=== PATIENT | female | born 1980 | race Caucasian/White ===

== ENCOUNTER 2017-06-23 13:39 | Emergency (ER) | payer MEDICARE, OTHER ==
[~2017-06-23] VITALS: Ht 154.9 cm; Wt 52.2 kg
--- OUTSIDE RECORDS SUMMARY | ~2017-06-23 | XMS | Encounter Summary ---
Demographics + + + | Address | [address] | | | [place] [address] | + + + | Home Phone | | + + + | Preferred Language | Unknown | + + + | Marital Status | | + + + | Tenriism Affiliation | Unknown | + + + | Race | Unknown | + + + | Ethnic Group | Unknown | + + + Author + + + | Author | [facility] | + + + | Organization | [facility] | + + + | Address | Unknown | + + + | Phone | Unavailable | + + + Support + + +---------+ + | Name | Relationship | Address | Phone | + + +---------+ + | Naye Wright | ECON | Unknown | | + + +---------+ + Care Team Providers + +------+ + | Care Grocery Supervisor Name | Role | Phone | [...] 05/21/2017-06/16/2017) | | | | [place] [address] | | | | | | [phone] | | | +--------+ + + + [...] [place] | | | | | | [address] | | | | | | | | +--------+---------+ + + + as of this encounter Visit Diagnoses Not on filein this encounter"
--- OUTSIDE RECORDS SUMMARY | ~2017-06-23 | XMS | Encounter Summary ---
Demographics + + + | Address | [address] | | | [place] [address] | + + + | Home Phone | | + + + | Preferred Language | Unknown | + + + | Marital Status | | + + + | Anabaptism Affiliation | Unknown | + + + | Race | Unknown | + + + | Ethnic Group | Unknown | + + + Author + + + | Author | [facility] [employer] [facility] [facility] | + + + | Organization | [facility] [employer] [facility] | + + + | Address | Unknown | + + + | Phone | Unavailable | + + + Support + + +---------+ + | Name | Relationship | Address | Phone | + + +---------+ + | Naye Wright | ECON | Unknown | | + + +---------+ + Care Team Providers + +------+ + | Care Tools Developer Name | Role | Phone | + +------+ + | [facility] Primary | PCP | | + +------+ + Reason for Visit MRI/CAT Scan (Emergency) + +--------+ + + + + | Status | Reason | Specialty | Diagnoses / | Referred By | Referred To | | | | | Procedures | Contact | Contact | + +--------+ + + + + | Authorized | | Radiology | Diagnoses | [place], | [facility] | | | | | CKD | Tavares Orellana MD | [address] | | | | | (chronic | [address] | [address] | | | | | kidney | [address] | [address] | | | | | disease) | [place], [place] | [place], [place] | | | | | stage 5, GFR | [address] | [address] Phone: | | | | | less than | Phone: | [phone] | | | | | 15 ml/min | [phone] | Fax: | | | | | (HCC) | Fax: | [phone] | | | | | Nephrotic | [phone] | | | | | | range [...] + + | 04/24/ | Hospital | [facility] | Tavares Vaca MD | CKD (chronic kidney | | 2018 | Encounter | Medical Center | [address] | disease) stage 5, | | | | Clinical Decision | [address] [place], [place] | GFR less than 15 | | | | [address] | [address] | ml/min ([facility]); | | | | [place] [address] | | Nephrotic range | | | | [phone] | 2, [facility] Di Nurse | proteinuria; Anemia | | | | | Radiologist, [facility] | of chronic renal | | | | | Procedure Ct | failure, stage 4 | | | | | | (severe) ([facility]); | | | | | | Secondary | | | | | | hyperparathyroidism | | | | | | ([facility]); | | | | | [...] return to work. Be sure to tell [facility] are providerif your job involves heavy lifting. [...] with or without activity Date Last Reviewed: 04/04/201619991420-1105 [employer]. [address] [place] [address]. All righ ts reserved. This information is [...] | | | | | | [address] [place], [place] | | | | | | [address] | | | | | | | [...] Laboratory | + + + | | [address] [address] | + + + + + | [...] intervention Patient positioning: Prone. | | Axial basketball scout images were obtained through region of interest [...] imaging and interventionPatient | | positioning: Prone.Axial basketball scout images were obtained through region of interest [...] EMBOLISMTesting performed at | | | | [facility];[address] [place] [address];[place] [address] | | | |Testing performed at [facility];[address] [place] [address];[place] [address] | | | | | | + + + + + + + | Specimen | Performing Laboratory | + + + | Blood | [facility] [address] [place] [address] | + + + aPTT (04/24/2017 8:15 AM) + + + + | Component | Value | Ref Range | + + + + | APTT | 30Comment: Testing performed at [facility];888 | 23 - 32 seconds | | | Jojo Hester;[place] [address] | | + + + + + + + | Specimen | Performing Laboratory | + + + | Blood | [facility] [address] [place] [address] | + + + Platelet count (04/24/2017 8:15 AM) + + + + | Component | Value | Ref Range | + + + + | PLT | 248Comment: Testing performed at [facility];888 | 150 - 400 K/uL | | | Jojo Hester;[place] [address] | | + + + + + + + | Specimen | Performing Laboratory | + + + | Blood | [facility] [address] [place] [address] | + + + in this encounter [...]
--- OUTSIDE RECORDS SUMMARY | ~2017-06-23 | XMS | Encounter Summary ---
Demographics + + + | Address | [address] | | | [place] [address] | + + + | Home Phone | | + + + | Preferred Language | Unknown | + + + | Marital Status | | + + + | Alevism Affiliation | Unknown | + + + | Race | Unknown | + + + | Ethnic Group | Unknown | + + + Author + + + | Author | [facility] [employer] | + + + | Organization | [employer] [employer] | + + + | Address | Unknown | + + + | Phone | Unavailable | + + + Support + + +---------+ + | Name | Relationship | Address | Phone | + + +---------+ + | Naye Wright | ECON | Unknown | | + + +---------+ + Care Team Providers + +------+ + | Care Esl Instructional Assistant Name | Role | Phone | + +------+ + | Clinic, [facility] | PCP | Unavailable | | Community | | | + +------+ + Encounter Details +--------+---------+ + + + | Date | Type | Department | Care Team | Description | +--------+---------+ + + + | 04/22/ | Office | [facility] | Tavares Vaca MD | BRIDGET (acute kidney | | 2018 | Visit | [place] [address] | [address] | injury) (Primary | | | | [facility] | [address] [place], [place] | Dx); CKD (chronic | | | | [address] [place], [place] | [address] | kidney disease) | [...] evaluation by the Kidney Transplant team at [facility]. I stopped her Ibuprofen. I put [...] F/U with the liver transplant team at [facility] for management of her anti-rejection meds. She will need to be seen by the Liver transplant team in [place] soon & regularly. She will continue to F/U with your office regularly. She will have a RFP, CBC, intact PTH, SFLC, SPIF, urinalysis, Urine total hypehmp-dy-dth atinine ratio before she comes back in [...] mouth 2 (two) times daily. nystatin (MYCOSTATIN) [id number] UNIT/ML suspension Take 200,000 Units by mouth [...] stage IV CKD on a background of detention use of calcineurin inhibitors. 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 She had a liver transplant at the age of 8; she had the hepatorenal syndrome in early 2014 & needed to go dialysis; she came off of it for 2.5 months; restart[facility] HD [facility]. She had her second [...] for evaluation by the Vascular Surgery team [facility] for AV fistula creation I sent her for evaluation by the Kidney Transplant team at [facility]. I stopped her Ibuprofen. I put [...] F/U with the liver transplant team at [facility] for management of her anti-rejection meds. She will need to be seen by the Liver transplant team in [place] soon & regularly. She will continue to F/U with your office regularly. She will have a RFP, CBC, intact PTH, SFLC, SPIF, urinalysis, Urine total uubakge-we-ktd atinine ratio before she comes back in 1 month. Thank you Colleague for the opportunity to see this patient in F/U on an urgent basis today for a declining GFR in the setting of liver transplant. Please do not hesitate to call me a t any time with questions or concerns. Truly yours, Tavares Vaca MD [facility] in this encounter Plan of Treatment +--------+---------+ + + + | Date | Type | Specialty | Care Team | Description | +--------+---------+ + + + | 07/15/ | Office | Nephrology | Tavares Vaca MD | | | 2018 | Visit | | [address] | | | | | | [address] [place], [place] | | | | | | [address] | | | | | | | | +--------+---------+ + + + as of this encounter Visit Diagnoses + + | Diagnosis | + + | BRIDGET (acute kidney injury) - Primary | + + | Acute kidney failure, unspecified | + + | CKD (chronic kidney disease) stage 5, GFR less than 15 ml/min ([facility]) | + + | Chronic kidney disease, [...]
--- OUTSIDE RECORDS SUMMARY | ~2017-06-23 | XMS | Encounter Summary ---
Demographics + + + | Address | [address] | | | [place] [address] | + + + | Home Phone | | + + + | Preferred Language | Unknown | + + + | Marital Status | Single | + + + | Confucianist Affiliation | NON | + + + [...] Team Providers + +------+ + | Care Reading Professor Name | Role | Phone | + [...] | [address] | [address] [place], | procedures) | | | | Road [place], [place] | [place] [address] | | | | | [address] | | | | | | [phone] | | | +--------+ + + + [...] | | | | | [address] [place], | | | | | | [place] [address] | | | | | | [phone] | | | | | | | | +--------+---------+ + + + as of this encounter Visit Diagnoses Not on filein this encounter"
--- OUTSIDE RECORDS SUMMARY | ~2017-06-23 | XMS | Encounter Summary ---
Demographics + + + | Address | [address] | | | [place] [address] | + + + | Home Phone | | + + + | Preferred Language | Unknown | + + + | Marital Status | Single | + + + | Zoroastrianism Affiliation | NON | + + + | Race | White | + + + | Ethnic Group | Not or | + + + Author + + + | Author | [facility] | + + + | Organization | [facility] | + + + | [...] Team Providers + +------+ + | Care Die Repairer Stamping Name | Role | Phone | + [...] | | | | | Procedures | [place], [place] | | | | | | CT ABDOMEN | [address] | | | | | | WWO IV | Phone: | | | | | | CONTRAST | [phone] | | | | | | | Fax: | | | | | | | [phone] | | +--------+--------+ + + + + [...] | | | | replaced by | [address] | | | | | | transplant | [address] | | | | | | (HCC) | Rd | | | | | | Procedures | [place], [place] | | | | | | CONSULT TO | [address] | | | | | | GI PROCEDURE | Phone: | | | | | | UNIT: EGD | [phone] | | | | | | | Fax: | | | | | | | [phone] | | + +--------+ + + + [...] Radiology | Liver | MD Bernabe | [facility] [address] | | | | | replaced by | [address] | | | | | transplant | [facility] | [facility] | | | | | (HCC) | Rd | Mailcode: | | | | | Procedures | [place], [place] | [address] | | | | | IR BODY | [address] | [place] | | | | | PROCEDURE | Phone: | Hospital | | | | | REQUEST [place] | [phone] | [facility] | | | | | PLACE CATH | Fax: | [place], [place] | | | | | [place] | [phone] | [address] | | | | | VEIN,SELECT | | Phone: | | | | | RI VENOGRAM | | [phone] | | | | | HEPATIC W | | Fax: | | | | | HEMODYNAMICS | | [phone] | | | | | RI | | | | | | | TRANSCATHETE | | | | | | | R BIOPSY RI | | | | | | | VASCULAR | | | | | | | BIOPSY RI | | | | | | | [...] + + + + | 05/07/ | County Assessor | Transplant | Bernabe Taylor MD | Liver replaced by | | 2018 | | Coordinators [address] | [address] | transplant (HCC) | | | | [address] | [address] [place], | (Primary Dx); | | | | Road [place], [place] | [place] [address] | Cirrhosis of liver | | | | [address] | 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
--- OUTSIDE RECORDS SUMMARY | ~2017-06-23 | XMS | Encounter Summary ---
Demographics + + + | Address | [address] | | | [place] [address] | + + + | Home Phone | | + + + | Preferred Language | Unknown | + + + | Marital Status | | + + + | Restoration Affiliation | Unknown | + + + | Race | Unknown | + + + | Ethnic Group | Unknown | + + + Author + + + | Author | [facility] [facility] | + + + | Organization | [employer] | + + + | Address | Unknown | + + + | Phone | Unavailable | + + + Support + + +---------+ + | Name | Relationship | Address | Phone | + + +---------+ + | Naye Wright | ECON | Unknown | | + + +---------+ + Care Team Providers + +------+ + | Care Production Tester Name | Role | Phone | + [...] 04/15/2017) | | | | [place] [address] | | | | | | [phone] | | | +--------+ + + + [...] | | | | | | [address] [place] | | | | | | [address] | | | | | | | | +--------+---------+ + + + as of this encounter Visit Diagnoses Not on filein this encounter"
--- OUTSIDE RECORDS SUMMARY | ~2017-06-23 | XMS | Encounter Summary ---
Demographics + + + | Address | [address] | | | [place] [address] | + + + | Home Phone | | + + + | Preferred Language | Unknown | + + + | Marital Status | | + + + | Zoroastrianism Affiliation | Unknown | + + + | Race | Unknown | + + + | Ethnic Group | Unknown | + + + Author + + + | Author | [facility] [facility] | + + + | Organization | [employer] | + + + | Address | Unknown | + + + | Phone | Unavailable | + + + Support + + +---------+ + | Name | Relationship | Address | Phone | + + +---------+ + | Naye Wright | ECON | Unknown | | + + +---------+ + Care Team Providers + +------+ + | Care Polisher Balance Screwhead Name | Role | Phone | + [...] disease) stage 5, | | | | [address] [facility] [address] | | GFR less than 15 | | | | [place] [address] | | ml/min ([facility]); Anemia | | | | [phone] | | of chronic renal | | | | | | failure, stage 5 | | | | | | ([facility]); BRIDGET (acute | | | | | | kidney injury); | | | | | | Secondary | | | | | | hyperparathyroidism | | | | | | ([facility]); Nephrotic | | | | | | [...] [place] | | | | | | [address] | | | | | | | [...] | + + + | Blood | [facility] [address] [place] [address] [facility] [address] [place] | | | [address] | + + + Ferritin (06/14/2017 9:42 AM) + + + + | Component | Value | Ref Range | + + + + | FERRITIN | 472.1 (A) | 13 - 150 ng/mL | + + + + + + + | Specimen | Performing Laboratory | + + + | Blood | [facility] [address] [place] [address] | | | [address] | + + + Renal function panel [...] + + | Blood | [facility] [address] [place], [place] [address] | | | [address] | + + + CBC W/Auto Diff [...] | + + + | Blood | [facility] [place] | | | [address] | + + + PTH intact no calcium (06/14/2017 9:42 AM) + +---------+ + | Component | Value | Ref Range | + +---------+ + | PTH INTACT NO | 409 (A) | 15 - 65 pg/mL | | CALCIUM | | | + +---------+ + + + + | Specimen | Performing Laboratory | + + + | Blood | [facility] [place], [facility] [place] | | | [address] | + + + in this encounter Visit Diagnoses + + | Diagnosis | + + | CKD (chronic kidney disease) stage 5, GFR less than 15 ml/min ([facility]) | + + | Chronic kidney disease, Stage V | + + | Anemia of chronic renal failure, stage 5 ([facility]) | + + | BRIDGET (acute kidney injury) | + + | Acute kidney failure, unspecified | + + | Secondary hyperparathyroidism (HCC) | + + | Secondary hyperparathyroidism (of renal origin) | + + | Nephrotic range proteinuria | + + | Proteinuria | + + | Essential hypertension, benign | + +"
--- OUTSIDE RECORDS SUMMARY | ~2017-06-23 | XMS | Encounter Summary ---
Demographics + + + | Address | [address] | | | [place] [address] | + + + | Home Phone | | + + + | Preferred Language | Unknown | + + + | Marital Status | | + + + | Lutheran Affiliation | Unknown | + + + | Race | Unknown | + + + | Ethnic Group | Unknown | + + + Author + + + | Author | [facility] [facility] | + + + | Organization | [facility] [employer] | + + + | Address | Unknown | + + + | Phone | Unavailable | + + + Support + + +---------+ + | Name | Relationship | Address | Phone | + + +---------+ + | Naye Wright | ECON | Unknown | | + + +---------+ + Care Team Providers + +------+ + | Care Metal Miner Blasting Name | Role | Phone | + [...] | | 2018 | on Only | [place] [address] | | Packet) | | | | [address] | | | | | | [place] [address] | | | | | | [phone] | | | +--------+ + + + [...] IV Therapy. Fax confirmation rece ed from [phone]. in this encounter Plan of Treatment +--------+---------+ + + + | Date | Type | Specialty | Care Team | Description | +--------+---------+ + + + | 07/15/ | Office | Nephrology | Tavares Vaca MD | | | 2017 | Visit | | [address] | | | | | | [facility] | | | | | | [id number] | | | | | | | | +--------+---------+ + + + as of this encounter Visit Diagnoses Not on filein this encounter"
--- OUTSIDE RECORDS SUMMARY | ~2017-06-23 | XMS | Encounter Summary ---
Demographics + + + | Address | [address] | | | [place] [address] | + + + | Home Phone | | + + + | Preferred Language | Unknown | + + + | Marital Status | | + + + | Jain Affiliation | Unknown | + + + | Race | Unknown | + + + | Ethnic Group | Unknown | + + + Author + + + | Author | [facility] [employer] [facility] | + + + | Organization | [facility] [employer] | + + + | Address | Unknown | + + + | Phone | Unavailable | + + + Support + + +---------+ + | Name | Relationship | Address | Phone | + + +---------+ + | Naye Wright | ECON | Unknown | | + + +---------+ + Care Team Providers + +------+ + | Care Ems Helicopter Pilot Name | Role | Phone | [...] | Vascular | Diagnoses | [place], | [facility], | | | Services | Surgery | CKD | Tavares Orellana MD | [address] | | | Required | | (chronic | [address] | [address] | | | | | kidney | [address] | Drive | | | | | disease) | [address] | [place] | | | | | stage 5, GFR | [place], | [address] Phone: | | | | | less than | [place] [address] | [phone] | | | | | 15 ml/min | Phone: | Fax: | | | | | (HCC) | [phone] | [phone] | | | | | Nephrotic | Fax: | | | | | | range | [phone] | | | | | | proteinuria [...] + + | 05/02/ | Initial | [facility] | Jay Portillo MD | Chronic kidney | | 2018 | consult | Vascular Surgery | [address] | disease (CKD), | | | | [address] | [place] [address] | active medical | | | | [address] [place], [place] | [phone] | management without | | | | [address] | | dialysis, | | | | [phone] | | unspecified stage | | | [...] was referred to my office by her Sheriff'S Officer, Dr. Vaca, for fistula creation. Patient reports [...] | | | | | | [address] [place], [place] | | | | | | [...]
--- OUTSIDE RECORDS SUMMARY | ~2017-06-23 | XMS | Encounter Summary ---
Demographics + + + | Address | [address] | | | [place] [address] | + + + | Home Phone | | + + + | Preferred Language | Unknown | + + + | Marital Status | | + + + | Adventism Affiliation | Unknown | + + + | Race | Unknown | + + + | Ethnic Group | Unknown | + + + Author + + + | Author | [facility] [employer] [facility] | + + + | Organization | [facility] [employer] [facility] | + + + | Address | Unknown | + + + | Phone | Unavailable | + + + Support + + +---------+ + | Name | Relationship | Address | Phone | + + +---------+ + | Naye Wright | ECON | Unknown | | + + +---------+ + Care Team Providers + +------+ + | Care Bridge Ironworker Helper Name | Role | Phone | [...] + + | 06/17/ | Documentati | [facility] | Kiersten Shaffer CMA | Labs Only ([facility] | | 2018 | on Only | [place] [address] | | labs dated | | | | [address] | | 06/14/2017) | | | | [place] [address] | | | | | | [phone] | | | +--------+ + + + [...] [place] | | | | | | [address] | | | | | | | | +--------+---------+ + + + as of this encounter Visit Diagnoses Not on filein this encounter"
--- OUTSIDE RECORDS SUMMARY | ~2017-06-23 | XMS | Clinical Summary ---
Demographics + + + | Address | [address] | | | [place] [address] | + + + | Home Phone | | + + + | Preferred Language | Unknown | + + + | Marital Status | | + + + | Restoration Affiliation | Unknown | + + + | Race | Unknown | + + + | Ethnic Group | Unknown | + + + Author + + + | Author | [facility] | + + + | Organization | [facility] | + + + | Address | Unknown | + + + | Phone | Unavailable | + + + Support + + +---------+ + | Name | Relationship | Address | Phone | + + +---------+ + | Naye Wright | ECON | Unknown | | + + +---------+ + Care Team Providers + +------+ + | Care Order Packer Or Packager Name | Role | Phone | + [...] | 11/0 | Activ | | (PROCRIT) [id number] | skin every 30 | | | [...] 06/18/ | Documentati | | Kiersten Shaffer, CEO [facility] | Other (Blood | | 2018 | [...] | | | | ml/min ([facility]) | | | | | | [...] | | | | 5 ([facility]); BRIDGET (acute | | | | [...] | | | | ml/min ([facility]) | | | | | | (Primary Dx); Anemia | | | | | | of chronic renal | | | | | | failure, stage 5 | | | | | | ([facility]); Essential | | | | | | hypertension, | | | | | | benign; | | | | | | Hyperphosphatemia; | | | | | | Secondary | | | | | | hyperparathyroidism | | | | | | ([facility]); Metabolic | | | | | [...] | | | | ml/min ([facility]); Anemia | | | | | | of chronic renal | | | | | | failure, stage 5 | | | | | | ([facility]); BRIDGET (acute | | | | | | kidney injury); | | | | | | Secondary | | | | | | hyperparathyroidism | | | | | | ([facility]); Nephrotic | | | | | | range proteinuria; | | | | | | Essential | | | | | | hypertension, benign | +--------+ + + + + | 06/14/ | Telephone | | Kylee Kerr, | | | 2017 | | | CEO [facility] | | +--------+ + + + + | 06/13/ | Documentati | | Kiersten Shaffer CMA | Other (Chart Note | | 2017 | on Only | | | from [facility] dated | | | | | | [...] | | | | | PhD 3, [facility] Di | GFR less than 15 | | | | | Nurse | ml/min ([facility]); Anemia | | | | | [...] | on Only | | | from [facility] | | | | | | Transplant | | | | | | Hepatology dated | | | | | | 05/07/2017) | +--------+ + + + + | 05/23/ | Documentati | | Kiersten Shaffer, CEO [facility] | Other (Blood Pressre | | 2017 | on Only | | | Log dated | | | | | | 05/06/2017-05/19/2017) | +--------+ + + + + | 05/23/ | Documentati | | Kiersten Shaffer, CEO [facility] | [facility] ([facility] | | 2017 | on Only | | | Packet) | +--------+ + + + + | 05/22/ | Telephone | | Kiersten Shaffer, CEO [facility] | Other | | 2017 | | [...] | | | | ml/min ([facility]); Anemia | | | | | | of chronic renal | | | | | | failure, stage 5 | | | | | | ([facility]); BRIDGET (acute | | | | | | kidney injury); | | | | | | Secondary | | | | | | hyperparathyroidism | | | | | | ([facility]) | +--------+ + + + + [...] | | | | ml/min ([facility]) | | | | | | (Primary Dx); Anemia | | | | | | of chronic renal | | | | | | failure, stage 5 | | | | | | ([facility]); Essential | | | | | | hypertension, | | | | | | benign; Secondary | | | | | | hyperparathyroidism | | | | | | ([facility]); Metabolic | | | | | [...] | | | | ml/min ([facility]) | | | | | | (Primary Dx); Anemia | | | | | | of chronic renal | | | | | | failure, stage 5 | | | | | | ([facility]); BRIDGET (acute | | | | | | kidney injury); | | | | | | Secondary | | | | | | hyperparathyroidism | | | | | | ([facility]); Nephrotic | | | | | [...] | | | | ml/min ([facility]); | | | [...] | 2018 | Encounter | | 2, [facility] Di Nurse | disease) stage 5, | | | | | Radiologist, [facility] | GFR less than 15 | | | | | Procedure Ct | ml/min ([facility]); | | | [...] | | | | ml/min ([facility]) | | | | | | [...] | | | ([facility]); Metabolic | | | | | | acidosis; Nephrotic | | | | | | range proteinuria; | | | | | | Secondary | | | | | | hyperparathyroidism | | | | | | ([facility]); Adverse | | | | | [...] | | | | ml/min ([facility]) | | | | | | [...] | | | ([facility]); Nephrotic | | | | | | range proteinuria; | | | | | | Anemia of chronic | | | | | | renal failure, stage | | | | | | 4 (severe) ([facility]); | | | | | | Hyperuricemia; BRIDGET | | | | | | (acute kidney | | | | | | injury); Metabolic | | | | | | acidosis; Secondary | | | | | | hyperparathyroidism | | | | | | ([facility]); Acute | | | | | [...] | | | ([facility]); Nephrotic | | | | | | range proteinuria; | | | | | | Anemia of chronic | | | | | | renal failure, stage | | | | | | 4 (severe) ([facility]); | | | | | | Hyperuricemia; BRIDGET | | | | | | (acute kidney | | | | | | injury); Metabolic | | | | | | acidosis; Secondary | | | | | | hyperparathyroidism | | | | | | ([facility]); Acute | | | | | | cystitis without | | | | | | hematuria | +--------+ + + + + | 04/17/ | Telephone | | Kiersten Shaffer, CEO [facility] | Abnormal Labs | | 2017 | | | | | +--------+ + + + + | 04/16/ | Telephone | | Kiersten Shaffer, CEO [facility] | Other (Appointment | | 2017 | | | | and lab reminder) | +--------+ + + + + | 04/15/ | Documentati | | Kiersten Shaffer, CEO [facility] | Labs Only ([facility] | | 2018 | on Only | | | lab dated | | | | | | 04/15/2017) | +--------+ + + + + | 04/15/ | Orders Only | | Kiersten Shaffer CMA | Stage 4 chronic | | 2018 | | | | kidney disease | | | | | | ([facility]); Nephrotic | | | | | | range proteinuria; | | | | | | Anemia of chronic | | | | | | renal failure, stage | | | | | | 4 (severe) ([facility]); | | | | | | Hyperuricemia; BRIDGET | | | | | | (acute kidney | | | | | | injury); Metabolic | | | | | | acidosis; Secondary | | | | | | hyperparathyroidism | | | | | | ([facility]); Acute | | | | | [...] | | | | | | [address] [place], [place] | | | | | | [address] | | | | | | | [...] Lot | + +------+--------+ +--------+--------+--------+ | [place] Acuseal [id number] | | Left: | CIARRA ALY - | | 08/19/ | [id number] | | - [id number]: | | Arm | WLGO | | 2020 | [id number] | | Qty: 1 on 05/10/2017 by Bandar, | | | | | | /[id number] | | Jay Dnaiel MD | | | | | | [...] | + + + | Blood | [facility] [address] [place] [address] | | | [address] | + + + CBC W/Auto Diff [...] | + + + | Blood | [facility] [address] [place], [place] [address]akiko [facility] [place] | | | [address] | + + + PTH intact no [...] + | Blood | [facility] [address] [facility] [address] [place] | | | [address] | + + + Ferritin (06/14/2017 9:42 [...] | + + + | Blood | [facility] [address] [place] [address] | | | [address] | + + + Renal function panel [...] + + | Blood | [facility] [address] [place] [address], [place] | | | [address] | + + + CT needle biopsy kidney (05/30/2017 10:00 AM) + + + | Specimen | Performing Laboratory | + + + | | [facility] [address] | + + + + + | [...] disease. Proteinuria. History of liver transplant. PRIMARY NUCLEAR REACTOR OPERATOR: | | Gerson Lucero MD, PhD, RPVI [...] division in distribution into appropriate media for ho-chunk renal | | pathologic assessment, including electromicroscopy [...] Unit for routine post procedure monitoring. FINDINGS: Dialysis Chief Equipment Technician CT redemonstrates | | thin body habitus [...] Proteinuria. History of liver | | transplant.PRIMARY NUCLEAR REACTOR OPERATOR: Gerson Lucero MD, PhD, RPVIOPERATIONS:1. Limited CT [...] distribution into appropriate media for | | ho-chunk renal pathologic assessment, including electromicroscopy and immunofluorescence. [...] Stay Unit for routine post procedure monitoring.FINDINGS: Dialysis Chief Equipment Technician CT redemonstrates thin | | body habitus [...] | APTT | 31Comment: Testing performed at [facility];[address] | 23 - 32 seconds | | | Jojo Hester;[place] [address] | | + + + + + + + | Specimen | Performing Laboratory | + + + | Blood | [facility] [address] [place] [address] | + + + Protime-INR (05/30/2017 8:27 [...] EMBOLISMTesting performed at | | | | [facility];[address] [place] [address];[place] [address] | | | |Testing performed at [facility];[address] [place] [address];[place] [address] | | | | | | + + + + + + + | Specimen | Performing Laboratory | + + + | Blood | [facility] [address] [facility] [place] [address] | + + + Platelet count (05/30/2017 8:27 AM)Only the most recent of 2 results within the time perio d is included. + + + + | Component | Value | Ref Range | + + + + | PLT | 277Comment: Testing performed at [facility] | 150 - 400 K/uL | | | [facility];[place] [address] | | + + + + + + + | Specimen | Performing Laboratory | + + + | Blood | [facility] [address] [place] [address] | + + + Pathology histology - [...] This case was seen and processed at [facility] | | [place], [place]. (Report # [id number]) GROSS DESCRIPTION: Three specimens | | are [...] | | | Some Gl[place], Appears Adequate AMB:[facility] MICROSCOPIC EXAMINATION: Four core | | segments [...] developed and their performance characteristics determined by [facility]. This test is used for clinical purposes. It should not be | | regarded as investigational or for research. [facility] is certified | | under [...] 1, IF-lgG x 1, IF-lgM x 1, IF-[place] | | x 1, IF-Lambda x 1. PERFORMING LABORATORY: Professional interpretation and technical | | [facility], [address] [place] [address] | | [place] [address] (Clinical Dermatologist: Trell Marrero M.D.; | | CLIA#: [id number]). COMMENT: The ultrastructural changes support the light [...] + | Blood | [facility] [address] | | | [address] | + + + Basic metabolic panel [...] | + + + | Blood | [facility] [address] [place] [address], [place] | | | [address] | + + + [place]/Lambda LC RATI (05/15/2017 8:15 AM) + + + | Specimen | Performing Laboratory | + + + | | [facility] [address] [place] [address], [place] [address] [place] | | | [address] | + + + + + | Narrative | + + | [place] Quant: 13.30 Range: 0.33-1.94 Lambda: 8.20 Range: [...] + + | Urine | [facility] [address] [place], [place] [address] | | | [address] | + + + + + | Narrative | + + | Bacteria: 1+ | + + Immunofixation,Serum (05/15/2017 8:15 AM) + + + | Specimen | Performing Laboratory | + + + | Blood | [facility] [address] [place] [address], [facility] [address] [place], [place] | | | [address] | + + + + + | [...] at | NEGATIVE | | | [facility];[address] [facility];[place] [address] | | + + + + + + + | Specimen | Performing Laboratory | + + + | Nasopharyngeal - | [facility] [address] [place] [address] | | Joseph(Nose) | | + + + US upper extremity mapping for HDA bilat (05/01/2017 10:23 AM) + + + | Specimen | Performing Laboratory | + + + | | [place] [address] [place] [address] | + + + + + | [...] Laboratory | + + + | | [facility] [address] [place] [address] | + + + + + | [...] intervention Patient positioning: Prone. | | Axial drilling inspector images were obtained through region of interest [...] imaging and interventionPatient | | positioning: Prone.Axial drilling inspector images were obtained through region of interest [...] + | Blood | [facility] [address] [employer], [address] [place], [place] | | | [address] | + + + Magnesium (04/18/2017 8:10 AM) + +---------+ + | Component | Value | Ref Range | + +---------+ + | MAGNESIUM | 1.6 (A) | 1.7 - 2.5 mg/dL | + +---------+ + + + + | Specimen | Performing Laboratory | + + + | Blood | [facility] [address] [place], [address] [place], [place] | | | [address] | + + + Protein / creatinine [...] | Urine - Urine, | [facility] [address] [place] [address], [place] | | Unspecified Source | [address] | + + + Urine culture (04/18/2017) [...] + | Urine | [facility] [address] [facility] [address] [place], [place] | | | [address] | + + + from Last 3 [...] | xxxxxxxxxx | | | [address] | | | RE | | | | [place] [address] | | | IP-OP | | | | | + +--------+ +------+-------+ + | MEDICAID | [facility] | xxxxxxxx | | | [address] | | | N | | | | [place], [place] | | | [place] | | | | [address] | | | SEX WORKER [employer] | | | | | + +--------+ [...] | flavia | | | [address]65 | [address] | + +--------+ +--------+ + +
--- OUTSIDE RECORDS SUMMARY | ~2017-06-23 | XMS | Encounter Summary ---
Demographics + + + | Address | [address] | | | [place] [address] | + + + | Home Phone | | + + + | Preferred Language | Unknown | + + + | Marital Status | Single | + + + | Mandaen Affiliation | NON | + + + | Race | White | + + + | Ethnic Group | Not or | + + + Author + + + | Author | [facility] | + + + | Organization | [facility] | + + + | Address [...] Team Providers + +------+ + | Care Customer Service Supervisor Name | Role | Phone | [...] | | | | | [facility] | [facility], | | | | | Road [place], [place] | [place] [address] | | | | | [address] | [phone] | | | | | [phone] | | | +--------+ + + + [...] | | | | | [address] [place], | | | | | | [place] [address] | | | | | | [phone] | | | | | | | [...]
--- OUTSIDE RECORDS SUMMARY | ~2017-06-23 | XMS | Encounter Summary ---
Demographics + + + | Address | [address] | | | [place] [address] | + + + | Home Phone | | + + + | Preferred Language | Unknown | + + + | Marital Status | | + + + | Religion Affiliation | Unknown | + + + | Race | Unknown | + + + | Ethnic Group | Unknown | + + + Author + + + | Author | [facility] | + + + | Organization | [facility] | + + + | Address | Unknown | + + + | Phone | Unavailable | + + + Support + + +---------+ + | Name | Relationship | Address | Phone | + + +---------+ + | Naye Wright | ECON | Unknown | | + + +---------+ + Care Team Providers + +------+ + | Care Top Lift Compresser Name | Role | Phone | + +------+ + | [facility]arate Primary | PCP | | + +------+ + Encounter Details +--------+ + + + + | Date | Type | Department | Care Team | Description | +--------+ + + + + | 05/14/ | Telephone | [facility] | Yaritza Soares, | | | 2017 | | Vascular Surgery | RN | | | | | [address] | | | | | | [place] | | | | | | [address] | | | | | | [phone] | | | +--------+ + + + [...]
--- OUTSIDE RECORDS SUMMARY | ~2017-06-23 | XMS | Encounter Summary ---
Demographics + + + | Address | [address] | | | [place] [address] | + + + | Home Phone | | + + + | Preferred Language | Unknown | + + + | Marital Status | | + + + | Mosque Affiliation | Unknown | + + + | Race | Unknown | + + + | Ethnic Group | Unknown | + + + Author + + + | Author | [facility] [facility] | + + + | Organization | [facility] | + + + | Address | Unknown | + + + | Phone | Unavailable | + + + Support + + +---------+ + | Name | Relationship | Address | Phone | + + +---------+ + | Naye Wright | ECON | Unknown | | + + +---------+ + Care Team Providers + +------+ + | Care Shank Stitcher Name | Role | Phone | + [...] | | | | | [place] [address] | | | | | | [phone] | | | +--------+ + + + [...] | | | | | | [address] [place], [place] | | | | | | [address] | | | | | | | | +--------+---------+ + + + as of this encounter Visit Diagnoses Not on filein this encounter"
--- OUTSIDE RECORDS SUMMARY | ~2017-06-23 | XMS | Clinical Summary ---
Demographics + + + | Address | [address] | | | [place] [address] | + + + | Home Phone | | + + + | Preferred Language | Unknown | + + + | Marital Status | Unknown | + + + | Baptist Affiliation | Unknown | + + + | Race | Unknown | + + + | Ethnic Group | Unknown | + + + Author + + + | Author | [facility] | | | and Tomy | + + + | Organization | [facility] | | | and [place] | + + + | Address | Unknown | + + + | Phone | Unavailable | + + + Care Team Providers + +------+ + | Care Clinical Engineer Name | Role | Phone | [...] Laboratory | + + + | | [facility] [address] | | | [place] [address] | + + + + + | Narrative | + + | SURGICAL PATHOLOGY REPORT Case | | Number: [id number] Date Taken: 05/30/2017 Date Received: 05/30/2017 Completed: [...] their | | performance characteristics determined by [facility] | | Laboratory. This test is used for clinical purposes. It should not be regarded | | as investigational or for research. [facility] is certified under the | | Clinical Laboratory Improvement Amendments of 1988 (CLIA) as qualified to perform high | | complexity clinical laboratory testing. A: 99564, 76527, 16513, [address]39[address], | | 35001, 24405, 72731, 77189, 62094, 59002, 10298(a), 28804, 43800, 28[address] | | PROCEDURES/ADDENDA ELECTRON MICROSCOPY | | [...] Abdoul, MD Testing performed at: | | [facility] Bernabe Aguilera M.D., Director [address] | | [address] [place] [address] | + + from Last 3 Months [...] | MODA | [id number] | Medica | [phone] | | MEDICAID HMO | HEALTH [...] | | | flavia | | | [phone] | [phone] | + +--------+ +--------+ + +
--- OUTSIDE RECORDS SUMMARY | ~2017-06-23 | XMS | Encounter Summary ---
Demographics + + + | Address | [address] | | | [place] [address] | + + + | Home Phone | | + + + | Preferred Language | Unknown | + + + | Marital Status | | + + + | Jain Affiliation | Unknown | + + + | Race | Unknown | + + + | Ethnic Group | Unknown | + + + Author + + + | Author | [facility] | + + + | Organization | [facility] | + + + | Address | Unknown | + + + | Phone | Unavailable | + + + Support + + +---------+ + | Name | Relationship | Address | Phone | + + +---------+ + | Naye Wright | ECON | Unknown | | + + +---------+ + Care Team Providers + +------+ + | Care Full Stack Python Developer Name | Role | Phone | [...] 05/20/2017) | | | | [place] [address] | | | | | | [phone] | | | +--------+ + + + [...] [place] | | | | | | [id number] | | | | | | | [...] + + | Blood | [facility] [address] [place] [address] | | | [address] | + + + in this encounter Visit Diagnoses Not on filein this encounter"
--- OUTSIDE RECORDS SUMMARY | ~2017-06-23 | XMS | Encounter Summary ---
Demographics + + + | Address | [address] | | | [place] [address] | + + + | Home Phone | | + + + | Preferred Language | Unknown | + + + | Marital Status | | + + + | Hindu Affiliation | Unknown | + + + | Race | Unknown | + + + | Ethnic Group | Unknown | + + + Author + + + | Author | [facility] | + + + | Organization | [facility] | + + + | Address | Unknown | + + + | Phone | Unavailable | + + + Support + + +---------+ + | Name | Relationship | Address | Phone | + + +---------+ + | Naye Wright | ECON | Unknown | | + + +---------+ + Care Team Providers + +------+ + | Care Legal Office Administrator Name | Role | Phone | + +------+ + | Sherrie Blackman MD | PCP | | + +------+ + Encounter Details +--------+ + + + + | Date | Type | Department | Care Team | Description | +--------+ + + + + | 05/21/ | Orders Only | [facility] | Kiersten Shaffer CMA | CKD (chronic kidney | | 2017 | | [place] [address] | | disease) stage 5, | | | | [address] | | GFR less than 15 | | | | [place] [address] | | ml/min ([facility]); Anemia | | | | [phone] | | of chronic renal | | | | | | failure, stage 5 | | | | | | ([facility]); BRIDGET (acute | | | | | | kidney injury); | | | | | | Secondary | | | | | | hyperparathyroidism | | | | | | ([facility]) | +--------+ + + + + Social [...] | | | | | | [address] [place], [place] | | | | | | [address] | | | | | | | [...] + + | Blood | [facility] [address] [place] [address], [place] | | | [address] | + + + Iron angie (05/20/2017 [...] + | Blood | [facility] [address] [place] | | | [address] | + + + Basic metabolic panel [...] + + | Blood | [facility] [address] [place] [address] | | | [address] | + + + CBC W/Auto Diff [...] + | Blood | [facility] [address] [place] [address], [facility] [address] [place], [place] | | | [address] | + + + in this encounter Visit Diagnoses + + | Diagnosis | + + | CKD (chronic kidney disease) stage 5, GFR less than 15 ml/min ([facility]) | + + | Chronic kidney [...]
--- OUTSIDE RECORDS SUMMARY | ~2017-06-23 | XMS | Encounter Summary ---
Demographics + + + | Address | [address] | | | [place] [address] | + + + | Home Phone | | + + + | Preferred Language | Unknown | + + + | Marital Status | | + + + | Yazidi Affiliation | Unknown | + + + | Race | Unknown | + + + | Ethnic Group | Unknown | + + + Author + + + | Author | [facility] [employer] [facility] | + + + | Organization | [facility] [employer] [facility] | + + + | Address | Unknown | + + + | Phone | Unavailable | + + + Support + + +---------+ + | Name | Relationship | Address | Phone | + + +---------+ + | Naye Wright | ECON | Unknown | | + + +---------+ + Care Team Providers + +------+ + | Care French Comber Name | Role | Phone | + [...] stage 5, | | | | [facility] | [address] [place], [place] | GFR less than 15 | | | | [address] [place], [place] | [id number] | ml/min (HCC) | | | | [address] | | (Primary Dx); Anemia | | | | | | of chronic renal | | | | | | failure, stage 5 | | | | | | ([facility]); Essential | | | | | | hypertension, | | | | | | benign; | | | | | | Hyperphosphatemia; | | | | | | Secondary | | | | | | hyperparathyroidism | | | | | | ([facility]); Metabolic | | | | | | [...] Also: I see no acute indication for FORESTRY ENGINEER. I see no need to send her to the ED. I discussed with her to F/U for evaluation by the Kidney Transplant team at [facility] I kept her off Ibuprofen. I [...] F/U with the liver transplant team at [place] for management of her anti -rejection meds. She will need to be seen by the Liver transplant team in [place] soon & regularly. She will F/U with [...] restarted HD thru a [facility] in the [facility] of [facility]. She had her second liver [...] Also: I see no acute indication for FORESTRY ENGINEER. I see no need to send her to the ED. I discussed with her to F/U for evaluation by the Kidney Transplant team at [facility] I kept her off Ibuprofen. I [...] F/U with the liver transplant team at [place] for management of her anti -rejection meds. She will need to be seen by the Liver transplant team in [place] soon & regularly. She will F/U with [...] or concerns. Truly yours, Tavares Vaca MD [facility] in this encounter Plan of Treatment +--------+---------+ + + + | Date | Type | Specialty | Care Team | Description | +--------+---------+ + + + | 07/15/ | Office | Nephrology | Tavares Vaca MD | | | 2018 | Visit | | [address] | | | | | | [address] [place], [place] | | | | | | [address] | | | | | | | | +--------+---------+ + + + as of this encounter Visit Diagnoses + + | Diagnosis | + + | CKD (chronic kidney disease) stage 5, GFR less than 15 ml/min ([facility]) - Primary | + + | Chronic kidney disease, Stage V | + + | Anemia of chronic renal failure, stage 5 ([facility]) | + + | Essential hypertension, benign | + + | Hyperphosphatemia | + + | Disorders of phosphorus metabolism | + + | Secondary hyperparathyroidism (HCC) | + + | Secondary hyperparathyroidism (of renal origin) | + + | Metabolic acidosis | + + | Acidosis | + +"
--- OUTSIDE RECORDS SUMMARY | ~2017-06-23 | XMS | Encounter Summary ---
Demographics + + + | Address | [address] | | | [place] [address] | + + + | Home Phone | | + + + | Preferred Language | Unknown | + + + | Marital Status | | + + + | Restoration Affiliation | Unknown | + + + | Race | Unknown | + + + | Ethnic Group | Unknown | + + + Author + + + | Author | [facility] [employer] [facility] | + + + | Organization | [facility] [employer] [facility] | + + + | Address | Unknown | + + + | Phone | Unavailable | + + + Support + + +---------+ + | Name | Relationship | Address | Phone | + + +---------+ + | Naye Wright | ECON | Unknown | | + + +---------+ + Care Team Providers + +------+ + | Care Hose Coupling Joiner Name | Role | Phone | + +------+ + | Clinic, [facility] | PCP | Unavailable | | [...] | Radiology | Diagnoses | [place], | [facility] | | | | | CKD | Tavares Orellana MD | [address] | | | | | (chronic | [address] | [address] | | | | | kidney | [address] | [address] | | | | | disease) | [place], [place] | [place], [place] | | | | | stage 5, GFR | [address] | [address] Phone: | | | | | less than | Phone: | [phone] | | | | | 15 ml/min | [phone] | Fax: | | | | | (HCC) | Fax: | [phone] | | | | | Nephrotic | [phone] | | | | | | range [...] | Specialty | Nephrology | Diagnoses | [place] | [facility] | | | Services | | CKD | Tavares Orellana MD | KIDNEYTRANSPL | | | Required | | (chronic | [address], | [facility] | | | | | kidney | [address] | [facility] [address] | | | | | disease) | [place], | DAVID Jhon | | | | | stage 5, GFR | [place] [address] | [address] | | | | | less than | Phone: | [address] [place], | | | | | 15 ml/min | [phone] | [place] [address] | | | | | (HCC) | Fax: | Phone: | | | | | Nephrotic | [phone] | [phone] | | | | | range | | Fax: | | | | | proteinuria | | [phone] | | | | | Anemia of [...] | stage 5, GFR | [place], | [address] Phone: | | | | | less than | [place] [address] | [phone] | | | | | 15 ml/min | Phone: | Fax: | | | | | (HCC) | [phone] | [phone] | | | | | Nephrotic | Fax: | | | | | | range | [phone] | | | | | | proteinuria [...] | | | | | | | ([facility]) | | | + + + + [...] (chronic kidney | | 2018 | | [place] [address] | | disease) stage 5, | | | | [address] | | GFR less than 15 | | | | [address] [place], [place] | | ml/min (HCC) | | | | [address] | | (Primary Dx); | | | | | | Nephrotic range | | | | | | proteinuria; Anemia | | | | | | of chronic renal | | | | | | failure, stage 4 | | | | | | (severe) ([facility]); | | | | | | Secondary | | | | | | hyperparathyroidism | | | | | | ([facility]); | | | | | | Hyperphosphatemia; [...] | | | | | | [address] [place], [place] | | | | | | [address] | | | | | | | [...] | | | | than 15 ml/min ([facility]) | until 04/22/2018 | | | | Nephrotic range | | | | | proteinuria Anemia | | | | | of chronic renal | | | | | failure, stage 4 | | | | | (severe) ([facility]) | | | | | Secondary | | | | | hyperparathyroidism | | | | | ([facility]) | | | | | Hyperphosphatemia | [...] | | | | than 15 ml/min ([facility]) | | | | | Nephrotic range | | | | | proteinuria Anemia | | | | | of chronic renal | | | | | failure, stage 4 | | | | | (severe) ([facility]) | | | | | Secondary | | | | | hyperparathyroidism | | | | | ([facility]) | | | | | Hyperphosphatemia | [...] | | | | than 15 ml/min ([facility]) | | | | | Nephrotic range | | | | | proteinuria Anemia | | | | | of chronic renal | | | | | failure, stage 4 | | | | | (severe) ([facility]) | | | | | Secondary | | | | | hyperparathyroidism | | | | | ([facility]) | | | | | Hyperphosphatemia | [...] | | | | than 15 ml/min ([facility]) | | | | | Nephrotic range | | | | | proteinuria Anemia | | | | | of chronic renal | | | | | failure, stage 4 | | | | | (severe) ([facility]) | | | | | Secondary | [...] + | Urine | [facility] [address], [address] [place], [place] | | | [address] | + + + + + | Narrative | + + | Bacteria: 1+ | + + Meckling/Lambda LC RATI (05/15/2017 8:15 AM) + + + | Specimen | Performing Laboratory | + + + | | [facility] [address], [address] [place], [place] | | | [address] | + + + + + | Narrative | + + | Meckling Quant: 13.30 Range: 0.33-1.94 Lambda: 8.20 Range: 0.57-2.63 | | Ratio:1.62 Range: 0.26-1.65 | + + Immunofixation,Serum (05/15/2017 8:15 AM) + + + | Specimen | Performing Laboratory | + + + | Blood | [address] | | | [address] | + + + + + | [...] + + | Blood | [facility] [address] [place] [address] [address] [place] | | | [address] | + + + CBC W/Auto Diff [...] + + | Blood | [facility] [address] [place] [address] [address] [place], [place] | | | [address] | + + + Renal function panel [...] + | Blood | [facility] [address] [facility] [address] [place] | | | [address] | + + + CT limited localizer (04/24/2017 10:32 AM) + + + | Specimen | Performing Laboratory | + + + | | [facility]IR[facility] PERALTA [address] [facility] [place] [address] | + + + + + | [...] intervention Patient positioning: Prone. | | Axial shelver images were obtained through region of interest [...] imaging and interventionPatient | | positioning: Prone.Axial shelver images were obtained through region of interest [...]
--- OUTSIDE RECORDS SUMMARY | ~2017-06-23 | XMS | Encounter Summary ---
Demographics + + + | Address | [address] | | | [place] [address] | + + + | Home Phone | | + + + | Preferred Language | Unknown | + + + | Marital Status | | + + + | Voodoo Affiliation | Unknown | + + + | Race | Unknown | + + + | Ethnic Group | Unknown | + + + Author + + + | Author | [facility] [employer] [facility] | + + + | Organization | [facility] [employer] [facility] | + + + | Address | Unknown | + + + | Phone | Unavailable | + + + Support + + +---------+ + | Name | Relationship | Address | Phone | + + +---------+ + | Naye Wright | ECON | Unknown | | + + +---------+ + Care Team Providers + +------+ + | Care Manager Data Center Name | Role | Phone | + +------+ + | Sherrie Blackman MD | PCP | | + +------+ + Reason for Visit +--------+ + | Reason | Comments | +--------+ + | Other | Progress Note from [facility] Transplant Hepatology dated 05/07/2017 | +--------+ + Encounter Details +--------+ + + + + | Date | Type | Department | Care Team | Description | +--------+ + + + + | 05/24/ | Documentati | [facility] | Kiersten Shaffer CMA | Other (Progress Note | | 2018 | on Only | [place] [address] | | from [facility] | | | | [address] | | Transplant | | | | [place] [address] | | Hepatology dated | | | | [phone] | | 05/07/2017) | +--------+ + + [...] [place] | | | | | | [address] | | | | | | | | +--------+---------+ + + + as of this encounter Visit Diagnoses Not on filein this encounter"
--- OUTSIDE RECORDS SUMMARY | ~2017-06-23 | XMS | Encounter Summary ---
Demographics + + + | Address | [address] | | | [place] [address] | + + + | Home Phone | | + + + | Preferred Language | Unknown | + + + | Marital Status | | + + + | Faith Affiliation | Unknown | + + + | Race | Unknown | + + + | Ethnic Group | Unknown | + + + Author + + + | Author | [facility] [employer] [facility] | + + + | Organization | [facility] [employer] [facility] | + + + | Address | Unknown | + + + | Phone | Unavailable | + + + Support + + +---------+ + | Name | Relationship | Address | Phone | + + +---------+ + | Naye Wright | ECON | Unknown | | + + +---------+ + Care Team Providers + +------+ + | Care Toppiece Cutter Name | Role | Phone | [...] [place] | | | | | | [address] | | | +--------+--------+ + + + [...] | | | | | | [address] | | | | | | [address] | | | | | | | | +--------+---------+ + + + as of this encounter Visit Diagnoses Not on filein this encounter"
--- OUTSIDE RECORDS SUMMARY | ~2017-06-23 | XMS | Encounter Summary ---
Demographics + + + | Address | [address] | | | [place] [address] | + + + | Home Phone | | + + + | Preferred Language | Unknown | + + + | Marital Status | | + + + | Presybeterian Affiliation | Unknown | + + + | Race | Unknown | + + + | Ethnic Group | Unknown | + + + Author + + + | Author | [facility] [employer] | + + + | Organization | [facility] [employer] | + + + | Address | Unknown | + + + | Phone | Unavailable | + + + Support + + +---------+ + | Name | Relationship | Address | Phone | + + +---------+ + | Naye Wright | ECON | Unknown | | + + +---------+ + Care Team Providers + +------+ + | Care Drill Runner Helper Name | Role | Phone | [...] 04/22/ | Documentati | [facility] | Shaffer, Landy, TECHNICAL SOLUTIONS CONSULTANT | Labs Only (Urine | | 2018 | on Only | [place] [address] | | Culture from | | | | [address] Row[address] | | [facility] dated | | | | [address] [place], [place] | | 04/18/2017) | | | | [address] | | | +--------+ + + + [...] [place] | | | | | | [address] | | | | | | | [...] | + + + | Urine | [facility] [address] [place] [address] [address] [place], [place] | | | [address] | + + + in this encounter Visit Diagnoses Not on filein this encounter"
--- OUTSIDE RECORDS SUMMARY | ~2017-06-23 | XMS | Encounter Summary ---
Demographics + + + | Address | [address] | | | [place] [address] | + + + | Home Phone | | + + + | Preferred Language | Unknown | + + + | Marital Status | | + + + | Temple Affiliation | Unknown | + + + | Race | Unknown | + + + | Ethnic Group | Unknown | + + + Author + + + | Author | [facility] [employer] [facility] | + + + | Organization | [facility] [employer] | + + + | Address | Unknown | + + + | Phone | Unavailable | + + + Support + + +---------+ + | Name | Relationship | Address | Phone | + + +---------+ + | Naye Wright | ECON | Unknown | | + + +---------+ + Care Team Providers + +------+ + | Care Crusher Screen Repairer Name | Role | Phone | + [...] [place] | | | | | | [address] | | | +--------+ + + + [...] | | | | | | [address] | | | | | | [address] | | | | | | | | +--------+---------+ + + + as of this encounter Visit Diagnoses Not on filein this encounter"
--- OUTSIDE RECORDS SUMMARY | ~2017-06-23 | XMS | Encounter Summary ---
Demographics + + + | Address | [address] | | | [place] [address] | + + + | Home Phone | | + + + | Preferred Language | Unknown | + + + | Marital Status | | + + + | Jain Affiliation | Unknown | + + + | Race | Unknown | + + + | Ethnic Group | Unknown | + + + Author + + + | Author | [facility] [employer] [facility] | + + + | Organization | [facility] [employer] [facility] | + + + | Address | Unknown | + + + | Phone | Unavailable | + + + Support + + +---------+ + | Name | Relationship | Address | Phone | + + +---------+ + | Naye Wright | ECON | Unknown | | + + +---------+ + Care Team Providers + +------+ + | Care Plastic Panel Installer Name | Role | Phone | [...] Documentati | [facility] | Kiersten Shaffer, MANAGER WORK | Other (Blood Pressre | | 2018 | on Only | [place] [address] | | Log dated | | | | [address] | | 05/06/2017-05/19/2017) | | | | [place] [address] | | | | | | [phone] | | | +--------+ + + + [...] | | | | | | [address] [place] | | | | | | [address] | | | | | | | | +--------+---------+ + + + as of this encounter Visit Diagnoses Not on filein this encounter"
--- OUTSIDE RECORDS SUMMARY | ~2017-06-23 | XMS | Encounter Summary ---
Demographics + + + | Address | [address] | | | [place] [address] | + + + | Home Phone | | + + + | Preferred Language | Unknown | + + + | Marital Status | | + + + | Church Affiliation | Unknown | + + + | Race | Unknown | + + + | Ethnic Group | Unknown | + + + Author + + + | Author | [facility] [employer] [facility] | + + + | Organization | [facility] [employer] | + + + | Address | Unknown | + + + | Phone | Unavailable | + + + Support + + +---------+ + | Name | Relationship | Address | Phone | + + +---------+ + | Naye Wright | ECON | Unknown | | + + +---------+ + Care Team Providers + +------+ + | Care Poultry Dresser Name | Role | Phone | + [...] | Radiology | Diagnoses | [place], | [facility] [address] | | | | | CKD | Tavares Orellana MD | [address] | | | | | (chronic | [address] | | | | | kidney | [address] | [place], [place] | | | | | disease) | [place], [place] | [address] Phone: | | | | | stage 5, GFR | [address] | [phone] | | | | | less than | Phone: | | | | | | 15 ml/min | [phone] | | | | | | (HCC) | Fax: | | | | | | Anemia of | [phone] | | | | | | chronic [...] | Radiology | Diagnoses | [place], | [facility] [address] | | | | | CKD | Tavares Orellana MD | [address] | | | | | (chronic | [address] | | | | | kidney | [address] | [place], [place] | | | | | disease) | [place], [place] | [address] Phone: | | | | | stage 5, GFR | [address] | [phone] | | | | | less than | Phone: | | | | | | 15 ml/min | [phone] | | | | | | (HCC) | Fax: | | | | | | Anemia of | [phone] | | | | | | chronic [...] + + | 05/30/ | Hospital | [facility] | Tavares Vaca MD | CKD (chronic kidney | | 2018 | Encounter | [facility] | [address] | disease) stage 5, | | | | [address] [place] | [address] [place], [place] | GFR less than 15 | | | | Pavilion [address] | [address] | ml/min ([facility]); Anemia | | | | Blvd [place], [place] | | of chronic renal | | | | [address] | Gerson Lucero MD | failure, stage 5 | | | | | PhD [address] | ([facility]); BRIDGET (acute | | | | | Dr [address], | kidney injury); | | | | | [place] [address] | Secondary | | | | | [phone] | hyperparathyroidism | | | | | | ([facility]); Nephrotic | | | | | 3, [facility] Di Nurse | range proteinuria; | | [...] return to work. Be sure to tell [facility] are providerif your job involves heavy [...] with or without activity Date Last Reviewed: 04/04/201619998824-2388 [employer]. [address] [place] [address]. All righ ts reserved. This information is [...] [place] | | | | | | [address] | | | | | | | [...] Laboratory | + + + | | [facility] [address] [place], [place] [address] [address] | + + + + + | [...] disease. Proteinuria. History of liver transplant. PRIMARY SUPERVISOR STAGE CARPENTRY: | | Gerson Lucero MD, PhD, RPVI [...] division in distribution into appropriate media for [place] renal | | pathologic assessment, including electromicroscopy [...] Unit for routine post procedure monitoring. FINDINGS: Cover Seamer CT redemonstrates | | thin body habitus [...] Proteinuria. History of liver | | transplant.PRIMARY SUPERVISOR STAGE CARPENTRY: Gerson Lucero MD, PhD, RPVIOPERATIONS:1. Limited CT [...] distribution into appropriate media for | | [place] renal pathologic assessment, including electromicroscopy and immunofluorescence. [...] Stay Unit for routine post procedure monitoring.FINDINGS: Cover Seamer CT redemonstrates thin | | body habitus [...] EMBOLISMTesting performed at | | | | [facility];[address] [place] [address];[place] [address] | | | |Testing performed at [facility];[address] [place] [address];[place] [address] | | | | | | + + + + + + + | Specimen | Performing Laboratory | + + + | Blood | [facility] [address] [facility] [place] [address] | + + + Platelet count (05/30/2017 8:27 AM) + + + + | Component | Value | Ref Range | + + + + | PLT | 277Comment: Testing performed at [facility] | 150 - 400 K/uL | | | [facility];[place] [address] | | + + + + + + + | Specimen | Performing Laboratory | + + + | Blood | [facility] [address] [place] [address] | + + + aPTT (05/30/2017 8:27 AM) + + + + | Component | Value | Ref Range | + + + + | APTT | 31Comment: Testing performed at [facility];8 | 23 - 32 seconds | | | [address];[place] [address] | | + + + + + + + | Specimen | Performing Laboratory | + + + | Blood | [facility] [address] [place] [address] | + + + Pathology histology - [...] This case was seen and processed at [facility] | | Center in [place], [place]. (Report # [id number]) GROSS DESCRIPTION: Three specimens | | are [...] | | | Some Glomer[place], Appears Adequate AMB:[facility] MICROSCOPIC EXAMINATION: Four core | [...] developed and their performance characteristics determined by [facility]. This test is used for clinical purposes. It should not be | | regarded as investigational or for research. [facility] is certified | | under the Clinical [...] 1, IF-lgG x 1, IF-lgM x 1, IF-[place] | | x 1, IF-Lambda x 1. PERFORMING LABORATORY: Professional interpretation and technical | | preparation was performed by [place], [facility], [address] | | [place] [address] (Court Messenger: Trell Marrero M.D.; | | [facility]#: [id number]). COMMENT: The ultrastructural changes support the light [...] 5, GFR less than 15 ml/min ([facility]) | + + | Chronic kidney disease, [...] Severe Pain (7-10), | | | Starting [facility] 05/30/17 at 1005 | | + [...] PRN, Nausea, Vomiting, Starting | | | [facility] 05/30/17 at 1005 | | + +---+ | | | + +---+ in this encounter
--- OUTSIDE RECORDS SUMMARY | ~2017-06-23 | XMS | Encounter Summary ---
Demographics + + + | Address | [address] | | | [place] [address] | + + + | Home Phone | | + + + | Preferred Language | Unknown | + + + | Marital Status | | + + + | Judaism Affiliation | Unknown | + + + | Race | Unknown | + + + | Ethnic Group | Unknown | + + + Author + + + | Author | [facility] | + + + | Organization | [facility] | + + + | Address | Unknown | + + + | Phone | Unavailable | + + + Support + + +---------+ + | Name | Relationship | Address | Phone | + + +---------+ + | Naye Wright | ECON | Unknown | | + + +---------+ + Care Team Providers + +------+ + | Care Shoe Stainer Name | Role | Phone | + +------+ + PCP | Unavailable | + +------+ + Encounter Details +--------+ + + + + | Date | Type | Department | Care Team | Description | +--------+ + + + + | 06/18/ | Orders Only | [facility] | Kiersten Shaffer CMA | CKD (chronic kidney | | 2018 | | [place] [address] | | disease) stage 5, | | | | Saurabh Rowe | | GFR less than 15 | | | | [address] [place], [place] | | ml/min ([facility]) | | | | [address] | | (Primary Dx); | | | | | | Nephrotic range | | | | | | proteinuria; | | | | | | Hyperkalemia; | | | | | | Hyperuricemia; | | | | | | Anemia of chronic | | | | | | renal failure, stage | | | | | | 5 ([facility]); BRIDGET (acute | | | | | [...] | | | | | | [address] [place], [place] | | | | | | [address] | | | | | | | [...] | | | | than 15 ml/min ([facility]) | | | | | Nephrotic range | | | | | proteinuria | | | | | Hyperkalemia | | | | | Hyperuricemia | | | | | Anemia of chronic | | | | | renal failure, stage | | | | | 5 ([facility]) BRIDGET (acute | | | | | [...] | | | | than 15 ml/min ([facility]) | | | | | Nephrotic range | | | | | proteinuria | | | | | Hyperkalemia | | | | | Hyperuricemia | | | | | Anemia of chronic | | | | | renal failure, stage | | | | | 5 ([facility]) BRIDGET (acute | | | | | [...] | | | | than 15 ml/min ([facility]) | | | | | Nephrotic range | | | | | proteinuria | | | | | Hyperkalemia | | | | | Hyperuricemia | | | | | Anemia of chronic | | | | | renal failure, stage | | | | | 5 ([facility]) BRIDGET (acute | | | | | [...] | | | | than 15 ml/min ([facility]) | | | | | Nephrotic range | | | | | proteinuria | | | | | Hyperkalemia | | | | | Hyperuricemia | | | | | Anemia of chronic | | | | | renal failure, stage | | | | | 5 ([facility]) BRIDGET (acute | | | | | [...] | | | | than 15 ml/min ([facility]) | | | | | Nephrotic range | | | | | proteinuria | | | | | Hyperkalemia | | | | | Hyperuricemia | | | | | Anemia of chronic | | | | | renal failure, stage | | | | | 5 ([facility]) BRIDGET (acute | | | | | [...] | | | | than 15 ml/min ([facility]) | | | | | Nephrotic range | | | | | proteinuria | | | | | Hyperkalemia | | | | | Hyperuricemia | | | | | Anemia of chronic | | | | | renal failure, stage | | | | | 5 ([facility]) BRIDGET (acute | | | | | kidney injury) | | | | | Essential | | | | | hypertension, benign | | + +--------+ + + as of this encounter Visit Diagnoses + + | Diagnosis | + + | CKD (chronic kidney disease) stage 5, GFR less than 15 ml/min ([facility]) - Primary | + + | Chronic [...]
--- OUTSIDE RECORDS SUMMARY | ~2017-06-23 | XMS | Encounter Summary ---
Demographics + + + | Address | [address] | | | [place] [address] | + + + | Home Phone | | + + + | Preferred Language | Unknown | + + + | Marital Status | | + + + | Quaker Affiliation | Unknown | + + + | Race | Unknown | + + + | Ethnic Group | Unknown | + + + Author + + + | Author | [facility] [employer] [facility] | + + + | Organization | [facility] [employer] [facility] | + + + | Address | Unknown | + + + | Phone | Unavailable | + + + Support + + +---------+ + | Name | Relationship | Address | Phone | + + +---------+ + | Naye Wright | ECON | Unknown | | + + +---------+ + Care Team Providers + +------+ + | Care Extruder Operator Multiple Name | Role | Phone | + [...] + + | 05/10/ | Hospital | [facility] | Jay Portillo MD | | | 2018 | Encounter | [facility] | [address] | | | | | [address] | [place] [address] | | | | | [place] [address] | [phone] | | | | | [phone] | | | +--------+ + + + [...] skin turning blue, or fainting Call 911. [facility] AV DIALYSIS SHUNT/FISTULA DISCHARGE INSTRUCTIONS [...] | | | | | | [address] | | | | | | [address] [...] | | | | 1.210.Testing performed at [facility];[address] [place] [address] | | | | [facility];[place] [address] | | | | | | + + + + + + + | Specimen | Performing Laboratory | + + + | Blood | [facility] [address] [place] [address] | + + + CBC w/auto diff [...] BASOPHILS ABS | 0.08Comment: Testing performed at [facility] | 0.00 - 0.10 K/uL | | | [facility];[place] [address] | | + + + + + + + | Specimen | Performing Laboratory | + + + | Blood | [facility] [address] [place] [address] | + + + in this encounter [...]
--- OUTSIDE RECORDS SUMMARY | ~2017-06-23 | XMS | Encounter Summary ---
Demographics + + + | Address | [address] | | | [place] [address] | + + + | Home Phone | | + + + | Preferred Language | Unknown | + + + | Marital Status | | + + + | Jain Affiliation | Unknown | + + + | Race | Unknown | + + + | Ethnic Group | Unknown | + + + Author + + + | Author | [facility] [employer] [facility] | + + + | Organization | [facility] [employer] | + + + | Address | Unknown | + + + | Phone | Unavailable | + + + Support + + +---------+ + | Name | Relationship | Address | Phone | + + +---------+ + | Naye Wright | ECON | Unknown | | + + +---------+ + Care Team Providers + +------+ + | Care Local Driver Name | Role | Phone | + [...] 05/15/2017) | | | | [place] [address] | | | | | | [phone] | | | +--------+ + + + [...] [place] | | | | | | [id number] | | | | | | | | +--------+---------+ + + + as of this encounter Visit Diagnoses Not on filein this encounter"
--- OUTSIDE RECORDS SUMMARY | ~2017-06-23 | XMS | Encounter Summary ---
Demographics + + + | Address | [address] | | | [place] [address] | + + + | Home Phone [...] Team Providers + +------+ + | Care Geophysical Laboratory Director Name | Role | Phone | + +------+ + | Herrera Badillo MD | PCP | | + +------+ + Encounter Details +--------+ + + + + | Date | Type | Department | Care Team | Description | +--------+ + + + + | 05/07/ | Residential Program Worker | Transplant | Tori Fine, RN | Liver replaced by | | 2017 | | Coordinators [address] | transplant (HCC) | | | | [address] | [address], | (Primary Dx) | | | | Road [place], [place] | [place] [address] | | | | | [address] | | | | | | [phone] | | | +--------+ + + + [...] | | | | | [address] [place], | | | | | | [place] [address] | | | | | | [phone] | | | | | | | | +--------+---------+ + + + as of this encounter Visit Diagnoses + + | Diagnosis | + + | Liver replaced by transplant (HCC) - Primary | + + | Liver replaced by transplant | + +"
--- OUTSIDE RECORDS SUMMARY | ~2017-06-23 | XMS | Encounter Summary ---
Demographics + + + | Address | [address] | | | [place] [address] | + + + | Home Phone | | + + + | Preferred Language | Unknown | + + + | Marital Status | | + + + | Tenriism Affiliation | Unknown | + + + | Race | Unknown | + + + | Ethnic Group | Unknown | + + + Author + + + | Author | [facility] [employer] [facility] | + + + | Organization | [facility] [employer] [facility] | + + + | Address | Unknown | + + + | Phone | Unavailable | + + + Support + + +---------+ + | Name | Relationship | Address | Phone | + + +---------+ + | Naye Wright | ECON | Unknown | | + + +---------+ + Care Team Providers + +------+ + | Care Car Shunter Name | Role | Phone | + [...] | | | | | [place] [address] | | | | | | [phone] | | | +--------+ + + + [...] | | | | | | [address] [place] | | | | | | [id number] | | | | | | | | +--------+---------+ + + + as of this encounter Visit Diagnoses Not on filein this encounter"
--- OUTSIDE RECORDS SUMMARY | ~2017-06-23 | XMS | Encounter Summary ---
Demographics + + + | Address | [address] | | | [place] [address] | + + + | Home Phone | | + + + | Preferred Language | Unknown | + + + | Marital Status | | + + + | Christianity Affiliation | Unknown | + + + | Race | Unknown | + + + | Ethnic Group | Unknown | + + + Author + + + | Author | [facility] [employer] [facility] | + + + | Organization | [facility] [employer] [facility] | + + + | Address | Unknown | + + + | Phone | Unavailable | + + + Support + + +---------+ + | Name | Relationship | Address | Phone | + + +---------+ + | Naye Wright | ECON | Unknown | | + + +---------+ + Care Team Providers + +------+ + | Care Regional Sales Coordinator Name | Role | Phone | [...] + + | 05/10/ | Surgery | [facility] | Jay Portillo MD | AV GRAFT CREATION | | 2018 | | [facility] | [address] | | | | | Operating Room 888 | [place] [address] | | | | | [address] | [phone] | | | | | [place] [address] | | | | | | [phone] | | | +--------+---------+ + + + [...] skin turning blue, or fainting Call 911. [facility] AV DIALYSIS SHUNT/FISTULA DISCHARGE INSTRUCTIONS Your physician [...] [place] | | | | | | [id number] | | | | | | | [...] | | | | 1.210.Testing performed at [facility];[address] [place] [address] | | | | [facility];[place] [address] | | | | | | + + + + + + + | Specimen | Performing Laboratory | + + + | Blood | [facility] [address] [place] [address] | + + + CBC w/auto diff [...] BASOPHILS ABS | 0.08Comment: Testing performed at [facility] | 0.00 - 0.10 K/uL | | | [address] [facility];[place] [address] | | + + + + + + + | Specimen | Performing Laboratory | + + + | Blood | [facility] [address] [facility] [place] [address] | + + + in this encounter [...]
--- OUTSIDE RECORDS SUMMARY | ~2017-06-23 | XMS | Encounter Summary ---
Demographics + + + | Address | [address] | | | [place] [address] | + + + | Home Phone | | + + + | Preferred Language | Unknown | + + + | Marital Status | Single | + + + | Nondenominational Affiliation | NON | + + + | Race | White | + + + | Ethnic Group | Not or | + + + Author + + + | Author | [facility] | + + + | Organization | [facility] | + + + | Address [...] Team Providers + +------+ + | Care Change Manager Name | Role | Phone | [...] | | status | Health Care | [facility] | | | | | Procedures | Center [address] | | | | | [address] | [address] | [place], [place] | | | | | OFFICE/OUTPT | Ave | [address] | | | | | | [place], | Phone: | | | | | VISIT,EST,[place] | [place] [address] | [phone] | | | | | [address] | Phone: | Fax: | | | | | | [phone] | [phone] | | | | | | Fax: | | | | | | | [phone] | | +--------+--------+ + + + + Encounter Details +--------+---------+ + + + | Date | Type | Department | Care Team | Description | +--------+---------+ + + + | 05/07/ | Office | Liver Transplant | Bernabe Taylor MD | Cirrhosis of | | 2018 | Visit | at [facility] 2nd Floor | [address] | transplanted liver | | | | [address] | [address] [facility], | (HCC); [place] | | | [address] | [place] [address] | hepatic failure | | | | [place], [place] | [phone] | (HCC); Liver | | | | [address] | | replaced by | | | | [phone] | | transplant (HCC) | +--------+---------+ + [...] RETURN PATIENT VISIT 05/07/2017 Herrera Badillo MD [facility] [address] [place] [address] RE: Nicolasa Sanz : [address] Delarosa: I had the pleasure of seeing Nicolasa Sanz in follow up in the Liver Clinic at [facility] for the first time since 06/24/2012. Pertinent laboratory, imaging, pathology results were reviewed. HISTORY OF PRESENT ILLNESS: The patient is a 37 y.o./o white female with NAYA s/p LT in 1988 complicated by chronic rejection who presents for follow up. Since her last visit in 2012, the patient underwent OLT in [place] in 2014. She is starting HD and is awaiting kidney transplantation. She was declined by [facility]. She denies jaundice, hepatic encephalopathy, SBP, or LE edema. Post-Transplant Dx (updated today) 1.Liver disease - Etiology- Etiology- NAYA s/p OLT 1988 at [facility] c/b chronic rejection s/p 2nd OLT 2014 at [facility] 2. Liver transplant- 09/13/2014 ~ Aortic conduit from infrarenal aorta to [place]. Venous conduit from SMV to donor PV. Kel-en- Y hepaticojejunostomy. Splenectomy - Immunosuppression regimen- FK trough goals per [place] - Complications- no ACR, HAT, biliary, surgical, noncompliance after 2nd OLT 3. Secondary Dx - Renal insufficiency- on HD, awaiting [facility] evaluation - H/o Crohn's disease- remicade infusions. The patient denies history of Crohn's although it is in her medical records. 4. Preventive care - Vaccinations- HAV, HBV, Flu, Pneumovax- reviewed 5. Social- lived in [place], now in [place]- to be near sister. 2 sons. REVIEW [...] FK goal 3-5 or higher as per [place] recommendations. 3. Awaiting renal transplant evaluation. 4. Return to clinic in 1 year. Thank you for allowing me to participate in the care of this patient. Please feel free to contact me with any questions regarding the patient's care. Warmest regards. Sincerely, Bernabe Taylor M.D., M.S. international sales representative Director of Clinical Hepatology Division of Gastroenterology and Hepatology [facility] in this encounter Plan of Treatment +--------+---------+ + + + | Date | Type | Specialty | Care Team | Description | +--------+---------+ + + + | 05/20/ | Office | Liver Transplant | Bernabe Taylor MD | | | 2018 | Visit | | [address] | | | | | | [place], | | | | | | [place] [address] | | | | | | [phone] | | | | | | | [...]
--- OUTSIDE RECORDS SUMMARY | ~2017-06-23 | XMS | Encounter Summary ---
Demographics + + + | Address | [address] | | | [place] [address] | + + + | Home Phone | | + + + | Preferred Language | Unknown | + + + | Marital Status | | + + + | Methodist Affiliation | Unknown | + + + | Race | Unknown | + + + | Ethnic Group | Unknown | + + + Author + + + | Author | [facility] [employer] [facility] | + + + | Organization | [facility] [employer] [facility] | + + + | Address | Unknown | + + + | Phone | Unavailable | + + + Support + + +---------+ + | Name | Relationship | Address | Phone | + + +---------+ + | Naye Wright | ECON | Unknown | | + + +---------+ + Care Team Providers + +------+ + | Care Outreach Coordinator Name | Role | Phone | [...] | kidney disease | | | | [facility] [address] | | ([facility]); Nephrotic | | | | [place] [address] | | range proteinuria; | | | | [phone] | | Anemia of chronic | | | | | | renal failure, stage | | | | | | 4 (severe) ([facility]); | | | | | | Hyperuricemia; BRIDGET | | | | | | (acute kidney | | | | | | injury); Metabolic | | | | | | acidosis; Secondary | | | | | | hyperparathyroidism | | | | | | ([facility]); Acute | | | | [...] | | | | | | [address] [place], [place] | | | | | | [...] + | Blood | [facility] [address] [place] | | | [address] | + + + in this encounter [...]
--- OUTSIDE RECORDS SUMMARY | ~2017-06-23 | XMS | Encounter Summary ---
Demographics + + + | Address | [address] | | | [place] [address] | + + + | Home Phone | | + + + | Preferred Language | Unknown | + + + | Marital Status | Single | + + + | Rastafari Affiliation | NON | + + + [...] Team Providers + +------+ + | Care Helper Metal Hanging Name | Role | Phone | + [...] (Intake) | | | | [address] [facility] | [facility] | | | | | Road [place], [place] | [place] [address] | | | | | [address] | | | | | | [phone] | | | +--------+ + + + [...] | | | | | [address] [place], | | | | | | [place] [address] | | | | | | [phone] | | | | | | | [...]
--- OUTSIDE RECORDS SUMMARY | ~2017-06-23 | XMS | Encounter Summary ---
Demographics + + + | Address | [address] | | | [place] [address] | + + + | Home Phone | | + + + | Preferred Language | Unknown | + + + | Marital Status | | + + + | Mandaeism Affiliation | Unknown | + + + | Race | Unknown | + + + | Ethnic Group | Unknown | + + + Author + + + | Author | [facility] | + + + | Organization | [facility] | + + + | Address | Unknown | + + + | Phone | Unavailable | + + + Support + + +---------+ + | Name | Relationship | Address | Phone | + + +---------+ + | aNye Wright | ECON | Unknown | | + + +---------+ + Care Team Providers + +------+ + | Care Forge Shop Machine Repairer Name | Role | Phone | [...] 15 | | | | [place] [address] | | ml/min ([facility]); | | | | [phone] | | Nephrotic range | | | | | | proteinuria; Anemia | | | | | | of chronic renal | | | | | | failure, stage 4 | | | | | | (severe) ([facility]); | | | | | | Secondary | | | | | | hyperparathyroidism | | | | | | ([facility]); | | | | | [...] | | | | | | [address] [place], [place] | | | | | | [address] | | | | | | | [...] + + | Blood | [facility] [address] [place] [address] [address] [place], [place] | | | [address] | + + + CBC W/Auto Diff [...] + | Blood | [facility] [address] [place], [facility] [address] [place], [place] | | | [address] | + + + PTH intact no [...] + | Blood | [facility] [address], [facility] [address] [place], [place] | | | [address] | + + + Osceola/Lambda LC RATI (05/15/2017 8:15 AM) + + + | Specimen | Performing Laboratory | + + + | | [facility] [address], [facility] [address] [place], [place] | | | [address] | + + + + + | Narrative | + + | Osceola Quant: 13.30 Range: 0.33-1.94 Lambda: 8.20 Range: 0.57-2.63 | | Ratio:1.62 Range: 0.26-1.65 | + + Immunofixation,Serum (05/15/2017 8:15 AM) + + + | Specimen | Performing Laboratory | + + + | Blood | [facility] [address] [place] [address] | | | [address] | + + + + + | [...] + + | Urine | [facility] [address] [place], [place] [address] | | | [address] | + + + + + | Narrative | + + | Bacteria: 1+ | + + in this encounter Visit Diagnoses + + | Diagnosis | + + | CKD (chronic kidney disease) stage 5, GFR less than 15 ml/min ([facility]) | + + | Chronic kidney disease, Stage V | + + | Nephrotic range proteinuria | + + | Proteinuria | + + | Anemia of chronic renal failure, stage 4 (severe) ([facility]) | + + | Secondary [...]
--- OUTSIDE RECORDS SUMMARY | ~2017-06-23 | XMS | Encounter Summary ---
Demographics + + + | Address | [address] | | | [place] [address] | + + + | Home Phone | | + + + | Preferred Language | Unknown | + + + | Marital Status | | + + + | Temple Affiliation | Unknown | + + + | Race | Unknown | + + + | Ethnic Group | Unknown | + + + Author + + + | Author | [facility] [employer] [facility] | + + + | Organization | [facility] [employer] [facility] | + + + | Address | Unknown | + + + | Phone | Unavailable | + + + Support + + +---------+ + | Name | Relationship | Address | Phone | + + +---------+ + | Naye Wright | ECON | Unknown | | + + +---------+ + Care Team Providers + +------+ + | Care Molder Floor Name | Role | Phone | + [...] | | 2018 | on Only | [place] [address] | | Packet ) | | | | [address] | | | | | | [place] [address] | | | | | | [phone] | | | +--------+ + + + [...] of this encounter Progress Notes Kiersten Shaffer, [facility] - 06/19/2017 8:48 AM PDTFaxed new order for [facility]p to [facility]. Fax confirmation received. Kiersten Shaffer, [facility] - 06/19/2017 8:48 AM PDTFaxed demograp hic [...] | | | | | | [address] [place], [place] | | | | | | [address] | | | | | | | | +--------+---------+ + + + as of this encounter Visit Diagnoses Not on filein this encounter"
--- OUTSIDE RECORDS SUMMARY | ~2017-06-23 | XMS | Encounter Summary ---
Demographics + + + | Address | [address] | | | [place] [address] | + + + | Home Phone | | + + + | Preferred Language | Unknown | + + + | Marital Status | | + + + | Taoism Affiliation | Unknown | + + + | Race | Unknown | + + + | Ethnic Group | Unknown | + + + Author + + + | Author | [facility] [employer] [facility] | + + + | Organization | [facility] [employer] [facility] | + + + | Address | Unknown | + + + | Phone | Unavailable | + + + Support + + +---------+ + | Name | Relationship | Address | Phone | + + +---------+ + | Naye Wright | ECON | Unknown | | + + +---------+ + Care Team Providers + +------+ + | Care Real Estate Office Supervisor Name | Role | Phone | [...] Documentati | [facility] | Kiersten Shaffer, CT TECHNICIAN | Other (Blood | | 2018 | on Only | [place] [address] | | Pressure Log dated | | | | [address] | | 03/23/2017-04/21/2017) | | | | [place] [address] | | | | | | [phone] | | | +--------+ + + + [...] | | | | | | [address] [place] | | | | | | [address] | | | | | | | | +--------+---------+ + + + as of this encounter Visit Diagnoses Not on filein this encounter"
--- OUTSIDE RECORDS SUMMARY | ~2017-06-23 | XMS | Encounter Summary ---
Demographics + + + | Address | [address] | | | [place] [address] | + + + | Home Phone | | + + + | Preferred Language | Unknown | + + + | Marital Status | | + + + | Mormonism Affiliation | Unknown | + + + | Race | Unknown | + + + | Ethnic Group | Unknown | + + + Author + + + | Author | [facility] | + + + | Organization | [facility] | + + + | Address | Unknown | + + + | Phone | Unavailable | + + + Support + + +---------+ + | Name | Relationship | Address | Phone | + + +---------+ + | Naye Wright | ECON | Unknown | | + + +---------+ + Care Team Providers + +------+ + | Care Water Attendant Name | Role | Phone | + [...] + + | 05/02/ | Hospital | [facility] | Jay Portillo MD | | | 2018 | Encounter | [facility] | [address] | | | | | Preadmission | [place] [address] | | | | | Services [address] | [phone] | | | | | Blvd [place], [place] | | | | | | [...] ready to use in a few weeks. Riva can be placed into the plastic tube [...] clotting or other narrowing. Date Last Reviewed: 03/04/201619992463-5916 The [employer]. [address] [place] [address]. All righ ts reserved. This information is [...] | | | | | | [address] [place], [place] | | | | | | [address] | | | | | | | [...] EMBOLISMTesting performed at | | | | [facility];[address] [place] [address];[place] [address] | | | |Testing performed at [facility];[address] [place] [address];[place] [address] | | | | | | + + + + + + + | Specimen | Performing Laboratory | + + + | Blood | [facility] [address] [place] [address] | + + + CBC w/auto diff [...] BASOPHILS ABS | 0.05Comment: Testing performed at [facility], [facility] | 0.00 - 0.10 K/uL | | | [facility] [place] [address] | | + + + + + + + | Specimen | Performing Laboratory | + + + | Blood | [facility] [address], | | | [place] [address] | + + + Basic metabolic panel [...] | | | | 1.210.Testing performed at [facility], [address] | | | | [place] [address] | | | | | | + + + + + + + | Specimen | Performing Laboratory | + + + | Blood | [facility] [address] [place] [address] [address], | | | [place] [address] | + + + aPTT (05/02/2017 1:10 PM) + + + + | Component | Value | Ref Range | + + + + | APTT | 33 (H)Comment: Testing performed at [facility];888 | 23 - 32 seconds | | | [address];[place] [address] | | + + + + + + + | Specimen | Performing Laboratory | + + + | Blood | [facility] [address] [place] [address] | + + + MRSA by PCR (05/02/2017 1:09 PM) + + + + | Component | Value | Ref Range | + + + + | SOURCE | NARES(NOSE) | | + + + + | MRSA PCR | NEGATIVEComment: Testing performed at | NEGATIVE | | | [facility];[address] [place] [address];[place] [address] | | + + + + + + + | Specimen | Performing Laboratory | + + + | Nasopharyngeal - | [address] [address] | | Nares(Nose) | | + + + in this encounter Visit Diagnoses Not on filein this encounter"
--- OUTSIDE RECORDS SUMMARY | ~2017-06-23 | XMS | Encounter Summary ---
Demographics + + + | Address | [address] | | | [place] [address] | + + + | Home Phone | | + + + | Preferred Language | Unknown | + + + | Marital Status | | + + + | Gnosticism Affiliation | Unknown | + + + | Race | Unknown | + + + | Ethnic Group | Unknown | + + + Author + + + | Author | [facility] | + + + | Organization | [facility] | + + + | Address | Unknown | + + + | Phone | Unavailable | + + + Support + + +---------+ + | Name | Relationship | Address | Phone | + + +---------+ + | Naye Wright | ECON | Unknown | | + + +---------+ + Care Team Providers + +------+ + | Care Data Entry Representative Name | Role | Phone | + [...] | kidney disease | | | | [facility] [address] | | ([facility]); Nephrotic | | | | [place], [place] [address] | | range proteinuria; | | | | [phone] | | Anemia of chronic | | | | | | renal failure, stage | | | | | | 4 (severe) ([facility]); | | | | | | Hyperuricemia; BRIDGET | | | | | | (acute kidney | | | | | | injury); Metabolic | | | | | | acidosis; Secondary | | | | | | hyperparathyroidism | | | | | | ([facility]); Acute | | | | | | [...] | | | | | | [address] [place], [place] | | | | | | [address] | | | | | | | [...] | Urine - Urine, | [facility] [address] [place] [address] [place] | | Unspecified Source | [address] | + + + Urinalysis (reflex to [...] [facility] [place] | | | [address] | + + + + + | [...]
--- OUTSIDE RECORDS SUMMARY | ~2017-06-23 | XMS | Encounter Summary ---
Demographics + + + | Address | [address] | | | [place] [address] | + + + | Home Phone | | + + + | Preferred Language | Unknown | + + + | Marital Status | | + + + | Mu-Ism Affiliation | Unknown | + + + | Race | Unknown | + + + | Ethnic Group | Unknown | + + + Author + + + | Author | [facility] | + + + | Organization | [facility] | + + + | Address | Unknown | + + + | Phone | Unavailable | + + + Support + + +---------+ + | Name | Relationship | Address | Phone | + + +---------+ + | Naye Wright | ECON | Unknown | | + + +---------+ + Care Team Providers + +------+ + | Care Heating Unit Mechanic Name | Role | Phone | [...] kidney | | 2018 | Visit | [place] [address] | [address] | disease) stage 5, | | | | [facility] | [address] [place], [place] | GFR less than 15 | | | | [address] [place], [place] | [address] | ml/min (HCC) | | | | [address] | | (Primary Dx); Anemia | | | | | | of chronic renal | | | | | | failure, stage 5 | | | | | | ([facility]); Essential | | | | | | hypertension, | | | | | | benign; Secondary | | | | | | hyperparathyroidism | | | | | | ([facility]); Metabolic | | | | | [...] evaluation by the Kidney Transplant team at [facility]. I kept her off Ibuprofen. [...] F/U with the liver transplant team at [place] for management of her anti -rejection meds. She will need to be seen by the Liver transplant team in [place] soon & regularly. She will continue to F/U with your office regularly. I sent her for a repeat RFP, CBC every 2 weeks. She will have a RFP, CBC, intact PTH, Ferritin, Fe studies, urinalysis, Urine total prot vml-za-lchnrxcavl ratio before she comes back in 1 [...] stage IV CKD on a background of alf use of calcineurin inhibitors. 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 She had a liver transplant at the age of 8; she had the hepatorenal syndrome in early 2014 & needed to go dialysis; she came off of it for 2.5 months; restarted HD thru a CVC in the [facility] of 2014. She had her second [...] evaluation by the Kidney Transplant team at [facility] I kept her off Ibuprofen. [...] F/U with the liver transplant team at [place] for management of her anti -rejection meds. She will need to be seen by the Liver transplant team in [place] soon & regularly. She will continue to F/U with your office regularly. I sent her for a repeat RFP, CBC every 2 weeks. She will have a RFP, CBC, intact PTH, Ferritin, Fe studies, urinalysis, Urine total prot jux-da-cjmaxonymn ratio before she comes back in 1 month. Thank you Colleague for the opportunity to see this patient in F/U on an urgent basis today for a declining GFR in the setting of liver transplant. Please do not hesitate to call me a t any time with questions or concerns. Truly yours, Tavares Vaca MD [facility] in this encounter Plan of Treatment +--------+---------+ + + + | Date | Type | Specialty | Care Team | Description | +--------+---------+ + + + | 07/15/ | Office | Nephrology | Tavares Vaca MD | | | 2018 | Visit | | [address] | | | | | | [address] [place] | | | | | | [address] | | | | | | | | +--------+---------+ + + + as of this encounter Visit Diagnoses + + | Diagnosis | + + | CKD (chronic kidney disease) stage 5, GFR less than 15 ml/min ([facility]) - Primary | + + | Chronic kidney disease, Stage V | + + | Anemia of chronic renal failure, stage 5 ([facility]) | + + | Essential hypertension, benign | + + | Secondary hyperparathyroidism (HCC) | + + | Secondary hyperparathyroidism (of renal origin) | + + | Metabolic acidosis | + + | Acidosis | + + | Hyperphosphatemia | + + | Disorders of phosphorus metabolism | + +"
--- OUTSIDE RECORDS SUMMARY | ~2017-06-23 | XMS | Encounter Summary ---
Demographics + + + | Address | [address] | | | [place] [address] | + + + | Home Phone | | + + + | Preferred Language | Unknown | + + + | Marital Status | | + + + | Judaism Affiliation | Unknown | + + + | Race | Unknown | + + + | Ethnic Group | Unknown | + + + Author + + + | Author | [facility] | + + + | Organization | [facility] | + + + | Address | Unknown | + + + | Phone | Unavailable | + + + Support + + +---------+ + | Name | Relationship | Address | Phone | + + +---------+ + | Naye Wright | ECON | Unknown | | + + +---------+ + Care Team Providers + +------+ + | Care Associate Professor Of Media Arts Name | Role | Phone | + [...] | Other | | 2017 | | [place] [address] | | | | | | [address] | | | | | | [address] [place] | | | | | | [address] | | | +--------+ + + + [...] | | | | | | [address] [place] | | | | | | [address] | | | | | | | | +--------+---------+ + + + as of this encounter Visit Diagnoses Not on filein this encounter"
--- OUTSIDE RECORDS SUMMARY | ~2017-06-23 | XMS | Encounter Summary ---
Demographics + + + | Address | [address] | | | [place] [address] | + + + | Home Phone | | + + + | Preferred Language | Unknown | + + + | Marital Status | | + + + | Catholic Affiliation | Unknown | + + + | Race | Unknown | + + + | Ethnic Group | Unknown | + + + Author + + + | Author | [facility] | + + + | Organization | [facility] | + + + | Address | Unknown | + + + | Phone | Unavailable | + + + Support + + +---------+ + | Name | Relationship | Address | Phone | + + +---------+ + | Naye Wright | ECON | Unknown | | + + +---------+ + Care Team Providers + +------+ + | Care Trestle Mainternance Laborer Name | Role | Phone | + [...] + + | 05/10/ | Anesthesia | [facility] | Darryl Meyers | | | 2018 | Event | [facility] | [address] | | | | | Operating Room [address] | | | | | [address] | [place] [address] | | | | | [place] [address] | [phone] | | | | | [phone] | | | +--------+ + + + [...] | | | | | | [address] [place], [place] | | | | | | [address] | | | | | | | [...]
--- OUTSIDE RECORDS SUMMARY | ~2017-06-23 | XMS | Encounter Summary ---
Demographics + + + | Address | [address] | | | [place] [address] | + + + | Home Phone | | + + + | Preferred Language | Unknown | + + + | Marital Status | | + + + | Baptism Affiliation | Unknown | + + + | Race | Unknown | + + + | Ethnic Group | Unknown | + + + Author + + + | Author | [facility] | + + + | Organization | [facility] | + + + | Address | Unknown | + + + | Phone | Unavailable | + + + Support + + +---------+ + | Name | Relationship | Address | Phone | + + +---------+ + | Naye Wright | ECON | Unknown | | + + +---------+ + Care Team Providers + +------+ + | Care Front Maker Lockstitch Name | Role | Phone | + +------+ + PCP | Unavailable | + +------+ + Reason for Visit +--------+ + | Reason | Comments | +--------+ + | Other | Chart Note from [facility] date 04/25/2017 | +--------+ + Encounter Details +--------+ + + + + | Date | Type | Department | Care Team | Description | +--------+ + + + + | 06/13/ | Documentati | [facility] | Kiersten Shaffer CMA | Other (Chart Note | | 2018 | on Only | [place] [address] | | from [facility] dated | | | | [address] | | 04/25/2017) | | | | [place] [address] | | | | | | [phone] | | | +--------+ + + + [...] [place] | | | | | | [address] | | | | | | | | +--------+---------+ + + + as of this encounter Visit Diagnoses Not on filein this encounter"
--- OUTSIDE RECORDS SUMMARY | ~2017-06-23 | XMS | Encounter Summary ---
Demographics + + + | Address | [address] | | | [place] [address] | + + + | Home Phone | | + + + | Preferred Language | Unknown | + + + | Marital Status | | + + + | Bahai Affiliation | Unknown | + + + | Race | Unknown | + + + | Ethnic Group | Unknown | + + + Author + + + | Author | [facility] | + + + | Organization | [facility] | + + + | Address | Unknown | + + + | Phone | Unavailable | + + + Support + + +---------+ + | Name | Relationship | Address | Phone | + + +---------+ + | Naye Wright | ECON | Unknown | | + + +---------+ + Care Team Providers + +------+ + | Care Hotel Services Sales Representative Name | Role | Phone | + +------+ + | Sherrie Blackman MD | PCP | | + +------+ + Encounter Details +--------+ + + + + | Date | Type | Department | Care Team | Description | +--------+ + + + + | 05/10/ | Procedure | [facility] | | | | 2017 | [facility] | | | | | | Operating Room [address] | | | | | | [address] [facility] | | | | | | [place] [address] | | | | | | [phone] | | | +--------+ + + + [...] [place] | | | | | | [address] | | | | | | | | +--------+---------+ + + + as of this encounter Visit Diagnoses Not on filein this encounter"
--- OUTSIDE RECORDS SUMMARY | ~2017-06-23 | XMS | Encounter Summary ---
Demographics + + + | Address | [address] | | | [place] [address] | + + + | Home Phone | | + + + | Preferred Language | Unknown | + + + | Marital Status | | + + + | Uatsdin Affiliation | Unknown | + + + | Race | Unknown | + + + | Ethnic Group | Unknown | + + + Author + + + | Author | [facility] | + + + | Organization | [facility] | + + + | Address | Unknown | + + + | Phone | Unavailable | + + + Support + + +---------+ + | Name | Relationship | Address | Phone | + + +---------+ + | Naye Wright | ECON | Unknown | | + + +---------+ + Care Team Providers + +------+ + | Care Ballet Professor Name | Role | Phone | [...] + + | 05/29/ | Office | [facility] | Bk ISAURA Pyle | Chronic kidney | | 2018 | Visit | Vascular Surgery | [address] | disease (CKD), | | | | [address] | [place], [place] | active medical | | | | [place], [place] | [address] | management without | | | | [address] | | dialysis, | | | | [phone] | | unspecified stage | | | [...] Lashanda Bourgeois DNP - 05/29/2017 2:30 PM [facility] [address] [place] [address] [place] [address] Office: [phone] DATE OF VISIT: 05/29/2017 PATIENT NAME: Nicolasa Clark : 1980; AGE: 37 y.o.; Sex:F PHONE NUMBER: ; PROVIDER: Lashanda Bourgeois DNP PRIMARY CARE / REFERRING PHYSICIAN: [facility] Primary / Sherrie Blackman / [address] [place] [address] / [place] [id number] REASON FOR EVALUATION / CHIEF COMPLAINT: Vascular Surgery Postoperative Visit for AVG creation The patient presents today for a Vascular Surgery Postoperative Visit. The patient is statu s post Left brachial artery to axillary vein using 4-7 mm Acuseal graft creation, which was performed on 05/10/2017 at the [facility] Operating [facility]. Patient reports she continues to [...] | | | | | | [address] [place], [place] | | | | | | [address] | | | | | | | | +--------+---------+ + + + as of this encounter Visit Diagnoses + + | Diagnosis | + + | Chronic kidney disease (CKD), active medical management without dialysis, unspecified | | stage - Primary | + + | Hemodialysis access, AV graft (HCC) | + +"
--- OUTSIDE RECORDS SUMMARY | ~2017-06-23 | XMS | Encounter Summary ---
Demographics + + + | Address | [address] | | | [place] [address] | + + + | Home Phone | | + + + | Preferred Language | Unknown | + + + | Marital Status | Unknown | + + + | Confucianism Affiliation | Unknown | + + + | Race | Unknown | + + + | Ethnic Group | Unknown | + + + Author + + + | Author | [facility] | | | and [place] | + + + | Organization | [facility] | | | and [place] | + + + | Address | Unknown | + + + | Phone | Unavailable | + + + Care Team Providers + +------+ + | Care Maintenance Of Way Supervisor Name | Role | Phone | + +------+ + PCP | Unavailable | + +------+ + Encounter Details +--------+ + + + + | Date | Type | Department | Care Team | Description | +--------+ + + + + | 05/30/ | Hospital | [facility] | Tavares Vaca | | | 2018 | Encounter | [facility] | [address] | | | | | LABORATORY [address] | | | | | [address] [place], [place] | [place] [address] | | | | | [address] | [phone] | | | | | [phone] | | | +--------+ + + + [...] Laboratory | + + + | | [facility] [address] | | | [place] [address] | + + + + + | Narrative | + + | SURGICAL PATHOLOGY REPORT Case | | Number: [id number] Date Taken: 05/30/2017 Date Received: 05/30/2017 Completed: [...] their | | performance characteristics determined by [facility] | | Laboratory. This test is used for clinical purposes. It should not be regarded | | as investigational or for research. [facility] is certified under the | | Clinical Laboratory Improvement Amendments of 1988 (CLIA) as qualified to perform high | | complexity clinical laboratory testing. A: 18485, 87647, 66243, 46983, | | 78448, [address]44[address], 02153, 90356, 05288, 42294, 61746(a), 27764, 68226, [address] | | PROCEDURES/ADDENDA ELECTRON MICROSCOPY | | [...] Schreiber MD Testing performed at: | | [facility] Bernabe Aguilera M.D., Director [address] [place] [address] | + + in this encounter Visit Diagnoses Not on filein this encounter Admitting Diagnoses + + | Diagnosis | + + | Chronic kidney disease, unspecified - RENAL FAILURE | + + | Abnormal results of kidney function studies | + +
--- OUTSIDE RECORDS SUMMARY | ~2017-06-23 | XMS | Encounter Summary ---
Demographics + + + | Address | [address] | | | [place] [address] | + + + | Home Phone | | + + + | Preferred Language | Unknown | + + + | Marital Status | Single | + + + | Jewish Affiliation | NON | + + + | Race | White | + + + | Ethnic Group | Not or | + + + Author + + + | Author | [facility] | + + + | Organization | [facility] | + + + | Address [...] Team Providers + +------+ + | Care Deportation Examiner Name | Role | Phone | + +------+ + | Herrera Badillo MD | PCP | | + +------+ + Encounter Details +--------+ + + + + | Date | Type | Department | Care Team | Description | +--------+ + + + + | 05/07/ | Real Estate Loan Processor | Transplant | Tori Fine RN | | | 2018 | | Coordinators [address] | | | | | [address] [facility] | [address] [place], | | | | | Road [place], [place] | [place] [address] | | | | | [address] | | | | | | [phone] | | | +--------+ + + + [...] | | | | | [address] [place], | | | | | | [place] [address] | | | | | | [phone] | | | | | | | | +--------+---------+ + + + as of this encounter Visit Diagnoses Not on filein this encounter"
--- OUTSIDE RECORDS SUMMARY | ~2017-06-23 | XMS | Encounter Summary ---
Demographics + + + | Address | [address] | | | [place] [address] | + + + | Home Phone | | + + + | Preferred Language | Unknown | + + + | Marital Status | Single | + + + | Temple Affiliation | NON | + + + | Race | White | + + + | Ethnic Group | Not or | + + + Author + + + | Author | [facility] | + + + | Organization | [facility] | + + + | Address | [...] Team Providers + +------+ + | Care Presser Hand Name | Role | Phone | + +------+ + | Herrera Badillo MD | PCP | | + +------+ + Encounter Details +--------+ + + + + | Date | Type | Department | Care Team | Description | +--------+ + + + + | 05/06/ | Abstract | Transplant | Sander Yan MD | | | 2018 | | Coordinators [address] | [address] | | | | | [address] [facility] | [place], [place] | | | | | Road [place], [place] | [address] | | | | | [address] | [phone] | | | | | [phone] | | | +--------+ + + + [...] | | | | | [address] [place], | | | | | | [place] [address] | | | | | | [phone] | | | | | | | [...] | + + + | Blood | [place] [address] [address] [place] [address] | + + + in this encounter Visit Diagnoses Not on filein this encounter"
--- OUTSIDE RECORDS SUMMARY | ~2017-06-23 | XMS | Encounter Summary ---
Demographics + + + | Address | [address] | | | [place] [address] | + + + | Home Phone | | + + + | Preferred Language | Unknown | + + + | Marital Status | | + + + | Gnosticist Affiliation | Unknown | + + + | Race | Unknown | + + + | Ethnic Group | Unknown | + + + Author + + + | Author | [facility] | + + + | Organization | [facility] | + + + | Address | Unknown | + + + | Phone | Unavailable | + + + Support + + +---------+ + | Name | Relationship | Address | Phone | + + +---------+ + | Naye Wright | ECON | Unknown | | + + +---------+ + Care Team Providers + +------+ + | Care Deckhand Shrimp Boat Name | Role | Phone | + [...] | kidney disease | | | | [facility] [address] | | ([facility]); Nephrotic | | | | [place] [address] | | range proteinuria; | | | | [phone] | | Anemia of chronic | | | | | | renal failure, stage | | | | | | 4 (severe) ([facility]); | | | | | | Hyperuricemia; BRIDGET | | | | | | (acute kidney | | | | | | injury); Metabolic | | | | | | acidosis; Secondary | | | | | | hyperparathyroidism | | | | | | ([facility]); Acute | | | | | | [...] | | | | | | [address] [place], [place] | | | | | | [id number] | | | | | | | [...] + | Blood | [facility] [address] | | | [address] | + + + PTH intact no [...] + + | Blood | [facility] [address] [place] [address] | | | [address] | + + + CBC W/Auto Diff [...] + + | Blood | [facility] [address] [place], [place] [address] | | | [address] | + + + Magnesium (04/18/2017 8:10 AM) + +---------+ + | Component | Value | Ref Range | + +---------+ + | MAGNESIUM | 1.6 (A) | 1.7 - 2.5 mg/dL | + +---------+ + + + + | Specimen | Performing Laboratory | + + + | Blood | [facility] [address] [place] [address] | | | [address] | + + + Renal function panel [...] + + | Blood | [facility] [address] [place] [address] | | | [address] | + + + in this encounter [...]
--- OUTSIDE RECORDS SUMMARY | ~2017-06-23 | XMS | Encounter Summary ---
Demographics + + + | Address | [address] | | | [place] [address] | + + + | Home Phone | | + + + | Preferred Language | Unknown | + + + | Marital Status | Single | + + + | Yazdanism Affiliation | NON | + + + | Race | White | + + + | Ethnic Group | Not or | + + + Author + + + | Author | [facility] | + + + | Organization | [facility] | + + + | [...] Team Providers + +------+ + | Care Visitor Use Assistant Name | Role | Phone | [...] | | | | replaced by | [address] | | | | | | transplant | Ish Carrera | | | | | | (HCC) | Rd | | | | | | Procedures | [place], [place] | | | | | | [place] | [address] | | | | | | WWO IV | Phone: | | | | | | CONTRAST | [phone] | | | | | | | Fax: | | | | | | | [phone] | | + +--------+ + + + + Encounter Details +--------+ + + + + | Date | Type | Department | Care Team | Description | +--------+ + + + + | 05/24/ | Hatchery Manager | Transplant | Bernabe Taylor MD | Liver replaced by | | 2017 | | Coordinators [address] | transplant (HCC) | | | | Huber Carrera | [place], | (Primary Dx) | | | | Road [place], [place] | [place] [address] | | | | | [address] | [phone] | | | | | [phone] | | | +--------+ + + + [...] | | | | | [address] [place], | | | | | | [place] [address] | | | | | | [phone] | | | | | | | [...]
--- OUTSIDE RECORDS SUMMARY | ~2017-06-23 | XMS | Encounter Summary ---
Demographics + + + | Address | [address] | | | [place] [address] | + + + | Home Phone | | + + + | Preferred Language | Unknown | + + + | Marital Status | | + + + | Rastafari Affiliation | Unknown | + + + | Race | Unknown | + + + | Ethnic Group | Unknown | + + + Author + + + | Author | [facility] | + + + | Organization | [facility] | + + + | Address | Unknown | + + + | Phone | Unavailable | + + + Support + + +---------+ + | Name | Relationship | Address | Phone | + + +---------+ + | Naye Wright | ECON | Unknown | | + + +---------+ + Care Team Providers + +------+ + | Care Lead Person Name | Role | Phone | + +------+ + | [facility] Primary | PCP | | + +------+ + Reason for Referral MRI/CAT Scan (Emergency) +--------+--------+ + + + + | Status | Reason | Specialty | Diagnoses / | Referred By | Referred To | | | | | Procedures | Contact | Contact | +--------+--------+ + + + + | Closed | | Radiology | Diagnoses | [place], | [facility] [address] | | | | | CKD | Tavares Orellana MD | [address] | | | | | (chronic | [address] | | | | | kidney | [address] | [place], [place] | | | | | disease) | [place], [place] | [address] Phone: | | | | | stage 5, GFR | [address] | [phone] | | | | | less than | Phone: | | | | | | 15 ml/min | [phone] | | | | | | (HCC) | Fax: | | | | | | Anemia of | [phone] | | | | | | chronic [...] 5, | | | | Saurabh Sneed [facility] | | GFR less than 15 | | | | [address] [place], [place] | | ml/min ([facility]) | | | | [address] | | (Primary Dx); Anemia | | | | | | of chronic renal | | | | | | failure, stage 5 | | | | | | ([facility]); BRIDGET (acute | | | | | | kidney injury); | | | | | | Secondary | | | | | | hyperparathyroidism | | | | | | ([facility]); Nephrotic | | | | [...] [place] | | | | | | [id number] | | | | | | | [...] | | | than 15 ml/min ([facility]) | | | | | Anemia of chronic | | | | | renal failure, stage | | | | | 5 ([facility]) BRIDGET (acute | | | | | kidney injury) | | | | | Secondary | | | | | hyperparathyroidism | | | | | ([facility]) Nephrotic | | | | | range [...] | | | than 15 ml/min ([facility]) | | | | | Anemia of chronic | | | | | renal failure, stage | | | | | 5 ([facility]) BRIDGET (acute | | | | | kidney injury) | | | | | Secondary | | | | | hyperparathyroidism | | | | | ([facility]) Nephrotic | | | | | range [...] | | | than 15 ml/min ([facility]) | until 05/20/2018 | | | | Anemia of chronic | | | | | renal failure, stage | | | | | 5 ([facility]) BRIDGET (acute | | | | | kidney injury) | | | | | Secondary | | | | | hyperparathyroidism | | | | | ([facility]) Nephrotic | | | | | range [...] | | | than 15 ml/min ([facility]) | until 05/20/2018 | | | | Anemia of chronic | | | | | renal failure, stage | | | | | 5 ([facility]) BRIDGET (acute | | | | | kidney injury) | | | | | Secondary | | | | | hyperparathyroidism | | | | | ([facility]) Nephrotic | | | | | range [...] + | Blood | [facility] [address], [facility] [address] [place], [place] | | | [address] | + + + Iron panel (06/14/2017 [...] + | Blood | [facility] [address] [facility] [address] [place] | | | [address] | + + + PTH intact no calcium (06/14/2017 9:42 AM) + +---------+ + | Component | Value | Ref Range | + +---------+ + | PTH INTACT NO | 409 (A) | 15 - 65 pg/mL | | CALCIUM | | | + +---------+ + + + + | Specimen | Performing Laboratory | + + + | Blood | [facility] [address] [place] [address], [facility] [address] [place], [place] | | | [address] | + + + CBC W/Auto Diff [...] + + | Blood | [facility] [address] [place] [address] [place] | | | [address] | + + + Renal function panel [...] + | Blood | [facility] [address] [place] [address] | | | [address] | + + + CT needle biopsy kidney (05/30/2017 10:00 AM) + + + | Specimen | Performing Laboratory | + + + | | [address] [address] | + + + + + | [...] disease. Proteinuria. History of liver transplant. PRIMARY JEWEL STRIPPER: | | Gerson Lucero MD, PhD, [facility] OPERATIONS: 1. Limited CT of the abdomen [...] division in distribution into appropriate media for council renal | | pathologic assessment, including electromicroscopy [...] Unit for routine post procedure monitoring. 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 History of liver | | transplant.PRIMARY JEWEL STRIPPER: Gerson Lucero MD, PhD, [facility]OPERATIONS:1. Limited CT [...] distribution into appropriate media for | | council renal pathologic assessment, including electromicroscopy and immunofluorescence. 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 CT redemonstrates thin | | body habitus [...] | + + + | Blood | [facility] [address] [place] [address] [place] | | | [address] | + + + Ferritin (05/20/2017 10:49 AM) + +-------+ + | Component | Value | Ref Range | + +-------+ + | FERRITIN | 127 | 13 - 150 ng/mL | + +-------+ + + + + | Specimen | Performing Laboratory | + + + | Blood | [facility] [address] [place] [address], [place] | | | [address] | + + + CBC W/Auto Diff [...] | + + + | Blood | [facility] [address], [facility] [address] [place], [place] | | | [address] | + + + Basic metabolic panel [...] + | Blood | [facility] [address], [facility] [address] [place] | | | [address] | + + + in this encounter Visit Diagnoses + + | Diagnosis | + + | CKD (chronic kidney disease) stage 5, GFR less than 15 ml/min ([facility]) - Primary | + + [...]
--- OUTSIDE RECORDS SUMMARY | ~2017-06-23 | XMS | Encounter Summary ---
Demographics + + + | Address | [address] | | | [place] [address] | + + + | Home Phone | | + + + | Preferred Language | Unknown | + + + | Marital Status | | + + + | Yazdanism Affiliation | Unknown | + + + | Race | Unknown | + + + | Ethnic Group | Unknown | + + + Author + + + | Author | [facility] | + + + | Organization | [facility] | + + + | Address | Unknown | + + + | Phone | Unavailable | + + + Support + + +---------+ + | Name | Relationship | Address | Phone | + + +---------+ + | Naye Wright | ECON | Unknown | | + + +---------+ + Care Team Providers + +------+ + | Care Survey Coordinator Name | Role | Phone | + +------+ + | Sherrie Blackman MD | PCP | | + +------+ + Encounter Details +--------+ + + + + | Date | Type | Department | Care Team | Description | +--------+ + + + + | 04/23/ | Orders Only | [facility] | Ryan, | CKD (chronic kidney | | 2018 | | Vascular Surgery | [address] | disease) stage 5, | | | | [address] | | GFR less than 15 | | | | [address] [place] | | ml/min ([facility]) | | | | [address] | | (Primary Dx) | | | | [phone] | | | +--------+ + + + [...] | | | | | | [address] [place], [place] | | | | | | [address] | | | | | | | | +--------+---------+ + + + as of this encounter Results US upper extremity mapping for HDA bilat (05/01/2017 10:23 AM) + + + | Specimen | Performing Laboratory | + + + | | [address] [address] | + + + + + | [...]
--- OUTSIDE RECORDS SUMMARY | ~2017-06-23 | XMS | Encounter Summary ---
Demographics + + + | Address | [address] | | | [place] [address] | + + + | Home Phone | | + + + | Preferred Language | Unknown | + + + | Marital Status | | + + + | Amish Affiliation | Unknown | + + + | Race | Unknown | + + + | Ethnic Group | Unknown | + + + Author + + + | Author | [facility] | + + + | Organization | [facility] | + + + | Address | Unknown | + + + | Phone | Unavailable | + + + Support + + +---------+ + | Name | Relationship | Address | Phone | + + +---------+ + | Naye Wright | ECON | Unknown | | + + +---------+ + Care Team Providers + +------+ + | Care Sales Advisor Name | Role | Phone [...] | | | | | | [address] | | | | | | [place] [address] | | | | | | [phone] | | | +--------+--------+ + + + [...] | | | | | | [address] [place] | | | | | | [id number] | | | | | | | | +--------+---------+ + + + as of this encounter Visit Diagnoses Not on filein this encounter"
--- OUTSIDE RECORDS SUMMARY | ~2017-06-23 | XMS | Encounter Summary ---
Demographics + + + | Address | [address] | | | [place] [address] | + + + | Home Phone | | + + + | Preferred Language | Unknown | + + + | Marital Status | | + + + | Jewish Affiliation | Unknown | + + + | Race | Unknown | + + + | Ethnic Group | Unknown | + + + Author + + + | Author | [facility] | + + + | Organization | [facility] | + + + | Address | Unknown | + + + | Phone | Unavailable | + + + Support + + +---------+ + | Name | Relationship | Address | Phone | + + +---------+ + | Naye Wright | ECON | Unknown | | + + +---------+ + Care Team Providers + +------+ + | Care Reel Cart Operator Name | Role | Phone | + +------+ + | Sherrie Blackman MD | PCP | | + +------+ + Encounter Details +--------+ + + + + | Date | Type | Department | Care Team | Description | +--------+ + + + + | 05/21/ | Telephone | [facility] | Yaritza Soares, | | | 2017 | | Vascular Surgery | RN | | | | | [address] | | | | | | [place] | | | | | | [address] | | | | | | [phone] | | | +--------+ + + + [...]
--- OUTSIDE RECORDS SUMMARY | ~2017-06-23 | XMS | Encounter Summary ---
Demographics + + + | Address | [address] | | | [place] [address] | + + + | Home Phone | | + + + | Preferred Language | Unknown | + + + | Marital Status | | + + + | Rastafarian Affiliation | Unknown | + + + | Race | Unknown | + + + | Ethnic Group | Unknown | + + + Author + + + | Author | [facility] | + + + | Organization | [facility] | + + + | Address | Unknown | + + + | Phone | Unavailable | + + + Support + + +---------+ + | Name | Relationship | Address | Phone | + + +---------+ + | Naye Wright | ECON | Unknown | | + + +---------+ + Care Team Providers + +------+ + | Care Tank House Supervisor Name | Role | Phone | + +------+ + PCP | Unavailable | + +------+ + Encounter Details +--------+ + + + + | Date | Type | Department | Care Team | Description | +--------+ + + + + | 06/14/ | Telephone | [facility] | Kylee Kerr, | | | 2017 | | [address] | EXHIBITION ORGANISER | | | | | [address] | | | | | | [place] [address] | | | | | | [phone] | | | +--------+ + + + [...] | | | | | | [address] [place], [place] | | | | | | [address] | | | | | | | [...]
--- OUTSIDE RECORDS SUMMARY | ~2017-06-23 | XMS | Encounter Summary ---
Demographics + + + | Address | [address] | | | [place] [address] | + + + | Home Phone | | + + + | Preferred Language | Unknown | + + + | Marital Status | | + + + | Presybeterian Affiliation | Unknown | + + + | Race | Unknown | + + + | Ethnic Group | Unknown | + + + Author + + + | Author | [facility] | + + + | Organization | [facility] | + + + | Address | Unknown | + + + | Phone | Unavailable | + + + Support + + +---------+ + | Name | Relationship | Address | Phone | + + +---------+ + | Naye Wright | ECON | Unknown | | + + +---------+ + Care Team Providers + +------+ + | Care Chief Nurse Name | Role | Phone | + [...] | Documentati | [facility] | Tavares aVca MD | Other ([facility] | | 2018 | on Only | [place] [address] | [address] | Transplant Services | | | | [address] | [address] [place], [place] | Letter- Not a | | | | [place] [address] | [address] | Candidate) | | | | [phone] | | | +--------+ + + + [...] [place] | | | | | | [address] | | | | | | | | +--------+---------+ + + + as of this encounter Visit Diagnoses Not on filein this encounter"
--- OUTSIDE RECORDS SUMMARY | ~2017-06-23 | XMS | Encounter Summary ---
Demographics + + + | Address | [address] | | | [place] [address] | + + + | Home Phone | | + + + | Preferred Language | Unknown | + + + | Marital Status | | + + + | Presybeterian Affiliation | Unknown | + + + | Race | Unknown | + + + | Ethnic Group | Unknown | + + + Author + + + | Author | [facility] | + + + | Organization | [facility] | + + + | Address | Unknown | + + + | Phone | Unavailable | + + + Support + + +---------+ + | Name | Relationship | Address | Phone | + + +---------+ + | Naye Wright | ECON | Unknown | | + + +---------+ + Care Team Providers + +------+ + | Care Wrapper Hands Sprayer Name | Role | Phone | + [...] | | 2018 | on Only | [place] [address] | | Labs dated | | | | [address] | | 04/18/2017) | | | | [place] [address] | | | | | | [phone] | | | +--------+ + + + [...] | | | | | | [address] [place] | | | | | | [address] | | | | | | | | +--------+---------+ + + + as of this encounter Visit Diagnoses Not on filein this encounter"
--- OUTSIDE RECORDS SUMMARY | ~2017-06-23 | XMS | Encounter Summary ---
Demographics + + + | Address | [address] | | | [place] [address] | + + + | Home Phone [...] + + + | Author | [facility] | + + + | Organization | [facility] | + + + | Address | Unknown | + + + | Phone | Unavailable | + + + Support + + +---------+ + | Name | Relationship | Address | Phone | + + +---------+ + | Naye Wright | ECON | Unknown | | + + +---------+ + Care Team Providers + +------+ + | Care Employment Services Director Name | Role | Phone | [...] | | | | | [place] [address] | | | | | | [phone] | | | +--------+ + + + [...] [place] | | | | | | [address] | | | | | | | | +--------+---------+ + + + as of this encounter Visit Diagnoses Not on filein this encounter"
--- OUTSIDE RECORDS SUMMARY | ~2017-06-23 | XMS | Encounter Summary ---
Demographics + + + | Address | [address] | | | [place] [address] | + + + | Home Phone | | + + + | Preferred Language | Unknown | + + + | Marital Status | | + + + | Amish Affiliation | Unknown | + + + | Race | Unknown | + + + | Ethnic Group | Unknown | + + + Author + + + | Author | [facility] | + + + | Organization | [facility] | + + + | Address | Unknown | + + + | Phone | Unavailable | + + + Support + + +---------+ + | Name | Relationship | Address | Phone | + + +---------+ + | Naye Wright | ECON | Unknown | | + + +---------+ + Care Team Providers + +------+ + | Care Cost Accounting Clerk Name | Role | Phone | [...] | | | | | [place] [address] | | | | | | [phone] | | | +--------+ + + + [...] | | | | | | [address] [place] | | | | | | [address] | | | | | | | | +--------+---------+ + + + as of this encounter Visit Diagnoses Not on filein this encounter"
[~2017-06-23 13:39] MED LIST: AMITRIPTYLINE H50 MG PO; CELLCEPT250 MG PO; KEFLEX500 MG PO; MELOXICAM15 MG PO; NORCO 10-325 T1 EACH PO; PROGRAF5 MG PO; TRAMADOL HCL50 MG PO
[2017-06-23] MEDS ORDERED: AMLODIPINE BESYL5 MG PO (13:49)
[2017-06-23] MEDS ORDERED: ALLOPURINOL100 MG PO (13:50)
[2017-06-23] MEDS ORDERED: NORCO 5-325 TA1 EACH PO (13:51)
[2017-06-23] MEDS ORDERED: CALCITRIOL0.5 MCG PO (13:51)
[2017-06-23] MEDS ORDERED: CALCIUM ACETAT667 M1 NG (13:51)
--- OUTSIDE RECORDS SUMMARY | 2017-06-23 14:06 | XMS | Clinical Summary ---
Demographics + + + | Address | [address] | | | [place] [address] | + + + | Home Phone | | + + + | Preferred Language | Unknown | + + + | Marital Status | Single | + + + | Voodoo Affiliation | NON | + + + | Race | White | + + + | Ethnic Group | Not or | + + + Author + + + | Author | NON REVENUE LOCATIONS | + + + | Organization | NON REVENUE LOCATIONS | + + + | Address | Unknown | + + + | Phone | Unavailable | + + + Support + + +---------+ + | Name | Relationship | Address | Phone | + + +---------+ + | CHASTITY VELASCO | ECON | Unknown | | + + +---------+ + | ROMA MARIN | ECON | Unknown | | + + +---------+ + Care Team Providers + +------+ + | Care Radio Frequency Design Engineer Name | Role | Phone | + +------+ + | No Pcp Per Patient | PP | Unavailable | + +------+ + Source Comments RONAN is fully live on both [facility] and [facility] In[facility] Allergies + + + + + + | Active Allergy | Reactions | Severity | Noted | Comments | | | | | Date | | + + + + + + | Penicillins | Hives | | 08/03/19 | | | | | | 12 | | + + + + + + Current Medications + + +-------+---------+------+------+-------+ | Prescription | Sig. | Disp. | Refills | Star | End | Statu | | | | | | t | Date | s | | | | | | Date | | | + + +-------+---------+------+------+-------+ | tacrolimus 1 mg | Take 3 mg by mouth | | | | | Activ | | Oral Capsule | two times daily. | | | | | e | + + +-------+---------+------+------+-------+ | amitriptyline 50 | Take by mouth. | | | 12/0 | | Activ | | mg oral tablet | | | | 09/20 | | e | | | | | | 16 | | | + + +-------+---------+------+------+-------+ | allopurinol 100 mg | Take by mouth. | | | 08/02 | 08/02 | Activ | | oral tablet | | | | 05/21 | 05/21 | e | | | | | | 17 | 18 | | + + +-------+---------+------+------+-------+ | amLODIPine 5 mg | Take by mouth. | | | 04/04 | 04/04 | Activ | | oral tablet | | | | 11/21 | 11/21 | e | | | | | | 18 | 19 | | + + +-------+---------+------+------+-------+ | cholecalciferol | Take by mouth. | | | | | Activ | | (Vitamin D3) | | | | | | e | | (VITAMIN D3) 1,000 | | | | | | | | unit oral tablet | | | | | | | + + +-------+---------+------+------+-------+ | ciprofloxacin HCl | Take by mouth. | | | 04/04 | | Activ | | 250 mg oral tablet | | | | 11/21 | | e | | | | | | 18 | | | + + +-------+---------+------+------+-------+ | sodium bicarbonate | Take by mouth. | | | 02/01 | 02/01 | Activ | | 650 mg oral tablet | | | | 03/23 | 03/23 | e | | | | | | 17 | 18 | | + + +-------+---------+------+------+-------+ | calcium acetate | Take by mouth. | | | 04/04 | | Activ | | 667 mg oral capsule | | | | 11/21 | | e | | | | | | 18 | | | + + +-------+---------+------+------+-------+ | calcitriol 0.5 mcg | Take by mouth. | | | 04/04 | 04/04 | Activ | | oral capsule | | | | 11/21 | 11/21 | e | | | | | | 18 | 19 | | + + +-------+---------+------+------+-------+ Active Problems + + + | Problem | Noted Date | + + + | Cirrhosis of transplanted liver (HCC) | 01/23/2013 | + + + + + | Overview: Formatting of this note may be different from the | | original.Cirrhosis protocol with US of the Abdomen every 6 | | months. Will also need an AFP lab draw. When starting protocol, | | patient will have an initial screening EGD with follow up EGD | | every 2-4 years.Date of initial EGD: 08/22/12 Date Exam Type AFP | | date AFP result External Report Scanned Summary 12/14/11 US | | Increased hepatic parenchymal echogenicity with a micronodular | | liver contour indicate cirrhosis. 08/22/12 EGD 3 columns of | | medium sized esophageal varices with red [place]. Due to scarring | | presumably from prior banding sessions ability to suction varices | | into the banding device was limited. 1 band placed in the | | distal esophagus. 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/2011 | + + + + + | Overview: ICD10 | + + + + + | Liver replaced by transplant (HCC) | 08/03/2011 | + + + | Splenomegaly | 08/03/2011 | + + + Encounters +--------+ + + + + | Date | Type | Specialty | Care Team | Description | +--------+ + + + + | 06/19/ | Abstract | | Bernabe Taylor MD | | | 2017 | | | | | +--------+ + + + + | 05/27/ | Documentati | | Brenda Amador | Financial Review | | 2017 | on | | | | +--------+ + + + + | 05/24/ | Tanning Solution Maker | | Bernabe Taylor MD | Liver replaced by | | 2018 | | | | transplant (HCC) | | | | | | (Primary Dx) | +--------+ + + + + | 05/13/ | Telephone | | Tori Fine RN | Liver Transplant | | 2018 | | | | Follow Up (f/u | | | | | | procedures) | +--------+ + + + + | 05/09/ | Abstract | | Bernabe Taylor MD | | | 2018 | | | | | +--------+ + + + + | 05/07/ | Office | | Bernabe Taylor MD | Cirrhosis of | | 2018 | Visit | | | transplanted liver | | | | | | (HCC); Fulminant | | | | | | hepatic failure | | | | | | (HCC); Liver | | | | | | replaced by | | | | | | transplant (HCC) | +--------+ + + + + | 05/07/ | Tanning Solution Maker | | Tori Fine RN | | | 2017 | | | | | +--------+ + + + + | 05/07/ | Tanning Solution Maker | | Bernabe Taylor MD | Liver replaced by | | 2018 | | | | transplant (HCC) | | | | | | (Primary Dx); | | | | | | Cirrhosis of liver | | | | | | without ascites, | | | | | | unspecified hepatic | | | | | | cirrhosis type (HCC) | | | | | | | +--------+ + + + + | 05/07/ | Tanning Solution Maker | | Tori Fine RN | Liver replaced by | | 2017 | | | | transplant (HCC) | | | | | | (Primary Dx) | +--------+ + + + + | 05/06/ | Abstract | | Sander Yan MD | | | 2017 | | | | | +--------+ + + + + | 04/25/ | Telephone | | Saritha Coley | Pre Transplant | | 2017 | | | MITUL Hoff | Workup (Intake) | +--------+ + + + + from Last 3 Months Immunizations + + + + | Name | Dates Previously Given | Next Due | + + + + | Hib-PRP-T | 09/13/2014 | | + + + + | Influenza, split | 12/14/2011 | | + + + + | MCV4P | 09/13/2014 | | + + + + | Pneumococcal 23 | 09/13/2014, 03/04/2005 | | + + + + Family History + + +------+ + | Medical History | Relation | Name | Comments | + + +------+ + | Diabetes | Maternal | | | | | Grandmoth | | | | | er | | | + + +------+ + + +------+--------+ + | Relation | Name | Status | Comments | + +------+--------+ + | Maternal Grandmother | | | | + +------+--------+ + Social History + + + +--------+ + | Tobacco Use | Types | Packs/Day | Years | Date | | | | | Used | | + + + +--------+ + | Current Some Day | Cigarettes | 1.25 | 16 | Quit: 08/28/2014 | | Smoker | | | | | + + + +--------+ + + +---+---+---+ | Smokeless Tobacco: | | | | | Never Used | | | | + +---+---+---+ + + | Comments: quit "regular" use in 2014, still has occasional cigs | + + + + +---------+ + | Alcohol Use | Drinks/We | oz/Week | Comments | | | ek | | | + + +---------+ + | No | | | | + + +---------+ + + + + | Sex Assigned at | Date Recorded | | | | + + + | Not on file | | + + + Last Filed Vital Signs + + + + | Vital Sign | Reading | Time Taken | + + + + | Blood Pressure | 133/74 | 05/07/2017 11:29 AM PST | + + + + | Pulse | 88 | 05/07/2017 11:29 AM PST | + + + + | Temperature | 36.3 C (97.4 F) | 05/07/2017 11:29 AM PST | + + + + | Respiratory Rate | 14 | 05/07/2017 11:29 AM PST | + + + + | Oxygen Saturation | 99% | 05/07/2017 11:29 AM PST | + + + + | Inhaled Oxygen | - | - | | Concentration | | | + + + + | Weight | 51.1 kg (112 lb 11.2 | 05/07/2017 11:29 AM PST | | | oz) | | + + + + | Height | 152.4 cm (5') | 08/22/2012 8:00 AM PDT | + + + + | Body Mass Index | 22.01 | 05/07/2017 11:29 AM PST | + + + + Plan of Treatment +--------+---------+ + + + | Date | Type | Specialty | Care Team | Description | +--------+---------+ + + + | 05/20/ | Office | | Bernabe Taylor MD | | | 2019 | Visit | | [address] | | | | | | [place], | | | | | | [place] [address] | | | | | | [phone] | | | | | | | | +--------+---------+ + + + + + + + + | Health Maintenance | Due Date | Last Done | Comments | + + + + + | INFLUENZA VACCINE | | 12/14/2011, 01/03/2006 | | | (FLU SHOT) | 8 | | | + + + + + Results LIVER TRANSPLANT POST PANEL (EXT RESULTS) (2017 8:50 AM)Only the most recent of 2 re sults within the time period is included. + +---------+ + | Component | Value | Ref Range | + +---------+ + | SODIUM, PLASMA (LAB) | 139 | mmol/L | + +---------+ + | POTASSIUM, PLASMA | 3.9 | mmol/L | | (LAB) | | | + +---------+ + | CHLORIDE, PLASMA | 110 | mmol/L | | (LAB) | | | + +---------+ + | TOTAL CO2, PLASMA | 17 | mmol/L | | (LAB) | | | + +---------+ + | GLUCOSE, PLASMA | 125 (A) | 65 - 110 mg/dL | | (LAB) | | | + +---------+ + | BUN, PLASMA (LAB) | 51 | mg/dL | + +---------+ + | CREATININE PLASMA | 5.71 | mg/dL | | (LAB) | | | + +---------+ + | CALCIUM, PLASMA | 8.0 | mg/dL | | (LAB) | | | + +---------+ + | MAGNESIUM,PLASMA | 1.6 | mg/dL | + +---------+ + | TOTAL PROTEIN, | 5.8 | g/dL | | PLASMA (LAB) | | | + +---------+ + | ALBUMIN, PLASMA | 2.9 | g/dL | | (LAB) | | | + +---------+ + | BILIRUBIN TOTAL | 0.3 | Transcutaneous | | | | Bilirubinometer | + +---------+ + | ALK PHOS | 132 | U/L | + +---------+ + | AST(SGOT) | 16 | U/L | + +---------+ + | ALT (SGPT) | 8 | U/L | + +---------+ + | GAMMA GLUTAMYL TRANS | 27 | U/L | + +---------+ + | CHOLESTEROL (LAB) | 198 | mg/dL | + +---------+ + | TRIGLYCERIDES | 78 | | + +---------+ + | WHITE CELL COUNT | 15.1 | K/cu mm | + +---------+ + | HEMATOCRIT | 21.5 | % | + +---------+ + | HEMOGLOBIN | 7.2 (A) | 12.1999 - 15 g/dL | + +---------+ + | PLATELET COUNT | 453 | K/cu mm | + +---------+ + | TACROLIMUS (FK 506) | 3.3 | ng/mL | + +---------+ + | AFP, TUMOR MARKER, | 2.76 | ng/mL | | SERUM | | | + +---------+ + + + + | Specimen | Performing Laboratory | + + + | Blood | [facility] [address] | + + + from Last 3 Months
--- OUTSIDE RECORDS SUMMARY | 2017-06-23 14:06 | XMS | Encounter Summary ---
Demographics + + + | Address | [address] | | | [place] [address] | + + + | Home Phone | | + + + | Preferred Language | Unknown | + + + | Marital Status | Single | + + + | Hinduism Affiliation | NON | + + + | Race | White | + + + | Ethnic Group | Not or | + + + Author + + + | Author | [facility] | + + + | Organization | [facility] | + + + | Address | [...] Team Providers + +------+ + | Care Chemical Technician Name | Role | Phone | + +------+ + | No Pcp Per Patient | PCP | Unavailable | + +------+ + Encounter Details +--------+ + + + + | Date | Type | Department | Care Team | Description | +--------+ + + + + | 06/19/ | Abstract | Transplant | Bernabe Taylor MD | | | 2017 | | Coordinators [address] | | | | | [address] [facility] | [place], | | | | | [place], [place] | [place] [address] | | | | | [address] | [phone] | | | | | [phone] | | | +--------+ + + + + Social History + + + +--------+ [...] + | Comments: quit "regular" use in 2015, still has occasional cigs | + + [...] on file | | + + + as of this encounter Plan of Treatment +--------+---------+ + + + | Date | Type | Specialty | Care Team | Description | +--------+---------+ + + + | 05/20/ | Office | Liver Transplant | Bernabe Taylor MD | | | 2019 | Visit | | [address] | | | | | | [place], | | | | | | [place] [address] | | | | | | [phone] | | | | | | | | +--------+---------+ + + + as of this encounter Visit Diagnoses Not on filein this encounter
--- OUTSIDE RECORDS SUMMARY | 2017-06-23 14:07 | XMS | Encounter Summary ---
Demographics + + + | Address | [address] | | | [place] [address] | + + + | Home Phone | | + + + | Preferred Language | Unknown | + + + | Marital Status | Single | + + + | Scientologist Affiliation | NON | + + + | Race | White | + + + | Ethnic Group | Not or | + + + Author + + + | Author | [facility] | + + + | Organization | [facility] | + + + | Address [...] Team Providers + +------+ + | Care Technical Planner Name | Role | Phone | + +------+ + | Herrera Badillo MD | PCP | | + +------+ + Reason for Referral Diagnostic Testing (Routine) +--------+--------+ + + + + | Status | Reason | Specialty | Diagnoses / | Referred By | Referred To | | | | | Procedures | Contact | Contact | +--------+--------+ + + + + | Closed | | Radiology | Diagnoses | Claudia | | | | | | Liver | MD Bernabe | | | | | | replaced by | [address] | | | | | | transplant | [address] | | | | | | (HCC) | Rd | | | | | | Procedures | [place], [place] | | | | | | CT ABDOMEN | [address] | | | | | | WWO IV | Phone: | | | | | | CONTRAST | [phone] | | | | | | | Fax: | | | | | | | [phone] | | +--------+--------+ + + + + Consultation (Routine) + +--------+ + + + + | Status | Reason | Specialty | Diagnoses / | Referred By | Referred To | | | | | Procedures | Contact | Contact | + +--------+ + + + + | New Request | | | Diagnoses | Claudia, | | | | | | Liver | MD Bernabe | | | | | | replaced by | [address] | | | | | | transplant | [address] | | | | | | (HCC) | Rd | | | | | | Procedures | [place], [place] | | | | | | CONSULT TO | [address] | | | | | | GI PROCEDURE | Phone: | | | | | | UNIT: EGD | [phone] | | | | | | | Fax: | | | | | | | [phone] | | + +--------+ + + + + PROC - Dept/Practice Procedure (Routine) + +--------+ + + + + | Status | Reason | Specialty | Diagnoses / | Referred By | Referred To | | | | | Procedures | Contact | Contact | + +--------+ + + + + | Pending | | Interventiona | Diagnoses | Claudia, | Irc Body | | Review | | l Radiology | Liver | MD Bernabe | [facility] [address] | | | | | replaced by | [address] | | | | | transplant | [facility] | [facility] | | | | | (HCC) | Rd | Mailcode: | | | | | Procedures | [place], [place] | [address] | | | | | IR BODY | [address] | [place] | | | | | PROCEDURE | Phone: | Hospital | | | | | REQUEST [place] | [phone] | [facility] | | | | | PLACE CATH | Fax: | [place], [place] | | | | | [place] | [phone] | [address] | | | | | VEIN,SELECT | | Phone: | | | | | [place] VENOGRAM | | [phone] | | | | | HEPATIC W | | Fax: | | | | | HEMODYNAMICS | | [phone] | | | | | [place] | | | | | | | TRANSCATHETE | | | | | | | R BIOPSY [place] | | | | | | | VASCULAR | | | | | | | BIOPSY [place] | | | | | | | US | | | | | | | GUIDE,VASCUL | | | | | | | AR ACCESS | | | + +--------+ + + + + Reason for Visit + + + | Reason | Comments | + + + | Liver Transplant | TJ liver biopsy/ CT order | | Follow Up | | + + + Encounter Details +--------+ + + + + | Date | Type | Department | Care Team | Description | +--------+ + + + + | 05/07/ | [employer] | Transplant | Bernabe Taylor MD | Liver replaced by | | 2018 | | Coordinators [address] | transplant (HCC) | | | | [address] | [address] [place], | (Primary Dx); | | | | Road [place], [place] | [place] [address] | Cirrhosis of liver | | | | [address] | [phone] | without ascites, | | | | [phone] | | unspecified hepatic | | | | | | cirrhosis type (HCC) | | | | | | | +--------+ + + + + Social History + + + +--------+ + | Tobacco Use | Types | Packs/Day | Years | Date | | | | | Used | | + + + +--------+ + | Former Smoker | Cigarettes | 0.5 | 13 | Quit: 08/28/2014 | + + + +--------+ + + +---+---+---+ | Smokeless Tobacco: | | | | | Never Used | | | | + +---+---+---+ + + + | Sex Assigned at [...] | | 2019 | Visit | | [address] | | | | | | [place], | | | | | | [place] [address] | | | | | | [phone] | | | | | | | | +--------+---------+ + + + + +--------+ + + | Name | Priori | Associated Diagnoses | Order Schedule | | | ty | | | + +--------+ + + | IR BODY PROCEDURE REQUEST | Routin | Liver replaced by | Expected: | | | e | transplant (HCC) | 05/07/2017, Expires: | | | | | 06/07/2018 | + +--------+ + + | US ABDOMEN COMPLETE | Routin | Liver replaced by | Expected: | | | e | transplant (HCC) | 05/07/2017, Expires: | | | | | 06/07/2018 | + +--------+ + + | ALPHA-FETOPROTEIN TUMOR MARKER, | Routin | Cirrhosis of liver | Expected: 05/07/2017 | | SERUM | e | without ascites, | (Approximate), | | | | unspecified hepatic | Expires: 06/07/2018 | | | | cirrhosis type (HCC) | | | | | Liver replaced by | | | | | transplant (HCC) | | + +--------+ + + | CT ABDOMEN WWO IV CONTRAST | Routin | Liver replaced by | Expected: | | | e | transplant (HCC) | 05/07/2017, Expires: | | | | | 06/07/2018 | + +--------+ + + as of this encounter Visit Diagnoses + + | Diagnosis | + + | Liver replaced by transplant (HCC) - Primary | + + | Liver replaced by transplant | + + | Cirrhosis of liver without ascites, unspecified hepatic cirrhosis type (HCC) | + +"
--- OUTSIDE RECORDS SUMMARY | 2017-06-23 14:07 | XMS | Encounter Summary ---
Demographics + + + | Address | [address] | | | [place] [address] | + + + | Home Phone | | + + + | Preferred Language | Unknown | + + + | Marital Status | Single | + + + | Jew Affiliation | NON | + + + | Race | White | + + + | Ethnic Group | Not or | + + + Author + + + | Author | [facility] | + + + | Organization | [facility] | + + + | Address [...] Team Providers + +------+ + | Care Community Health Advisor Name | Role | Phone | + +------+ + | Herrera Badillo MD | PCP | | + +------+ + Encounter Details +--------+ + + + + | Date | Type | Department | Care Team | Description | +--------+ + + + + | 05/09/ | Abstract | Transplant | Bernabe Taylor MD | | | 2018 | | Coordin[address] | | | | | [address] [facility] | [facility], | | | | | Road [place], [place] | [place] [address] | | | | | [address] | [phone] | | | | | [phone] | | | +--------+ + + + [...] | | | | | [address] [place], | | | | | | [place] [address] | | | | | | [phone] | | | | | | | | +--------+---------+ + + + as of this encounter Results LIVER TRANSPLANT POST PANEL (EXT RESULTS) (2017 8:50 AM) + +---------+ + | Component | Value [...] [address] | + + + in this encounter Visit Diagnoses Not on filein this encounter"
--- OUTSIDE RECORDS SUMMARY | 2017-06-23 14:07 | XMS | Encounter Summary ---
Demographics + + + | Address | [address] | | | [place] [address] | + + + | Home Phone | | + + + | Preferred Language | Unknown | + + + | Marital Status | Single | + + + | Anabaptism Affiliation | NON | + + + | Race | White | + + + | Ethnic Group | Not or | + + + Author + + + | Author | [facility] | + + + | Organization | [facility] | + + + | Address | [...] Team Providers + +------+ + | Care Ship Purser Name | Role | Phone | + +------+ + | No Pcp Per Patient | PCP | Unavailable | + +------+ + Reason for Referral Diagnostic Testing (Routine) + +--------+ + + + + | Status | Reason | Specialty | Diagnoses / | Referred By | Referred To | | | | | Procedures | Contact | Contact | + +--------+ + + + + | Pending | | Radiology | Diagnoses | Claudia, | | | Review | | | Liver | MD Bernabe | | | | | | replaced by | [address] | | | | | | transplant | [address] | | | | | | (HCC) | Rd | | | | | | Procedures | [place], [place] | | | | | | CT PELVIS | [address] | | | | | | WWO IV | Phone: | | | | | | CONTRAST | [phone] | | | | | | | Fax: | | | | | | | [phone] | | + +--------+ + + + + Encounter Details +--------+ + + + + | Date | Type | Department | Care Team | Description | +--------+ + + + + | 05/24/ | Soil Science Professor | Transplant | Bernabe Taylor MD | Liver replaced by | | 2017 | | [address] | [address] | transplant (HCC) | | | | [address] | [address] [place], | (Primary Dx) | | | | Road [place], [place] | [place] [address] | | | | | [address] | [phone] | | | | | [phone] | | | +--------+ + + + [...] | | | | | [address] [place], | | | | | | [place] [address] | | | | | | [phone] | | | | | | | | +--------+---------+ + + + + +--------+ + + | Name | Priori | Associated Diagnoses | Order Schedule | | | ty | | | + +--------+ + + | CT PELVIS WWO IV CONTRAST | Routin | Liver replaced by | Expected: | | | e | transplant (HCC) | 05/24/2017, Expires: | | | | | 06/24/2018 | + +--------+ + + as of this encounter Visit Diagnoses + + | Diagnosis | + + | Liver replaced by transplant (HCC) - Primary | + + | Liver replaced by transplant | + +
--- OUTSIDE RECORDS SUMMARY | 2017-06-23 14:07 | XMS | Encounter Summary ---
Demographics + + + | Address | [address] | | | [place] [address] | + + + | Home Phone | | + + + | Preferred Language | Unknown | + + + | Marital Status | Single | + + + | Pentecostal Affiliation | NON | + + + | Race | White | + + + | Ethnic Group | Not or | + + + Author + + + | Author | [facility] | + + + | Organization | [facility] | + + + | [...] Team Providers + +------+ + | Care Restoration Technician Name | Role | Phone | + +------+ + | Herrera Badillo MD | PCP | | + +------+ + Reason for Visit + + + | Reason | Comments | + + + | Liver Transplant | f/u procedures | | Follow Up | | + + + Encounter Details +--------+ + + + + | Date | Type | Department | Care Team | Description | +--------+ + + + + | 05/13/ | Telephone | Transplant | Tori Fine RN | Liver Transplant | | 2018 | | Coordin[address] | [address] | Follow Up (f/u | | | | [address] | [address] [place], | procedures) | | | | Road [place], [place] | [place] [address] | | | | | [address] | | | | | | [phone] | | | +--------+ + + + [...] | | | | | [address] [place], | | | | | | [place] [address] | | | | | | [phone] | | | | | | | | +--------+---------+ + + + as of this encounter Visit Diagnoses Not on filein this encounter"
--- OUTSIDE RECORDS SUMMARY | 2017-06-23 14:07 | XMS | Encounter Summary ---
Demographics + + + | Address | [address] | | | [place] [address] | + + + | Home Phone | | + + + | Preferred Language | Unknown | + + + | Marital Status | Single | + + + | Christianity Affiliation | NON | + + + | Race | White | + + + | Ethnic Group | Not or | + + + Author + + + | Author | [facility] | + + + | Organization | [facility] | + + + | Address [...] Team Providers + +------+ + | Care Validation Architect Name | Role | Phone | + +------+ + | No Pcp Per Patient | PCP | Unavailable | + +------+ + Reason for Visit + + + | Reason | Comments | + + + | Financial Review | | + + + Encounter Details +--------+ + + + + | Date | Type | Department | Care Team | Description | +--------+ + + + + | 03/26/ | Documentati | Transplant | Brenda Amador | Financial Review | | 2018 | on | Coordin[address] | [place], [place] | | | | | [address] | [address] | | | | | Road [place], [place] | | | | | | [address] | | | | | | [phone] | | | +--------+ + + + [...] | | | | | [address] [place], | | | | | | [place] [address] | | | | | | [phone] | | | | | | | | +--------+---------+ + + + as of this encounter Visit Diagnoses Not on filein this encounter
--- OUTSIDE RECORDS SUMMARY | 2017-06-23 14:07 | XMS | Encounter Summary ---
Demographics + + + | Address | [address] | | | [place] [address] | + + + | Home Phone | | + + + | Preferred Language | Unknown | + + + | Marital Status | Single | + + + | Uatsdin Affiliation | NON | + + + | Race | White | + + + | Ethnic Group | Not or | + + + Author + + + | Author | [facility] | + + + | Organization | [facility] | + + + | [...] Team Providers + +------+ + | Care Drug Clerk Name | Role | Phone | + +------+ + | Herrera Badillo MD | PCP | | + +------+ + Encounter Details +--------+ + + + + | Date | Type | Department | Care Team | Description | +--------+ + + + + | 05/07/ | Assistive Technology Specialist | Transplant | Tori Fine RN | | | 2018 | | Coordin[address] | [address] | | | | | [address] [facility] | [address] [place], | | | | | Road [place], [place] | [place] [address] | | | | | [address] | | | | | | [phone] | | | +--------+ + + + [...] | | | | | [address] [place], | | | | | | [place] [address] | | | | | | [phone] | | | | | | | | +--------+---------+ + + + as of this encounter Visit Diagnoses Not on filein this encounter"
--- OUTSIDE RECORDS SUMMARY | 2017-06-23 14:07 | XMS | Encounter Summary ---
Demographics + + + | Address | [address] | | | [place] [address] | + + + | Home Phone | | + + + | Preferred Language | Unknown | + + + | Marital Status | Single | + + + | Adventism Affiliation | NON | + + + | Race | White | + + + | Ethnic Group | Not or | + + + Author + + + | Author | [facility] | + + + | Organization | [facility] | + + + | [...] Team Providers + +------+ + | Care Separating Machine Operator Name | Role | Phone | + +------+ + | Herrera Badillo MD | PCP | | + +------+ + Encounter Details +--------+ + + + + | Date | Type | Department | Care Team | Description | +--------+ + + + + | 05/07/ | Food Safety Officer | Transplant | Tori Fine, RN | Liver replaced by | | 2017 | | Coordinators [address] | transplant (HCC) | | | | [address] | [place], | (Primary Dx) | | | | Road [place], [place] | [place] [address] | | | | | [address] | | | | | | [phone] | | | +--------+ + + + [...] | | | | | [address] [place], | | | | | | [place] [address] | | | | | | [phone] | | | | | | | | +--------+---------+ + + + as of this encounter Visit Diagnoses + + | Diagnosis | + + | Liver replaced by transplant (HCC) - Primary | + + | Liver replaced by transplant | + +"
--- OUTSIDE RECORDS SUMMARY | 2017-06-23 14:07 | XMS | Encounter Summary ---
Demographics + + + | Address | [address] | | | [place] [address] | + + + | Home Phone | | + + + | Preferred Language | Unknown | + + + | Marital Status | Single | + + + | Mosque Affiliation | NON | + + + | Race | White | + + + | Ethnic Group | Not or | + + + Author + + + | Author | [facility] | + + + | Organization | [facility] | + + + | [...] Team Providers + +------+ + | Care Woodworking Belt Sander Name | Role | Phone | + +------+ + | Herrera Badillo MD | PCP | | + +------+ + Reason for Visit + + + | Reason | Comments | + + + | Return Patient | | + + + Office Visit - E/M Services (Routine) +--------+--------+ + + + + | Status | Reason | Specialty | Diagnoses / | Referred By | Referred To | | | | | Procedures | Contact | Contact | +--------+--------+ + + + + | Closed | | Liver | Diagnoses | Badillo, | Txc Trans | | | | Transplant | Liver | Herrera Mathis MD | Coord Liver | | | | | transplant | Urgent | [address] | | | | | status | Health Care | [facility] | | | | | Procedures | [address] | | | | | [place] | [address] | [place], [place] | | | | | OFFICE/OUTPT | Ave | [address] | | | | | | [place], | Phone: | | | | | VISIT,[place] | [place] [address] | [phone] | | | | | [address] | Phone: | Fax: | | | | | | [phone] | [phone] | | | | | | Fax: | | | | | | | [phone] | | +--------+--------+ + + + + Encounter Details +--------+---------+ + + + | Date | Type | Department | Care Team | Description | +--------+---------+ + + + | 05/07/ | Office | Liver Transplant | Bernabe Taylor MD | Cirrhosis of | | 2018 | Visit | at [facility] 2nd Floor | [address] | transplanted liver | | | | [address] | [address] [facility], | (HCC); [place] | | | | [address] | [place] [address] | hepatic failure | | | | [place], [place] | [phone] | (HCC); Liver | | | | [address] | | replaced by | | | | [phone] | | transplant (HCC) | +--------+---------+ + + + Social History + + [...] + + + as of this encounter Last Filed Vital Signs + + + [...] + + + + | Height | - | - | + + + + | Body Mass Index | 22.01 | 05/07/2017 11:29 AM PST | + + + + in this encounter Progress Notes Bernabe Taylor MD - 05/07/2017 11:00 AM PSTFormatting of this note may be different from the original. TRANSPLANT HEPATOLOGY RETURN PATIENT VISIT 05/07/2017 Herrera Badillo MD [facility] [address] [place] [address] RE: Nicolasa Sanz : [address] Delarosa: I had the pleasure of seeing Nicolasa Sanz in follow up in the Liver Clinic at [facility] for the first time since 06/24/2012. Pertinent laboratory, imaging, pathology results were reviewed. HISTORY OF PRESENT ILLNESS: The patient is a 37 y.o./o white female with NAYA s/p LT in 1988 complicated by chronic rejection who presents for follow up. Since her last visit in 2012, the patient underwent OLT in [place] in 2014. She is starting HD and is awaiting kidney transplantation. She was declined by [facility]. She denies jaundice, hepatic encephalopathy, SBP, or LE edema. Post-Transplant Dx (updated today) 1.Liver disease - Etiology- Etiology- NAYA s/p OLT 1988 at [facility] c/b chronic rejection s/p 2nd OLT 2014 at [facility] 2. Liver transplant- 09/13/2014 ~ Aortic conduit from infrarenal aorta to [place]. Venous conduit from SMV to donor PV. Kel-en- Y hepaticojejunostomy. Splenectomy - Immunosuppression regimen- FK trough goals per [place] - Complications- no ACR, HAT, biliary, surgical, noncompliance after 2nd OLT 3. 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 The patient denies history of Crohn's although it is in her medical records. 4. Preventive care - Vaccinations- HAV, HBV, Flu, Pneumovax- reviewed 5. Social- lived in [place], now in [place]- to be near sister. 2 sons. REVIEW OF SYSTEMS: Patient denies fevers, chills, headaches, mouth sores, visual changes, weight change, shortness of breath, palpitations, cough, heartburn, hematuria, rash, dysuria , depression, anxiety. MEDICATIONS: Current Outpatient Prescriptions: allopurinol 100 mg oral tablet, Take by mout h., Disp: , Rfl: amitriptyline 50 mg oral tablet, Take by mouth., Disp: , Rfl: amLODIPine 5 mg oral tablet, Take by mouth., Disp: , Rfl: calcitriol 0.5 mcg oral capsule, Take by mouth., Disp: , Rfl: calcium acetate 667 mg oral capsule, Take by mouth., Disp: , Rfl: cholecalciferol (Vitamin D3) (VITAMIN D3) 1,000 unit oral tablet, Take by mouth., Disp: , R fl: ciprofloxacin HCl 250 mg oral tablet, Take by mouth., Disp: , Rfl: sodium bicarbonate 650 mg oral tablet, Take by mouth., Disp: , Rfl: tacrolimus 1 mg Oral Capsule, Take 3 mg by mouth two times daily. , Disp: , Rfl: PHYSICAL EXAMINATION: BP 133/74 | Pulse 88 | Temp (Src) 36.3 C (97.4 F) (Oral) | RR 14 | Wt 51.1 kg (112 lb 1 1.2 oz) | SpO2 99% | BMI 22.01 kg/(m^2) Appearance: alert and in no acute distress. HEENT: oropharynx without lesions. Anicteric sclerae. Neck: supple, nontender, without adenopathy, thyromegaly, or JVD. Abdomen: soft, nontender, without obvious ascites. Normal bowel sounds. + hepatosplenomegal y. Well healed scars. Extremities: full ROM, no atrophy, normal strength. No edema Skin: no specific lesions Neurological exam nonfocal, no asterixis, alert and oriented without encephalopathy. LABS: Recent Labs 05/02/17 0110 CR 5.9 WBC 15.12 HCT 19.8 PLT 339 IMAGING: CT 2018- 1.Unsuccessful CT core needle biopsy of right kidney. 2.Dr. Woodward of the interventional radiology department was contacted. He will arrange f or outpatient biopsy. 3.The patient will be observed for 4 hours and then will be discharged home if hemodyna mically stable. CT 12/2011- 1. Increased hepatic parenchymal echogenicity with a micronodular liver contour indicate cirrhosis. 2. Splenomegaly suggestive of portal hypertension. 3. Incidentally noted is mild left renal cortical thinning which be related to scarring if there is a prior history of infection. ASSESSMENT/PLAN: 37 yo WF with OLT x 2 with CRI, on HD. FK will continue as per Brad recommendations- given her age, history of chronic rejecti on, she would require ongoing close monitoring. Given this patient's current stability post-liver transplant, I would recommend standard po st-OLT labs at least every 3 months and a return visit with us every 12 months (and on an as needed basis). The labs should include CMP, CBC, and immunosuppressive trough levels. I hav e recommended that the patient follow up with you for their general medical care. I have not ified them that the immunosuppressive medications put them at risk for other conditions (suc h as hypertension, hyperlipidemia, diabetes, cancer, osteoporosis, etc.), and that close elaine judy follow up is essential. I do recommend a flu shot annually. RECOMMENDATIONS: 1. CMP, CBC, INR, FK. 2. FK goal 3-5 or higher as per [place] recommendations. 3. Awaiting renal transplant evaluation. 4. Return to clinic in 1 year. Thank you for allowing me to participate in the care of this patient. Please feel free to contact me with any questions regarding the patient's care. Warmest regards. Sincerely, Bernabe Taylor M.D., M.S. chemical inspector Director of Clinical Hepatology Division of Gastroenterology and Hepatology [facility] [place] in this encounter Plan of Treatment +--------+---------+ + + + | Date | Type | Specialty | Care Team | Description | +--------+---------+ + + + | 05/20/ | Office | Liver Transplant | Bernabe Taylor MD | | | 2018 | Visit | | [address] | | | | | | [place], | | | | | | [place] [address] | | | | | | [phone] | | | | | | | | +--------+---------+ + + + as of this encounter Visit Diagnoses + + | Diagnosis | + + | Cirrhosis of transplanted liver (HCC) | + + | Complications of transplanted liver | + + | Fulminant hepatic failure (HCC) | + + | Other sequelae of chronic liver disease | + + | Liver replaced by transplant (HCC) | + + | Liver replaced by transplant | + +"
--- OUTSIDE RECORDS SUMMARY | 2017-06-23 14:08 | XMS | Encounter Summary ---
Demographics + + + | Address | [address] | | | [place] [address] | + + + | Home Phone | | + + + | Preferred Language | Unknown | + + + | Marital Status | Single | + + + | Catholic Affiliation | NON | + + + | Race | White | + + + | Ethnic Group | Not or | + + + Author + + + | Author | [facility] | + + + | Organization | [facility] | + + + | [...] Team Providers + +------+ + | Care Insurance Sales Supervisor Name | Role | Phone | + +------+ + | Herrera Badillo MD | PCP | | + +------+ + Encounter Details +--------+ + + + + | Date | Type | Department | Care Team | Description | +--------+ + + + + | 05/06/ | Abstract | Transplant | Sander Yan MD | | | 2018 | | Coordinators [address] | | | | | [address] [facility] | [place], [place] | | | | | Road [place], [place] | [address] | | | | | [address] | [phone] | | | | | [phone] | | | +--------+ + + + + Social History + + + +--------+------+ | Tobacco Use | Types | Packs/Day | Years | Date | | | | | Used | | + + + +--------+------+ | Current Every Day | Cigarettes | 0.5 | 13 | | | Smoker | | | | | + + + +--------+------+ + + + | Sex Assigned at [...] | | | | | [address], | | | | | | [place] [address] | | | | | | [phone] | | | | | | | | +--------+---------+ + + + as of this encounter Results LIVER TRANSPLANT POST PANEL (EXT RESULTS) (05/02/2017 1:10 AM) + +---------+ + | Component | Value | Ref Range | + +---------+ + | SODIUM, PLASMA (LAB) | 140 | mmol/L | + +---------+ + | POTASSIUM, PLASMA | 3.6 | mmol/L | | (LAB) | | | + +---------+ + | CHLORIDE, PLASMA | 110 | mmol/L | | (LAB) | | | + +---------+ + | TOTAL CO2, PLASMA | 19 | mmol/L | | (LAB) | | | + +---------+ + | GLUCOSE, PLASMA | 114 (A) | 65 - 110 mg/dL | | (LAB) | | | + +---------+ + | BUN, PLASMA (LAB) | 55 | mg/dL | + +---------+ + | CREATININE PLASMA | 5.9 | mg/dL | | (LAB) | | | + +---------+ + | CALCIUM, PLASMA | 7.8 | mg/dL | | (LAB) | | | + +---------+ + | WHITE CELL COUNT | 15.12 | K/cu mm | + +---------+ + | HEMATOCRIT | 19.8 | % | + +---------+ + | HEMOGLOBIN | 6.7 (A) | 12.1999 - 15 g/dL | + +---------+ + | PLATELET COUNT | 339 | K/cu mm | + +---------+ + + + + | Specimen | Performing Laboratory | + + + | Blood | [place] [address] [address] | + + + in this encounter Visit Diagnoses Not on filein this encounter"
--- OUTSIDE RECORDS SUMMARY | 2017-06-23 14:08 | XMS | Encounter Summary ---
Demographics + + + | Address | [address] | | | [place] [address] | + + + | Home Phone | | + + + | Preferred Language | Unknown | + + + | Marital Status | Single | + + + | Evangelical Affiliation | NON | + + + | Race | White | + + + | Ethnic Group | Not or | + + + Author + + + | Author | [facility] | + + + | Organization | [facility] | + + + | Address | [...] Team Providers + +------+ + | Care Regional Vice President Life Sales Name | Role | Phone | + +------+ + | No Pcp Per Patient | PCP | Unavailable | + +------+ + Reason for Visit + + + | Reason | Comments | + + + | Pre Transplant | Intake | | Workup | | + + + Encounter Details +--------+ + + + + | Date | Type | Department | Care Team | Description | +--------+ + + + + | 04/25/ | Telephone | Transplant | Saritha Coley | Pre Transplant | | 2018 | | Coordinators [address], RN [address] | [place] (Intake) | | | | [address] [facility] | [facility] | | | | | Road [place], [place] | [place] [address] | | | | | [address] | | | | | | [phone] | | | +--------+ + + + [...] | | | | | [address] [place], | | | | | | [place] [address] | | | | | | [phone] | | | | | | | [...] replaced by transplant | + + | Disorder involving immune mechanism (HCC) | + + | Unspecified disorder of immune mechanism | + +
--- OUTSIDE RECORDS SUMMARY | 2017-06-23 14:08 | XMS | Clinical Summary ---
Demographics + + + | Address | [address] | | | [place] [address] | + + + | Home Phone | | + + + | Preferred Language | Unknown | + + + | Marital Status | | + + + | Mormonism Affiliation | Unknown | + + + | Race | Unknown | + + + | Ethnic Group | Unknown | + + + Author + + + | Author | [facility] | + + + | Organization | [facility] | + + + | Address | Unknown | + + + | Phone | Unavailable | + + + Support + + +---------+ + | Name | Relationship | Address | Phone | + + +---------+ + | Naye Wright | ECON | Unknown | | + + +---------+ + Care Team Providers + +------+ + | Care Captain Airline Pilot Name | Role | Phone | + +------+ + PP | Unavailable | + +------+ + Allergies + + + + + + | Active Allergy | Reactions | Severity | Noted | Comments | | | | | Date | | + + + + + + | Penicillins | Hives | High | 07/03/19 | | | | | | 17 | | + + + + + + Current Medications + + + +---------+------+------+-------+ | Prescription | Sig. | Disp. | Refills | Star | End | Statu | | | | | | t | Date | s | | | | | | Date | | | + + + +---------+------+------+-------+ | tacrolimus | Take 1 mg by mouth 2 | | | | | Activ | | (PROGRAF) 1 MG | (two) times daily. | | | | | e | | capsule | 4 mg AM, 4 mg PM | | | | | | + + + +---------+------+------+-------+ | amitriptyline | Take 50 mg by mouth | | | 12/0 | | Activ | | (ELAVIL) 50 MG | daily. | | | 09/20 | | e | | tablet | | | | 16 | | | + + + +---------+------+------+-------+ | allopurinol | Take 1 tablet by | 30 | 11 | 08/02 | 08/02 | Activ | | (ZYLOPRIM) 100 MG | mouth daily. | tablet | | 05/21 | 05/21 | e | | tablet | | | | 17 | 18 | | + + + +---------+------+------+-------+ | cholecalciferol | Take 1,000 Units by | | | | | Activ | | (VITAMIN D-3) 1000 | mouth daily. | | | | | e | | units tablet | | | | | | | + + + +---------+------+------+-------+ | calcium acetate | Take 1 capsule by | 90 | 11 | 02/ | | Activ | | (PHOSLO) 667 MG | mouth 3 (three) | capsule | | 9/20 | | e | | capsule | times daily with | | | 18 | | | | | meals. | | | | | | + + + +---------+------+------+-------+ | calcitRIOL | Take 2 capsules by | 60 | 11 | / | 05/02 | Activ | | (ROCALTROL) 0.5 MCG | mouth daily. | capsule | | 9/20 | 9/20 | e | | capsule | | | | 18 | 19 | | + + + +---------+------+------+-------+ | sodium bicarbonate | Take 2 tablets by | 180 | 11 | 03/1 | 03/1 | Activ | | 650 MG tablet | mouth 3 (three) | tablet | | 9/20 | 9/20 | e | | | times daily. | | | 18 | 19 | | + + + +---------+------+------+-------+ | amLODIPine | Take 2 tablets by | 60 | 11 | 04/1 | 04/1 | Activ | | (NORVASC) 5 MG | mouth nightly. | tablet | | 6/20 | 6/20 | e | | tablet | | | | 18 | 19 | | + + + +---------+------+------+-------+ | epoetin kalyn | Inject 1 mL into the | 1 Dose | 6 | 04/1 | 11/0 | Activ | | (PROCRIT) [id number] | skin every 30 | | | 7/20 | 1/20 | e | | UNIT/ML injection | (thirty) days for | | | 18 | 18 | | | | 198 days. Hold if | | | | | | | | hemoglobin is | | | | | | | | greater than equal | | | | | | | | to 11. Start 06/17/17 | | | | | | | | End 01/01/18. | | | | | | + + + +---------+------+------+-------+ | darbepoetin kalyn | Inject 1 mL into the | 1 mL | 5 | 04/1 | | Activ | | (ARANESP) 60 MCG/ML | skin every 30 | | | 8/20 | | e | | injection | (thirty) days. Hold | | | 18 | | | | | if hemoglobin is | | | | | | | | greater than equal | | | | | | | | to 11. Start 06/17/17 | | | | | | | | End 01/01/18. | | | | | | + + + +---------+------+------+-------+ | amLODIPine | Take 1 tablet by | 30 | 11 | 04/04 | 06/02 | Disco | | (NORVASC) 5 MG | mouth daily. | tablet | | 11/21 | 08/21 | ntinu | | tablet | | | | 18 | 18 | ed | + + + +---------+------+------+-------+ | ciprofloxacin | Take 1 tablet by | 28 | 0 | 04/04 | 2 | Disco | | (CIPRO) 250 MG | mouth 2 (two) times | tablet | | 11/21 | 11/21 | ntinu | | tablet | daily. | | | 18 | 18 | ed | + + + +---------+------+------+-------+ | | Take 1 tablet by | 15 | 0 | 03/2 | 04/0 | Expir | | HYDROcodone-acetamin | mouth every 8 | tablet | | 10/21 | 09/20 | ed | | adriana (NORCO) 5-325 | (eight) hours as | | | 18 | 18 | | | MG per tablet | needed for Pain for | | | | | | | | up to 10 days. | | | | | | + + + +---------+------+------+-------+ Active Problems + + + | Problem | Noted Date | + + + | Essential hypertension, benign | 04/22/2017 | + + + | Hyperphosphatemia | 04/22/2017 | + + + | Metabolic acidosis | 02/11/2017 | + + + | Secondary hyperparathyroidism (HCC) | 02/11/2017 | + + + | Acute cystitis without hematuria | 02/11/2017 | + + + | BRIDGET (acute kidney injury) | 11/19/2016 | + + + | Liver replaced by transplant | 08/14/2016 | + + + | CKD (chronic kidney disease) stage 5, GFR less than 15 ml/min | 08/14/2016 | | (HCC) | | + + + | Nephrotic range proteinuria | 08/14/2016 | + + + | Hyperkalemia | 08/14/2016 | + + + | Hyperuricemia | 08/14/2016 | + + + | Anemia of chronic renal failure, stage 5 (HCC) | 08/14/2016 | + + + | Adverse effect of calcineurin inhibitor | 08/14/2016 | + + + + + | Overview: CKD. | + + Encounters +--------+ + + + + | Date | Type | Specialty | Care Team | Description | +--------+ + + + + | 06/19/ | Refill | | Kiersten Shaffer, DORINDA | | | 2018 | | | | | +--------+ + + + + | 06/19/ | Documentati | | Kiersten Shaffer, DORINDA | Other (Procrit Order | | 2018 | on Only | | | Packet ) | +--------+ + + + + | 06/18/ | Documentati | | Kiersten Shaffer, EXTENSION SERVICE ADVISOR | Other (Blood | | 2018 | on Only | | | Pressure Log dated | | | | | | 05/21/2017-06/16/2017) | +--------+ + + + + | 06/18/ | Refill | | Kiersten Shaffer CMA | | | 2017 | | | | | +--------+ + + + + | 06/18/ | Orders Only | | Kiersten Shaffer CMA | CKD (chronic kidney | | 2018 | | | | disease) stage 5, | | | | | | GFR less than 15 | | | | | | ml/min ([facility]) | | | | | | (Primary Dx); | | | | | | Nephrotic range | | | | | | proteinuria; | | | | | | Hyperkalemia; | | | | | | Hyperuricemia; | | | | | | Anemia of chronic | | | | | | renal failure, stage | | | | | | 5 ([facility]); BRIDGET (acute | | | | | | kidney injury); | | | | | | Essential | | | | | | hypertension, benign | +--------+ + + + + | 06/17/ | Office | | Tavares Vaca MD | CKD (chronic kidney | | 2017 | Visit | | | disease) stage 5, | | | | | | GFR less than 15 | | | | | | ml/min ([facility]) | | | | | | (Primary Dx); Anemia | | | | | | of chronic renal | | | | | | failure, stage 5 | | | | | | ([facility]); Essential | | | | | | hypertension, | | | | | | benign; | | | | | | Hyperphosphatemia; | | | | | | Secondary | | | | | | hyperparathyroidism | | | | | | ([facility]); Metabolic | | | | | | acidosis | +--------+ + + + + | 06/17/ | Documentati | | Kiersten Shaffer CMA | Labs Only ([facility] | | 2017 | on Only | | | labs dated | | | | | | 06/14/2017) | +--------+ + + + + | 06/17/ | Orders Only | | Kiersten Shaffer CMA | CKD (chronic kidney | | 2017 | | | | disease) stage 5, | | | | | | GFR less than 15 | | | | | | ml/min ([facility]); Anemia | | | | | | of chronic renal | | | | | | failure, stage 5 | | | | | | ([facility]); BRIDGET (acute | | | | | | kidney injury); | | | | | | Secondary | | | | | | hyperparathyroidism | | | | | | ([facility]); Nephrotic | | | | | | range proteinuria; | | | | | | Essential | | | | | | hypertension, benign | +--------+ + + + + | 06/14/ | Telephone | | Kylee Kerr, | | | 2017 | | | EXTENSION SERVICE ADVISOR | | +--------+ + + + + | 06/13/ | Documentati | | Kiersten Shaffer CMA | Other (Chart Note | | 2017 | on Only | | | from [facility] dated | | | | | | 04/25/2017) | +--------+ + + + + | 06/12/ | Telephone | | Kiersten Shaffer CMA | Other (Appointment | | 2017 | | | | and Lab reminder) | +--------+ + + + + | 05/30/ | Hospital | | Tavares Vaca MD | CKD (chronic kidney | | 2017 | Encounter | | Gerson Lucero MD | disease) stage 5, | | | | | PhD 3, [facility] Di | GFR less than 15 | | | | | Nurse | ml/min ([facility]); Anemia | | | | | | of chronic renal | | | | | | failure, stage 5 | | | | | | (HCC); BRIDGET (acute | | | | | | kidney injury); | | | | | | Secondary | | | | | | hyperparathyroidism | | | | | | (HCC); Nephrotic | | | | | | range proteinuria; | | | | | | Essential | | | | | | hypertension, | | | | | | benign; Acute kidney | | | | | | injury (HCC) | +--------+ + + + + | 05/29/ | Office | | Lashanda Bourgeois DNP | Chronic kidney | | 2017 | Visit | | | disease (CKD), | | | | | | active medical | | | | | | management without | | | | | | dialysis, | | | | | | unspecified stage | | | | | | (Primary Dx); | | | | | | Hemodialysis access, | | | | | | AV graft (HCC) | +--------+ + + + + | 05/24/ | Documentati | | Kiersten Shaffer CMA | Other (Progress Note | | 2018 | on Only | | | from [facility] | | | | | | Transplant | | | | | | Hepatology dated | | | | | | 05/07/2017) | +--------+ + + + + | 05/23/ | Documentati | | Kiersten Shaffer, EXTENSION SERVICE ADVISOR | Other (Blood Pressre | | 2017 | on Only | | | Log dated | | | | | | 05/06/2017-05/19/2017) | +--------+ + + + + | 05/23/ | Documentati | | Kiersten Shaffer, EXTENSION SERVICE ADVISOR | Other ([facility] | | 2017 | on Only | | | Packet) | +--------+ + + + + | 05/22/ | Telephone | | Kiersten Shaffer, EXTENSION SERVICE ADVISOR | Other | | 2017 | | | | | +--------+ + + + + | 05/21/ | Documentati | | Kiersten Shaffer, DORINDA | Labs Only ([facility] | | 2017 | on Only | | | Labs dated | | | | | | 05/20/2017) | +--------+ + + + + | 05/21/ | Orders Only | | Kiersten Shaffer CMA | CKD (chronic kidney | | 2018 | | | | disease) stage 5, | | | | | | GFR less than 15 | | | | | | ml/min ([facility]); Anemia | | | | | | of chronic renal | | | | | | failure, stage 5 | | | | | | ([facility]); BRIDGET (acute | | | | | | kidney injury); | | | | | | Secondary | | | | | | hyperparathyroidism | | | | | | ([facility]) | +--------+ + + + + | 05/21/ | Telephone | | Yaritza Soares, | | | 2017 | | | RN | | +--------+ + + + + | 05/20/ | Office | | Tavares Vaca MD | CKD (chronic kidney | | 2018 | Visit | | | disease) stage 5, | | | | | | GFR less than 15 | | | | | | ml/min ([facility]) | | | | | | (Primary Dx); Anemia | | | | | | of chronic renal | | | | | | failure, stage 5 | | | | | | ([facility]); Essential | | | | | | hypertension, | | | | | | benign; Secondary | | | | | | hyperparathyroidism | | | | | | ([facility]); Metabolic | | | | | | acidosis; | | | | | | Hyperphosphatemia | +--------+ + + + + | 05/20/ | Orders Only | | Kiersten Shaffer CMA | CKD (chronic kidney | | 2017 | | | | disease) stage 5, | | | | | | GFR less than 15 | | | | | | ml/min ([facility]) | | | | | | (Primary Dx); Anemia | | | | | | of chronic renal | | | | | | failure, stage 5 | | | | | | ([facility]); BRIDGET (acute | | | | | | kidney injury); | | | | | | Secondary | | | | | | hyperparathyroidism | | | | | | ([facility]); Nephrotic | | | | | | range proteinuria; | | | | | | Essential | | | | | | hypertension, benign | +--------+ + + + + | 05/17/ | Documentati | | Kiersten Shaffer CMA | Labs Only ([facility] | | 2017 | on Only | | | Labs dated | | | | | | 05/15/2017) | +--------+ + + + + | 05/17/ | Orders Only | | Kiersten Shaffer CMA | CKD (chronic kidney | | 2017 | | | | disease) stage 5, | | | | | | GFR less than 15 | | | | | | ml/min ([facility]); | | | | | | Nephrotic range | | | | | | proteinuria; Anemia | | | | | | of chronic renal | | | | | | failure, stage 4 | | | | | | (severe) (HCC); | | | | | | Secondary | | | | | | hyperparathyroidism | | | | | | (HCC); | | | | | | Hyperphosphatemia; | | | | | | Essential | | | | | | hypertension, | | | | | | benign; BRIDGET (acute | | | | | | kidney injury) | +--------+ + + + + | 05/14/ | Telephone | | Yaritza Soares, | | | 2017 | | | RN | | +--------+ + + + + | 05/10/ | Hospital | | Jay Portillo MD | | | 2018 | Encounter | | | | +--------+ + + + + | 05/10/ | Joseph | | Darryl Meyers | | | 2018 | Event | | MD Mil | | +--------+ + + + + | 05/10/ | Procedure | | | | | 2017 | Pass | | | | +--------+ + + + + | 05/10/ | Surgery | | Jay Portillo MD | AV GRAFT CREATION | | 2017 | | | | | +--------+ + + + + | 05/07/ | Telephone | | Kiersten Shaffer CMA | Other | | 2018 | | | | | +--------+ + + + + | 05/06/ | Documentati | | Kiersten Shaffer, DORINDA | Other (Blood | | 2017 | on Only | | | Pressure Log dated | | | | | | 04/23/2017-05/05/2017) | +--------+ + + + + | 05/02/ | Hospital | | Jay Portillo MD | | | 2018 | Encounter | | | | +--------+ + + + + | 05/02/ | Initial | | Jay Portillo MD | Chronic kidney | | 2018 | consult | | | disease (CKD), | | | | | | active medical | | | | | | management without | | | | | | dialysis, | | | | | | unspecified stage | | | | | | (Primary Dx) | +--------+ + + + + | 04/24/ | Hospital | | Tavares Vaca MD | CKD (chronic kidney | | 2018 | Encounter | | 2, [facility] Nurse | disease) stage 5, | | | | | Radiologist, [facility] | GFR less than 15 | | | | | Procedure Ct | ml/min ([facility]); | | | | | | Nephrotic range | | | | | | proteinuria; Anemia | | | | | | of chronic renal | | | | | | failure, stage 4 | | | | | | (severe) ([facility]); | | | | | | Secondary | | | | | | hyperparathyroidism | | | | | | ([facility]); | | | | | | Hyperphosphatemia; | | | | | | Essential | | | | | | hypertension, | | | | | | benign; BRIDGET (acute | | | | | | kidney injury) | +--------+ + + + + | 04/23/ | Documentati | | Kiersten Shaffer CMA | Other (Blood | | 2018 | on Only | | | Pressure Log dated | | | | | | 03/23/2017-04/21/2017) | +--------+ + + + + | 04/23/ | Orders Only | | Ryan, | CKD (chronic kidney | | 2018 | | | DORINDA Box | disease) stage 5, | | | | | | GFR less than 15 | | | | | | ml/min ([facility]) | | | | | | (Primary Dx) | +--------+ + + + + | 04/22/ | Office | | Tavares Vaca MD | BRIDGET (acute kidney | | 2018 | Visit | | | injury) (Primary | | | | | | Dx); CKD (chronic | | | | | | kidney disease) | | | | | | stage 5, GFR less | | | | | | than 15 ml/min | | | | | | ([facility]); Metabolic | | | | | | acidosis; Nephrotic | | | | | | range proteinuria; | | | | | | Secondary | | | | | | hyperparathyroidism | | | | | | ([facility]); Adverse | | | | | | effect of | | | | | | calcineurin | | | | | | inhibitor, sequela; | | | | | | Essential | | | | | | hypertension, | | | | | | benign; Acute | | | | | | cystitis without | | | | | | hematuria; | | | | | | Hyperphosphatemia | +--------+ + + + + | 04/22/ | Orders Only | | Kiersten Shaffer CMA | CKD (chronic kidney | | 2018 | | | | disease) stage 5, | | | | | | GFR less than 15 | | | | | | ml/min ([facility]) | | | | | | (Primary Dx); | | | | | | Nephrotic range | | | | | | proteinuria; Anemia | | | | | | of chronic renal | | | | | | failure, stage 4 | | | | | | (severe) ([facility]); | | | | | | Secondary | | | | | | hyperparathyroidism | | | | | | ([facility]); | | | | | | Hyperphosphatemia; | | | | | | Essential | | | | | | hypertension, | | | | | | benign; BRIDGET (acute | | | | | | kidney injury) | +--------+ + + + + | 04/22/ | Documentati | | Tavares Vaca MD | Other ([facility] | | 2018 | on Only | | | Transplant Services | | | | | | Letter- Not a | | | | | | Candidate) | +--------+ + + + + | 04/22/ | Documentati | | Kiersten Shaffer CMA | Labs Only (Urine | | 2018 | on Only | | | Culture from | | | | | | [facility] dated | | | | | | 04/18/2017) | +--------+ + + + + | 04/19/ | Orders Only | | Kiersten Shaffer CMA | Stage 4 chronic | | 2017 | | | | kidney disease | | | | | | ([facility]); Nephrotic | | | | | | range proteinuria; | | | | | | Anemia of chronic | | | | | | renal failure, stage | | | | | | 4 (severe) ([facility]); | | | | | | Hyperuricemia; BRIDGET | | | | | | (acute kidney | | | | | | injury); Metabolic | | | | | | acidosis; Secondary | | | | | | hyperparathyroidism | | | | | | ([facility]); Acute | | | | | | cystitis without | | | | | | hematuria | +--------+ + + + + | 04/18/ | Documentati | | Kiersten Shaffer CMA | Labs Only ([facility] | | 2017 | on Only | | | Labs dated | | | | | | 04/18/2017) | +--------+ + + + + | 04/18/ | Orders Only | | Kiersten Shaffer CMA | Stage 4 chronic | | 2017 | | | | kidney disease | | | | | | ([facility]); Nephrotic | | | | | | range proteinuria; | | | | | | Anemia of chronic | | | | | | renal failure, stage | | | | | | 4 (severe) ([facility]); | | | | | | Hyperuricemia; BRIDGET | | | | | | (acute kidney | | | | | | injury); Metabolic | | | | | | acidosis; Secondary | | | | | | hyperparathyroidism | | | | | | ([facility]); Acute | | | | | | cystitis without | | | | | | hematuria | +--------+ + + + + | 04/17/ | Telephone | | Kiersten Shaffer, EXTENSION SERVICE ADVISOR | Abnormal Labs | | 2017 | | | | | +--------+ + + + + | 04/16/ | Telephone | | Kiersten Shaffer, EXTENSION SERVICE ADVISOR | Other (Appointment | | 2017 | | | | and lab reminder) | +--------+ + + + + | 04/15/ | Documentati | | Kiersten Shaffer, EXTENSION SERVICE ADVISOR | Labs Only ([facility] | | 2018 | on Only | | | lab dated | | | | | | 04/15/2017) | +--------+ + + + + | 04/15/ | Orders Only | | Kiersten Shaffer CMA | Stage 4 chronic | | 2018 | | | | kidney disease | | | | | | ([facility]); Nephrotic | | | | | | range proteinuria; | | | | | | Anemia of chronic | | | | | | renal failure, stage | | | | | | 4 (severe) ([facility]); | | | | | | Hyperuricemia; BRIDGET | | | | | | (acute kidney | | | | | | injury); Metabolic | | | | | | acidosis; Secondary | | | | | | hyperparathyroidism | | | | | | ([facility]); Acute | | | | | | cystitis without | | | | | | hematuria | +--------+ + + + + from Last 3 Months Family History + + +------+ + | Medical History | Relation | Name | Comments | + + +------+ + | Kidney disease | Brother | | | + + +------+ + | Malig hypertherm | Neg Hx | | | + + +------+ + + +------+ + + | Relation | Name | Status | Comments | + +------+ + + | Brother | | | | + +------+ + + | Father | | Alive | | + +------+ + + | Mother | | Alive | | + +------+ + + Social History + +-------+ +--------+ + | Tobacco Use | Types | Packs/Day | Years | Date | | | | | Used | | + +-------+ +--------+ + | Former Smoker | | 0.5 | 19 | Quit: 05/30/2014 | + +-------+ +--------+ + + +---+---+---+ | Smokeless Tobacco: | | | | | Never Used | | | | + +---+---+---+ + + +---------+ + | Alcohol Use [...] + + + | Blood Pressure | 131/79 | 06/17/2017 9:43 AM PDT | + + + + | Pulse | 86 | 06/17/2017 9:43 AM PDT | + + + + | Temperature | 36.3 C (97.4 F) | 06/17/2017 9:43 AM PDT | + + + + | Respiratory Rate | 18 | 05/30/2017 11:20 AM PDT | + + + + | Oxygen Saturation | 97% | 06/17/2017 9:43 AM PDT | + + + + | Inhaled Oxygen | - | - | | Concentration | | | + + + + | Weight | 47.7 kg (105 lb 3.2 | 06/17/2017 9:43 AM PDT | | | oz) | | + + + + | Height | 152.4 cm (5') | 06/17/2017 9:43 AM PDT | + + + + | Body Mass Index | 20.55 | 06/17/2017 9:43 AM PDT | + + + + Plan of Treatment +--------+---------+ + + + | Date | Type | Specialty | Care Team | Description | +--------+---------+ + + + | 07/15/ | Office | | Tavares Vaca MD | | | 2018 | Visit | | [address] | | | | | | [address] [place], [place] | | | | | | [address] | | | | | | | | +--------+---------+ + + + + + + + + | Health Maintenance | Due Date | Last Done | Comments | + + + + + | Vaccine: | | | | | Dtap/Tdap/Td (1 - | 2 | | | | Tdap) | | | | + + + + + | Cervical Cancer | | | | | Screening (Pap) | 4 | | | + + + + + | Vaccine: | | 09/13/2014, 03/04/2005 | | | Pneumococcal 19-64 | 6 | | | | Highest Risk (3 of 3 | | | | | - PCV13) | | | | + + + + + | Vaccine: Influenza | | | | | (Season Ended) | 8 | | | + + + + + Implants + +------+--------+ +--------+--------+--------+ | Implanted | Type | Area | Manufacture | Device | Expira | Model | | | | | r | | tion | / | | | | | | Identi | Date | Serial | | | | | | fier | | / Lot | + +------+--------+ +--------+--------+--------+ | Graft Waut[employer] Acuseal [id number] | | Left: | CIARRA ALY - | | 08/19/ | [id number] | | - [id number]: | | Arm | WLGO | | 2020 | [id number] | | Qty: 1 on 05/10/2017 by Bandar, | | | | | | /[id number] | | Jay Daniel MD | | | | | | [id number] | | | | | | | | 9 / | + +------+--------+ +--------+--------+--------+ Procedures + +--------+ + + + | Procedure Name | Priori | Date/Time | Associated Diagnosis | Comments | | | ty | | | | + +--------+ + + + | AV GRAFT CREATION | | 05/10/2017 | ESRD | | | | | 8:40 AM | | | | | | PST | | | + +--------+ + + + | CASE REQUEST | Routin | 05/02/2017 | | | | OPERATING ROOM | e | 11:08 AM | | | | | | PST | | | + +--------+ + + + from Last 3 Months Results CBC w/no Diff (06/14/2017 9:42 AM) + + + + | Component | Value | Ref Range | + + + + | WBC | 13.4 (A) | 4.5 - 11.0 10^3/mL | + + + + | RBC | 2.75 (A) | 3.8 - 5.1 10^6/ L | + + + + | HGB | 8.3 (A) | 12.0 - 16.0 g/dL | + + + + | HCT | 26.3 (A) | 35 - 45 % | + + + + | MCV | 95.9 | 81 - 99 fL | + + + + | MCH | 30 | 27 - 33 pg | + + + + | MCHC | 32 | 30 - 36 g/dL | + + + + | RDW SD | | % | + + + + | PLT | 359 | 140 - 440 K/ L | + + + + | MPV | | fL | + + + + Iron panel (06/14/2017 9:42 AM)Only the most recent of 3 results within the time period is included. + + + + | Component | Value | Ref Range | + + + + | IRON | 648.10 (A) | 37 - 160 | + + + + | IRON % SAT | 300 (A) | 20 - 55 | + + + + | TIBC | 216 (A) | 245 - 400 | + + + + + + + | Specimen | Performing Laboratory | + + + | Blood | [facility] [address] [place] [address] | | | [id number] | + + + CBC W/Auto Diff (Reflex to Manual) (06/14/2017 9:42 AM)Only the most recent of 6 results w keeleyin the time period is included. + + + + | Component | Value | Ref Range | + + + + | WBC | 13.4 (A) | 4.5 - 11.0 10^3/mL | + + + + | RBC | 2.75 (A) | 3.8 - 5.1 10^6/ L | + + + + | HGB | 8.3 (A) | 12 - 16 g/dL | + + + + | HCT | 26.3 (A) | 35 - 45 % | + + + + | MCV | 95.9 | 81 - 99 fL | + + + + | MCH | 30 | 27 - 33 pg | + + + + | MCHC | 32 | 30 - 36 g/dL | + + + + | PLT | 359 | 140 - 440 K/ L | + + + + | RDW SD | 16.1 (A) | 10.5 - 15.0 % | + + + + | MPV | | fL | + + + + | DIFF TYPE | | | + + + + | NEUTROPHILS | | % | + + + + | LYMPHOCYTES | | % | + + + + | MONOCYTES | | % | + + + + | EOSINOPHILS | | % | + + + + | BASOPHILS | | % | + + + + | NEUTROPHILS ABS | | / L | + + + + | LYMPHOCYTES ABS | | / L | + + + + | MONOCYTES ABS | | / L | + + + + | EOSINOPHILS ABS | | / L | + + + + | BASOPHILS ABS | | / L | + + + + + + + | Specimen | Performing Laboratory | + + + | Blood | [facility] [address] [place], [place] [address] D[place] | | | [phone] | + + + PTH intact no calcium (06/14/2017 9:42 AM)Only the most recent of 4 results within the period is included. + +---------+ + | Component | Value | Ref Range | + +---------+ + | PTH INTACT NO | 409 (A) | 15 - 65 pg/mL | | CALCIUM | | | + +---------+ + + + + | Specimen | Performing Laboratory | + + + | Blood | [facility] [address] [facility] [address] [place] | | | [phone] | + + + Ferritin (06/14/2017 9:42 AM)Only the most recent of 3 results within the time period is i ncluded. + + + + | Component | Value | Ref Range | + + + + | FERRITIN | 472.1 (A) | 13 - 150 ng/mL | + + + + + + + | Specimen | Performing Laboratory | + + + | Blood | [facility] [address] [place] [address] | | | [phone] | + + + Renal function panel (06/14/2017 9:42 AM)Only the most recent of 5 results within the time period is included. + + + + | Component | Value | Ref Range | + + + + | GLUCOSE | 73 | 70 - 100 mg/dL | + + + + | BUN | 50 (A) | 6 - 23 mg/dL | + + + + | CREATININE | 5.68 (A) | 0.6 - 1.35 mg/dL | + + + + | PHOSPHORUS | | mg/dL | + + + + | Albumin | 2.6 (A) | 3.5 - 5.0 | + + + + | SODIUM | 143 | 132 - 143 mmol/L | + + + + | POTASSIUM | 5.1 | 3.6 - 5.1 mmol/L | + + + + | CHLORIDE | 114 (A) | 95 - 112 mmol/L | + + + + | CO2 | 13 (A) | 19 - 31 mmol/L | + + + + | ANION GAP AGAP | 21.1 (A) | 7 - 21 mmol/L | + + + + | GFR MDRD Non Af Amer | | | + + + + | Phosphorus,Inorganic | 5.2 (A) | 2.5 - 5.0 | + + + + | BUN/CREAT | 8.8 | 6.0 - 28.6 | + + + + | CALCIUM | 8.5 | 8.4 - 10.2 mg/dL | + + + + | EGFR | 9 (A) | 60 mg/dL | + + + + + + + | Specimen | Performing Laboratory | + + + | Blood | [facility] [address] [place] [address], [place] | | | [address] | + + + CT needle biopsy kidney (05/30/2017 10:00 AM) + + + | Specimen | Performing Laboratory | + + + | | [facility] [place] [address] | + + + + + | Impressions | + + | Successful CT guided left renal biopsy. Pathology pending. Electronically | | signed by Gerson Lucero MD on 05/30/2017 10:23 AM | + + + + | Narrative | + + | CT NEEDLE BIOPSY KIDNEY dated 05/30/2017 10:00 AM CLINICAL DATA: Stage V chronic | | kidney disease. Proteinuria. History of liver transplant. PRIMARY ZINC ETCHER: | | Gerson Lucero MD, PhD, RPVI OPERATIONS: 1. Limited CT of the abdomen without | | contrast for localization. 2. CT-guided left renal biopsy. 3. Limited follow-up | | CT of the abdomen. PROCEDURE: Informed consent was obtained from the patient. | | Continuous cardiac monitoring was performed throughout the procedure. Conscious sedation | | was provided by the nursing staff during the procedure under my supervision. | | Sedation time: 28 minutes Medications: 1 mg Versed IV, 100 mcg Fentanyl IV While | | prone on the CT gantry, [address] imaging of the abdomen was performed | | without contrast for localization purposes only. Following selection of an appropriate | | access point on posterolateral left flank, the skin at the site was prepped and draped | | in a sterile fashion. Lidocaine was used for local anesthesia after which percutaneous | | CT-guided needle biopsy of the patient's inferior pole left kidney was completed using a | | 18-gauge cutting needle in a coaxial fashion. Five passes were made, returning four | | full length tissue core specimens which were placed on saline soaked Telfa and returned | | to pathology for division in distribution into appropriate media for [place] renal | | pathologic assessment, including electromicroscopy and immunofluorescence. At | | termination of the procedure the access needle was removed while simultaneously | | injecting a Gelfoam slurry and hemostasis was maintained at the skin surface using | | manual compression. Follow-up CT imaging was obtained to exclude significant | | complication. The patient tolerated the procedure well and was returned to the Short | | Stay Unit for routine post procedure monitoring. FINDINGS: Launch Check Out CT redemonstrates | | thin body habitus and closely approximated colon. Left inferior pole selected and | | intraprocedural CT confirms the needle and biopsy tray within the inferior pole the left | | kidney. Intraprocedural and postprocedural CT demonstrates a small perirenal hematoma | | which appears stable in size. | + + + + | Procedure Note | + + | Pranav, Rad Results In - 05/30/2017 10:[address] NEEDLE BIOPSY KIDNEY dated 05/30/2017 | | 10:00 AMCLINICAL DATA: Stage V chronic kidney disease. Proteinuria. History of liver | | transplant.PRIMARY ZINC ETCHER: Gerson Lucero MD, PhD, RPVIOPERATIONS:1. Limited CT of | | the abdomen without contrast for localization.2. CT-guided left renal biopsy.3. | | Limited follow-up CT of the abdomen.PROCEDURE:Informed consent was obtained from the | | patient. Continuous cardiac monitoring was performed throughout the procedure. Conscious | | sedation was provided by the nursing staff during the procedure under my | | supervision.Sedation time: 28 minutesMedications: 1 mg Versed IV, 100 mcg Fentanyl | | IVWhile prone on the CT gantry, [address] imaging of the abdomen was | | performed without contrast for localization purposes only. Following selection of an | | appropriate access point on posterolateral left flank, the skin at the site was prepped | | and draped in a sterile fashion. Lidocaine was used for local anesthesia after which | | percutaneous CT-guided needle biopsy of the patient's inferior pole left kidney was | | completed using a 18-gauge cutting needle in a coaxial fashion. Five passes were made, | | returning four full length tissue core specimens which were placed on saline soaked | | Telfa and returned to pathology for division in distribution into appropriate media for | | [place] renal pathologic assessment, including electromicroscopy and immunofluorescence. | | At termination of the procedure the access needle was removed while simultaneously | | injecting a Gelfoam slurry and hemostasis was maintained at the skin surface using | | manual compression. Follow-up CT imaging was obtained to exclude significant | | complication. The patient tolerated the procedure well and was returned to the Short | | Stay Unit for routine post procedure monitoring.FINDINGS: Launch Check Out CT redemonstrates thin | | body habitus and closely approximated colon. Left inferior pole selected and | | intraprocedural CT confirms the needle and biopsy tray within the inferior pole the left | | kidney. Intraprocedural and postprocedural CT demonstrates a small perirenal hematoma | | which appears stable in size.IMPRESSION:Successful CT guided left renal biopsy. | | Pathology pending. | |kidney. Intraprocedural and postprocedural CT demonstrates a small perirenal hematoma which appears stable in size. | | | |IMPRESSION: | | | |Successful CT guided left renal biopsy. Pathology pending. | | | | | + + aPTT (05/30/2017 8:27 AM)Only the most recent of 3 results within the time period is inclu ded. + + + + | Component | Value | Ref Range | + + + + | APTT | 31Comment: Testing performed at [facility] | 23 - 32 seconds | | | [address]jo [address];[place] [address] | | + + + + + + + | Specimen | Performing Laboratory | + + + | Blood | [facility] [address] [place] [address] | + + + Protime-INR (05/30/2017 8:27 AM)Only the most recent of 3 results within the time period i s included. + + + + | Component | Value | Ref Range | + + + + | INR | 1.0Comment: REFERENCE RANGE:0.9 - | | | | 1.2 NON-ANTICOAGULATED2.0 - 3.0 ALL | | | | OTHER THERAPEUTIC INDICATIONS2.5 - 3.5 | | | | MECHANICAL HEART VALVES, RECURRENT OR | | | | SYSTEMIC EMBOLISMTesting performed at | | | | [facility];[address] [place] [address];[place] [address] | | | |Testing performed at [facility];[address] [place] [address];[place] [address] | | | | | | + + + + + + + | Specimen | Performing Laboratory | + + + | Blood | [facility] [address] [facility] [place] [address] | + + + Platelet count (05/30/2017 8:27 AM)Only the most recent of 2 results within the time perio d is included. + + + + | Component | Value | Ref Range | + + + + | PLT | 277Comment: Testing performed at [facility] | 150 - 400 K/uL | | | [facility];[place] [address] | | + + + + + + + | Specimen | Performing Laboratory | + + + | Blood | [facility] [address] [place] [address] | + + + Pathology histology - tissue (05/30/2017) + + + | Specimen | Performing Laboratory | + + + | Tissue - Kidney, | [facility] | | Left | | + + + + + | Narrative | + + | THIS IS AN ADDENDUM REPORT SPECIMEN(S): A KIDNEY BIOPSY SPECIMEN | | SOURCE: A. KIDNEY BIOPSY CLINICAL HISTORY: 05/30/2017 at 0945 H. The patient is a | | 37-year-old female with a history of liver transplant. She is now under evaluation for | | renal failure with proteinuria. 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 - Moderate | | arteriosclerosis. - Moderate hyaline arteriolosclerosis. - Severe | | diffuse tubular atrophy and interstitial fibrosis. COMMENT: Electron is pending at the | | time of this report. The vascular changes, including focally prominent hyaline | | arteriolosclerosis, if not otherwise clinically explained could be related to this | | patient's immune suppressive therapy. Melvin Schreiber MD | | TECHNICAL NOTE: This case was seen and processed at [facility] | | [place] in [place], [place]. (Report # [id number]) GROSS DESCRIPTION: Three specimens | | are received, each identified as "kidney". Specimen received in formalin consists of | | four cores of amaya tissue measuring 0.5, 0.6, 0.6, and 1.0 cm in length. Entirely | | submitted for light microscopy in "A1". Specimen received in Chris solution is | | submitted for immunofluorescence studies. Specimen received in glutaraldehyde is | | submitted for electron microscopy. (MS) The kidney biopsy was performed by the | | radiologist. The pathologist performed a consultation during the biopsy procedure on | | this case. "Received fresh are 4 cores of tissue. The tissue is examined under a | | dissecting microscope for the presence of glomeruli. The results are communicated to the | | physician performing the biopsy". - Intraoperative Findings (adequacy assessment): | | Pass # 1 | | | | Some Glomeruli, Appears Adequate AMB:[facility] MICROSCOPIC EXAMINATION: Four core | | segments of renal tissue are examined in multiple serial sections using PAS, Trichrome | | and [place] Methenamine Silver, in addition to HE stains. The tissue shows advanced | | chronic tubulointerstitial changes with diffuse fibrosis and focal thyroidization. | | Residual clusters of proximal tubules show compensatory changes and large prominent | | resorptive vesicles. The tissue appears to be at least 75% cortex. A total of 16 | | glomeruli are present, 5 are globally sclerotic, and 1 shows well developed segmental | | sclerosis. The patent glomeruli show wrinkling of capillary solomon. There is no | | endocapillary proliferation, necrosis or crescents. No basement membrane spikes, | | fenestrations, or double contours are seen. Small arteries show moderate intimal | | fibroplasia. The smallest arterial branches and arterioles show mural thickening with | | focal thick hyaline deposition. No changes of acute endothelial injury, thrombosis, or | | vasculitis are found. IMMUNOFLUORESCENCE MICROSCOPY: The specimen for | | immunofluorescence is adequate. It consists of four small fragments of renal tissue. One | | of the four is renal cortex containing up to 3 glomeruli per section. Sections are | | stained by direct immunofluorescence for IgG, IgM, IgA, C3, C1q, fibrinogen, albumin, | | and kappa and lambda light chain. There is no pattern of immunofluorescence to suggest | | immunoglobulin, complement, or light chain deposition in glomeruli or other structures. | | No thrombi or fibrinoid necrosis is detected on fibrogen stain. Tubular casts fluoresce | | with equal intensity for kappa and lambda light chain. Ancillary studies were | | performed on this case with appropriate controls showing appropriate reactivity. These | | tests may not have been cleared or approved by the U.S. Food and Drug Administration. | | The FDA has determined that such clearance or approval is not necessary, since such | | tests were developed and their performance characteristics determined by [facility]. This test is used for clinical purposes. It should not be | | regarded as investigational or for research. [facility] is certified | | under the Clinical Laboratory Improvement Amendments of 1988 (CLIA) as qualified to | | perform high complexity clinical laboratory testing. STAINS PERFORMED: Kidney Bx | | with light, immunofl. and EM Frozen HE x 6, Galicia x 1, Periodic acid Cassidy x 1, Level | | 1 (HE) x 1, Level 2 (HE) x 1, Level 3 (HE) x 1, Trichrome-Routine x 1, IF-Albumin x 1, | | IF-C1q x 1, IF-C3 x 1, IF-Fibrinogen x 1, IF-lgA x 1, IF-lgG x 1, IF-lgM x 1, IF-[place] | | x 1, IF-Lambda x 1. PERFORMING LABORATORY: Professional interpretation and technical | | preparation [facility] by [facility], [address] [place] [address] | | [place] [address] (Mutuel Clerk: Trell Marrero M.D.; | | CLIA#: [id number]). COMMENT: The ultrastructural changes support the light | | microscopy findings of vascular disease/vascular insufficiency. Melvin Schreiber MD | | Electronic Signature DISCUSSION: One micron survey sections are obtained from 4 | | plastic embedded tissue blocks and stained with Canales's stain. 3 of the blocks | | contain renal cortical tissue. A total of 5 glomeruli are found, of which 3 are | | globally sclerotic. 1 of the better preserved glomeruli in block 2 is further sectioned | | for ultrastructural examination. On electron microscopy, the glomerular capillary solomon | | show marked wrinkling and remodelling and irregular thickening. The visceral epithelial | | foot processes show segmental fusion but appear largely intact. There is mild expansion | | of the mesangial areas but no evidence of immune deposits or fibrillar deposits found. | | No deposits are evident along capillary basement membranes. The fenestrated endothelium | | appears largely intact without changes. The fenestrated endothelium appears largely | | intact without changes of acute or chronic injury. No leukocyte margination is found. | | BES:rds REASON FOR ADDENDUM: Add electron microscopy diagnoses. Electron | | Microscopy DIAGNOSIS: Electron microscopy diagnoses: Glomerular changes consistent | | with chronic ischemic injury. No evidence of primary glomerular disease identified. | | Diagnostician: Tori Townsend MD Pathologist Diagnostician: Trell Marrero MD | | Pathologist Electronically Signed 06/14/2017 | + + Transferrin (05/20/2017 10:49 AM) + +--------+ + | Component | Value | Ref Range | + +--------+ + | TRANSFERRIN | 225.10 | 192 - 382 | + +--------+ + + + + | Specimen | Performing Laboratory | + + + | Blood | [facility] [address] [place] | | | [address] | + + + Basic metabolic panel (05/20/2017 10:49 AM)Only the most recent of 3 results within the period is included. + + + + | Component | Value | Ref Range | + + + + | GLUCOSE | 86 | 70 - 100 mg/dL | + + + + | BUN | 45 (A) | 6 - 23 mg/dL | + + + + | CREATININE | 5.01 (A) | 0.6 - 1.35 mg/dL | + + + + | BUN/CREAT | 9.0 | 6.0 - 28.6 | + + + + | CALCIUM | 8.4 | 8.4 - 10.2 mg/dL | + + + + | SODIUM | 138 | 132 - 143 mmol/L | + + + + | POTASSIUM | 4.6 | 3.6 - 5.1 mmol/L | + + + + | CHLORIDE | 112 | 95 - 112 mmol/L | + + + + | CO2 | 18 (A) | 19 - 31 mmol/L | + + + + | ANION GAP AGAP | 12.6 | 7 - 21 mmol/L | + + + + | EGFR | 10 (A) | 60 mg/dL | + + + + + + + | Specimen | Performing Laboratory | + + + | Blood | [facility] [address] [place] [address], [place] | | | [address] | + + + [place]/Lambda LC RATI (05/15/2017 8:15 AM) + + + | Specimen | Performing Laboratory | + + + | | [facility] [address] [place] [address], [place] [address] [place] | | | [address] | + + + + + | Narrative | + + | [place] Quant: 13.30 Range: 0.33-1.94 Lambda: 8.20 Range: 0.57-2.63 | | Ratio:1.62 Range: 0.26-1.65 | + + Urinalysis (reflex to micro) (05/15/2017 8:15 AM)Only the most recent of 2 results within the time period is included. + + + + | Component | Value | Ref Range | + + + + | COLOR UA | Yellow | | + + + + | CLARITY | Clear | | + + + + | SPECIFIC | 1.011 | 1.005 - 1.030 | | GRAVITY,URINE | | | + + + + | LEUKOCYTE ESTERASE | Negative | | + + + + | NITRITE | Negative | | + + + + | UROBILINOGEN | Normal | | + + + + | PROTEIN | 150 | | + + + + | PH,URINE | 7 | 5 - 9 | + + + + | BLOOD | Negative | | + + + + | KETONES | Negative | | + + + + | BILIRUBIN | Negative | | + + + + | GLUCOSE | Negative | | + + + + + + + | Specimen | Performing Laboratory | + + + | Urine | [facility] [address] [place], [place] [address] | | | [address] | + + + + + | Narrative | + + | Bacteria: 1+ | + + Immunofixation,Serum (05/15/2017 8:15 AM) + + + | Specimen | Performing Laboratory | + + + | Blood | [facility] [address] [place] [address], [facility] [address] [place], [place] | | | [address] | + + + + + | Narrative | + + | Protein:5.6 L Range: 6.5-8.3 Albumin: 2.84 Range: 2.8-5.7 Alpha 1: | | 0.30 Range: 0.1-0.32 Alpha 2: 0.66 Range: 0.54-0.90 Beta: 0.91 Range: | | 0.60-1.09 Gamma: 0.9 Range: 0.36-1.8 Immunoglobulin Range: 664-1411 | | Immunoglobulin A: 178 Range: 66-433 Immunoglobulin M: 48 Range: 47-248 | + + MRSA by PCR (05/02/2017 1:09 PM) + + + + | Component | Value | Ref Range | + + + + | SOURCE | NARES(NOSE) | | + + + + | MRSA PCR | NEGATIVEComment: Testing performed at | NEGATIVE | | | [facility];[address] [facility];[place] [address] | | + + + + + + + | Specimen | Performing Laboratory | + + + | Nasopharyngeal - | [facility] [address] [place] [address] | | Joseph(Nose) | | + + + US upper extremity mapping for HDA bilat (05/01/2017 10:23 AM) + + + | Specimen | Performing Laboratory | + + + | | [place] [id number] [place] [address] | + + + + + | Impressions | + + | 1. Dialysis mapping, as described above. | + + + + | Narrative | + + | NICOLASA CLARK UPPER EXTREMITY MAPPING FOR HDA BILATERAL HISTORY: Chronic | | kidney disease TECHNIQUE: Sonographic evaluation of the bilateral upper extremities | | was performed for arterial venous fistula creation. Grayscale, color-flow, and Doppler | | spectral analysis. COMPARISON: None. FINDINGS: Diameter and depth measured in | | millimeters. Right Cephalic vein: Insertion: 5.1 and 15 Upper humerus: 1.0 and 3.6. | | Mid humerus and distal: Too small Right basilic vein: Upper humerus: 2.2 and 4.6. | | Mid humerus 1.8 and 6.1. Elbow and distal: Too small. Right basilic vein: Upper | | humerus: 3.8. Mid humerus: 3.5. Elbow: 2.3. Right Axillary vein: 8.2. Right | | Brachial artery distal: 4.8. Right Radial artery at the wrist: 1.6. Right ulnar artery | | at the wrist: 1.9 Left cephalic vein: Insertion: 6.1 and 11. Upper humerus: 1.4 | | and 2.7. Mid humerus and distal: Too small Left basilic vein: Upper humerus: 1.9 | | and 5.6. Mid humerus and distal: Too small Left brachial vein: Upper humerus: 4.9. | | Mid humerus: 3.7. Elbow: 3.0. Left axillary vein: 7.9. Left brachial artery | | distal: 4.2. Left radial artery at the wrist: 2.3. Left ulnar artery at the wrist: 1.5 | | | + + + + | Procedure Note | + + | Pranav, Rad Results In 05/01/2017 1:17 PM JONAS WATTS UPPER EXTREMITY | | MAPPING FOR HDA BILATERALHISTORY:Chronic kidney diseaseTECHNIQUE:Sonographic evaluation | | of the bilateral upper extremities was performed for arterial venous fistula creation. | | Grayscale, color-flow, and Doppler spectral analysis.COMPARISON:None.FINDINGS:Diameter | | and depth measured in millimeters.Right Cephalic vein:Insertion: 5.1 and 15Upper | | humerus: 1.0 and 3.6.Mid humerus and distal: Too smallRight basilic vein:Upper humerus: | | 2.2 and 4.6.Mid humerus 1.8 and 6.1.Elbow and distal: Too small.Right basilic vein:Upper | | humerus: 3.8.Mid humerus: 3.5.Elbow: 2.3.Right Axillary vein: 8.2.Right Brachial artery | | distal: 4.8.Right Radial artery at the wrist: 1.6.Right ulnar artery at the wrist: | | 1.9Left cephalic vein:Insertion: 6.1 and 11.Upper humerus: 1.4 and 2.7.Mid humerus and | | distal: Too smallLeft basilic vein:Upper humerus: 1.9 and 5.6.Mid humerus and distal: | | Too smallLeft brachial vein:Upper humerus: 4.9.Mid humerus: 3.7.Elbow: 3.0.Left axillary | | vein: 7.9.Left brachial artery distal: 4.2.Left radial artery at the wrist: 2.3.Left | | ulnar artery at the wrist: 1.5IMPRESSION:1. Dialysis mapping, as described | | above. | |Insertion: 5.1 and 15 | |Upper humerus: 1.0 and 3.6. | |Mid humerus and distal: Too small | | | |Right basilic vein: | |Upper humerus: 2.2 and 4.6. | |Mid humerus 1.8 and 6.1. | |Elbow and distal: Too small. | | | |Right basilic vein: | |Upper humerus: 3.8. | |Mid humerus: 3.5. | |Elbow: 2.3. | | | |Right Axillary vein: 8.2. | |Right Brachial artery distal: 4.8. | |Right Radial artery at the wrist: 1.6. | |Right ulnar artery at the wrist: 1.9 | | | |Left cephalic vein: | |Insertion: 6.1 and 11. | |Upper humerus: 1.4 and 2.7. | |Mid humerus and distal: Too small | | | |Left basilic vein: | |Upper humerus: 1.9 and 5.6. | |Mid humerus and distal: Too small | | | |Left brachial vein: | |Upper humerus: 4.9. | |Mid humerus: 3.7. | |Elbow: 3.0. | | | |Left axillary vein: 7.9. | |Left brachial artery distal: 4.2. | |Left radial artery at the wrist: 2.3. | |Left ulnar artery at the wrist: 1.5 | | | | | |IMPRESSION: | |1. Dialysis mapping, as described above. | | | | | + + CT limited localizer (04/24/2017 10:32 AM) + + + | Specimen | Performing Laboratory | + + + | | [facility] [address] [place] [address] | + + + + + | Narrative | + + | NICOLASA CLARK [address] LIMITED LOCALIZER 04/24/2017 10:32 AM | | HISTORY: 36 years. Female. Chronic renal failure COMPARISON: No | | prior imaging at this facility. DESCRIPTION OF PROCEDURE: Written informed consent | | was obtained. A timeout was performed. Where and as appropriate, marking of side | | and/or site upon the patient was directly performed by the physician performing the | | procedure, antecedent to both imaging and intervention Patient positioning: Prone. | | Axial tool and die manager images were obtained through region of interest with a skin marker | | grid. A skin site was selected and marked. The skin was then prepped and draped in | | the usual sterile fashion and anesthetized with 1% lidocaine buffered with sodium | | bicarbonate. Subsequently, an 17-gauge Bard core biopsy guide needle was advanced | | using CT guidance. Satisfactory positioning of the biopsy needle was unable to be | | obtained. A limited set of axial images were then obtained through the area and | | demonstrates a developing iliopsoas hematoma. This obscures the region of the lower pole | | of the kidney and procedure was terminated at that point. COMPLICATIONS: Hematoma | | of the right psoas muscle obscuring the lower pole of the right kidney precludes | | continuation of the procedure. MEDICATIONS: I.V. conscious sedation was supervised | | by Dr. Mosquera using Versed and Fentanyl for 30 minutes. Using automated blood | | pressure, EKG and pulse oximetry, the patient was independently monitored by a radiology | | nurse certified to give conscious sedation. There were no sedation complications. | | ?Dose reduction techniques were used including automated exposure control (AEC), | | iterative reconstruction technique, and/or mA and/or kV dose adjustments based on | | patient size? IMPRESSION AND PLAN: 1. Unsuccessful CT core needle biopsy of | | right kidney. 2. Dr. Woodward of the interventional radiology department was contacted. | | He will arrange for outpatient biopsy. 3. The patient will be observed for 4 hours | | and then will be discharged home if hemodynamically stable. | + + + + | Procedure Note | + + | Pranav, Rad Results In - 04/24/2017 10:41 AM PST NICOLASA ROBERTSONER years | | FemaleCT LIMITED LOCALIZE04/24/2017 10:32 AMHISTORY: 36 years. Female. Chronic renal | | failureCOMPARISON: No prior imaging at this facility.DESCRIPTION OF PROCEDURE:Written | | informed consent was obtained. A timeout was performed. Where and as appropriate, | | marking of side and/or site upon the patient was directly performed by the physician | | performing the procedure, antecedent to both imaging and interventionPatient | | positioning: Prone.Axial tool and die manager images were obtained through region of interest with a | | skin marker grid. A skin site was selected and marked. The skin was then prepped and | | draped in the usual sterile fashion and anesthetized with 1% lidocaine buffered with | | sodium bicarbonate. Subsequently, an 17-gauge Bard core biopsy guide needle was | | advanced using CT guidance. Satisfactory positioning of the biopsy needle was unable to | | be obtained. A limited set of axial images were then obtained through the area and | | demonstrates a developing iliopsoas hematoma. This obscures the region of the lower pole | | of the kidney and procedure was terminated at that point.COMPLICATIONS:Hematoma of the | | right psoas muscle obscuring the lower pole of the right kidney precludes continuation | | of the procedure.MEDICATIONS:I.V. conscious sedation was supervised by Dr. Mosquera | | using Versed and Fentanyl for 30 minutes. Using automated blood pressure, EKG and pulse | | oximetry, the patient was independently monitored by a radiology nurse certified to give | | conscious sedation. There were no sedation complications.?Dose reduction techniques | | were used including automated exposure control (AEC), iterative reconstruction | | technique, and/or mA and/or kV dose adjustments based on patient size?IMPRESSION AND | | PLAN:1. Unsuccessful CT core needle biopsy of right kidney.2. Dr. Woodward of the | | interventional radiology department was contacted. He will arrange for outpatient | | biopsy.3. The patient will be observed for 4 hours and then will be discharged home if | | hemodynamically stable. | | AM | | | |IMPRESSION AND PLAN: | |1. Unsuccessful CT core needle biopsy of right kidney. | |2. Dr. Woodward of the interventional radiology department was contacted. He will arrange for outpatient biopsy. | |3. The patient will be observed for 4 hours and then will be discharged home if hemodynami keisha stable. | | | | | + + Uric acid (04/18/2017 8:10 AM) + +---------+ + | Component | Value | Ref Range | + +---------+ + | URIC ACID | 7.8 (A) | 2.3 - 6.6 | + +---------+ + + + + | Specimen | Performing Laboratory | + + + | Blood | [facility] [address], [address] [place], [place] | | | [address] | + + + Magnesium (04/18/2017 8:10 AM) + +---------+ + | Component | Value | Ref Range | + +---------+ + | MAGNESIUM | 1.6 (A) | 1.7 - 2.5 mg/dL | + +---------+ + + + + | Specimen | Performing Laboratory | + + + | Blood | [facility] [address], [address] [place], [place] | | | [address] | + + + Protein / creatinine ratio, urine (04/18/2017) + + + + | Component | Value | Ref Range | + + + + | UR | 6933.3 (A) | 0 - 150 | | PROTEIN/CREATININE | | | + + + + + + + | Specimen | Performing Laboratory | + + + | Urine - Urine, | [facility] [address] [place] [address], [place] | | Unspecified Source | [id number] | + + + Urine culture (04/18/2017) + + + + | Component | Value | Ref Range | + + + + | Specimen Description | Urine | | + + + + | CULTURE | Comment: Escherichia Coli | | + + + + | REPORT STATUS | Final | | + + + + + + + | Specimen | Performing Laboratory | + + + | Urine | [facility] [address] [facility] [address] [place], [place] | | | [address] | + + + from Last 3 Months Insurance + +--------+ +------+-------+ + | Payer | Benefi | Subscriber | Type | Phone | Address | | | t Plan | ID | | | | | | / | | | | | | | Group | | | | | + +--------+ +------+-------+ + | MEDICARE | MEDICA | xxxxxxxxxx | | | [address] | | | RE | | | | [place] [id number] | | | IP-OP | | | | | + +--------+ +------+-------+ + | MEDICAID | EASTER | xxxxxxxx | | | [address] | | | N | | | | [place], [place] | | | [place] | | | | [phone] | | | [employer] | | | | | + +--------+ +------+-------+ + + +--------+ +--------+ + + | Guarantor Name | Accoun | Relation to | Date | Phone | Billing Address | | | t Type | Patient | of | | | | | | | | | | + +--------+ +--------+ + + | NICOLASA CLARK | Person | Self | [birth year] | Home: | [address] | | | al/Kike | | 1980 | [phone] [address] [place] | | | flavia | | | [phone] | + +--------+ +--------+ + +
--- OUTSIDE RECORDS SUMMARY | 2017-06-23 14:09 | XMS | Encounter Summary ---
Demographics + + + | Address | [address] | | | [place] [address] | + + + | Home Phone | | + + + | Preferred Language | Unknown | + + + | Marital Status | | + + + | Catholic Affiliation | Unknown | + + + | Race | Unknown | + + + | Ethnic Group | Unknown | + + + Author + + + | Author | [email or web address] | + + + | Organization | [email or web address] | + + + | Address | Unknown | + + + | Phone | Unavailable | + + + Support + + +---------+ + | Name | Relationship | Address | Phone | + + +---------+ + | Naye Wright | ECON | Unknown | | + + +---------+ + Care Team Providers + +------+ + | Care Bander And Cellophaner Helper Machine Name | Role | Phone | + +------+ + PCP | Unavailable | + +------+ + Reason for Visit +--------+ + | Reason | Comments | +--------+ + | Other | Blood Pressure Log dated 05/21/2017-06/16/2017 | +--------+ + Encounter Details +--------+ + + + + | Date | Type | Department | Care Team | Description | +--------+ + + + + | 06/18/ | Documentati | [facility] | Kiersten Shaffer CMA | Other (Blood | | 2018 | on Only | [place] [address] | | Pressure Log dated | | | | [address] | | 05/21/2017-06/16/2017) | | | | [place] [address] | | | | | | [phone] | | | +--------+ + + + + Social History + +-------+ +--------+ [...] + + | 07/15/ | Office | Nephrology | Tavares Vaca MD | | | 2018 | Visit | | [address] | | | | | | [address] [place] | | | | | | [address] | | | | | | | | +--------+---------+ + + + as of this encounter Visit Diagnoses Not on filein this encounter"
--- OUTSIDE RECORDS SUMMARY | 2017-06-23 14:09 | XMS | Encounter Summary ---
Demographics + + + | Address | [address] | | | [place] [address] | + + + | Home Phone | | + + + | Preferred Language | Unknown | + + + | Marital Status | | + + + | Yazdanism Affiliation | Unknown | + + + | Race | Unknown | + + + | Ethnic Group | Unknown | + + + Author + + + | Author | [facility] | + + + | Organization | [facility] | + + + | Address | Unknown | + + + | Phone | Unavailable | + + + Support + + +---------+ + | Name | Relationship | Address | Phone | + + +---------+ + | Naye Wright | ECON | Unknown | | + + +---------+ + Care Team Providers + +------+ + | Care Broth Setter Name | Role | Phone | + +------+ + PCP | Unavailable | + +------+ + Reason for Visit + + + | Reason | Comments | + + + | Medication Refill | | + + + Encounter Details +--------+--------+ + + + | Date | Type | Department | Care Team | Description | +--------+--------+ + + + | 06/19/ | Refill | [facility] | Kiersten Shaffer CMA | | | 2017 | | [place] [address] | | | | | | [address] | | | | | | [place] [address] | | | | | | [phone] | | | +--------+--------+ + + + Social History + +-------+ [...] | | | | | | [address] [place] | | | | | | [phone] | | | | | | | | +--------+---------+ + + + as of this encounter Visit Diagnoses Not on filein this encounter"
--- OUTSIDE RECORDS SUMMARY | 2017-06-23 14:09 | XMS | Encounter Summary ---
Demographics + + + | Address | [address] | | | [place] [address] | + + + | Home Phone | | + + + | Preferred Language | Unknown | + + + | Marital Status | | + + + | Shinto Affiliation | Unknown | + + + | Race | Unknown | + + + | Ethnic Group | Unknown | + + + Author + + + | Author | [facility] | + + + | Organization | [facility] | + + + | Address | Unknown | + + + | Phone | Unavailable | + + + Support + + +---------+ + | Name | Relationship | Address | Phone | + + +---------+ + | Naye Wright | ECON | Unknown | | + + +---------+ + Care Team Providers + +------+ + | Care Bed Maker Name | Role | Phone | + +------+ + PCP | Unavailable | + +------+ + Reason for Visit +--------+ + | Reason | Comments | +--------+ + | Other | Procrit Order Packet | +--------+ + Encounter Details +--------+ + + + + | Date | Type | Department | Care Team | Description | +--------+ + + + + | 06/19/ | Documentati | [facility] | Kiersten Shaffer CMA | Other (Procrit Order | | 2018 | on Only | [address] | | Packet ) | | | | [address] | | | | | | [place] [address] | | | | | | [phone] | | | +--------+ + + + [...] + + + as of this encounter Progress Notes Kiersten Shaffer, [facility] - 06/19/2017 8:48 AM PDTFaxed new order for Aranesp to [facility]. Fax confirmation received. Kiersten Shaffer, [facility] - 06/19/2017 8:48 AM PDTFaxed demograp hic sheet, Procrit order, chart notes, recent labs, to [facility]. Fax confirma tion received. in this encounter Plan of Treatment +--------+---------+ + + + | Date | Type | Specialty | Care Team | Description | +--------+---------+ + + + | 07/15/ | Office | Nephrology | Tavares Vaca MD | | | 2018 | Visit | | [address] | | | | | | [address] [place], [place] | | | | | | [address] | | | | | | | | +--------+---------+ + + + as of this encounter Visit Diagnoses Not on filein this encounter"
--- OUTSIDE RECORDS SUMMARY | 2017-06-23 14:10 | XMS | Encounter Summary ---
Demographics + + + | Address | [address] | | | [place] [address] | + + + | Home Phone | | + + + | Preferred Language | Unknown | + + + | Marital Status | | + + + | Yazdanism Affiliation | Unknown | + + + | Race | Unknown | + + + | Ethnic Group | Unknown | + + + Author + + + | Author | [facility] | + + + | Organization | [facility] | + + + | Address | Unknown | + + + | Phone | Unavailable | + + + Support + + +---------+ + | Name | Relationship | Address | Phone | + + +---------+ + | Naye Wright | ECON | Unknown | | + + +---------+ + Care Team Providers + +------+ + | Care Brick Shader Name | Role | Phone | + +------+ + PCP | Unavailable | + +------+ + Reason for Visit + + + | Reason | Comments | + + + | Medication Refill | | + + + Encounter Details +--------+--------+ + + + | Date | Type | Department | Care Team | Description | +--------+--------+ + + + | 06/18/ | Refill | [facility] | Kiersten Shaffer CMA | | | 2017 | | [place] [address] | | | | | | [address] | | | | | | [place] | | | | | | [address] | | | +--------+--------+ + + + [...] | Tavares Vaca MD | | | 2017 | Visit | | [address] | | | | | | [address] [place] | | | | | | [address] | | | | | | | | +--------+---------+ + + + as of this encounter Visit Diagnoses Not on filein this encounter"
--- OUTSIDE RECORDS SUMMARY | 2017-06-23 14:10 | XMS | Encounter Summary ---
Demographics + + + | Address | [address] | | | [place] [address] | + + + | Home Phone | | + + + | Preferred Language | Unknown | + + + | Marital Status | | + + + | Shinto Affiliation | Unknown | + + + | Race | Unknown | + + + | Ethnic Group | Unknown | + + + Author + + + | Author | [facility] | + + + | Organization | [facility] | + + + | Address | Unknown | + + + | Phone | Unavailable | + + + Support + + +---------+ + | Name | Relationship | Address | Phone | + + +---------+ + | Naye Wright | ECON | Unknown | | + + +---------+ + Care Team Providers + +------+ + | Care Painter And Body Work Name | Role | Phone | + +------+ + PCP | Unavailable | + +------+ + Encounter Details +--------+ + + + + | Date | Type | Department | Care Team | Description | +--------+ + + + + | 06/18/ | Orders Only | [facility] | Kiersten Shaffer CMA | CKD (chronic kidney | | 2018 | | [place] [address] | | disease) stage 5, | | | | [address] | | GFR less than 15 | | | | [address] [place], [place] | | ml/min ([facility]) | | | | [address] | | (Primary Dx); | | | | | | Nephrotic range | | | | | | proteinuria; | | | | | | Hyperkalemia; | | | | | | Hyperuricemia; | | | | | | Anemia of chronic | | | | | | renal failure, stage | | | | | | 5 ([facility]); BRIDGET (acute | | | | | | kidney injury); | | | | | | Essential | | | | | | hypertension, benign | +--------+ + + + + Social [...] | | | | | | [address] [place], [place] | | | | | | [address] | | | | | | | | +--------+---------+ + + + + +--------+ + + | Name | Priori | Associated Diagnoses | Order Schedule | | | ty | | | + +--------+ + + | Renal function panel | Routin | CKD (chronic | Expected: | | | e | kidney disease) | 07/08/2017, Expires: | | | | stage 5, GFR less | 06/18/2018 | | | | than 15 ml/min ([facility]) | | | | | Nephrotic range | | | | | proteinuria | | | | | Hyperkalemia | | | | | Hyperuricemia | | | | | Anemia of chronic | | | | | renal failure, stage | | | | | 5 ([facility]) BRIDGET (acute | | | | | kidney injury) | | | | | Essential | | | | | hypertension, benign | | + +--------+ + + | CBC W/Auto Diff (Reflex to | Routin | CKD (chronic | Expected: | | Manual) | e | kidney disease) | 07/08/2017, Expires: | | | | stage 5, GFR less | 06/18/2018 | | | | than 15 ml/min ([facility]) | | | | | Nephrotic range | | | | | proteinuria | | | | | Hyperkalemia | | | | | Hyperuricemia | | | | | Anemia of chronic | | | | | renal failure, stage | | | | | 5 ([facility]) BRIDGET (acute | | | | | kidney injury) | | | | | Essential | | | | | hypertension, benign | | + +--------+ + + | PTH intact no calcium | Routin | CKD (chronic | Expected: | | | e | kidney disease) | 07/08/2017, Expires: | | | | stage 5, GFR less | 06/18/2018 | | | | than 15 ml/min ([facility]) | | | | | Nephrotic range | | | | | proteinuria | | | | | Hyperkalemia | | | | | Hyperuricemia | | | | | Anemia of chronic | | | | | renal failure, stage | | | | | 5 ([facility]) BRIDGET (acute | | | | | kidney injury) | | | | | Essential | | | | | hypertension, benign | | + +--------+ + + | Ferritin | Routin | CKD (chronic | Expected: | | | e | kidney disease) | 07/08/2017, Expires: | | | | stage 5, GFR less | 06/18/2018 | | | | than 15 ml/min ([facility]) | | | | | Nephrotic range | | | | | proteinuria | | | | | Hyperkalemia | | | | | Hyperuricemia | | | | | Anemia of chronic | | | | | renal failure, stage | | | | | 5 ([facility]) BRIDGET (acute | | | | | kidney injury) | | | | | Essential | | | | | hypertension, benign | | + +--------+ + + | Iron panel | Routin | CKD (chronic | Expected: | | | e | kidney disease) | 07/08/2017, Expires: | | | | stage 5, GFR less | 06/18/2018 | | | | than 15 ml/min ([facility]) | | | | | Nephrotic range | | | | | proteinuria | | | | | Hyperkalemia | | | | | Hyperuricemia | | | | | Anemia of chronic | | | | | renal failure, stage | | | | | 5 ([facility]) BRIDGET (acute | | | | | kidney injury) | | | | | Essential | | | | | hypertension, benign | | + +--------+ + + | Uric acid | Routin | CKD (chronic | Expected: | | | e | kidney disease) | 07/08/2017, Expires: | | | | stage 5, GFR less | 06/18/2018 | | | | than 15 ml/min ([facility]) | | | | | Nephrotic range | | | | | proteinuria | | | | | Hyperkalemia | | | | | Hyperuricemia | | | | | Anemia of chronic | | | | | renal failure, stage | | | | | 5 ([facility]) BRIDGET (acute | | | | | kidney injury) | | | | | Essential | | | | | hypertension, benign | | + +--------+ + + as of this encounter Visit Diagnoses + + | Diagnosis | + + | CKD (chronic kidney disease) stage 5, GFR less than 15 ml/min ([facility]) - Primary | + + | Chronic kidney disease, Stage V | + + | Nephrotic range proteinuria | + + | Proteinuria | + + | Hyperkalemia | + + | Hyperpotassemia | + + | Hyperuricemia | + + | Other abnormal blood chemistry | + + | Anemia of chronic renal failure, stage 5 (HCC) | + + | BRIDGET (acute kidney injury) | + + | Acute kidney failure, unspecified | + + | Essential hypertension, benign | + +"
--- OUTSIDE RECORDS SUMMARY | 2017-06-23 14:10 | XMS | Encounter Summary ---
Demographics + + + | Address | [address] | | | [place] [address] | + + + | Home Phone | | + + + | Preferred Language | Unknown | + + + | Marital Status | | + + + | Mormonism Affiliation | Unknown | + + + | Race | Unknown | + + + | Ethnic Group | Unknown | + + + Author + + + | Author | [facility] | + + + | Organization | [facility] | + + + | Address | Unknown | + + + | Phone | Unavailable | + + + Support + + +---------+ + | Name | Relationship | Address | Phone | + + +---------+ + | Naye Wright | ECON | Unknown | | + + +---------+ + Care Team Providers + +------+ + | Care Hub Lead Name | Role | Phone | + +------+ + PCP | Unavailable | + +------+ + Reason for Visit + + + | Reason | Comments | + + + | Labs Only | [facility] labs dated 06/14/2017 | + + + Encounter Details +--------+ + + + + | Date | Type | Department | Care Team | Description | +--------+ + + + + | 06/17/ | Documentati | [facility] | Kiersten Shaffer CMA | Labs Only ([facility] | | 2018 | on Only | [place] [address] | | labs dated | | | | [address] | | 06/14/2017) | | | | [place] [address] | | | | | | [phone] | | | +--------+ + + + [...] [place] | | | | | | [address] | | | | | | | | +--------+---------+ + + + as of this encounter Visit Diagnoses Not on filein this encounter"
--- OUTSIDE RECORDS SUMMARY | 2017-06-23 14:11 | XMS | Encounter Summary ---
Demographics + + + | Address | [address] | | | [place] [address] | + + + | Home Phone | | + + + | Preferred Language | Unknown | + + + | Marital Status | | + + + | Religion Affiliation | Unknown | + + + | Race | Unknown | + + + | Ethnic Group | Unknown | + + + Author + + + | Author | [facility] | + + + | Organization | [facility] | + + + | Address | Unknown | + + + | Phone | Unavailable | + + + Support + + +---------+ + | Name | Relationship | Address | Phone | + + +---------+ + | Naye Wright | ECON | Unknown | | + + +---------+ + Care Team Providers + +------+ + | Care Log Tumbler Name | Role | Phone | + +------+ + PCP | Unavailable | + +------+ + Encounter Details +--------+ + + + + | Date | Type | Department | Care Team | Description | +--------+ + + + + | 06/17/ | Orders Only | [facility] | Kiersten Shaffer CMA | CKD (chronic kidney | | 2018 | | [place] [address] | | disease) stage 5, | | | | [facility] [address] | | GFR less than 15 | | | | [place] [address] | | ml/min ([facility]); Anemia | | | | [phone] | | of chronic renal | | | | | | failure, stage 5 | | | | | | ([facility]); BRIDGET (acute | | | | | | kidney injury); | | | | | | Secondary | | | | | | hyperparathyroidism | | | | | | ([facility]); Nephrotic | | | | | | [...] [place] | | | | | | [address] | | | | | | | | +--------+---------+ + + + as of this encounter Results Iron panel (06/14/2017 9:42 AM) + + + + [...] | + + + | Blood | [facility] [address] [place] [address] [facility] [address] [place] | | | [address] | + + + Ferritin (06/14/2017 9:42 AM) + + + + | Component | Value | Ref Range | + + + + | FERRITIN | 472.1 (A) | 13 - 150 ng/mL | + + + + + + + | Specimen | Performing Laboratory | + + + | Blood | [facility] [address] [place] [address] | | | [address] | + + + Renal function panel (06/14/2017 9:42 AM) + + + + [...] + + | Blood | [facility] [address] [place], [place] [address] | | | [address] | + + + CBC W/Auto Diff (Reflex to Manual) (06/14/2017 9:42 AM) + + + + [...] | + + + | Blood | [address] [place] | | | [address] | + + + PTH intact no calcium (06/14/2017 9:42 AM) + +---------+ + | Component | Value | Ref Range | + +---------+ + | PTH INTACT NO | 409 (A) | 15 - 65 pg/mL | | CALCIUM | | | + +---------+ + + + + | Specimen | Performing Laboratory | + + + | Blood | [facility] [place], [facility] [place] | | | [address] | + + + in this encounter Visit Diagnoses + + | Diagnosis | + + | CKD (chronic kidney disease) stage 5, GFR less than 15 ml/min ([facility]) | + + | Chronic kidney disease, Stage V | + + | Anemia of chronic renal failure, stage 5 ([facility]) | + + | BRIDGET (acute kidney injury) | + + | Acute kidney failure, unspecified | + + | Secondary hyperparathyroidism (HCC) | + + | Secondary hyperparathyroidism (of renal origin) | + + | Nephrotic range proteinuria | + + | Proteinuria | + + | Essential hypertension, benign | + +"
--- OUTSIDE RECORDS SUMMARY | 2017-06-23 14:14 | XMS | Encounter Summary ---
Demographics + + + | Address | [address] | | | [place] [address] | + + + | Home Phone | | + + + | Preferred Language | Unknown | + + + | Marital Status | | + + + | Rastafarian Affiliation | Unknown | + + + | Race | Unknown | + + + | Ethnic Group | Unknown | + + + Author + + + | Author | [facility] | + + + | Organization | [facility] | + + + | Address | Unknown | + + + | Phone | Unavailable | + + + Support + + +---------+ + | Name | Relationship | Address | Phone | + + +---------+ + | Naye Wright | ECON | Unknown | | + + +---------+ + Care Team Providers + +------+ + | Care Tuber Operator Name | Role | Phone | + +------+ + PCP | Unavailable | + +------+ + Encounter Details +--------+ + + + + | Date | Type | Department | Care Team | Description | +--------+ + + + + | 06/14/ | Telephone | [facility] | Kylee Kerr, | | | 2017 | | [address] | | | | | [address] | | | | | | [place] [address] | | | | | | [phone] | | | +--------+ + + + [...] | | | | | | [address] [place], [place] | | | | | | [address] | | | | | | | | +--------+---------+ + + + as of this encounter Results Ferritin (06/14/2017 9:42 AM) + + + + | Component | Value | Ref Range | + + + + | FERRITIN | 472.1 (A) | 13 - 150 ng/mL | + + + + + + + | Specimen | Performing Laboratory | + + + | Blood | | + + + Iron panel (06/14/2017 9:42 AM) + + + + | Component | Value | Ref Range | + + + + | IRON | 648.10 (A) | 37 - 160 | + + + + | IRON % SAT | 300.0 (A) | 20 - 55 | + + + + | TIBC | 216 (A) | 245 - 400 | + + + + + + + | Specimen | Performing Laboratory | + + + | Blood | | + + + Renal function panel (06/14/2017 9:42 AM) + + + + | Component | Value | Ref Range | + + + + | GLUCOSE | 73 | 70 - 100 mg/dL | + + + + | BUN | 50 (A) | 6 - 23 mg/dL | + + + + | CREATININE | 5.68 (A) | 0.60 - 1.35 mg/dL | + + + + | PHOSPHORUS | 5.2 (A) | 2.5 - 5.0 mg/dL | + + + + | [...] + + + + | Phosphorus,Inorganic | | | + + + + | BUN/CREAT | 8.8 | 6.0 - 28.6 | + + + + | CALCIUM | 8.5 | 8.4 - 10.2 mg/dL | + + + + | EGFR | 9 (A) | 60 - 140 mg/dL | + + + + + + + | Specimen | Performing Laboratory | + + + | Blood | | + + + CBC w/no Diff (06/14/2017 9:42 AM) + [...] | fL | + + + + PTH intact no calcium (06/14/2017 9:42 AM) + + + + | Component | Value | Ref Range | + + + + | PTH INTACT NO | 409.0 (A) | 15 - 65 pg/mL | | CALCIUM | | | + + + + + + + | Specimen | Performing Laboratory | + + + | Blood | | + + + in this encounter Visit Diagnoses Not on filein this encounter"
--- OUTSIDE RECORDS SUMMARY | 2017-06-23 14:14 | XMS | Encounter Summary ---
Demographics + + + | Address | [address] | | | [place] [address] | + + + | Home Phone | | + + + | Preferred Language | Unknown | + + + | Marital Status | | + + + | Oriental Orthodox Affiliation | Unknown | + + + | Race | Unknown | + + + | Ethnic Group | Unknown | + + + Author + + + | Author | [facility] [facility] | + + + | Organization | [facility] [employer] [facility] | + + + | Address | Unknown | + + + | Phone | Unavailable | + + + Support + + +---------+ + | Name | Relationship | Address | Phone | + + +---------+ + | Naye Wright | ECON | Unknown | | + + +---------+ + Care Team Providers + +------+ + | Care Marketing Proposal Coordinator Name | Role | Phone | + +------+ + PCP | Unavailable | + +------+ + Reason for Visit +--------+ + | Reason | Comments | +--------+ + | Other | Chart Note from [facility] date 04/25/2017 | +--------+ + Encounter Details +--------+ + + + + | Date | Type | Department | Care Team | Description | +--------+ + + + + | 06/13/ | Documentati | [facility] | Kiersten Shaffer CMA | Other (Chart Note | | 2018 | on Only | [place] [address] | | from [facility] dated | | | | [address] | | 04/25/2017) | | | | [place] [address] | | | | | | [phone] | | | +--------+ + + + [...] [place] | | | | | | [address] | | | | | | | | +--------+---------+ + + + as of this encounter Visit Diagnoses Not on filein this encounter"
--- OUTSIDE RECORDS SUMMARY | 2017-06-23 14:14 | XMS | Encounter Summary ---
Demographics + + + | Address | [address] | | | [place] [address] | + + + | Home Phone | | + + + | Preferred Language | Unknown | + + + | Marital Status | | + + + | Uatsdin Affiliation | Unknown | + + + | Race | Unknown | + + + | Ethnic Group | Unknown | + + + Author + + + | Author | [facility] | + + + | Organization | [facility] | + + + | Address | Unknown | + + + | Phone | Unavailable | + + + Support + + +---------+ + | Name | Relationship | Address | Phone | + + +---------+ + | Naye Wright | ECON | Unknown | | + + +---------+ + Care Team Providers + +------+ + | Care Kiln Transfer Operator Name | Role | Phone | + +------+ + PCP | Unavailable | + +------+ + Encounter Details +--------+---------+ + + + | Date | Type | Department | Care Team | Description | +--------+---------+ + + + | 06/17/ | Office | [facility] | Tavares Vaca MD | CKD (chronic kidney | | 2018 | Visit | [address] | [address] | disease) stage 5, | | | | [facility] | [address] [place], [place] | GFR less than 15 | | | | [address], [place] | [id number] | ml/min (HCC) | | | | [id number] | | (Primary Dx); Anemia | | | | | | of chronic renal | | | | | | failure, stage 5 | | | | | | ([facility]); Essential | | | | | | hypertension, | | | | | | benign; | | | | | | Hyperphosphatemia; | | | | | | Secondary | | | | | | hyperparathyroidism | | | | | | ([facility]); Metabolic | | | | | | acidosis | +--------+---------+ + + + Social History + +-------+ [...] + + + | Respiratory Rate | - | - | + + + + | Oxygen [...] AM PDT | + + + + in this encounter Instructions Patient Instructions - Tavares Vaca MD - 06/17/2017 9:40 AM PDTDiscussions/Recommendatio ns: I discussed today with Ms. Clark the meaning of her severe CKD and the interaction o f that with her immunosuppression. I stressed the importance of keeping her BP controlled and avoiding getting dehydrated i f we are to have a chance at helping preserve her renal function. She showed good understan ding. I gave her instructions on how to chart her blood pressure in the appropriate manner at home. she is to call us if they fall outside of the optimal provided range. She will bring her sphygmomanometer for validation once a year. She will strictly abide by a low salt, low phosphorus & low purine diet and will avoid a ll kinds of NSAIDs for analgesia. Also: I see no acute indication for TIRE SORTER. I see no need to send her to the ED. I discussed with her to F/U for evaluation by the Kidney Transplant team at [facility] I kept her off Ibuprofen. I will not change any of her current vasoactive meds today. she will bring me back her home BP charts if they fall outside of the optimal provided rang e. At that time, I will decide whether any changes to her vasoactive regimen are warranted. I started her on Procrit 10,000 units subcutaneously every 4 weeks. I kept her on Calcium Acetate 667 mg DURING meals 3 times a day. I again increased her Sodium Bicarbonate 650 mg to 6 times a day. I increased her Calcitriol to 2 mcg daily. I kept her on Cholecalciferol 2,000 units daily. I asked her to F/U with the liver transplant team at [place] for management of her anti -rejection meds. She will need to be seen by the Liver transplant team in [place] soon & regularly. She will F/U with the Vascular Surgery team for F/U on her AV graft She will continue to F/U with your office regularly. I sent her for a repeat RFP, CBC every 2 weeks. She will have a RFP, CBC, intact PTH, Ferritin, Fe studies, uric acid before she comes b ack in 1 month.in this encounter Progress Notes Tavares Vaca MD - 06/17/2017 9:40 AM PDTFormatting of this note may be different from e original. Patient Active Problem List Diagnosis Liver replaced by transplant CKD (chronic kidney disease) stage 5, GFR less than 15 ml/min (HCC) Nephrotic range proteinuria Hyperkalemia Hyperuricemia Anemia of chronic renal failure, stage 5 (HCC) Adverse effect of calcineurin inhibitor BRIDGET (acute kidney injury) Metabolic acidosis Secondary hyperparathyroidism (HCC) Acute cystitis without hematuria Essential hypertension, benign Hyperphosphatemia Dear Colleague: I saw your patient Ms. Clark in the office on an urgent basis today. As you are famili ar with her case, I will not state her past history in detail. Briefly, she is a 37 y.o. fe male patient with past history as delineated above. she is here to F/U on her CKD & its ass ociated complications. She had a liver transplant at the age of 8; she had the hepatorenal s yndrome in early 2014 & needed to go dialysis; she came off of it for 2.5 months; restarted HD thru a CVC in the summer of 2014. She had her second liver transplant in 09/2014. She ult imately came off HD in 04/2015. She tells me she stopped on her own her Cellcept in 06/2016 because of abdominal discomfort; she says she did let the liver transplant team about that. The patient denies any history of prolonged exposure to NSAIDs or recent exposure to known nephrotoxins. she denies any recurrent nephrolithiasis or pyelonephritis. she tells me that she's had no history of urinary retention, gross hematuria or dysuria. she has no incontinen ce symptoms. No symptoms of UTI; she has 0 nightly nocturia. No history of passing kidney stones. she has no foamy urine either; her baseline Creatinine is TBD. There is no family hi story of renal genetic diseases such as PKD. she says that she feels 'tired' today; she's had that since the beginning of 2016. she den ies any blurred vision tinnitus, headache, fever, chills, or cough. No nausea, vomiting, ab dominal pain, diarrhea, melena, or hematochezia. No chest pain, palpitation, dizziness, los s of consciousness, orthopnea, paroxysmal nocturnal dyspnea, or leg edema. The following portions of the patient's history were reviewed and updated as appropriate: a llergies, current medications, past medical history, past social history, past surgical hist ory, family history and problem list. *I also reviewed with her the report of her kidney biopsy from 05/30/17: KIDNEY BIOPSY CLINICAL HISTORY: 05/30/2017 at 0945 H. The patient is a 37-year-old female with a history of liver transpl ant. She is now under evaluation for renal failure with proteinuria. 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 - Moderate arteriosclerosis. - Moderate hyaline arteriolosclerosis. - Severe diffuse tubular atrophy and interstitial fibrosis. COMMENT: Electron is pending at the time of this report. The vascular changes, including focally pro minent hyaline arteriolosclerosis, if not otherwise clinically explained could be related to this patient's immune suppressive therapy. Electron Microscopy DIAGNOSIS: Electron microscopy diagnoses: Glomerular changes consistent with chronic ischemic injury. No evidence of primary glomerular disease identified. As in History of Present Illness & in Assessment. All the pertinent systems were reviewed a nd were otherwise negative. Current Outpatient Prescriptions Medication Sig Dispense Refill allopurinol (ZYLOPRIM) 100 MG tablet Take 1 tablet by mouth daily. 30 tablet 11 amitriptyline (ELAVIL) 50 MG tablet Take 50 mg by mouth daily. amLODIPine (NORVASC) 5 MG tablet Take 1 tablet by mouth daily. (Patient taking differen tly: Take 10 mg by mouth nightly.) 30 tablet 11 calcitRIOL (ROCALTROL) 0.5 MCG capsule Take 2 capsules by mouth daily. 60 capsule 11 calcium acetate (PHOSLO) 667 MG capsule Take 1 capsule by mouth 3 (three) times daily w ith meals. 90 capsule 11 cholecalciferol (VITAMIN D-3) 1000 units tablet Take 1,000 Units by mouth daily. sodium bicarbonate 650 MG tablet Take 2 tablets by mouth 3 (three) times daily. (Patien t taking differently: Take 1,300 mg by mouth 6 (six) times daily.) 180 tablet 11 tacrolimus (PROGRAF) 1 MG capsule Take 1 mg by mouth 2 (two) times daily. 4 mg AM, 4 mg PM No current facility-administered medications for this visit. Physical Exam: BP 131/79 (BP Location: Right upper arm, Patient Position: Sitting) | Pulse 86 | Temp 97. 4 F (36.3 C) (Temporal) | Ht 1.524 m (5') | Wt 47.7 kg (105 lb 3.2 oz) | SpO2 97% | BMI 20.55 kg/m General appearance: Pleasant, not in acute distress. Neck: Supple without tracheal deviation or jugular venous distension. Head and ENT: Head is atraumatic. The oropharynx is without erythema or thrush. Eyes: Anicteric. The extraocular muscle movements are normal. Lungs: Clear to auscultation bilaterally. There are no wheezes. Heart: Regular rate and rhythm without any rub, gallop. Grade 2 systolic murmur, best at t he RUSB. Abdominal exam: Soft and nontender with normal bowel sounds. Musculoskeletal: +ve for lower back & for costovertebral angle tenderness. Extremities: Warm to touch with no leg edema. There is no cyanosis. +ve thrill in left A VG. Skin: There are no rashes, petechiae, or ecchymosis. Neurological: Awake, alert, and oriented to time, place, and person. Normal gross motor po wer. There is no asterixis. Psychiatric: The patient s behavior is normal. Judgment and thought content are normal. Lab Results Component Value Date BUN 50 (A) 06/14/2017 BUN 50 (A) 06/14/2017 CREATININE 5.68 (A) 06/14/2017 CREATININE 5.68 (A) 06/14/2017 EGFR 9 (A) 06/14/2017 EGFR 9 (A) 06/14/2017 NA 143 06/14/2017 NA 143 06/14/2017 K 5.1 06/14/2017 K 5.1 06/14/2017 CL 114 (A) 06/14/2017 CL 114 (A) 06/14/2017 CO2 13 (A) 06/14/2017 CO2 13 (A) 06/14/2017 CA 8.5 06/14/2017 CA 8.5 06/14/2017 PHOS 5.2 (A) 06/14/2017 MG 1.6 (A) 04/18/2017 ALB 2.6 (A) 06/14/2017 ALB 2.6 (A) 06/14/2017 HGB 8.3 (A) 06/14/2017 HGB 8.3 (A) 06/14/2017 URICACID 7.8 (A) 04/18/2017 WBC 13.4 (A) 06/14/2017 WBC 13.4 (A) 06/14/2017 HCT 26.3 (A) 06/14/2017 HCT 26.3 (A) 06/14/2017 FERRITIN 472.1 (A) 06/14/2017 FERRITIN 472.1 (A) 06/14/2017 LABIRON 300.0 (A) 06/14/2017 LABIRON 300 (A) 06/14/2017 LABPROT 6,933.3 (A) 04/18/2017 Assessment: Ms. Clark is a 37 y.o. female patient with stage IV CKD on a background of group home use of calcineurin inhibitors. 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 Her 05/30/17 kidney biopsy just confirmed that. She had a liver transplant at the age of 8; she had the hepatorenal syndrome in early 2014 & needed to go dialysis; she came off of it for 2.5 months; restarted HD thru a CVC in the [facility] of 2014. She had her second liver transplant in 09/2014. She ultimately came off HD in 04/2015. She tells me she stopped on her own her Cellcept in 06/2016 because of abdominal d iscomfort; she says she did let the liver transplant team about that. RENAL FUNCTION: Lower than in early 2015. She had a transient BRIDGET in late 10/2016; etiolo gy is not clear tome at this time. GFR is still low BLOOD PRESSURE: Reports it controlled BLOOD SUGAR: Reports it normal ELECTROLYTES: Severe met acidosis. Mag is at the lower limit of normal ANEMIA: moderate VITAMIN D: To be checked thru your office PARATHYROID HORMONE: Mildly up URIC ACID: Severe hyperuricemia is better with the addition of Allopurinol PROTEINURIA: Moderate (negative serum protein immunofixation in 05/2017) URINALYSIS: Right left flank pain + the E coli in the urine now may point towards a UTI; she has hx of Klebsiella pneumoniae as a colonizer. VOLUME STATUS: Euvolumic. Discussions/Recommendations: I discussed today with Ms. Clark the meaning of her severe CKD and the interaction o f that with her immunosuppression. I stressed the importance of keeping her BP controlled and avoiding getting dehydrated i f we are to have a chance at helping preserve her renal function. She showed good understan ding. I gave her instructions on how to chart her blood pressure in the appropriate manner at home. she is to call us if they fall outside of the optimal provided range. She will bring her sphygmomanometer for validation once a year. She will strictly abide by a low salt, low phosphorus & low purine diet and will avoid a ll kinds of NSAIDs for analgesia. Also: I see no acute indication for TIRE SORTER. I see no need to send her to the ED. I discussed with her to F/U for evaluation by the Kidney Transplant team at [facility] I kept her off Ibuprofen. I will not change any of her current vasoactive meds today. she will bring me back her home BP charts if they fall outside of the optimal provided rang e. At that time, I will decide whether any changes to her vasoactive regimen are warranted. I started her on Procrit 10,000 units subcutaneously every 4 weeks. I kept her on Calcium Acetate 667 mg DURING meals 3 times a day. I again increased her Sodium Bicarbonate 650 mg to 6 times a day. I increased her Calcitriol to 2 mcg daily. I kept her on Cholecalciferol 2,000 units daily. I asked her to F/U with the liver transplant team at [place] for management of her anti -rejection meds. She will need to be seen by the Liver transplant team in [place] soon & regularly. She will F/U with the Vascular Surgery team for F/U on her AV graft She will continue to F/U with your office regularly. I sent her for a repeat RFP, CBC every 2 weeks. She will have a RFP, CBC, intact PTH, Ferritin, Fe studies, uric acid before she comes b ack in 1 month. Thank you Colleague for the opportunity to see this patient in F/U on an urgent basis today for a severely declining GFR in the setting of liver transplant. Please do not hesitate to call me at any time with questions or concerns. Truly yours, Tavares Vaca MD [facility] in this encounter Plan of Treatment +--------+---------+ + + + | Date | Type | Specialty | Care Team | Description | +--------+---------+ + + + | 07/15/ | Office | Nephrology | Tavares Vaca MD | | | 2018 | Visit | | [address] | | | | | | [address] [place], [place] | | | | | | [address] | | | | | | | | +--------+---------+ + + + as of this encounter Visit Diagnoses + + | Diagnosis | + + | CKD (chronic kidney disease) stage 5, GFR less than 15 ml/min ([facility]) - Primary | + + | Chronic kidney disease, Stage V | + + | Anemia of chronic renal failure, stage 5 ([facility]) | + + | Essential hypertension, benign | + + | Hyperphosphatemia | + + | Disorders of phosphorus metabolism | + + | Secondary hyperparathyroidism (HCC) | + + | Secondary hyperparathyroidism (of renal origin) | + + | Metabolic acidosis | + + | Acidosis | + +"
--- OUTSIDE RECORDS SUMMARY | 2017-06-23 14:14 | XMS | Encounter Summary ---
Demographics + + + | Address | [address] | | | [place] [address] | + + + | Home Phone | | + + + | Preferred Language | Unknown | + + + | Marital Status | | + + + | Sabianism Affiliation | Unknown | + + + | Race | Unknown | + + + | Ethnic Group | Unknown | + + + Author + + + | Author | [facility] | + + + | Organization | [facility] [facility] | + + + | Address | Unknown | + + + | Phone | Unavailable | + + + Support + + +---------+ + | Name | Relationship | Address | Phone | + + +---------+ + | Naye Wright | ECON | Unknown | | + + +---------+ + Care Team Providers + +------+ + | Care Elevated Guard Name | Role | Phone | + +------+ + PCP | Unavailable | + +------+ + Reason for Visit +--------+ + | Reason | Comments | +--------+ + | Other | Appointment and Lab reminder | +--------+ + Encounter Details +--------+ + + + + | Date | Type | Department | Care Team | Description | +--------+ + + + + | 06/12/ | Telephone | [facility] | Kiersten Shaffer CMA | Other (Appointment | | 2018 | | [place] [address] | | and Lab reminder) | | | | [address] | | | | | | [place] [address] | | | | | | [phone] | | | +--------+ + + + [...] | | | | | | [address] [place] [place] | | | | | | [id number] | | | | | | | | +--------+---------+ + + + as of this encounter Visit Diagnoses Not on filein this encounter"
--- OUTSIDE RECORDS SUMMARY | 2017-06-23 14:15 | XMS | Encounter Summary ---
Demographics + + + | Address | [address] | | | [place] [address] | + + + | Home Phone | | + + + | Preferred Language | Unknown | + + + | Marital Status | | + + + | Catholic Affiliation | Unknown | + + + | Race | Unknown | + + + | Ethnic Group | Unknown | + + + Author + + + | Author | [facility] [facility] | + + + | Organization | [facility] [facility] | + + + | Address | Unknown | + + + | Phone | Unavailable | + + + Support + + +---------+ + | Name | Relationship | Address | Phone | + + +---------+ + | Naye Wright | ECON | Unknown | | + + +---------+ + Care Team Providers + +------+ + | Care Legal Administrator Name | Role | Phone | + +------+ + | Sherrie Blackman MD | PCP | | + +------+ + Reason for Visit + + + | Reason | Comments | + + + | Follow-up | AVG, arm goes numb and tips of fingertips tinglinig off and on | + + + Encounter Details +--------+---------+ + + + | Date | Type | Department | Care Team | Description | +--------+---------+ + + + | 05/29/ | Office | [facility] | Bk ISAURA Pyle | Chronic kidney | | 2018 | Visit | Vascular Surgery | [address] | disease (CKD), | | | | [address] | [place], [place] | active medical | | | | [place], [place] | [address] | management without | | | | [address] | | dialysis, | | | | [phone] | | unspecified stage | | | | | | (Primary Dx); | | | | | | Hemodialysis access, | | | | | | AV graft (HCC) | +--------+---------+ + + + Social History + +-------+ +--------+------+ | Tobacco Use | Types | Packs/Day | Years | Date | | | | | Used | | + +-------+ +--------+------+ | Former Smoker | | | | | + +-------+ +--------+------+ + +---+---+---+ | Smokeless Tobacco: | | [...] + + + | Blood Pressure | 135/77 | 05/29/2017 2:25 PM PDT | + + + + | Pulse | 91 | 05/29/2017 2:25 PM PDT | + + + + | Temperature | - | - | + + + + | Respiratory Rate | - | - | + + + + | Oxygen Saturation | 100% | 05/29/2017 2:25 PM PDT | + + + + | Inhaled Oxygen | - | - | | Concentration | | | + + + + | Weight | 48.5 kg (107 lb) | 05/29/2017 2:25 PM PDT | + + + + | Height | - | - | + + + + | Body Mass Index | 20.9 | 05/29/2017 2:25 PM PDT | + + + + in this encounter Progress Notes Lashanda Bourgeois DNP - 05/29/2017 2:30 PM [facility] [address] [place] [address] [place] [address] Office: [phone] DATE OF VISIT: 05/29/2017 PATIENT NAME: Nicolasa Clark : 1980; AGE: 37 y.o.; Sex:F PHONE NUMBER: ; PROVIDER: Lashanda Bourgeois DNP PRIMARY CARE / REFERRING PHYSICIAN: [facility] / Sherrie Blackman / [address] [address] / [place] [id number] REASON FOR EVALUATION / CHIEF COMPLAINT: Vascular Surgery Postoperative Visit for AVG creation The patient presents today for a Vascular Surgery Postoperative Visit. The patient is statu s post Left brachial artery to axillary vein using 4-7 mm Acuseal graft creation, which was performed on 05/10/2017 at the [facility] Operating Room. Patient reports she continues to have pain in her incision site and would like more pain medication. The pat brooke reports intermittent left hand tingling sensation, but denies fever, wound drainage, in creasing redness, pus, increasing pain, increasing swelling. Physical examination revealed surgical incision which is healing well without signs of infection. She has good thrills ove r the AVG site. VITAL SIGNS: There were no vitals taken for this visit. PHYSICAL EXAM: Constitutional: Well nourished, no signs of distress Cardiovascular: Normal rate, regular rhythm. Pulmonary/Chest: No respiratory distress. No adventitious sounds. Abdominal: Soft. No abdominal distension or tenderness. Musculoskeletal: Normal range of motion. Extremities: No edema, cyanosis or clubbing. Neurological: She is alert and oriented. VASCULAR: Palpable bilateral carotid, radial, brachial pulses. Upper arm examination yana wed normal thrills in the AV fistula. Surgical incision wounds are healing well wi thout signs of infection. Assessment & Plan: ESRD & s/p AV Graft creation - Presently the patient has intermittent left hand tingling bu t does not affect her daily activity. Instruction given to patient to continue with hand exe rcise with squeezing soft object or ball. Also advised patient to avoid sleeping on her left side as it may cause AVG compression resulting in hand swelling and graft occlusion. Pain m edication refilled for 15 tablets. Her AVG is ready to be access once her incisions are heal ed. Follow up PRN. Lashanda Bourgeois DNP in this encounter Plan of Treatment +--------+---------+ + + + | Date | Type | Specialty | Care Team | Description | +--------+---------+ + + + | 07/15/ | Office | Nephrology | Tavares Vaca MD | | | 2018 | Visit | | [address] | | | | | | [address] [place], [place] | | | | | | [address] | | | | | | | | +--------+---------+ + + + as of this encounter Visit Diagnoses + + | Diagnosis | + + | Chronic kidney disease (CKD), active medical management without dialysis, unspecified | | stage - Primary | + + | Hemodialysis access, AV graft (HCC) | + +"
--- OUTSIDE RECORDS SUMMARY | 2017-06-23 14:15 | XMS | Encounter Summary ---
Demographics + + + | Address | [address] | | | [place] [address] | + + + | Home Phone | | + + + | Preferred Language | Unknown | + + + | Marital Status | | + + + | Yazidi Affiliation | Unknown | + + + | Race | Unknown | + + + | Ethnic Group | Unknown | + + + Author + + + | Author | [facility] | + + + | Organization | [facility] | + + + | Address | Unknown | + + + | Phone | Unavailable | + + + Support + + +---------+ + | Name | Relationship | Address | Phone | + + +---------+ + | Naye Wright | ECON | Unknown | | + + +---------+ + Care Team Providers + +------+ + | Care Stenographer Print Shop Name | Role | Phone | + +------+ + PCP | Unavailable | + +------+ + Reason for Referral MRI/CAT Scan (Emergency) +--------+--------+ + + + + | Status | Reason | Specialty | Diagnoses / | Referred By | Referred To | | | | | Procedures | Contact | Contact | +--------+--------+ + + + + | Closed | | Radiology | Diagnoses | [place], | [facility] | | | | | CKD | Tavares Orellana MD | [address] | | | | | (chronic | [address] | | | | | kidney | [address] | [place], [place] | | | | | disease) | [place], [place] | [address] Phone: | | | | | stage 5, GFR | [address] | [phone] | | | | | less than | Phone: | | | | | | 15 ml/min | [phone] | | | | | | (HCC) | Fax: | | | | | | Anemia of | [phone] | | | | | | chronic | | | | | | | renal | | | | | | | failure, | | | | | | | stage 5 | | | | | | | (HCC) Acute | | | | | | | kidney | | | | | | | injury (HCC) | | | | | | | Secondary | | | | | | | hyperparathy | | | | | | | roidism | | | | | | | (HCC) | | | | | | | Nephrotic | | | | | | | range | | | | | | | proteinuria | | | | | | | Essential | | | | | | | hypertension | | | | | | | , benign | | | | | | | Procedures | | | | | | | CT needle | | | | | | | biopsy | | | | | | | kidney | | | +--------+--------+ + + + + MRI/CAT Scan (Emergency) +--------+--------+ + + + + | Status | Reason | Specialty | Diagnoses / | Referred By | Referred To | | | | | Procedures | Contact | Contact | +--------+--------+ + + + + | Closed | | Radiology | Diagnoses | [place], | [facility] | | | | | CKD | Tavares Orellana MD | [address] | | | | | (chronic | [address] | | | | | kidney | [address] | [place], [place] | | | | | disease) | [place], [place] | [address] Phone: | | | | | stage 5, GFR | [address] | [phone] | | | | | less than | Phone: | | | | | | 15 ml/min | [phone] | | | | | | (HCC) | Fax: | | | | | | Anemia of | [phone] | | | | | | chronic | | | | | | | renal | | | | | | | failure, | | | | | | | stage 5 | | | | | | | (HCC) Acute | | | | | | | kidney | | | | | | | injury (HCC) | | | | | | | Secondary | | | | | | | hyperparathy | | | | | | | roidism | | | | | | | (HCC) | | | | | | | Nephrotic | | | | | | | range | | | | | | | proteinuria | | | | | | | Essential | | | | | | | hypertension | | | | | | | , benign | | | | | | | Procedures | | | | | | | CT needle | | | | | | | biopsy | | | | | | | kidney | | | +--------+--------+ + + + + Reason for Visit Auth/Cert +--------+--------+ + + + + | Status | Reason | Specialty | Diagnoses / | Referred By | Referred To | | | | | Procedures | Contact | Contact | +--------+--------+ + + + + | | | | | | | +--------+--------+ + + + + Encounter Details +--------+ + + + + | Date | Type | Department | Care Team | Description | +--------+ + + + + | 05/30/ | Hospital | [facility] | Tavares Vaca MD | CKD (chronic kidney | | 2018 | Encounter | [facility] | [address] | disease) stage 5, | | | | [address] [place] | [address] [place], [place] | GFR less than 15 | | | | [facility] | [address] | ml/min ([facility]); Anemia | | | | Blvd [place], [place] | | of chronic renal | | | | [address] | Gerson Lucero MD | failure, stage 5 | | | | | PhD [address] | ([facility]); [place] (acute | | | | | Dr [address], | kidney injury); | | | | | [place] [address] | Secondary | | | | | [phone] | hyperparathyroidism | | | | | | ([facility]); Nephrotic | | | | | 3, [facility] | range proteinuria; | | | | | | Essential | | | | | | hypertension, | | | | | | benign; Acute kidney | | | | | | injury (HCC) | +--------+ + + + + Social [...] + + + | Blood Pressure | 135/86 | 05/30/2017 1:56 PM PDT | + + + + | Pulse | 84 | 05/30/2017 1:00 PM PDT | + + + + | Temperature | 36.4 C (97.5 F) | 05/30/2017 11:20 AM PDT | + + + + | Respiratory Rate | 18 | 05/30/2017 11:20 AM PDT | + + + + | Oxygen Saturation | 100% | 05/30/2017 1:00 PM PDT | + + + + | Inhaled Oxygen | - | - | | Concentration | | | + + + + | Weight | 48.5 kg (107 lb) | 05/30/2017 8:31 AM PDT | + + + + | Height | 152.4 cm (5') | 05/30/2017 8:31 AM PDT | + + + + | Body Mass Index | 20.9 | 05/30/2017 8:31 AM PDT | + + + + in this encounter Discharge Instructions Elizabet Mobley RN - 05/30/2017Formatting of this note may be different from the original . Discharge Instructions for Kidney Biopsy You had a procedure called a kidney biopsy. Your healthcare provider used a special needle to remove a small piece of tissue from your kidney to examine it for signs of damage and dis ease. A kidney biopsy is ordered after other tests have shown that there may be a problem wi th your kidney. Kidney biopsies are also performed when kidney disease is suspected and to r ule out cancer. Home care Rest for 24 hours to 48hours. Get up only to use the bathroom. Don t drive for 24 hours to 48hours after the procedure. Don t shower for 24hours after the biopsy. If you wish, you may wash yourself with a sponge or washcloth. When you are able to shower, don t scrub the site. Gently wash the a dai and pat it dry. Remove the bandage covering the biopsy site 24 hours to 48hours after the procedure. Don t lift anything heavier than 10pounds for 3 days to 4days after the procedure. Ask your healthcare providerwhen you can return to work. Be sure to tell your[facility] centerc are providerif your job involves heavy lifting. If you normally take blood thinner medicines (anticoagulants or antiplatelet medicines) and you stopped taking them a few days before your procedure, ask yourhealthcare provider when to start taking them again. When to call your healthcare provider Call your healthcare provider right away if you have any of the following: Blood in your urine Exhaustion or extreme weakness Dizziness or lightheadedness Sudden or increased shortness of breath Sudden chest pain Feverof 100.4F (38C)ortaylor oras directed by your healthcare provider Chills Increasing redness, tenderness, or swelling at the biopsy site Opening of or drainage or bleedingfrom the biopsy site Increasing pain, with or without activity Date Last Reviewed: 04/04/201619991737-6947 [employer]. [address] [place] [address]. All righ ts reserved. This information is not intended as a substitute for professional medical care. Always follow your healthcare professional's instructions. in this encounter Medications at Time of Discharge + + +---------+---------+ + + | Medication | Sig. | Disp. | Refills | Start | End Date | | | | | | Date | | + + +---------+---------+ + + | allopurinol | Take 1 tablet by | 30 | 11 | 08/15/19 | | | (ZYLOPRIM) 100 MG | mouth daily. | tablet | | 17 | 8 | | tablet | | | | | | + + +---------+---------+ + + | amitriptyline | Take 50 mg by mouth | | | 02/08/20 | | | (ELAVIL) 50 MG | daily. | | | 16 | | | tablet | | | | | | + + +---------+---------+ + + | calcitRIOL | Take 2 capsules by | 60 | 11 | 05/21/19 | | | (ROCALTROL) 0.5 MCG | mouth daily. | capsule | | 18 | 9 | | capsule | | | | | | + + +---------+---------+ + + | calcium acetate | Take 1 capsule by | 90 | 11 | 04/22/19 | | | (PHOSLO) 667 MG | mouth 3 (three) | capsule | | 18 | | | capsule | times daily with | | | | | | | meals. | | | | | + + +---------+---------+ + + | cholecalciferol | Take 1,000 Units by | | | | | | (VITAMIN D-3) 1000 | mouth daily. | | | | | | units tablet | | | | | | + + +---------+---------+ + + | sodium bicarbonate | Take 2 tablets by | 180 | 11 | 05/21/19 | | | 650 MG tablet | mouth 3 (three) | tablet | | 18 | 9 | | | times daily. | | | | | + + +---------+---------+ + + | tacrolimus | Take 1 mg by mouth 2 | | | | | | (PROGRAF) 1 MG | (two) times daily. | | | | | | capsule | 4 mg AM, 4 mg PM | | | | | + + +---------+---------+ + + | | Take 1 tablet by | 15 | 0 | 05/30/19 | | | HYDROcodone-acetamin | mouth every 8 | tablet | | 18 | 8 | | ophen (NORCO) 5-325 | (eight) hours as | | | | | | MG per tablet | needed for Pain for | | | | | | | up to 10 days. | | | | | + + +---------+---------+ + + | amLODIPine | Take 1 tablet by | 30 | 11 | 04/22/19 | | | (NORVASC) 5 MG | mouth daily. | tablet | | 18 | 8 | | tablet | | | | | | + + +---------+---------+ + + as of this encounter Plan [...] [place] | | | | | | [id number] | | | | | | | | +--------+---------+ + + + + +--------+ + + | Name | Priori | Associated Diagnoses | Order Schedule | | | ty | | | + +--------+ + + | Pathology - surgical | Timed | | Timed (Now or | | | | | Specify) for 1 | | | | | Occurrences starting | | | | | 05/30/2017 until | | | | | 05/30/2017 | + +--------+ + + as of this encounter Results CT needle biopsy kidney (05/30/2017 10:00 AM) + + + | Specimen | Performing Laboratory | + + + | | [facility] [address] [place], [place] [address] [address] | + + + + + | [...] disease. Proteinuria. History of liver transplant. PRIMARY SEAMLESS TUBE ROLLER: | | Gerson Lucero MD, PhD, RPVI [...] division in distribution into appropriate media for capitan grande band renal | | pathologic assessment, including electromicroscopy [...] Unit for routine post procedure monitoring. 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 History of liver | | transplant.PRIMARY SEAMLESS TUBE ROLLER: Gerson Lucero MD, PhD, RPVIOPERATIONS:1. Limited CT [...] distribution into appropriate media for | | capitan grande band renal pathologic assessment, including electromicroscopy and immunofluorescence. 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 CT redemonstrates thin | | body habitus [...] | | | | | + + Protime-INR (05/30/2017 8:27 AM) + + + + | Component | Value | Ref Range | + + + + | INR | 1.0Comment: REFERENCE RANGE:0.9 - | | | | 1.2 NON-ANTICOAGULATED2.0 - 3.0 ALL | | | | OTHER THERAPEUTIC INDICATIONS2.5 - 3.5 | | | | MECHANICAL HEART VALVES, RECURRENT OR | | | | SYSTEMIC EMBOLISMTesting performed at | | | | [facility] [place] [address];[place] [address] | | | |Testing performed at [facility] [place] [address];[place] [address] | | | | | | + + + + + + + | Specimen | Performing Laboratory | + + + | Blood | [facility] [address] [facility] [place] [address] | + + + Platelet count (05/30/2017 8:27 AM) + + + + | Component | Value | Ref Range | + + + + | PLT | 277Comment: Testing performed at [facility] | 150 - 400 K/uL | | | [facility];[place] [address] | | + + + + + + + | Specimen | Performing Laboratory | + + + | Blood | [facility] [address] [place] [address] | + + + aPTT (05/30/2017 8:27 AM) + + + + | Component | Value | Ref Range | + + + + | APTT | 31Comment: Testing performed at [facility] | 23 - 32 seconds | | | [address];[place] [address] | | + + + + + + + | Specimen | Performing Laboratory | + + + | Blood | [facility] [address] [place] [address] | + + + Pathology histology - [...] This case was seen and processed at [facility] | | Center in [place], [place]. (Report # [id number]) GROSS DESCRIPTION: Three specimens | | are [...] | | | Some Glomeruli, Appears Adequate [facility] MICROSCOPIC EXAMINATION: Four core | | segments [...] developed and their performance characteristics determined by [facility]. This test is used for clinical purposes. It should not be | | regarded as investigational or for research. [facility] is certified | | under the [...] 1, IF-lgG x 1, IF-lgM x 1, IF-Olar | | x 1, IF-Lambda x 1. PERFORMING LABORATORY: Professional interpretation and technical | | preparation was performed by [place], [facility], [address] | | [place] [address] (Reel Assembler: Trell Marrero M.D.; | | [facility]#: [id number]). COMMENT: The ultrastructural changes support the light [...] Pathologist Electronically Signed 06/14/2017 | + + in this encounter Visit Diagnoses + + | Diagnosis | + + | CKD (chronic kidney disease) stage 5, GFR less than 15 ml/min ([facility]) | + + | Chronic kidney disease, [...] | Essential hypertension, benign | + + Admitting Diagnoses + + | Diagnosis | + + | Essential hypertension, benign | + + | Secondary hyperparathyroidism (HCC) | + + | Secondary hyperparathyroidism (of renal origin) | + + | CKD (chronic kidney disease) stage 5, GFR less than 15 ml/min (HCC) | + + | Chronic kidney disease, Stage V | + + | Nephrotic range proteinuria | + + | Proteinuria | + + | Acute kidney injury (HCC) - [place] (acute kidney injury) | + + | Acute kidney failure, unspecified | + + | Anemia of chronic renal failure, stage 5 (HCC) | + + Administered Medications + +--------+ +---------+------+------+ | Medication Order | MAR | Action | Dose | Rate | Site | | | Action | Date | | | | + +--------+ +---------+------+------+ | fentaNYL (SUBLIMAZE) injection | Given | | 100 mcg | | | | Once PRN, Starting Archana 05/30/17 | | 8 09:27 | | | | | at 0927, Intra-procedure | | PDT | | | | | (CATH/IR) | | | | | | + +--------+ +---------+------+------+ + +---+ | | | + +---+ | HYDROcodone-acetaminophen | | | (NORCO) 10-325 MG per tablet 1 | | | tablet 1 tablet, Oral, Every 4 | | | Hours PRN, Severe Pain (7-10), | | | Starting [facility] 05/30/17 at 1005 | | + +---+ | | | + +---+ | HYDROcodone-acetaminophen | | | (NORCO) 5-325 MG per tablet 1 | | | tablet 1 tablet, Oral, Every 4 | | | Hours PRN, Moderate Pain (4-6), | | | Starting Archana 05/30/17 at 1005 | | + +---+ | | | + +---+ + +-------+ +------+---+---+ | midazolam (VERSED) injection | Given | | 1 mg | | | | Intravenous, Once PRN, Starting | | 8 09:27 | | | | | Archana 05/30/17 at 0927, | | PDT | | | | | Intra-procedure (CATH/IR) | | | | | | + +-------+ +------+---+---+ + +---+ | | | + +---+ | ondansetron (ZOFRAN) injection | | | 4 mg 4 mg, Intravenous, Every 6 | | | Hours PRN, Nausea, Vomiting, | | | Starting Archana 05/30/17 at 1005 | | + +---+ | | | + +---+ | ondansetron (ZOFRAN) tablet 4 | | | mg 4 mg, Oral, Every 6 Hours | | | PRN, Nausea, Vomiting, Starting | | | [facility] 05/30/17 at 1005 | | + +---+ | | | + +---+ in this encounter
--- OUTSIDE RECORDS SUMMARY | 2017-06-23 14:16 | XMS | Encounter Summary ---
Demographics + + + | Address | [address] | | | [place] [address] | + + + | Home Phone | | + + + | Preferred Language | Unknown | + + + | Marital Status | | + + + | Pentecostal Affiliation | Unknown | + + + | Race | Unknown | + + + | Ethnic Group | Unknown | + + + Author + + + | Author | [facility] | + + + | Organization | [facility] | + + + | Address | Unknown | + + + | Phone | Unavailable | + + + Support + + +---------+ + | Name | Relationship | Address | Phone | + + +---------+ + | Naye Wright | ECON | Unknown | | + + +---------+ + Care Team Providers + +------+ + | Care Bender Helper Name | Role | Phone | + +------+ + | Sherrie Blackman MD | PCP | | + +------+ + Reason for Visit +--------+ + | Reason | Comments | +--------+ + | Other | Progress Note from [facility] Transplant Hepatology dated 05/07/2017 | +--------+ + Encounter Details +--------+ + + + + | Date | Type | Department | Care Team | Description | +--------+ + + + + | 05/24/ | Documentati | [facility] | Kiersten Shaffer CMA | Other (Progress Note | | 2018 | on Only | [place] [address] | | from [facility] | | | | [address] | | Transplant | | | | [place] [address] | | Hepatology dated | | | | [phone] | | 05/07/2017) | +--------+ + + + + Social [...] [place] | | | | | | [address] | | | | | | | | +--------+---------+ + + + as of this encounter Visit Diagnoses Not on filein this encounter"
--- OUTSIDE RECORDS SUMMARY | 2017-06-23 14:16 | XMS | Encounter Summary ---
Demographics + + + | Address | [address] | | | [place] [address] | + + + | Home Phone | | + + + | Preferred Language | Unknown | + + + | Marital Status | | + + + | Druze Affiliation | Unknown | + + + | Race | Unknown | + + + | Ethnic Group | Unknown | + + + Author + + + | Author | [facility] | + + + | Organization | [facility] | + + + | Address | Unknown | + + + | Phone | Unavailable | + + + Support + + +---------+ + | Name | Relationship | Address | Phone | + + +---------+ + | Naye Wright | ECON | Unknown | | + + +---------+ + Care Team Providers + +------+ + | Care Freelance Makeup Artist Name | Role | Phone | + +------+ + | Brandan Zarate Primary | PCP | | + +------+ + Encounter Details +--------+---------+ + + + | Date | Type | Department | Care Team | Description | +--------+---------+ + + + | 05/20/ | Office | [facility] | Tavares Vaca MD | CKD (chronic kidney | | 2018 | Visit | [place] [address] [facility] | [address] | disease) stage 5, | | | | [facility] | [address] [place], [place] | GFR less than 15 | | | | [address] [place], [place] | [address] | ml/min (HCC) | | | | [address] | | (Primary Dx); Anemia | | [...] | | | | | Hyperphosphatemia | +--------+---------+ + + + Social History [...] + + + | Blood Pressure | 139/82 | 05/20/2017 9:41 AM PDT | + + + + | Pulse | 87 | 05/20/2017 9:41 AM PDT | + + + + | Temperature | 36.7 C (98 F) | 05/20/2017 9:41 AM PDT | + + + + | Respiratory Rate | - | - | + + + + | Oxygen Saturation | - | - | + + + + | Inhaled Oxygen | - | - | | Concentration | | | + + + + | Weight | 50.3 kg (110 lb 14.4 | 05/20/2017 9:41 AM PDT | | | oz) | | + + + + | Height | 152.4 cm (5') | 05/20/2017 9:41 AM PDT | + + + + | Body Mass Index | 21.66 | 05/20/2017 9:41 AM PDT | + + + + in this encounter Instructions Patient Instructions - Tavares Vaca MD - 05/20/2017 9:20 AM PDTDiscussions/Recommendatio ns: I discussed today with [...] kinds of NSAIDs for analgesia. Also: I sent her for a repeat BMP, Fe studies, Ferritin, & CBC Today. I again sent for a kidney biopsy YESSY. She will F/U with the Vascular Surgery team for F/U on her AV graft I encouraged her to F/U for evaluation by the Kidney Transplant team at [facility]. I kept her off Ibuprofen. she will bring me back her home BP charts if they fall outside of the optimal provided rang e. At that time, I will decide whether any changes to her vasoactive regimen are warranted. I kept her on Calcium Acetate 667 mg DURING meals 3 times a day. I increased her Sodium Bicarbonate 650 mg to 6 times a day. I increased her Calcitriol to 1 mcg alternating with 0.5 mcg every other day. I kept her on Cholecalciferol 2,000 units daily. I asked her to F/U with the liver transplant team at [place] for management of her anti -rejection meds. She will need to be seen by the Liver transplant team in [place] soon & regularly. She will continue to F/U with your office regularly. I sent her for a repeat RFP, CBC every 2 weeks. She will have a RFP, CBC, intact PTH, Ferritin, Fe studies, urinalysis, Urine total prot shq-ga-nsygerblqa ratio before she comes back in 1 month.in this encounter Progress Notes Tavares Vaca MD - 05/20/2017 9:20 AM PDTFormatting of this note may be different from th e original. Patient Active Problem List Diagnosis Liver replaced by transplant CKD (chronic kidney disease) stage 5, GFR less than 15 ml/min (HCC) Nephrotic range proteinuria Hyperkalemia Hyperuricemia Anemia of chronic renal failure, stage 4 (severe) (HCC) Adverse effect of calcineurin inhibitor BRIDGET [...] she's had that since the beginning of 2017. she den ies any blurred vision tinnitus, [...] hist ory, family history and problem list. As in History of Present Illness & [...] mouth daily. (Patient taking differen tly: Take 5 mg by mouth nightly.) 30 tablet 11 calcitRIOL (ROCALTROL) 0.5 MCG capsule Take 1 capsule by mouth daily. 30 capsule 11 calcium acetate (PHOSLO) 667 MG capsule Take 1 capsule by mouth 3 (three) times daily w ith meals. 90 capsule 11 cholecalciferol (VITAMIN D-3) 1000 units tablet Take 1,000 Units by mouth daily. HYDROcodone-acetaminophen (NORCO) 5-325 MG per tablet Take 1-2 tablets by mouth every 6 (six) hours as needed for Pain for up to 10 days. 30 tablet 0 sodium bicarbonate 650 MG tablet Take 1 tablet by mouth 4 (four) times daily. 120 table t 11 tacrolimus (PROGRAF) 1 MG capsule Take 1 mg by mouth 2 (two) times daily. 4 mg AM, 4 mg PM ciprofloxacin (CIPRO) 250 MG tablet Take 1 tablet by mouth 2 (two) times daily. (Patien t not taking: Reported on 05/10/2017) 28 tablet 0 No current facility-administered medications for this visit. Physical Exam: BP 139/82 (BP Location: Right upper arm, Patient Position: Sitting) | Pulse 87 | Temp 98 F (36.7 C) (Temporal) | Ht 1.524 m (5') | Wt 50.3 kg (110 lb 14.4 oz) | BMI 21.66 kg/ m General appearance: Pleasant, not in acute distress. [...] no leg edema. There is no cyanosis. Skin: There are no rashes, petechiae, or ecchymosis. Neurological: Awake, alert, and oriented to time, place, and person. Normal gross motor po wer. There is no asterixis. Psychiatric: The patient s behavior is normal. Judgment and thought content are normal. Lab Results Component Value Date BUN 52 (A) 05/15/2017 CREATININE 4.63 (A) 05/15/2017 EGFR 11 (A) 05/15/2017 NA 143 05/15/2017 K 4.8 05/15/2017 CL 114 (A) 05/15/2017 CO2 19 05/15/2017 CA 8.3 (A) 05/15/2017 PHOS 3.7 06/20/2015 MG 1.6 (A) 04/18/2017 ALB 2.8 (A) 05/15/2017 HGB 7.2 (A) 05/15/2017 URICACID 7.8 (A) 04/18/2017 WBC 13.5 (A) 05/15/2017 HCT 25.0 (A) 05/15/2017 FERRITIN 61 06/20/2015 LABIRON 50 06/20/2015 LABPROT 6,933.3 (A) 04/18/2017 Assessment: Ms. Clark is a 37 y.o. female patient with stage IV CKD on a background of skilled nursing use of calcineurin inhibitors. 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 She had a liver transplant at the age of 8; she had the hepatorenal syndrome in early 2014 & needed to go dialysis; she came off of it for 2.5 months; restarted HD thru a CVC in the [facility] of 2014. She had her second liver transplant in 09/2014. She ultimately came off HD in 04/2015. She tells me she stopped on her own her Cellcept in 06/2016 because of abdominal d iscomfort; she says she did let the liver transplant team about that. RENAL FUNCTION: Lower than in early 2016. She had a transient BRIDGET in late 10/2016; mckenzie yi is not clear tome at this time BLOOD PRESSURE: Reports it normal BLOOD SUGAR: Reports it normal ELECTROLYTES: Acceptable; Mag is at the lower limit of normal ANEMIA: Very low VITAMIN D: To be checked thru your office PARATHYROID HORMONE: Mildly up URIC ACID: Severe hyperuricemia is better with the addition of Allopurinol PROTEINURIA: Moderate URINALYSIS: Right left flank pain + the [...] kinds of NSAIDs for analgesia. Also: I sent her for a repeat BMP, Fe studies, Ferritin, & CBC Today. I again sent for a kidney biopsy YESSY (severe CKD in the setting of liver transplant; heavy proteinuria). She will F/U with the Vascular Surgery team for F/U on her AV graft I encouraged her to F/U for evaluation by the Kidney Transplant team at [facility] I kept her off Ibuprofen. I will not change any of her current vasoactive meds today. she will bring me back her home BP charts if they fall outside of the optimal provided rang e. At that time, I will decide whether any changes to her vasoactive regimen are warranted. I kept her on Calcium Acetate 667 mg DURING meals 3 times a day. I increased her Sodium Bicarbonate 650 mg to 6 times a day. I increased her Calcitriol to 1 mcg alternating with 0.5 mcg every other day. I kept her on Cholecalciferol 2,000 units daily. I asked her to F/U with the liver transplant team at [place] for management of her anti -rejection meds. She will need to be seen by the Liver transplant team in [place] soon & regularly. She will continue to F/U with your office regularly. I sent her for a repeat RFP, CBC every 2 weeks. She will have a RFP, CBC, intact PTH, Ferritin, Fe studies, urinalysis, Urine total prot mew-ij-okqqqftber ratio before she comes back in 1 month. Thank you Colleague for the opportunity to see this patient in F/U on an urgent basis today for a declining GFR in the setting of liver transplant. Please do not hesitate to call me a t any time with questions or concerns. Truly yours, Tavares Vaca MD [facility] in this encounter Plan of Treatment +--------+---------+ + + + | Date | Type | Specialty | Care Team | Description | +--------+---------+ + + + | 07/15/ | Office | Nephrology | Tavares Vaca MD | | | 2018 | Visit | | [address] | | | | | | [address] [place] | | | | | | [address] [...] | + + | Acidosis | + + | Hyperphosphatemia | + + | Disorders of phosphorus metabolism | + +"
--- OUTSIDE RECORDS SUMMARY | 2017-06-23 14:16 | XMS | Encounter Summary ---
Demographics + + + | Address | [address] | | | [place] [address] | + + + | Home Phone | | + + + | Preferred Language | Unknown | + + + | Marital Status | | + + + | Confucianism Affiliation | Unknown | + + + | Race | Unknown | + + + | Ethnic Group | Unknown | + + + Author + + + | Author | [facility] | + + + | Organization | [facility] | + + + | Address | Unknown | + + + | Phone | Unavailable | + + + Support + + +---------+ + | Name | Relationship | Address | Phone | + + +---------+ + | Naye Wright | ECON | Unknown | | + + +---------+ + Care Team Providers + +------+ + | Care Launch Leader Name | Role | Phone | + +------+ + | Sherrie Blackman MD | PCP | | + +------+ + Encounter Details +--------+ + + + + | Date | Type | Department | Care Team | Description | +--------+ + + + + | 05/21/ | Telephone | [facility] | Yaritza Soares, | | | 2017 | | Vascular Surgery | RN | | | | | [address] | | | | | | [place] | | | | | | [address] | | | | | | [phone] | | | +--------+ + + + [...] [place] | | | | | | [address] | | | | | | | | +--------+---------+ + + + as of this encounter Visit Diagnoses Not on filein this encounter"
--- OUTSIDE RECORDS SUMMARY | 2017-06-23 14:16 | XMS | Encounter Summary ---
Demographics + + + | Address | [address] | | | [place] [address] | + + + | Home Phone | | + + + | Preferred Language | Unknown | + + + | Marital Status | | + + + | Moravian Affiliation | Unknown | + + + | Race | Unknown | + + + | Ethnic Group | Unknown | + + + Author + + + | Author | [facility] | + + + | Organization | [facility] | + + + | Address | Unknown | + + + | Phone | Unavailable | + + + Support + + +---------+ + | Name | Relationship | Address | Phone | + + +---------+ + | Naye Wright | ECON | Unknown | | + + +---------+ + Care Team Providers + +------+ + | Care Drain Tile Machine Operator Name | Role | Phone | + +------+ + | Sherrie Blackman MD | PCP | | + +------+ + Reason for Visit +--------+ + | Reason | Comments | +--------+ + | Other | [facility] Log dated 05/06/2017-05/19/2017 | +--------+ + Encounter Details +--------+ + + + + | Date | Type | Department | Care Team | Description | +--------+ + + + + | 05/23/ | Documentati | [facility] | Kiersten Shaffer, COMMISSION SALES ASSOCIATE | Other ([facility] | | 2018 | on Only | [place] [address] | | Log dated | | | | [address] | | 05/06/2017-05/19/2017) | | | | [place] [address] | | | | | | [phone] | | | +--------+ + + + [...] | | | | | | [address] [place] | | | | | | [address] | | | | | | | | +--------+---------+ + + + as of this encounter Visit Diagnoses Not on filein this encounter"
--- OUTSIDE RECORDS SUMMARY | 2017-06-23 14:16 | XMS | Encounter Summary ---
Demographics + + + | Address | [address] | | | [place] [address] | + + + | Home Phone | | + + + | Preferred Language | Unknown | + + + | Marital Status | | + + + | Anabaptism Affiliation | Unknown | + + + | Race | Unknown | + + + | Ethnic Group | Unknown | + + + Author + + + | Author | [facility] | + + + | Organization | [facility] | + + + | Address | Unknown | + + + | Phone | Unavailable | + + + Support + + +---------+ + | Name | Relationship | Address | Phone | + + +---------+ + | Naye Wright | ECON | Unknown | | + + +---------+ + Care Team Providers + +------+ + | Care Manager Restaurant Name | Role | Phone | + +------+ + | Elliot Sabrinamartine Primary | PCP | | + +------+ + Reason for Visit + + + | Reason | Comments | + + + | Labs Only | [facility] dated 05/15/2017 | + + + Encounter Details +--------+ + + + + | Date | Type | Department | Care Team | Description | +--------+ + + + + | 05/17/ | Documentati | [facility] | Kiersten Shaffer CMA | Labs Only ([facility] | | 2018 | on Only | [place] [address] | | Labs dated | | | | [address] | | 05/15/2017) | | | | [place] [address] | | | | | | [phone] | | | +--------+ + + + [...] [place] | | | | | | [id number] | | | | | | | | +--------+---------+ + + + as of this encounter Visit Diagnoses Not on filein this encounter"
--- OUTSIDE RECORDS SUMMARY | 2017-06-23 14:16 | XMS | Encounter Summary ---
Demographics + + + | Address | [address] | | | [place] [address] | + + + | Home Phone | | + + + | Preferred Language | Unknown | + + + | Marital Status | | + + + | Sabianist Affiliation | Unknown | + + + | Race | Unknown | + + + | Ethnic Group | Unknown | + + + Author + + + | Author | [facility] | + + + | Organization | [facility] | + + + | Address | Unknown | + + + | Phone | Unavailable | + + + Support + + +---------+ + | Name | Relationship | Address | Phone | + + +---------+ + | Naye Wright | ECON | Unknown | | + + +---------+ + Care Team Providers + +------+ + | Care Estate Tax Examiner Name | Role | Phone | + +------+ + | Sherrie Blackman MD | PCP | | + +------+ + Encounter Details +--------+ + + + + | Date | Type | Department | Care Team | Description | +--------+ + + + + | 05/17/ | Orders Only | [facility] | Kiersten Shaffer CMA | CKD (chronic kidney | | 2017 | | [place] [address] | | disease) stage 5, | | | | [address] | | GFR less than 15 | | | | [place] [address] | | ml/min ([facility]); | | | | [phone] | | Nephrotic range | | | | | | proteinuria; Anemia | | | | | | of chronic renal | | | | | | failure, stage 4 | | | | | | (severe) ([facility]); | | | | | | Secondary | | | | | | hyperparathyroidism | | | | | | ([facility]); | | | | | | Hyperphosphatemia; | | | | | | Essential | | | | | | hypertension, | | | | | | benign; BRIDGET (acute | | | | | | kidney injury) | +--------+ + + + + Social [...] | | | | | | [address] [place], [place] | | | | | | [address] | | | | | | | | +--------+---------+ + + + as of this encounter Results Renal function panel (05/15/2017 8:15 AM) + + + + | Component | Value | Ref Range | + + + + | GLUCOSE | 83 | 71 - 100 mg/dL | + + + + | BUN | 52 (A) | 6 - 23 mg/dL | + + + + | CREATININE | 4.63 (A) | 0.6 - 1.35 mg/dL | + + + + | PHOSPHORUS | | mg/dL | + + + + | Albumin | 2.8 (A) | 3.5 - 5.0 | + + + + | SODIUM | 143 | 132 - 143 mmol/L | + + + + | POTASSIUM | 4.8 | 3.6 - 5.1 mmol/L | + + + + | CHLORIDE | 114 (A) | 95 - 112 mmol/L | + + + + | CO2 | 19 | 19 - 31 mmol/L | + + + + | ANION GAP AGAP | 14.8 | 7 - 21 mmol/L | + + + + | GFR MDRD Non Af Amer | | | + + + + | Phosphorus,Inorganic | 4.6 | 2.5 - 5.0 | + + + + | BUN/CREAT | 11.2 | 6.0 - 28.6 | + + + + | CALCIUM | 8.3 (A) | 8.4 - 10.2 mg/dL | + + + + | EGFR | 11 (A) | 60 mg/dL | + + + + + + + | Specimen | Performing Laboratory | + + + | Blood | [facility] [address] [place] [address] [address] [place], [place] | | | [address] | + + + CBC W/Auto Diff (Reflex to Manual) (05/15/2017 8:15 AM) + + + + | Component | Value | Ref Range | + + + + | WBC | 13.5 (A) | 4.5 - 11.0 10^3/mL | + + + + | RBC | 2.36 (A) | 3.8 - 5.1 10^6/ L | + + + + | HGB | 7.2 (A) | 12 - 16 g/dL | + + + + | HCT | 25.0 (A) | 35 - 45 % | + + + + | MCV | 105.8 (A) | 81 - 99 fL | + + + + | MCH | 31 | 27 - 33 pg | + + + + | MCHC | 29 (A) | 30 - 36 g/dL | + + + + | PLT | 369 | 140 - 440 K/ L | + + + + | RDW SD | 18.0 (A) | 10.5 - 15.0 % | [...] + | Blood | [facility] [address], [facility] [address] [place], [place] | | | [address] | + + + PTH intact no calcium (05/15/2017 8:15 AM) + + + + | Component | Value | Ref Range | + + + + | PTH INTACT NO | 470.8 (A) | 15 - 65 pg/mL | | CALCIUM | | | + + + + + + + | Specimen | Performing Laboratory | + + + | Blood | [facility] [address], [facility] [address] [place], [place] | | | [address] | + + + [place]/Lambda LC RATI (05/15/2017 8:15 AM) + + + | Specimen | Performing Laboratory | + + + | | [facility] [address], [facility] [address] [place], [place] | | | [address] | + + + + + | Narrative | + + | [place] Quant: 13.30 Range: 0.33-1.94 Lambda: 8.20 Range: 0.57-2.63 | | Ratio:1.62 Range: 0.26-1.65 | + + Immunofixation,Serum (05/15/2017 8:15 AM) + + + | Specimen | Performing Laboratory | + + + | Blood | [facility] [address] [place] [address] | | | [address] | + + + + + | Narrative | + + | Protein:5.6 L Range: 6.5-8.3 Albumin: 2.84 Range: 2.8-5.7 Alpha 1: | | 0.30 Range: 0.1-0.32 Alpha 2: 0.66 Range: 0.54-0.90 Beta: 0.91 Range: | | 0.60-1.09 Gamma: 0.9 Range: 0.36-1.8 Immunoglobulin Range: 664-1411 | | Immunoglobulin A: 178 Range: 66-433 Immunoglobulin M: 48 Range: 47-248 | + + Urinalysis (reflex to micro) (05/15/2017 8:15 AM) + + + + | Component [...] + + | Urine | [facility] [address] [place], [place] [address] | | | [address] | + + + + + | Narrative | + + | Bacteria: 1+ | + + in this encounter Visit Diagnoses + + | Diagnosis | + + | CKD (chronic kidney disease) stage 5, GFR less than 15 ml/min ([facility]) | + + | Chronic kidney disease, Stage V | + + | Nephrotic range proteinuria | + + | Proteinuria | + + | Anemia of chronic renal failure, stage 4 (severe) ([facility]) | + + | Secondary hyperparathyroidism (HCC) | + + | Secondary hyperparathyroidism (of renal origin) | + + | Hyperphosphatemia | + + | Disorders of phosphorus metabolism | + + | Essential hypertension, benign | + + | BRIDGET (acute kidney injury) | + + | Acute kidney failure, unspecified | + +"
--- OUTSIDE RECORDS SUMMARY | 2017-06-23 14:16 | XMS | Encounter Summary ---
Demographics + + + | Address | [address] | | | [place] [address] | + + + | Home Phone [...] + + + | Author | [email or web address] | + + + | Organization | [email or web address] | + + + | Address | Unknown | + + + | Phone | Unavailable | + + + Support + + +---------+ + | Name | Relationship | Address | Phone | + + +---------+ + | Naye Wright | ECON | Unknown | | + + +---------+ + Care Team Providers + +------+ + | Care Psychometrist Name | Role | Phone | + +------+ + | Sherrie Blackman MD | PCP | | + +------+ + Encounter Details +--------+ + + + + | Date | Type | Department | Care Team | Description | +--------+ + + + + | 05/21/ | Orders Only | [facility] | Kiersten Shaffer CMA | CKD (chronic kidney | | 2017 | | [place] [address] | | disease) stage 5, | | | | [address] | | GFR less than 15 | | | | [place] [address] | | ml/min ([facility]); Anemia | | | | [phone] | | of chronic renal | | | | | | failure, stage 5 | | | | | | ([facility]); BRIDGET (acute | | | | | | kidney injury); | | | | | | Secondary | | | | | | hyperparathyroidism | | | | | | ([facility]) | +--------+ + + + + Social [...] | | | | | | [address] [place], [place] | | | | | | [address] | | | | | | | | +--------+---------+ + + + as of this encounter Results Ferritin (05/20/2017 10:49 AM) + +-------+ + | Component | Value | Ref Range | + +-------+ + | FERRITIN | 127 | 13 - 150 ng/mL | + +-------+ + + + + | Specimen | Performing Laboratory | + + + | Blood | [facility] [address] [place] [address], [place] | | | [address] | + + + Iron angie (05/20/2017 10:49 AM) + + + + | Component | Value | Ref Range | + + + + | IRON | 28.80 (A) | 37 - 160 | + + + + | IRON % SAT | 9.1 (A) | 20 - 55 | + + + + | TIBC | 315 | 245 - 400 | + + + + + + + | Specimen | Performing Laboratory | + + + | Blood | [facility] [address] [place] | | | [address] | + + + Basic metabolic panel (05/20/2017 10:49 AM) + + + + | Component [...] + + | Blood | [facility] [address] [place] [address] | | | [address] | + + + CBC W/Auto Diff (Reflex to Manual) (05/20/2017 10:49 AM) + + + + | Component | Value | Ref Range | + + + + | WBC | 17.9 (A) | 4.5 - 11.0 10^3/mL | + + + + | RBC | 2.47 (A) | 3.8 - 5.1 10^6/ L | + + + + | HGB | 7.5 (A) | 12 - 16 g/dL | + + + + | HCT | 24.1 (A) | 35 - 45 % | + + + + | MCV | 97.5 | 81 - 99 fL | + + + + | MCH | 30 | 27 - 33 pg | + + + + | MCHC | 31 | 30 - 36 g/dL | + + + + | PLT | 293 | 140 - 440 K/ L | [...] + + | Blood | [facility] [address] [place] [address], [facility] [address] [place], [place] | | | [address] | + + + in this encounter [...] Secondary hyperparathyroidism (of renal origin) | + +"
--- OUTSIDE RECORDS SUMMARY | 2017-06-23 14:16 | XMS | Encounter Summary ---
Demographics + + + | Address | [address] | | | [place] [address] | + + + | Home Phone | | + + + | Preferred Language | Unknown | + + + | Marital Status | | + + + | Gnosticist Affiliation | Unknown | + + + | Race | Unknown | + + + | Ethnic Group | Unknown | + + + Author + + + | Author | [facility] | + + + | Organization | [facility] | + + + | Address | Unknown | + + + | Phone | Unavailable | + + + Support + + +---------+ + | Name | Relationship | Address | Phone | + + +---------+ + | Naye Wright | ECON | Unknown | | + + +---------+ + Care Team Providers + +------+ + | Care Core Setter Name | Role | Phone | + +------+ + | [facility] Primary | PCP | | + +------+ + Reason for Referral MRI/CAT Scan (Emergency) +--------+--------+ + + + + | Status | Reason | Specialty | Diagnoses / | Referred By | Referred To | | | | | Procedures | Contact | Contact | +--------+--------+ + + + + | Closed | | Radiology | Diagnoses | [place], | [facility] | | | | | CKD | Tavares Orellana MD | [address] | | | | | (chronic | [address] | | | | | kidney | [address] | [place], [place] | | | | | disease) | [place], [place] | [address] Phone: | | | | | stage 5, GFR | [address] | [phone] | | | | | less than | Phone: | | | | | | 15 ml/min | [phone] | | | | | | (HCC) | Fax: | | | | | | Anemia of | [phone] | | | | | | chronic [...] + | 05/20/ | Orders Only | [facility] | Kiersten Shaffer CMA | CKD (chronic kidney | | 2017 | | [place] [address] | | disease) stage 5, | | | | Saurabh Sneed [facility] | | GFR less than 15 | | | | [address] [place], [place] | | ml/min ([facility]) | | | | [address] | | (Primary Dx); Anemia | | | | | | of chronic renal | | | | | | failure, stage 5 | | | | | | ([facility]); BRIDGET (acute | | | | | | kidney injury); | | | | | | Secondary | | | | | | hyperparathyroidism | | | | | | ([facility]); Nephrotic | | | | | | [...] | | | | | | [address] [place], [place] | | | | | | [id number] | | | | | | | | +--------+---------+ + + + + +--------+ + + | Name | Priori | Associated Diagnoses | Order Schedule | | | ty | | | + +--------+ + + | Urinalysis (reflex to micro) | Routin | CKD (chronic | Expected: | | | e | kidney disease) | 06/10/2017, Expires: | | | | stage 5, GFR less | 05/20/2018 | | | | than 15 ml/min ([facility]) | | | | | Anemia of chronic | | | | | renal failure, stage | | | | | 5 ([facility]) BRIDGET (acute | | | | | kidney injury) | | | | | Secondary | | | | | hyperparathyroidism | | | | | ([facility]) Nephrotic | | | | | range proteinuria | | | | | Essential | | | | | hypertension, benign | | + +--------+ + + | Protein / creatinine ratio, urine | Routin | CKD (chronic | Expected: | | | e | kidney disease) | 06/10/2017, Expires: | | | | stage 5, GFR less | 05/20/2018 | | | | than 15 ml/min ([facility]) | | | | | Anemia of chronic | | | | | renal failure, stage | | | | | 5 ([facility]) BRIDGET (acute | | | | | kidney injury) | | | | | Secondary | | | | | hyperparathyroidism | | | | | ([facility]) Nephrotic | | | | | range proteinuria | | | | | Essential | | | | | hypertension, benign | | + +--------+ + + | Renal function panel | Routin | CKD (chronic | Every 2 Weeks for 12 | | | e | kidney disease) | Occurrences | | | | stage 5, GFR less | starting 05/20/2017 | | | | than 15 ml/min ([facility]) | until 05/20/2018 | | | | Anemia of chronic | | | | | renal failure, stage | | | | | 5 ([facility]) BRIDGET (acute | | | | | kidney injury) | | | | | Secondary | | | | | hyperparathyroidism | | | | | ([facility]) Nephrotic | | | | | range proteinuria | | | | | Essential | | | | | hypertension, benign | | + +--------+ + + | CBC W/Auto Diff (Reflex to | Routin | CKD (chronic | Every 2 Weeks for 12 | | Manual) | e | kidney disease) | Occurrences | | | | stage 5, GFR less | starting 05/20/2017 | | | | than 15 ml/min ([facility]) | until 05/20/2018 | | | | Anemia of chronic | | | | | renal failure, stage | | | | | 5 ([facility]) BRIDGET (acute | | | | | kidney injury) | | | | | Secondary | | | | | hyperparathyroidism | | | | | ([facility]) Nephrotic | | | | | range proteinuria | | | | | Essential | [...] + | Blood | [facility] [address], [facility] [address] [place], [place] | | | [address] | + + + Iron panel (06/14/2017 [...] + | Blood | [facility] [address] [facility] [address] [place] | | | [address] | + + + PTH intact no calcium (06/14/2017 9:42 AM) + +---------+ + | Component | Value | Ref Range | + +---------+ + | PTH INTACT NO | 409 (A) | 15 - 65 pg/mL | | CALCIUM | | | + +---------+ + + + + | Specimen | Performing Laboratory | + + + | Blood | [facility] [address] [place] [address], [facility] [address] [place], [place] | | | [address] | + + + CBC W/Auto Diff [...] + + | Blood | [facility] [address] [place] [address] [place] | | | [address] | + + + Renal function panel [...] + + | Blood | [facility] [address] [place] [address] | | | [address] | + + + CT needle biopsy kidney (05/30/2017 10:00 AM) + + + | Specimen | Performing Laboratory | + + + | | [address] [address] | + + + + + | [...] disease. Proteinuria. History of liver transplant. PRIMARY BRIM BUSTER: | | Gerson Lucero MD, PhD, [facility] OPERATIONS: 1. Limited CT of the abdomen [...] division in distribution into appropriate media for [place] renal | | pathologic assessment, including electromicroscopy [...] Unit for routine post procedure monitoring. FINDINGS: Turkish Line Attendant CT redemonstrates | | thin body habitus and closely approximated colon. Left inferior pole selected and | | intraprocedural CT confirms the needle and biopsy tray within the inferior pole the left | | kidney. Intraprocedural and postprocedural CT demonstrates a small perirenal hematoma | | which appears stable in size. | + + + + | Procedure Note | + + | [facility] Results In - 05/30/2017 10:[address] NEEDLE BIOPSY KIDNEY dated 05/30/2017 | | 10:00 AMCLINICAL DATA: Stage V chronic kidney disease. Proteinuria. History of liver | | transplant.PRIMARY BRIM BUSTER: Gerson Lucero MD, PhD, [facility]OPERATIONS:1. Limited CT [...] distribution into appropriate media for | | [place] renal pathologic assessment, including electromicroscopy and immunofluorescence. [...] Stay Unit for routine post procedure monitoring.FINDINGS: Turkish Line Attendant CT redemonstrates thin | | body habitus [...] | | | | | + + Iron panel (05/20/2017 10:49 AM) + + + [...] | + + + | Blood | [facility] [address] [place] [address] [place] | | | [address] | + + + Ferritin (05/20/2017 10:49 AM) + +-------+ + | Component | Value | Ref Range | + +-------+ + | FERRITIN | 127 | 13 - 150 ng/mL | + +-------+ + + + + | Specimen | Performing Laboratory | + + + | Blood | [facility] [address] [place] [address], [place] | | | [address] | + + + CBC W/Auto Diff [...] | + + + | Blood | [facility] [address], [facility] [address] [place], [place] | | | [address] | + + + Basic metabolic panel [...] + | Blood | [facility] [address], [facility] [address] [place] | | | [address] | + + + in this encounter Visit Diagnoses + + | Diagnosis | + + | CKD (chronic kidney disease) stage 5, GFR less than 15 ml/min ([facility]) - Primary | + + | Chronic [...]
--- OUTSIDE RECORDS SUMMARY | 2017-06-23 14:16 | XMS | Encounter Summary ---
Demographics + + + | Address | [address] | | | [place] [address] | + + + | Home Phone | | + + + | Preferred Language | Unknown | + + + | Marital Status | | + + + | Bahai Affiliation | Unknown | + + + | Race | Unknown | + + + | Ethnic Group | Unknown | + + + Author + + + | Author | [facility] | + + + | Organization | [facility] | + + + | Address | Unknown | + + + | Phone | Unavailable | + + + Support + + +---------+ + | Name | Relationship | Address | Phone | + + +---------+ + | Naye Wright | ECON | Unknown | | + + +---------+ + Care Team Providers + +------+ + | Care Fur Glazer Name | Role | Phone | + +------+ + | Elliot [facility] Primary | PCP | | + +------+ + Reason for Visit + + + | Reason | Comments | + + + | Labs Only | [facility] dated 05/20/2017 | + + + Encounter Details +--------+ + + + + | Date | Type | Department | Care Team | Description | +--------+ + + + + | 05/21/ | Documentati | [facility] | Kiersten Shaffer CMA | Labs Only ([facility] | | 2017 | on Only | [place] [address] | | Labs dated | | | | [address] | | 05/20/2017) | | | | [place] [address] | | | | | | [phone] | | | +--------+ + + + [...] [place] | | | | | | [id number] | | | | | | | | +--------+---------+ + + + as of this encounter Results Transferrin (05/20/2017 10:49 AM) + +--------+ + | Component | Value | Ref Range | + +--------+ + | TRANSFERRIN | 225.10 | 192 - 382 | + +--------+ + + + + | Specimen | Performing Laboratory | + + + | Blood | [facility] [address] [place] [address] | | | [address] | + + + in this encounter Visit Diagnoses Not on filein this encounter"
--- OUTSIDE RECORDS SUMMARY | 2017-06-23 14:16 | XMS | Encounter Summary ---
Demographics + + + | Address | [address] | | | [place] [address] | + + + | Home Phone | | + + + | Preferred Language | Unknown | + + + | Marital Status | | + + + | Sabianist Affiliation | Unknown | + + + | Race | Unknown | + + + | Ethnic Group | Unknown | + + + Author + + + | Author | [facility] | + + + | Organization | [facility] | + + + | Address | Unknown | + + + | Phone | Unavailable | + + + Support + + +---------+ + | Name | Relationship | Address | Phone | + + +---------+ + | Naye Wright | ECON | Unknown | | + + +---------+ + Care Team Providers + +------+ + | Care Permanent Mold Supervisor Name | Role | Phone | + +------+ + | Sherire Blackman MD | PCP | | + +------+ + Reason for Visit +--------+ + | Reason | Comments | +--------+ + | Other | IV Feraheme Packet | +--------+ + Encounter Details +--------+ + + + + | Date | Type | Department | Care Team | Description | +--------+ + + + + | 05/23/ | Documentati | [facility] | Kiersten Shaffer CMA | Kell (IV Feraheme | | 2018 | on Only | [place] [address] | | Packet) | | | | [address] | | | | | | [place] [address] | | | | | | [phone] | | | +--------+ + + + [...] as of this encounter Progress Notes Kiersten Shaffer CMA - 05/23/2017 10:33 AM PDTFaxed demographic sheet, IV Feraheme order, ryley hines note, medication list, and recent labs to [facility]. Fax confirmation rece ed from [phone]. in this encounter Plan of Treatment +--------+---------+ + + + | Date | Type | Specialty | Care Team | Description | +--------+---------+ + + + | 07/15/ | Office | Nephrology | Tavares Vaca MD | | | 2017 | Visit | | [address] | | | | | | [facility] | | | | | | [id number] | | | | | | | | +--------+---------+ + + + as of this encounter Visit Diagnoses Not on filein this encounter"
--- OUTSIDE RECORDS SUMMARY | 2017-06-23 14:16 | XMS | Encounter Summary ---
Demographics + + + | Address | [address] | | | [place] [address] | + + + | Home Phone | | + + + | Preferred Language | Unknown | + + + | Marital Status | | + + + | Holiness Affiliation | Unknown | + + + | Race | Unknown | + + + | Ethnic Group | Unknown | + + + Author + + + | Author | [facility] | + + + | Organization | [facility] | + + + | Address | Unknown | + + + | Phone | Unavailable | + + + Support + + +---------+ + | Name | Relationship | Address | Phone | + + +---------+ + | Naye Wright | ECON | Unknown | | + + +---------+ + Care Team Providers + +------+ + | Care Prevocational/Rehabilitation Counselor Name | Role | Phone | + +------+ + | Sherrie Blackman MD | PCP | | + +------+ + Reason for Visit +--------+ + | Reason | Comments | +--------+ + | Other | | +--------+ + Encounter Details +--------+ + + + + | Date | Type | Department | Care Team | Description | +--------+ + + + + | 05/22/ | Telephone | [facility] | Kiersten Shaffer CMA | Other | | 2017 | | [employer] [address] | | | | | | [address] | | | | | | [address] [place] | | | | | | [address] | | | +--------+ + + + [...] | | | | | | [address] [place] | | | | | | [address] | | | | | | | | +--------+---------+ + + + as of this encounter Visit Diagnoses Not on filein this encounter"
--- OUTSIDE RECORDS SUMMARY | 2017-06-23 14:17 | XMS | Encounter Summary ---
Demographics + + + | Address | [address] | | | [place] [address] | + + + | Home Phone | | + + + | Preferred Language | Unknown | + + + | Marital Status | | + + + | Gnosticism Affiliation | Unknown | + + + | Race | Unknown | + + + | Ethnic Group | Unknown | + + + Author + + + | Author | [facility] | + + + | Organization | [facility] | + + + | Address | Unknown | + + + | Phone | Unavailable | + + + Support + + +---------+ + | Name | Relationship | Address | Phone | + + +---------+ + | Naye Wright | ECON | Unknown | | + + +---------+ + Care Team Providers + +------+ + | Care Surgical Resident Name | Role | Phone | + +------+ + | Silvia Zarate Primary | PCP | | + +------+ + Reason for Visit Auth/Cert +--------+--------+ + + + + | Status | Reason | Specialty | Diagnoses / | Referred By | Referred To | | | | | Procedures | Contact | Contact | +--------+--------+ + + + + | | | | Diagnoses | | | | | | | ESRD | | | | | | | Procedures | | | | | | | AV GRAFT | | | | | | | CREATION | | | +--------+--------+ + + + + Encounter Details +--------+ + + + + | Date | Type | Department | Care Team | Description | +--------+ + + + + | 05/10/ | Anesthesia | [facility] | Darryl Meyers | | | 2018 | Event | [facility] | MD Mil [address] | | | | | Operating Room [address] | | | | | [address] | [place] [address] | | | | | [place] [address] | [phone] | | | | | [phone] | | | +--------+ + + + + Anesthesia Record + + + + + | Procedure Name | Responsible | Anesthesia Start | Anesthesia Stop Time | | | Anesthesiologist | Time | | + + + + + | AV GRAFT CREATION | Darryl Meyers, | 05/10/17 0934 | 05/10/17 1055 | | (Left Arm) | MD | | | + + + + + +----+---+ + + | Da | T | Event | Comment | | te | i | | | | | m | | | | | e | | | +----+---+ + + | 03 | 0 | An Start | Pre-anesthetic vital signs reassessed. | | /0 | 9 | | | | 9/ | 3 | | | | 20 | 4 | | | | 18 | | | | +----+---+ + + | | 0 | An | | | | 9 | Induction | | | | 3 | | | | | 9 | | | +----+---+ + + | | 0 | An LMA | | | | 9 | | | | | 4 | | | | | 1 | | | +----+---+ + + | | 1 | An | | | | 0 | Emergence | | | | 5 | | | | | 0 | | | +----+---+ + + | | 1 | an stop | | | | 0 | data | | | | 5 | | | | | 0 | | | +----+---+ + + | | 1 | An Stop | | | | 0 | | | | | 5 | | | | | 5 | | | +----+---+ + + +------+ | Meds | +------+ + + + | Name | Total | + + + | midazolam 1 mg/mL | 1 mg | + + + | fentanyl 50 mcg/mL | 100 mcg | + + + | lidocaine 2 % | 150 mg | + + + | propofol bolus | 30 mg | + + + | dexamethasone 4 mg/mL | 4 mg | + + + | ondansetron 2 mg/mL | 4 mg | + + + | ePHEDrine 5 mg/mL | 10 mg | + + + | phenylephrine 100 mcg/mL | 300 mcg | + + + | clindamycin (CLEOCIN) IVPB 900 mg | 900 mg | + + + | heparin 1,000 units/mL | 3,000 Units | + + + | NS | 450 mL | + + + + + | Name | + + | N2O | + + | O2 | + + | Air | + + | Sevoflurane-EX | + + | N2O | + + + + | No blood administrations on file. | + + +--------+ + + + | Type | Details | Placement | Removal | +--------+ + + + | Hemodi | 05/10/17; AV Fistula; Left; | 05/10/17 0000 by | | | alysis | Forearm | Cyndi Resendiz, | | | | | RN | | | Agnieszka | | | | | er | | | | +--------+ + + + | Wound | 05/10/17; 1047; Incision; Arm; | 05/10/17 1047 by | | | | Left | Francisco J Christina RN | | +--------+ + + + | Periph | Placement Date: 05/10/17; | 05/10/17 0842 by | 05/10/17 1246 by | | eral | Placement Time: 841; Removal | Marybeth Villarreal RN | Hien Kelly RN | | IV | Date: 05/10/17; Removal Time: | | | | | 1246; Size (Gauge): 20 G; | | | | | Orientation: Right; Location: | | | | | Hand; Site Prep: Alcohol, | | | | | Chlorhexidine-Isopropyl Alcohol; | | | | | Insertion Attempts: 1 | | | +--------+ + + + | LMA/Ph | Placement Date: 05/10/17; | 05/10/17940 by | 05/10/17 1049 by | | christal | Placement Time: 940; Removal | Darryl Meyers, | Darryl Meyers, | | al | Date: 05/10/17; Removal Time: | MD | MD | | | 1049; Type: Unique; Type Size: 3; | | | | | Confirmation: EtCO2 | | | +--------+ + + + in this encounter Social History + +-------+ +--------+------+ | Tobacco [...] | 07/15/ | Office | Nephrology | [place], Tavares H, MD | | | 2018 | Visit | | [address] | | | | | | [address] [place], [place] | | | | | | [address] | | | | | | | | +--------+---------+ + + + as of this encounter Visit Diagnoses Not on filein this encounter Administered Medications + +--------+ +--------+------+------+ | Medication Order | MAR | Action | Dose | Rate | Site | | | Action | Date | | | | + +--------+ +--------+------+------+ | clindamycin (CLEOCIN) IVPB 900 | Given | 05/10/2017 | 900 mg | | | | mg 900 mg, Intravenous, | | 09:49 | | | | | Administer over 30 Minutes, On | | PST | | | | | Call To O.R., 05/10/17 at 0830, | | | | | | | For 1 dose, Must be completely | | | | | | | infused before incision is made. | | | | | | | Redose every 6 hours during | | | | | | | procedure. | | | | | | + +--------+ +--------+------+------+ +---+---+ | | | +---+---+ + +-------+ +------+---+---+ | dexamethasone (DECADRON) 4 | Given | 05/10/2017 | 4 mg | | | | MG/ML injection Intravenous, | | 09:59 | | | | | PRN, Starting 05/10/17 at 0959, | | PST | | | | | Anesthesia Intra-op | | | | | | + +-------+ +------+---+---+ +---+---+ | | | +---+---+ + +-------+ +-------+---+---+ | ephedrine injection | Given | 05/10/2017 | 10 mg | | | | Intravenous, PRN, Starting Fri | | 10:25 | | | | | 05/10/17 at 1025, Anesthesia | | PST | | | | | Intra-op | | | | | | + +-------+ +-------+---+---+ +---+---+ | | | +---+---+ + +-------+ +--------+---+---+ | fentaNYL (SUBLIMAZE) injection | Given | 05/10/2017 | 25 mcg | | | | Intravenous, PRN, Starting Fri | | 09:37 | | | | | 05/10/17 at 0932, Anesthesia | | PST | | | | | Intra-op | | | | | | + +-------+ +--------+---+---+ +-------+ +--------+---+---+ | Given | 05/10/2017 | 25 mcg | | | | | 09:43 | | | | | | PST | | | | +-------+ +--------+---+---+ | Given | 05/10/2017 | 25 mcg | | | | | 10:41 | | | | | | PST | | | | +-------+ +--------+---+---+ +---+---+ | | | +---+---+ + +-------+ +--------+---+---+ | heparin (porcine) 1000 UNIT/ML | Given | 05/10/2017 | 3,000 | | | | injection PRN, Starting Fri | | 10:07 | Units | | | | 05/10/17 at 1007, Anesthesia | | PST | | | | | Intra-op | | | | | | + +-------+ +--------+---+---+ +---+---+ | | | +---+---+ + +-------+ +-------+---+---+ | lidocaine 2 % (MDV) 2 % | Given | 05/10/2017 | 50 mg | | | | injection Intravenous, PRN, | | 09:39 | | | | | Starting 05/10/17 at 0939, | | PST | | | | | Anesthesia Intra-op | | | | | | + +-------+ +-------+---+---+ +-------+ +-------+---+---+ | Given | 05/10/2017 | 80 mg | | | | | 09:40 | | | | | | PST | | | | +-------+ +-------+---+---+ | Given | 05/10/2017 | 20 mg | | | | | 09:41 | | | | | | PST | | | | +-------+ +-------+---+---+ +---+---+ | | | +---+---+ + +-------+ +------+---+---+ | midazolam (VERSED) injection | Given | 05/10/2017 | 1 mg | | | | Intravenous, PRN, Starting Fri | | 09:32 | | | | | 05/10/17 at 0932, Anesthesia | | PST | | | | | Intra-op | | | | | | + +-------+ +------+---+---+ +---+---+ | | | +---+---+ + +-------+ +------+---+---+ | ondansetron (ZOFRAN) injection | Given | 05/10/2017 | 4 mg | | | | Intravenous, PRN, Nausea, | | 09:59 | | | | | Vomiting, Starting 05/10/17 at | | PST | | | | | 0959, Anesthesia Intra-op | | | | | | + +-------+ +------+---+---+ +---+---+ | | | +---+---+ + +-------+ +---------+---+---+ | phenylephrine (MT-SYNEPHRINE) | Given | 05/10/2017 | 100 mcg | | | | 100 MCG/ML injection | | 10:03 | | | | | Intravenous, PRN, Starting Fri | | PST | | | | | 05/10/17 at 1003, Anesthesia | | | | | | | Intra-op | | | | | | + +-------+ +---------+---+---+ +-------+ +---------+---+---+ | Given | 05/10/2017 | 100 mcg | | | | | 10:11 | | | | | | PST | | | | +-------+ +---------+---+---+ | Given | 05/10/2017 | 100 mcg | | | | | 10:21 | | | | | | PST | | | | +-------+ +---------+---+---+ +---+---+ | | | +---+---+ + +-------+ +-------+---+---+ | propofol (DIPRIVAN) injection | Given | 05/10/2017 | 30 mg | | | | Intravenous, PRN, Starting Fri | | 10:39 | | | | | 05/10/17 at 1039, Anesthesia | | PST | | | | | Intra-op | | | | | | + +-------+ +-------+---+---+ +---+---+ | | | +---+---+ + +---------+ +---+---+---+ | sodium chloride 0.9 % infusion | New Bag | 05/10/2017 | | | | | Continuous PRN, Starting Fri | | 09:32 | | | | | 05/10/17 at 0932, Anesthesia | | PST | | | | | Intra-op | | | | | | + +---------+ +---+---+---+ +---+---+ | | | +---+---+ in this encounter"
--- OUTSIDE RECORDS SUMMARY | 2017-06-23 14:17 | XMS | Encounter Summary ---
Demographics + + + | Address | [address] | | | [place] [address] | + + + | Home Phone | | + + + | Preferred Language | Unknown | + + + | Marital Status | | + + + | Anabaptism Affiliation | Unknown | + + + | Race | Unknown | + + + | Ethnic Group | Unknown | + + + Author + + + | Author | [facility] | + + + | Organization | [facility] | + + + | Address | Unknown | + + + | Phone | Unavailable | + + + Support + + +---------+ + | Name | Relationship | Address | Phone | + + +---------+ + | Naye Wright | ECON | Unknown | | + + +---------+ + Care Team Providers + +------+ + | Care Sausage Linker Name | Role | Phone | + +------+ + | Sherrie Blackman MD | PCP | | + +------+ + Encounter Details +--------+ + + + + | Date | Type | Department | Care Team | Description | +--------+ + + + + | 05/10/ | Procedure | [facility] | | | | 2017 | [facility] | | | | | | Operating Room 88 | | | | | | [address] | | | | | | [place] [address] | | | | | | [phone] | | | +--------+ + + + [...] [place] | | | | | | [address] | | | | | | | | +--------+---------+ + + + as of this encounter Visit Diagnoses Not on filein this encounter"
--- OUTSIDE RECORDS SUMMARY | 2017-06-23 14:17 | XMS | Encounter Summary ---
Demographics + + + | Address | [address] | | | [place] [address] | + + + | Home Phone | | + + + | Preferred Language | Unknown | + + + | Marital Status | | + + + | Jain Affiliation | Unknown | + + + | Race | Unknown | + + + | Ethnic Group | Unknown | + + + Author + + + | Author | [facility] [facility] | + + + | Organization | [facility] [facility] | + + + | Address | Unknown | + + + | Phone | Unavailable | + + + Support + + +---------+ + | Name | Relationship | Address | Phone | + + +---------+ + | Naye Wright | ECON | Unknown | | + + +---------+ + Care Team Providers + +------+ + | Care Lean Manufacturing Leader Name | Role | Phone | + +------+ + | Brandan Zarate Primary | PCP | | + +------+ + Encounter Details +--------+ + + + + | Date | Type | Department | Care Team | Description | +--------+ + + + + | 05/14/ | Telephone | [facility] | Yaritza Soares, | | | 2017 | | Vascular Surgery | RN | | | | | [address] | | | | | | [place] | | | | | | [address] | | | | | | [phone] | | | +--------+ + + + [...]
--- OUTSIDE RECORDS SUMMARY | 2017-06-23 14:18 | XMS | Encounter Summary ---
Demographics + + + | Address | [address] | | | [place] [address] | + + + | Home Phone | | + + + | Preferred Language | Unknown | + + + | Marital Status | | + + + | Mu-Ism Affiliation | Unknown | + + + | Race | Unknown | + + + | Ethnic Group | Unknown | + + + Author + + + | Author | [facility] [employer] [facility] | + + + | Organization | [facility] [employer] [facility] | + + + | Address | Unknown | + + + | Phone | Unavailable | + + + Support + + +---------+ + | Name | Relationship | Address | Phone | + + +---------+ + | Naye Wright | ECON | Unknown | | + + +---------+ + Care Team Providers + +------+ + | Care Mobile Health Vehicle Operator Name | Role | Phone | [...] + + | 05/07/ | Telephone | [facility] | Kiersten Shaffer CMA | Other | | 2017 | | [address] | | | | | | [address] | | | | | | [place] [address] | | | | | | [phone] | | | +--------+ + + + [...] [place] | | | | | | [id number] | | | | | | | | +--------+---------+ + + + as of this encounter Visit Diagnoses Not on filein this encounter"
--- OUTSIDE RECORDS SUMMARY | 2017-06-23 14:18 | XMS | Encounter Summary ---
Demographics + + + | Address | [address] | | | [place] [address] | + + + | Home Phone | | + + + | Preferred Language | Unknown | + + + | Marital Status | | + + + | Bahai Affiliation | Unknown | + + + | Race | Unknown | + + + | Ethnic Group | Unknown | + + + Author + + + | Author | [facility] [employer] [facility] | + + + | Organization | [facility] [employer] [facility] | + + + | Address | Unknown | + + + | Phone | Unavailable | + + + Support + + +---------+ + | Name | Relationship | Address | Phone | + + +---------+ + | Naye Wright | ECON | Unknown | | + + +---------+ + Care Team Providers + +------+ + | Care Field Court Researcher Name | Role | Phone | + +------+ + | Elliot Brandanling Primary | PCP | | + +------+ + Reason for Visit +--------+ + | Reason | Comments | +--------+ + | Other | Blood Pressure Log dated 04/23/2017-05/05/2017 | +--------+ + Encounter Details +--------+ + + + + | Date | Type | Department | Care Team | Description | +--------+ + + + + | 05/06/ | Documentati | [facility] | Kiersten Shaffer CMA | Other (Blood | | 2018 | on Only | [address] | | Pressure Log dated | | | | [address] | | 04/23/2017-05/05/2017) | | | | [address] [place], [place] | | | | | | [address] | | | +--------+ + + + [...] | | | | | | [address] | | | | | | [address] | | | | | | | | +--------+---------+ + + + as of this encounter Visit Diagnoses Not on filein this encounter"
--- OUTSIDE RECORDS SUMMARY | 2017-06-23 14:18 | XMS | Encounter Summary ---
Demographics + + + | Address | [address] | | | [place] [address] | + + + | Home Phone [...] + + + | Author | [facility] [employer] [facility] | + + + | Organization | [facility] [employer] [facility] | + + + | Address | Unknown | + + + | Phone | Unavailable | + + + Support + + +---------+ + | Name | Relationship | Address | Phone | + + +---------+ + | Naye Wright | ECON | Unknown | | + + +---------+ + Care Team Providers + +------+ + | Care Emergency Communications Operator Name | Role | Phone | [...] + + | 05/10/ | Hospital | [facility] | Jay Portillo MD | | | 2018 | Encounter | [facility] | [address] | | | | | [address] | [place] [address] | | | | | [place] [address] | [phone] | | | | | [phone] | | | +--------+ + + + [...] + + + | Blood Pressure | 119/71 | 05/10/2017 12:15 PM PST | + + + + | Pulse | 89 | 05/10/2017 12:15 PM PST | + + + + | Temperature | 36.2 C (97.2 F) | 05/10/2017 10:54 AM PST | + + + + | Respiratory Rate | 18 | 05/10/2017 12:15 PM PST | + + + + | Oxygen Saturation | 98% | 05/10/2017 12:15 PM PST | + + + + | Inhaled Oxygen | - | - | | Concentration | | | + + + + | Weight | 48.3 kg (106 lb 7.7 | 05/10/2017 8:46 AM PST | | | oz) | | + + + + | Height | 152.4 cm (5') | 05/10/2017 8:46 AM PST | + + + + | Body Mass Index | 20.8 | 05/10/2017 8:46 AM PST | + + + + in this encounter Discharge Instructions Cyndi Resendiz RN - 05/10/2017After Your Surgery You ve just had surgery. During surgery, you received medication called anesthesia to michael p you comfortable and pain-free. After surgery, you may experience some pain or nausea. This is common. Going Home Have an adult family member or friend drive you home. For the first 24 hours after your merced gonzalez: ? Do not drive or use heavy equipment. ? Do not make important decisions or sign legal documents. ? Avoid alcohol. ? Have someone stay with you, if needed. He or she can watch for problems and help keep you safe. Be sure to keep all follow-up appointments with your doctor. And rest after your procedure for as long as your doctor tells you to. Coping with Pain If you have pain after surgery, pain medication will help you feel better. Take your medica tion as directed, before pain becomes severe. Consider other ways to control pain, such as with heat, ice, and relaxation. To get the best relief possible, remember these points: ? Pain medications can upset your stomach. Taking them with a little food may help. ? Most pain relievers taken by mouth need at least 20 to 30 minutes to take effect. ? Taking medication on a schedule can help you remember to take it. Try to time your medica tion so that you can take it before beginning an activity, such as dressing, walking, or sit ting down for dinner. ? Don t drink alcohol while taking pain medication. ? Don t drive or operate machinery while taking pain medications as they can slow your re flexes. If your health care provider tells you to take acetaminophen or ibuprofen to help relieve y our pain, ask him or her how much you are supposed to take each day. Constipation ? Constipation is a common side effect of pain medications and anesthetics. Contact your do ctor before taking any medications like laxatives or stool softeners to help relieve constip ation, unless they have been prescribed for you. ? Drinking lots of non-alcoholic fluids and eating foods like fruits and vegetables that ar e high in fiber can also help. Managing Nausea Some people have an upset stomach after surgery. This is often due to anesthesia, pain, donna n medications, or the stress of surgery. If you were on a special diet before surgery, ask your doctor if you should follow it during recovery. These tips may help: ? Don t push yourself to eat. Your body will tell you when to eat and how much. ? Start off with clear liquids and soup. They are easier to digest. Slowly move to solid f oods. Don t eat fatty, rich, or spicy foods at first. ? Don t force yourself to have three large meals a day. Instead, eat smaller amounts more often. Blood Clot Prevention Deep vein thrombosis (DVT) is a clot that forms in your deep veins usually in the leg o r thigh. A pulmonary embolism (PE) occurs when a clot in the bloodstream travels through th e heart and into the lungs. If the clot becomes stuck in a blood vessel in the lungs, blood flow can be blocked which causes life-threatening heart and lung problems. The following are prevention tips: ? Elevate your legs whenever they feel swollen or heavy ? Maintain a healthy weight ? Quit smoking ? Avoid sitting, standing, or lying down for long periods without moving your legs and feet . o When traveling by car, make frequent stops to get out and move around. o On long airplane, train, or bus rides, get up and move around when possible. o If you can t get up, wiggle your toes and tighten your calves to keep your blood moving . If you have any of these symptoms of DVT or PE, call your doctor: ? Swelling, pain, or both, often in one limb ? Redness or warmth, often in one limb ? Sudden, continuous pain deep in your muscle ? Worsening ache when you are active or when you stand still for a long time ? Rapid, pounding, or unusual heartbeat ? Sweating more than usual. ? Chest pain, trouble breathing, coughing up blood, skin turning blue, or fainting Call 911. [facility] AV DIALYSIS SHUNT/FISTULA DISCHARGE INSTRUCTIONS Your physician has placed/revised an arteriovenous (AV) shunt/fistula in your arm for your dialysis treatments. It is very important to protect your arm to prevent cutting off the kt w of blood in your shunt. Dressing Care: ? Keep the dressings clean and dry. Do not remove the dressing unless it gets wet. ? If your dressings get wet, remove the dressing and replace with sterile gauze. If you do not have any dressing supplies, call your physician s office. ? Do not use dressings that place pressure on the shunt or completely encircle your arm or wrist. Shunt Care: ? DO NOT let anyone take your blood pressure, place a tourniquet, start an IV or draw blood from ? the arm with the shunt. ? DO NOT wear jewelry or tight sleeves on the arm with the shunt. ? DO NOT sleep on your shunt or carry anything hanging over the arm that has the shunt. ? DO NOT let anyone access the shunt except the Dialysis Center nurse or physician. Notify your physician if you notice the following: ? Loss of the thrill over the shunt ? Loss of pulsation over the shunt ? Pain or hardness in the area of the shunt ? Redness or swelling in the arm or drainage from the incision If there is an injury to the shunt and it begins to bleed, keep continuous pressure to the site and seek emergency care immediately. Use the thumb on the opposite hand to hold pressur e until help is obtained. If you have any questions or concerns regarding your dialysis shunt, please contact your ph ysician. in this encounter Medications at Time of [...] + +---------+---------+ + + | | Take 1-2 tablets by | 30 | 0 | 05/11/19 | | | HYDROcodone-acetamin | mouth every 6 (six) | tablet | | 18 | 8 | | ophen (NORCO) 5-325 | hours as needed for | | | | | | MG per tablet | Pain for up to 10 | | | | | | | days. | | | | | + + +---------+---------+ + + | amLODIPine | Take 1 tablet by | 30 | 11 | 04/22/19 | | | (NORVASC) 5 MG | mouth daily. | tablet | | 18 | 8 | | tablet | | | | | | + + +---------+---------+ + + | calcitRIOL | Take 1 capsule by | 30 | 11 | 04/22/19 | | | (ROCALTROL) 0.5 MCG | mouth daily. | capsule | | 18 | 8 | | capsule | | | | | | + + +---------+---------+ + + | ciprofloxacin | Take 1 tablet by | 28 | 0 | 04/22/19 | | | (CIPRO) 250 MG | mouth 2 (two) times | tablet | | 18 | 8 | | tablet | daily. | | | | | + + +---------+---------+ + + | sodium bicarbonate | Take 1 tablet by | 120 | 11 | 02/12/20 | | | 650 MG tablet | mouth 4 (four) times | tablet | | 17 | 8 | | | daily. | | | | | + [...] | | | | | | [address] | | | | | | [address] | | | | | | | | +--------+---------+ + + + as of this encounter Procedures + +--------+ + + + | Procedure Name | Priori | Date/Time | Associated Diagnosis | Comments | | | ty | | | | + +--------+ + + + | AV GRAFT CREATION | | 05/10/2017 | ESRD | | | | | 8:40 AM | | | | | | PST | | | + +--------+ + + + in this encounter Results Basic metabolic panel (05/10/2017 8:33 AM) + + + + | Component | Value | Ref Range | + + + + | SODIUM | 142 | 135 - 145 mmol/L | + + + + | POTASSIUM | 3.9 | 3.5 - 4.9 mmol/L | + + + + | CHLORIDE | 111 (H) | 99 - 109 mmol/L | + + + + | CO2 | 19 (L) | 23 - 32 mmol/L | + + + + | ANION GAP AGAP | 15 | 5 - 20 mmol/L | + + + + | GLUCOSE | 83 | 65 - 99 mg/dL | + + + + | BUN | 51 (H) | 8 - 25 mg/dL | + + + + | CREATININE | 5.1 (H) | 0.50 - 1.00 mg/dL | + + + + | BUN/CREAT | 10 | | + + + + | CALCIUM | 8.0 (L) | 8.5 - 10.5 mg/dL | + + + + | EGFR | 10 (L)Comment: GFR <60: CHRONIC KIDNEY | >60 mL/min/1.73m2 | | | DISEASE, IF FOUND OVER A 3 MONTH PERIOD.GFR | | | | <15: KIDNEY FAILURE.FOR AMERICANS, | | | | MULTIPLY THE CALCULATED GFR BY | | | | 1.210.[place] [facility] [place] [place] [address] | | | | [facility];[place] [address] | | | | | | + + + + + + + | Specimen | Performing Laboratory | + + + | Blood | [facility] [address] [place] [address] | + + + CBC w/auto diff (reflex to manual) (05/10/2017 8:33 AM) + + + + | Component | Value | Ref Range | + + + + | WBC | 14.49 (H) | 3.80 - 11.00 K/uL | + + + + | RBC | 2.36 (L) | 3.70 - 5.10 M/uL | + + + + | HGB | 7.3 (L) | 11.3 - 15.5 g/dL | + + + + | HCT | 21.9 (L) | 34.0 - 46.0 % | + + + + | MCV | 92.7 | 80.0 - 100.0 fl | + + + + | MCH | 30.7 | 27.0 - 34.0 pg | + + + + | MCHC | 33.1 | 32.0 - 35.5 g/dL | + + + + | RDW SD | 52.5 | 37 - 53 fl | + + + + | PLT | 441 (H) | 150 - 400 K/uL | + + + + | MPV | 9.8 | fl | + + + + | DIFF TYPE | AUTOMATED | | + + + + | NEUTROPHILS | 59.03 | % | + + + + | LYMPHOCYTES | 27.02 | % | + + + + | MONOCYTES | 6.22 | % | + + + + | EOSINOPHILS | 7.19 | % | + + + + | BASOPHILS | 0.54 | % | + + + + | NEUTROPHILS ABS | 8.55 (H) | 1.90 - 7.40 K/uL | + + + + | LYMPHOCYTES ABS | 3.92 (H) | 1.00 - 3.90 K/uL | + + + + | MONOCYTES ABS | 0.90 (H) | 0.00 - 0.80 K/uL | + + + + | EOSINOPHILS ABS | 1.04 (H) | 0.00 - 0.50 K/uL | + + + + | BASOPHILS ABS | 0.08Comment: [place] [facility] [place] | 0.00 - 0.10 K/uL | | | [facility];[place] [address] | | + + + + + + + | Specimen | Performing Laboratory | + + + | Blood | [facility] [address] [place] [address] | + + + in this encounter Visit Diagnoses Not on filein this encounter Admitting Diagnoses + + | Diagnosis | + + | ESRD | + + Administered Medications + +--------+---------+------+------+------+ | Medication Order | MAR | Action | Dose | Rate | Site | | | Action | Date | | | | + +--------+---------+------+------+------+ + +---+ | acetaminophen (TYLENOL) | | | suppository 650 mg 650 mg, | | | Rectal, Every 6 Hours PRN, Mild | | | Pain (1-3), Fever, Starting Fri | | | 05/10/17 at 1148 | | + +---+ | | | + +---+ | acetaminophen (TYLENOL) tablet | | | 650 mg 650 mg, Oral, Every 6 | | | Hours PRN, Mild Pain (1-3), | | | Fever, Starting 05/10/17 at | | | 1148 | | + +---+ | | | + +---+ + +-------+ +--------+---+---+ | fentaNYL (SUBLIMAZE) injection | Given | 05/10/2017 | 25 mcg | | | | 25 mcg 25 mcg, Intravenous, | | 11:10 | | | | | Every 5 Min PRN, Pain, Option One | | PST | | | | | for pain scale 1-410. If no | | | | | | | relief, proceed to option 2., | | | | | | | Starting Sat05/10/17 at 1044, PACU | | | | | | + +-------+ +--------+---+---+ + +---+ | | | + +---+ | fentaNYL (SUBLIMAZE) injection | | | 25 mcg 25 mcg, Intravenous, | | | Every 1 Hour PRN, Moderate Pain | | | (4-6), Starting Sat05/10/17 at | | | 1148 | | + +---+ | | | + +---+ + +-------+ +--------+---+---+ | fentaNYL (SUBLIMAZE) injection | Given | 05/10/2017 | 50 mcg | | | | 50 mcg 50 mcg, Intravenous, | | 11:30 | | | | | Every 5 Min PRN, Pain, Option One | | PST | | | | | for pain scale 5-10/10. If no | | | | | | | relief, proceed to option 2., | | | | | | | Starting Sat05/10/17 at 1044, PACU | | | | | | + +-------+ +--------+---+---+ + +---+ | | | + +---+ | fentaNYL (SUBLIMAZE) injection | | | 50 mcg 50 mcg, Intravenous, | | | Every 1 Hour PRN, Severe Pain | | | (7-10), Starting Sat05/10/17 at | | | 1148 | | + +---+ | | | + +---+ + +-------+ + +---+---+ | HYDROcodone-acetaminophen | Given | 05/10/2017 | 1 tablet | | | | (NORCO) 10-325 MG per tablet 1 | | 12:11 | | | | | tablet 1 tablet, Oral, Every 4 | | PST | | | | | Hours PRN, Severe Pain (7-10), | | | | | | | Starting Sat05/10/17 at 1148 | | | | | | + +-------+ + +---+---+ + +---+ | | | + +---+ | HYDROcodone-acetaminophen | | | (NORCO) 5-325 MG per tablet 1 | | | tablet 1 tablet, Oral, Every 4 | | | Hours PRN, Moderate Pain (4-6), | | | Starting Sat05/10/17 at 1148 | | + +---+ | | | + +---+ | meperidine (DEMEROL) injection | | | 25 mg 25 mg, Intravenous, Every | | | 15 Min PRN, shivering, Starting | | | Sat05/10/17 at 1044, For 2 doses, | | | PACU | | + +---+ | | | + +---+ | naloxone (NARCAN) injection 0.1 | | | mg 0.1 mg, Intravenous, PRN, | | | Opioid Reversal, if RR < 6, | | | Starting 05/10/17 at 1044, PACU | | + +---+ | | | + +---+ | ondansetron (ZOFRAN) injection | | | 4 mg 4 mg, Intravenous, PRN, | | | Nausea, Vomiting, Option one for | | | nausea and vomiting, Starting Fri | | | 05/10/17 at 1044, For 2 doses, | | | PACU | | + +---+ | | | + +---+ | ondansetron (ZOFRAN) injection | | | 4 mg 4 mg, Intravenous, Every 6 | | | Hours PRN, Nausea, Vomiting, | | | Starting 05/10/17 at 1148 | | + +---+ | | | + +---+ | ondansetron (ZOFRAN) tablet 4 | | | mg 4 mg, Oral, Every 6 Hours | | | PRN, Nausea, Vomiting, Starting | | | 05/10/17 at 1148 | | + +---+ | | | + +---+ | promethazine (PHENERGAN) IVPB | | | 6.25 mg 6.25 mg, Intravenous, | | | Administer over 15 Minutes, PRN, | | | Nausea, Vomiting, Option two for | | | nausea or vomiting, Starting Fri | | | 05/10/17 at 1044, For 2 doses, May | | | repeat x 1 dose after 15 minutes. | | | If no relief in 10 minutes, | | | proceed to option three. Notify | | | Pharmacy to send promethazine | | | IVPB dose. | | + +---+ | | | + +---+ | sodium chloride (PF) 0.9 % | | | flush 10 mL 10 mL, Intravenous, | | | Every 8 Hours PRN, Line Care, | | | when tolerating oral fluids, | | | Starting Sat05/10/17 at 1148 | | + +---+ | | | + +---+ | sodium chloride 0.9 % infusion | | | at 30 mL/hr, Intravenous, | | | Continuous, Starting Sat05/10/17 | | | at 1100, Run present IV at 30 | | | mL/hour; unless otherwise ordered | | | by surgeon. For systolic blood | | | pressure < 90, bolus 250 mL x 1 | | | and contact anesthesia provider | | | if no response. | | + +---+ | | | + +---+ in this encounter"
--- OUTSIDE RECORDS SUMMARY | 2017-06-23 14:18 | XMS | Encounter Summary ---
Demographics + + + | Address | [address] | | | [place] [address] | + + + | Home Phone | | + + + | Preferred Language | Unknown | + + + | Marital Status | | + + + | Quaker Affiliation | Unknown | + + + | Race | Unknown | + + + | Ethnic Group | Unknown | + + + Author + + + | Author | [facility] [employer] | + + + | Organization | [facility] [employer] | + + + | Address | Unknown | + + + | Phone | Unavailable | + + + Support + + +---------+ + | Name | Relationship | Address | Phone | + + +---------+ + | Naye Wright | ECON | Unknown | | + + +---------+ + Care Team Providers + +------+ + | Care Booking Prizer Name | Role | Phone | + [...] Description | +--------+---------+ + + + | 05/10/ | Surgery | [facility] | Jay Portillo MD | AV GRAFT CREATION | | 2018 | | [facility] | [address] | | | | | Operating Room 888 | [place] [address] | | | | | [address] | [phone] | | | | | [place] [address] | | | | | | [phone] | | | +--------+---------+ + + + Social History [...] skin turning blue, or fainting Call 911. [facility] AV DIALYSIS SHUNT/FISTULA DISCHARGE INSTRUCTIONS Your physician [...] [place] | | | | | | [id number] | | | | | | | [...] | | | | 1.210.[place] performed at [facility] [place] [place] [address] | | | | [facility];[place] [address] | | | | | | + + + + + + + | Specimen | Performing Laboratory | + + + | Blood | [facility] [address] [place] [address] | + + + CBC w/auto diff [...] BASOPHILS ABS | 0.08Comment: Testing performed at [facility] [place] | 0.00 - 0.10 K/uL | | | [address] [facility];[place] [address] | | + + + + + + + | Specimen | Performing Laboratory | + + + | Blood | [facility] [address] [facility] [place] [address] | + + + in this encounter [...] | | | + +---+ + +-------+ +-------+---+---+ | bupivacaine (PF) (MARCAINE) 0.5 | Given | 05/10/2017 | 8 mLs | | | | % 30 mL in lidocaine 1 % 30 mL | | 10:07 | | | | | OR medication mixture PRN, | | PST | | | | | Starting Sat05/10/17 at 1007, | | | | | | | [...] | | | | for pain scale 1-4/10. If no | | | | | [...] Moderate Pain | | | (4-6), Starting 05/10/17 at | | | 1148 [...] | | | + +---+ + +-------+ +---------+---+---+ | heparin (porcine) 5000 unit/mL | Given | 05/10/2017 | 501 mLs | | | | 5,000 Units in sodium chloride | | 10:08 | | | | | (IV) 0.9 % 500 mL OR medication | | PST | | | | | mixture PRN, Starting Sat05/10/17 | | | | | | | at 1008, Intra-op | | | | | | + +-------+ +---------+---+---+ +---+---+ | | | +---+---+ + +-------+ + +---+---+ | HYDROcodone-acetaminophen | [...] tolerating oral fluids, | | | Starting 05/10/17 at 1148 | | + +---+ | | | + +---+ | sodium chloride 0.9 % infusion | | | at 30 mL/hr, Intravenous, | | | Continuous, Starting 3/9/18 | | | at 1100, Run present IV at 30 | | | mL/hour; unless otherwise ordered | | | by surgeon. For systolic blood | | | pressure < 90, bolus 250 mL x 1 | | | and contact anesthesia provider | | | if no response. | | + +---+ | | | + +---+ + +-------+ +--------+---+---+ | thrombin solution PRN, | Given | 05/10/2017 | 5,000 | | | | Starting Sat05/10/17 at 1011, | | 10:11 | Units | | | | Intra-op | | PST | | | | + +-------+ +--------+---+---+ +---+---+ | | | +---+---+ in this encounter"
--- OUTSIDE RECORDS SUMMARY | 2017-06-23 14:18 | XMS | Encounter Summary ---
Demographics + + + | Address | [address] | | | [place] [address] | + + + | Home Phone | | + + + | Preferred Language | Unknown | + + + | Marital Status | | + + + | Methodist Affiliation | Unknown | + + + | Race | Unknown | + + + | Ethnic Group | Unknown | + + + Author + + + | Author | [facility] [employer] | + + + | Organization | [facility] [employer] | + + + | Address | Unknown | + + + | Phone | Unavailable | + + + Support + + +---------+ + | Name | Relationship | Address | Phone | + + +---------+ + | Naye Wright | ECON | Unknown | | + + +---------+ + Care Team Providers + +------+ + | Care Custom Applicator Name | Role | Phone | + [...] + + | 05/02/ | Hospital | [facility] | Jay Portillo MD | | | 2018 | Encounter | [facility] | [address] | | | | | Preadmission | [place] [address] | | | | | Services [address] | [phone] | | | | | Bl[address] [place], [place] | | | | | | [address] | | | +--------+ + + + [...] + + + as of this encounter Discharge Instructions Danica Melvin RN - 05/02/2017 Creating a Hemodialysis Access Before hemodialysis can be done, a way for blood to leave and return to your body (an acces s) is needed. During hemodialysis, needles placed into the access carry blood to and from th e dialyzer. A hemodialysis access is usually created in your arm. The 2 main types of access es are an arteriovenous fistula (AV fistula) and an arteriovenous graft (AV graft). Creating your access The hemodialysis access provides a large volume of rapidly flowing blood. It involves a merced gical operation under anesthesia. You may be able to go home the same day. It is made during a short procedure using one of these methods: A fistula is made by connecting an artery to a nearby vein. The high pressure and blood flow in the artery are transferred into the vein and help it grow in size and thickness. Thi s enlarged vein (fistula) eventually has high blood flow and is thick enough for needles to be placed safely several times each week during hemodialysis. It may need weeks or months to develop before it's ready to be used. A fistula is more efficient than the graft and has fe wer long-term problems. Therefore, it is the preferred form of access. A graft (piece of synthetic tube) may be sewn between an artery and a vein if a fistula is not possible because of the small size of your veins. Blood flows rapidly through the gra ft from the artery to the vein. A graft is usually ready to use in a few weeks. Roland can be placed into the plastic tube to obtain blood during dialysis. Both types of access may take weeks to months before they can be used. If dialysis is neces fernie immediately, a temporary venous catheter is used. A catheter that allows two way blood flow is placed into a large vein and the dialysis tubing is connected to the catheter. If patricia th the AV fistula and graft are unsuccessful, a more permanent venous catheter is used. The most common complications for hemodialysis access are infection, clotting and decreased blood flow from clotting or other narrowing. Date Last Reviewed: 03/04/201619990134-2673 [employer]. [address] [place] [address]. All righ ts reserved. This information is [...] | | | | | | [address] [place], [place] | | | | | | [address] | | | | | | | | +--------+---------+ + + + as of this encounter Results Protime-INR (05/02/2017 1:10 PM) + + + + | Component | Value | Ref Range | + + + + | INR | 1.1Comment: REFERENCE RANGE:0.9 - | | | | 1.2 NON-ANTICOAGULATED2.0 - 3.0 ALL | | | | OTHER THERAPEUTIC INDICATIONS2.5 - 3.5 | | | | MECHANICAL HEART VALVES, RECURRENT OR | | | | SYSTEMIC EMBOLISMTesting performed at | | | | [facility];[address] [place] [address];[place] [address] | | | |Testing performed at [facility];[address] [place] [address];[place] [address] | | | | | | + + + + + + + | Specimen | Performing Laboratory | + + + | Blood | [facility] [address] [place] [address] | + + + CBC w/auto diff (reflex to manual) (05/02/2017 1:10 PM) + + + + | Component | Value | Ref Range | + + + + | WBC | 15.12 (H) | 3.80 - 11.00 K/uL | + + + + | RBC | 2.16 (L) | 3.70 - 5.10 M/uL | + + + + | HGB | 6.7 (LL) | 11.3 - 15.5 g/dL | | | Comment: | | | | RESULT READ BACK BY: | | | | HALEY BAUMAN PCC AT 1539 ON 05/02/17 TH | | | | | | + + + + | HCT | 19.8 (LL) | 34.0 - 46.0 % | | | Comment: | | | | RESULT READ BACK BY: | | | | HALEY BAUMAN PCC AT 1539 ON 05/02/17 TH | | | | | | + + + + | MCV | 91.6 | 80.0 - 100.0 fl | + + + + | MCH | 30.9 | 27.0 - 34.0 pg | + + + + | MCHC | 33.7 | 32.0 - 35.5 g/dL | + + + + | RDW SD | 52.5 | 37 - 53 fl | + + + + | PLT | 339 | 150 - 400 K/uL | + + + + | MPV | 10.9 | fl | + + + + | DIFF TYPE | AUTOMATED | | + + + + | NEUTROPHILS | 65.01 | % | + + + + | LYMPHOCYTES | 24.07 | % | + + + + | MONOCYTES | 6.16 | % | + + + + | EOSINOPHILS | 4.43 | % | + + + + | BASOPHILS | 0.33 | % | + + + + | NEUTROPHILS ABS | 9.83 (H) | 1.90 - 7.40 K/uL | + + + + | LYMPHOCYTES ABS | 3.64 | 1.00 - 3.90 K/uL | + + + + | MONOCYTES ABS | 0.93 (H) | 0.00 - 0.80 K/uL | + + + + | EOSINOPHILS ABS | 0.67 (H) | 0.00 - 0.50 K/uL | + + + + | BASOPHILS ABS | 0.05Comment: Testing performed at [facility], [facility] | 0.00 - 0.10 K/uL | | | [facility] [place] [address] | | + + + + + + + | Specimen | Performing Laboratory | + + + | Blood | [facility] [address], | | | [place] [address] | + + + Basic metabolic panel (05/02/2017 1:10 PM) + + + + | Component | Value | Ref Range | + + + + | SODIUM | 140 | 135 - 145 mmol/L | + + + + | POTASSIUM | 3.6 | 3.5 - 4.9 mmol/L | + + + + | CHLORIDE | 110 (H) | 99 - 109 mmol/L | + + + + | CO2 | 19 (L) | 23 - 32 mmol/L | + + + + | ANION GAP AGAP | 15 | 5 - 20 mmol/L | + + + + | GLUCOSE | 114 (H) | 65 - 99 mg/dL | + + + + | BUN | 55 (H) | 8 - 25 mg/dL | + + + + | CREATININE | 5.9 (H) | 0.50 - 1.00 mg/dL | + + + + | BUN/CREAT | 9 | | + + + + | CALCIUM | 7.8 (L) | 8.5 - 10.5 mg/dL | + + + + | EGFR | 9 (L)Comment: GFR <60: CHRONIC KIDNEY | >60 mL/min/1.73m2 | | | DISEASE, IF FOUND OVER A 3 MONTH PERIOD.GFR | | | | <15: KIDNEY FAILURE.FOR AMERICANS, | | | | MULTIPLY THE CALCULATED GFR BY | | | | 1.210.Testing performed at [facility], [address] | | | | [place] [address] | | | | | | + + + + + + + | Specimen | Performing Laboratory | + + + | Blood | [facility] [address] [place] [address] [address] | | | [place] [address] | + + + aPTT (05/02/2017 1:10 PM) + + + + | Component | Value | Ref Range | + + + + | APTT | 33 (H)Comment: Testing performed at [facility];[address] | 23 - 32 seconds | | | [address] [place] [address] | | + + + + + + + | Specimen | Performing Laboratory | + + + | Blood | [facility] [address] [place] [address] | + + + MRSA by PCR (05/02/2017 1:09 PM) + + + + | Component | Value | Ref Range | + + + + | SOURCE | NARES(NOSE) | | + + + + | MRSA PCR | NEGATIVEComment: Testing performed at | NEGATIVE | | | [facility];[address] [place] [address];[place] [address] | | + + + + + + + | Specimen | Performing Laboratory | + + + | Nasopharyngeal - | [address] [address] | | Nares(Nose) | | + + + in this encounter Visit Diagnoses Not on filein this encounter"
--- OUTSIDE RECORDS SUMMARY | 2017-06-23 14:19 | XMS | Encounter Summary ---
Demographics + + + | Address | [address] | | | [place] [address] | + + + | Home Phone | | + + + | Preferred Language | Unknown | + + + | Marital Status | | + + + | Sabianism Affiliation | Unknown | + + + | Race | Unknown | + + + | Ethnic Group | Unknown | + + + Author + + + | Author | [facility] | + + + | Organization | [facility] [facility] | + + + | Address | Unknown | + + + | Phone | Unavailable | + + + Support + + +---------+ + | Name | Relationship | Address | Phone | + + +---------+ + | Naye Wright | ECON | Unknown | | + + +---------+ + Care Team Providers + +------+ + | Care Development Mechanic Name | Role | Phone | + +------+ + | [facility], [facility] | PCP | Unavailable | | Community | | | + +------+ + Reason for Visit + + + | Reason | Comments | + + + | Labs Only | [facility] dated 04/15/2017 | + + + Encounter Details +--------+ + + + + | Date | Type | Department | Care Team | Description | +--------+ + + + + | | Documentati | [facility] | Kiersten Shaffer CMA | Labs Only ([facility] | | 2018 | on Only | [place] [address] | | lab dated | | | | [address] | | 04/15/2017) | | | | [place] [address] | | | | | | [phone] | | | +--------+ + + + [...] | | | | | | [address] [place] | | | | | | [address] | | | | | | | | +--------+---------+ + + + as of this encounter Visit Diagnoses Not on filein this encounter"
--- OUTSIDE RECORDS SUMMARY | 2017-06-23 14:19 | XMS | Encounter Summary ---
Demographics + + + | Address | [address] | | | [place] [address] | + + + | Home Phone | | + + + | Preferred Language | Unknown | + + + | Marital Status | | + + + | Sikh Affiliation | Unknown | + + + | Race | Unknown | + + + | Ethnic Group | Unknown | + + + Author + + + | Author | [facility] [employer] [facility] | + + + | Organization | [facility] [employer] [facility] | + + + | Address | Unknown | + + + | Phone | Unavailable | + + + Support + + +---------+ + | Name | Relationship | Address | Phone | + + +---------+ + | Naye Wright | ECON | Unknown | | + + +---------+ + Care Team Providers + +------+ + | Care Turf And Grounds Supervisor Name | Role | Phone | + +------+ + | Clinic, [facility] | PCP | Unavailable | | Community | | | + +------+ + Reason for Referral MRI/CAT Scan (Emergency) + +--------+ + + + + | Status | Reason | Specialty | Diagnoses / | Referred By | Referred To | | | | | Procedures | Contact | Contact | + +--------+ + + + + | Authorized | | Radiology | Diagnoses | [place], | [facility] | | | | | CKD | Tavares Orellana MD | [address] | | | | | (chronic | [address] | [address] | | | | | kidney | [address] | [address] | | | | | disease) | [place], [place] | [place], [place] | | | | | stage 5, GFR | [address] | [address] Phone: | | | | | less than | Phone: | [phone] | | | | | 15 ml/min | [phone] | Fax: | | | | | (HCC) | Fax: | [phone] | | | | | Nephrotic | [phone] | | | | | | range | | | | | | | proteinuria | | | | | | | Anemia of | | | | | | | chronic | | | | | | | renal | | | | | | | failure, | | | | | | | stage 4 | | | | | | | (severe) | | | | | | | (HCC) | | | | | | | Secondary | | | | | | | hyperparathy | | | | | | | roidism | | | | | | | (HCC) | | | | | | | Hyperphospha | | | | | | | temia | | | | | | | Essential | | | | | | | hypertension | | | | | | | , benign | | | | | | | Acute kidney | | | | | | | injury | | | | | | | (HCC) | | | | | | | Procedures | | | | | | | CT limited | | | | | | | localizer | | | | | | | CT needle | | | | | | | biopsy | | | | | | | kidney | | | + +--------+ + + + + Consultation (Emergency) + + + + + + + | Status | Reason | Specialty | Diagnoses / | Referred By | Referred To | | | | | Procedures | Contact | Contact | + + + + + + + | Authorized | Specialty | Nephrology | Diagnoses | [place] | [facility] | | | Services | | CKD | Tavares Orellana MD | KIDNEYTRANSPL | | | Required | | (chronic | [address], | [facility] | | | | | kidney | [address] | [facility] | | | | | disease) | [place], | [address] | | | | | stage 5, GFR | [place] [address] | [place] | | | | | less than | Phone: | [address], | | | | | 15 ml/min | [phone] | [place] [address] | | | | | (HCC) | Fax: | Phone: | | | | | Nephrotic | [phone] | [phone] | | | | | range | | Fax: | | | | | proteinuria | | [phone] | | | | | Anemia of | | | | | | | chronic | | | | | | | renal | | | | | | | failure, | | | | | | | stage 4 | | | | | | | (severe) | | | | | | | (HCC) | | | | | | | Secondary | | | | | | | hyperparathy | | | | | | | roidism | | | | | | | (HCC) | | | | | | | Hyperphospha | | | | | | | temia | | | | | | | Essential | | | | | | | hypertension | | | | | | | , benign | | | | | | | Acute kidney | | | | | | | injury | | | | | | | (HCC) | | | + + + + + + + + + | Scheduling Instructions | + + | Please call patient to schedule. | + + Surgical (Urgent) + + + + + + + | Status | Reason | Specialty | Diagnoses / | Referred By | Referred To | | | | | Procedures | Contact | Contact | + + + + + + + | Authorized | Specialty | Vascular | Diagnoses | [place], | Jay Portillo Y, | | | Services | Surgery | CKD | Tavares Orellana MD | [address] | | | Required | | (chronic | [address] | | | | | kidney | [address] | Drive | | | | | disease) | [address] | [place] | | | | | stage 5, GFR | [place], | [address] Phone: | | | | | less than | [place] [address] | [phone] | | | | | 15 ml/min | Phone: | Fax: | | | | | (HCC) | [phone] | [phone] | | | | | Nephrotic | Fax: | | | | | | range | [phone] | | | | | | proteinuria | | | | | | | Anemia of | | | | | | | chronic | | | | | | | renal | | | | | | | failure, | | | | | | | stage 4 | | | | | | | (severe) | | | | | | | (HCC) | | | | | | | Secondary | | | | | | | hyperparathy | | | | | | | roidism | | | | | | | (HCC) | | | | | | | Hyperphospha | | | | | | | temia | | | | | | | Essential | | | | | | | hypertension | | | | | | | , benign | | | | | | | Acute kidney | | | | | | | injury | | | | | | | ([facility]) | | | + + + + + + + + + | Scheduling Instructions | + + | Please call patient to schedule. | + + Encounter Details +--------+ + + + + | Date | Type | Department | Care Team | Description | +--------+ + + + + | 04/22/ | Orders Only | [facility] | Kiersten Shaffer CMA | CKD (chronic kidney | | 2018 | | [place] [address] | | disease) stage 5, | | | | [address] | | GFR less than 15 | | | | [address] [place], [place] | | ml/min (HCC) | | | | [address] | | (Primary Dx); | | | | | | Nephrotic range | | | | | | proteinuria; Anemia | | | | | | of chronic renal | | | | | | failure, stage 4 | | | | | | (severe) ([facility]); | | | | | | Secondary | | | | | | hyperparathyroidism | | | | | | ([facility]); | | | | | | [...] | | | | | | [address] [place], [place] | | | | | | [address] | | | | | | | | +--------+---------+ + + + + +--------+ + + | Name | Priori | Associated Diagnoses | Order Schedule | | | ty | | | + +--------+ + + | Renal function panel | Routin | CKD (chronic | Every 2 Weeks for 20 | | | e | kidney disease) | Occurrences | | | | stage 5, GFR less | starting 04/22/2017 | | | | than 15 ml/min ([facility]) | until 04/22/2018 | | | | Nephrotic range | | | | | proteinuria Anemia | | | | | of chronic renal | | | | | failure, stage 4 | | | | | (severe) ([facility]) | | | | | Secondary | | | | | hyperparathyroidism | | | | | ([facility]) | | | | | Hyperphosphatemia | | | | | Essential | | | | | hypertension, benign | | | | | BRIDGET (acute kidney | | | | | injury) | | + +--------+ + + | Protein / creatinine ratio, urine | Routin | CKD (chronic | Expected: | | | e | kidney disease) | 05/13/2017, Expires: | | | | stage 5, GFR less | 04/22/2018 | | | | than 15 ml/min ([facility]) | | | | | Nephrotic range | | | | | proteinuria Anemia | | | | | of chronic renal | | | | | failure, stage 4 | | | | | (severe) ([facility]) | | | | | Secondary | | | | | hyperparathyroidism | | | | | ([facility]) | | | | | Hyperphosphatemia | | | | | Essential | | | | | hypertension, benign | | | | | BRIDGET (acute kidney | | | | | injury) | | + +--------+ + + + +--------+ + + | Name | Priori | Associated Diagnoses | Order Schedule | | | ty | | | + +--------+ + + | Ambulatory referral to Vascular | Routin | CKD (chronic | Ordered: 04/22/2017 | | Surgery | e | kidney disease) | | | | | stage 5, GFR less | | | | | than 15 ml/min ([facility]) | | | | | Nephrotic range | | | | | proteinuria Anemia | | | | | of chronic renal | | | | | failure, stage 4 | | | | | (severe) ([facility]) | | | | | Secondary | | | | | hyperparathyroidism | | | | | ([facility]) | | | | | Hyperphosphatemia | | | | | Essential | | | | | hypertension, benign | | | | | BRIDGET (acute kidney | | | | | injury) | | + +--------+ + + | Ambulatory referral to Nephrology | STAT | CKD (chronic | Ordered: 04/22/2017 | | | | kidney disease) | | | | | stage 5, GFR less | | | | | than 15 ml/min ([facility]) | | | | | Nephrotic range | | | | | proteinuria Anemia | | | | | of chronic renal | | | | | failure, stage 4 | | | | | (severe) ([facility]) | | | | | Secondary | | | | | hyperparathyroidism | | | | | (HCC) | | | | | Hyperphosphatemia | | | | | Essential | | | | | hypertension, benign | | | | | BRIDGET (acute kidney | | | | | injury) | | + +--------+ + + as of this encounter Results Urinalysis (reflex to micro) (05/15/2017 8:15 AM) [...] + | Urine | [facility] [address], [address] [place], [place] | | | [address] | + + + + + | Narrative | + + | Bacteria: 1+ | + + [place]/Lambda LC RATI (05/15/2017 8:15 AM) + + + | Specimen | Performing Laboratory | + + + | | [facility] [address], [address] [place], [place] | | | [address] | + + + + + | Narrative | + + | [place] Quant: 13.30 Range: 0.33-1.94 Lambda: 8.20 Range: 0.57-2.63 | | Ratio:1.62 Range: 0.26-1.65 | + + Immunofixation,Serum (05/15/2017 8:15 AM) + + + | Specimen | Performing Laboratory | + + + | Blood | [address] | | | [address] | + + + + + | Narrative | + + | Protein:5.6 L Range: 6.5-8.3 Albumin: 2.84 Range: 2.8-5.7 Alpha 1: | | 0.30 Range: 0.1-0.32 Alpha 2: 0.66 Range: 0.54-0.90 Beta: 0.91 Range: | | 0.60-1.09 Gamma: 0.9 Range: 0.36-1.8 Immunoglobulin Range: 664-1411 | | Immunoglobulin A: 178 Range: 66-433 Immunoglobulin M: 48 Range: 47-248 | + + PTH intact no calcium (05/15/2017 [...] + + | Blood | [facility] [address] [place] [address] [address] [place] | | | [address] | + + + CBC W/Auto Diff [...] + + | Blood | [facility] [address] [place] [address] [address] [place], [place] | | | [address] | + + + Renal function panel (05/15/2017 8:15 AM) + [...] + | Blood | [facility] [address] [facility] [address] [place] | | | [address] | + + + CT limited localizer (04/24/2017 10:32 AM) + + + | Specimen | Performing Laboratory | + + + | | [facility]AL[facility] [address] [facility] [address] | + + + + + | [...] intervention Patient positioning: Prone. | | Axial collections assistant images were obtained through region of interest [...] Rad Results In - 04/24/2017 10:41 AM JONAS CLARK years | | FemaleCT LIMITED LOCALIZE04/24/2017 10:32 [...] imaging and interventionPatient | | positioning: Prone.Axial collections assistant images were obtained through region of interest [...] | | | | | + + in this encounter Visit Diagnoses + + | Diagnosis | + + | CKD (chronic kidney disease) stage 5, GFR less than 15 ml/min (HCC) - Primary | + + | Chronic kidney disease, Stage V | + + | Nephrotic range proteinuria | + + | Proteinuria | + + | Anemia of chronic renal failure, stage 4 (severe) (HCC) | + + | Secondary hyperparathyroidism (HCC) | + + | Secondary hyperparathyroidism (of renal origin) | + + | Hyperphosphatemia | + + | Disorders of phosphorus metabolism | + + | Essential hypertension, benign | + + | BRIDGET (acute kidney injury) | + + | Acute kidney failure, unspecified | + +"
--- OUTSIDE RECORDS SUMMARY | 2017-06-23 14:19 | XMS | Encounter Summary ---
Demographics + + + | Address | [address] | | | [place] [address] | + + + | Home Phone | | + + + | Preferred Language | Unknown | + + + | Marital Status | | + + + | Sabianism Affiliation | Unknown | + + + | Race | Unknown | + + + | Ethnic Group | Unknown | + + + Author + + + | Author | [email or web address] | + + + | Organization | [email or web address] | + + + | Address | Unknown | + + + | Phone | Unavailable | + + + Support + + +---------+ + | Name | Relationship | Address | Phone | + + +---------+ + | Naye Wright | ECON | Unknown | | + + +---------+ + Care Team Providers + +------+ + | Care Job Setter Name | Role | Phone | + +------+ + | [facility] | PCP | Unavailable | | Community | | | + +------+ + Encounter Details +--------+---------+ + + + | Date | Type | Department | Care Team | Description | +--------+---------+ + + + | 04/22/ | Office | [facility] | Tavares Vaca MD | BRIDGET (acute kidney | | 2018 | Visit | [place] [address] | [address] | injury) (Primary | | | | [facility] | [address] [place], [place] | Dx); CKD (chronic | | | | [address] [place], [place] | [address] | kidney disease) | | | | [address] | | stage 5, GFR less | | | | | | than 15 ml/min | | | | | | (HCC); Metabolic | | | | | | acidosis; Nephrotic | | | | | | range proteinuria; | | | | | | Secondary | | | | | | hyperparathyroidism | | | | | | (HCC); Adverse | | | | | | [...] + + + | Blood Pressure | 155/105 | 04/22/2017 11:39 AM PST | + + + + | Pulse | 94 | 04/22/2017 11:39 AM PST | + + + + | Temperature | 36.7 C (98.1 F) | 04/22/2017 11:39 AM PST | + + + + | Respiratory Rate | - | - | + + + + | Oxygen Saturation | 98% | 04/22/2017 11:39 AM PST | + + + + | Inhaled Oxygen | - | - | | Concentration | | | + + + + | Weight | 45.9 kg (101 lb 1.6 | 04/22/2017 11:39 AM PST | | | oz) | | + + + + | Height | 154.9 cm (5' 1") | 04/22/2017 11:39 AM PST | + + + + | Body Mass Index | 19.1 | 04/22/2017 11:39 AM PST | + + + + in this encounter Instructions Patient Instructions - Tavares Vaca MD - 04/22/2017 11:40 AM PSTDiscussions/Recommendatio ns: I discussed today with Ms. Clark [...] kinds of NSAIDs for analgesia. Also: I started her on Amlodipine 5 mg at bedtime. I sent for a kidney biopsy. I sent her for evaluation by the Vascular Surgery team [facility] for AV fistula creation I sent her for evaluation by the Kidney Transplant team at [facility]. I stopped her Ibuprofen. I put her on a 14-day course of Ciprofloxacin 250 mg BID. I will not change any of her current vasoactive meds today. I started her on Calcium Acetate 667 mg DURING meals 3 times a day. I increased her Sodium Bicarbonate 650 mg to 4 times a day. I sent her for a repeat RFP every 2 weeks. I increase her Calcitriol to 0.5 mcg daily. I kept her on Cholecalciferol 2,000 units d aily. she will bring me back her home BP charts in 2 weeks. At that time, I will decide whethe r any changes to her vasoactive regimen are warranted. I asked her to F/U with the liver transplant team at [facility] for management of her anti-rejection meds. She will need to be seen by the Liver transplant team in [place] soon & regularly. She will continue to F/U with your office regularly. She will have a RFP, CBC, intact PTH, SFLC, SPIF, urinalysis, Urine total bqwpnvf-hg-[id number] atinine ratio before she comes back in 1 month.in this encounter Progress Notes Tavares Vaca MD - 04/22/2017 11:40 AM PSTFormatting of this note may be different from original. Patient Active Problem List Diagnosis Liver replaced by transplant Stage 4 chronic kidney disease (HCC) Nephrotic range proteinuria Hyperkalemia Hyperuricemia Anemia of chronic renal failure, stage 4 (severe) (HCC) Adverse effect of calcineurin inhibitor BRIDGET (acute kidney injury) Metabolic acidosis Secondary hyperparathyroidism (HCC) Acute cystitis without hematuria Dear Colleague: I saw your patient Ms. Clark in the office today. As you are familiar with her case, I will not state her past history in detail. Briefly, she is a 36 y.o. female patient with p ast history as delineated above. she is here to F/U on her CKD & its associated complicatio ns. She had a liver transplant at the age of 8; she had the hepatorenal syndrome in early 17 & needed to go dialysis; she came off of it for 2.5 months; restarted HD thru a CVC in summer. She had her second liver transplant in 09/2014. She ultimately came off HD in 04/2015. She tells me she stopped on her own her Cellcept in 06/2016 because of abdomina l discomfort; she says she did let the [...] tablet Take 50 mg by mouth daily. calcitRIOL (ROCALTROL) 0.25 MCG capsule Take 1 capsule by mouth daily. 30 capsule 11 cholecalciferol (VITAMIN D-3) 1000 units tablet Take 1,000 Units by mouth daily. sodium bicarbonate 650 MG tablet Take 1 tablet by mouth 4 (four) times daily. 120 table t 11 tacrolimus (PROGRAF) 1 MG capsule Take 1 mg by mouth 2 (two) times daily. 4 mg AM, 4 mg PM HYDROcodone-acetaminophen (NORCO) 10-325 MG per tablet Take 1 tablet by mouth every 6 ( six) hours as needed for Pain. lansoprazole (PREVACID) 30 MG capsule Take 30 mg by mouth daily. metoclopramide (REGLAN) 5 MG tablet Take 5 mg by mouth. 1/2 Tablet 3 times daily. mirtazapine (REMERON) 30 MG tablet Take 30 mg by mouth nightly. mycophenolate (CELLCEPT) 250 MG capsule Take 250 mg by mouth 2 (two) times daily. nystatin (MYCOSTATIN) 490416 UNIT/ML suspension Take 200,000 Units by mouth 4 (four) ti mes daily. ondansetron (ZOFRAN) 4 MG tablet Take 4 mg by mouth as needed for Nausea. scopolamine (TRANSDERM-SCOP) 1 mg/3days patch Place 1 patch onto the skin every third d ay. Apply to hairless area of skin behind the ear. sulfamethoxazole-trimethoprim (BACTRIM) 400-80 MG per tablet Take 1 tablet by mouth. Th ree days a week. No current facility-administered medications for this visit. Physical Exam: BP (!) 155/105 (BP Location: Left upper arm, Patient Position: Sitting) | Pulse 94 | Temp 98.1 F (36.7 C) (Temporal) | Ht 1.549 m (5' 1") | Wt 45.9 kg (101 lb 1.6 oz) | SpO2 98% | BMI 19.10 kg/m General appearance: Pleasant, not in acute [...] normal. Lab Results Component Value Date BUN 61 (A) 04/18/2017 CREATININE 5.32 (A) 04/18/2017 EGFR 9 (A) 04/18/2017 NA 142 04/18/2017 K 3.8 04/18/2017 CL 112 04/18/2017 CO2 19 04/18/2017 CA 8.0 (A) 04/18/2017 PHOS 3.7 06/20/2015 MG 1.6 (A) 04/18/2017 ALB 3.0 (A) 04/18/2017 HGB 9.8 (A) 04/18/2017 URICACID 7.8 (A) 04/18/2017 WBC 18.9 (A) 04/18/2017 HCT 30 (A) 04/18/2017 FERRITIN 61 06/20/2015 LABIRON 50 06/20/2015 LABPROT 6,933.3 (A) 04/18/2017 Assessment: Ms. Clark is a 36 y.o. female patient with stage IV CKD on a background of fdc use of calcineurin inhibitors. 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 She had a liver transplant at the age of 8; she had the hepatorenal syndrome in early 2014 & needed to go dialysis; she came off of it for 2.5 months; restarted HD thru a [facility]. She had her second liver [...] gy is not clear tome at this time BLOOD PRESSURE: Reports it normal BLOOD SUGAR: Reports it normal ELECTROLYTES: Acceptable; Mag is at the lower limit of normal ANEMIA: Very mild VITAMIN D: To be checked thru your [...] kinds of NSAIDs for analgesia. Also: I started her on Amlodipine 5 mg at bedtime. I sent for a kidney biopsy. I sent her for evaluation by the Vascular Surgery team [facility] for AV fistula creation I sent her for evaluation by the Kidney Transplant team at [facility]. I stopped her Ibuprofen. I put her on a 14-day course of Ciprofloxacin 250 mg BID. I will not change any of her current vasoactive meds today. I started her on Calcium Acetate 667 mg DURING meals 3 times a day. I increased her Sodium Bicarbonate 650 mg to 4 times a day. I sent her for a repeat RFP every 2 weeks. I increase her Calcitriol to 0.5 mcg daily. I kept her on Cholecalciferol 2,000 units d . she will bring me back her home BP charts in 2 weeks. At that time, I will decide whethe r any changes to her vasoactive regimen are warranted. I asked her to F/U with the liver transplant team at [facility] for management of her anti-rejection meds. She will need to be seen by the Liver transplant team in [place] soon & regularly. She will continue to F/U with your office regularly. She will have a RFP, CBC, intact PTH, SFLC, SPIF, urinalysis, Urine total dgglrdo-zd-[id number] atinine ratio before she comes back in 1 month. Thank you Colleague for the opportunity to see this patient in F/U on an urgent basis today for a declining GFR in the setting of liver transplant. Please do not hesitate to call me a t any time with questions or concerns. Truly yours, Tavares Vaca MD [facility] in this encounter Plan of Treatment +--------+---------+ + + + | Date | Type | Specialty | Care Team | Description | +--------+---------+ + + + | 07/15/ | Office | Nephrology | Tavares Vaca MD | | | 2018 | Visit | | [address] | | | | | | [address] [place], [place] | | | | | | [address] | | | | | | | | +--------+---------+ + + + as of this encounter Visit Diagnoses + + | Diagnosis | + + | BRIDGET (acute kidney injury) - Primary | + + | Acute kidney failure, unspecified | + + | CKD (chronic kidney disease) stage 5, GFR less than 15 ml/min ([facility]) | + + | Chronic kidney disease, Stage V | + + | Metabolic acidosis | + + | Acidosis | + + | Nephrotic range proteinuria | + + | Proteinuria | + + | Secondary hyperparathyroidism (HCC) | + + | Secondary hyperparathyroidism (of renal origin) | + + | Adverse effect of calcineurin inhibitor, sequela | + + | Essential hypertension, benign | + + | Acute cystitis without hematuria | + + | Acute cystitis | + + | Hyperphosphatemia | + + | Disorders of phosphorus metabolism | + +
--- OUTSIDE RECORDS SUMMARY | 2017-06-23 14:19 | XMS | Encounter Summary ---
Demographics + + + | Address | [address] | | | [place] [address] | + + + | Home Phone | | + + + | Preferred Language | Unknown | + + + | Marital Status | | + + + | Yarsani Affiliation | Unknown | + + + | Race | Unknown | + + + | Ethnic Group | Unknown | + + + Author + + + | Author | [facility] | + + + | Organization | [facility] | + + + | Address | Unknown | + + + | Phone | Unavailable | + + + Support + + +---------+ + | Name | Relationship | Address | Phone | + + +---------+ + | Naye Wright | ECON | Unknown | | + + +---------+ + Care Team Providers + +------+ + | Care Provider Education Specialist Name | Role | Phone | + +------+ + | [facility] | PCP | | + +------+ + Reason for Visit +--------+ + | Reason | Comments | +--------+ + | Other | Blood Pressure Log dated 03/23/2017-04/21/2017 | +--------+ + Encounter Details +--------+ + + + + | Date | Type | Department | Care Team | Description | +--------+ + + + + | 04/23/ | Documentati | [facility] | Kiersten Shaffer, REGISTERED DENTAL ASSISTANT | Other (Blood | | 2018 | on Only | [place] [address] | | Pressure Log dated | | | | [address] | | 03/23/2017-04/21/2017) | | | | [place] [address] | | | | | | [phone] | | | +--------+ + + + [...] | | | | | | [address] [place] | | | | | | [address] | | | | | | | | +--------+---------+ + + + as of this encounter Visit Diagnoses Not on filein this encounter"
--- OUTSIDE RECORDS SUMMARY | 2017-06-23 14:19 | XMS | Encounter Summary ---
Demographics + + + | Address | [address] | | | [place] [address] | + + + | Home Phone | | + + + | Preferred Language | Unknown | + + + | Marital Status | | + + + | Taoist Affiliation | Unknown | + + + | Race | Unknown | + + + | Ethnic Group | Unknown | + + + Author + + + | Author | [facility] | + + + | Organization | [facility] | + + + | Address | Unknown | + + + | Phone | Unavailable | + + + Support + + +---------+ + | Name | Relationship | Address | Phone | + + +---------+ + | Naye Wright | ECON | Unknown | | + + +---------+ + Care Team Providers + +------+ + | Care Aed Trainer Name | Role | Phone | + +------+ + | Sherrie Blackman MD | PCP | | + +------+ + Encounter Details +--------+ + + + + | Date | Type | Department | Care Team | Description | +--------+ + + + + | 04/19/ | Orders Only | [facility] | Kiersten Shaffer CMA | Stage 4 chronic | | 2018 | | [place] [address] | | kidney disease | | | | [address] | | ([facility]); Nephrotic | | | | [place], [place] [address] | | range proteinuria; | | | | [phone] | | Anemia of chronic | | | | | | renal failure, stage | | | | | | 4 (severe) ([facility]); | | | | | | Hyperuricemia; BRIDGET | | | | | | (acute kidney | | | | | | injury); Metabolic | | | | | | acidosis; Secondary | | | | | | hyperparathyroidism | | | | | | ([facility]); Acute | | | | | | cystitis without | | | | | | hematuria | +--------+ + + + + Social [...] | | | | | | [address] [place], [place] | | | | | | [address] | | | | | | | | +--------+---------+ + + + as of this encounter Results Protein / creatinine ratio, urine (04/18/2017) + + + + | Component | Value | Ref Range | + + + + | UR | 6933.3 (A) | 0 - 150 | | PROTEIN/CREATININE | | | + + + + + + + | Specimen | Performing Laboratory | + + + | Urine - Urine, | [facility] [address] [place] [address] [place] | | Unspecified Source | [id number] | + + + Urinalysis (reflex to micro) (04/18/2017) + + + + | Component | Value | Ref Range | + + + + | COLOR UA | Yellow | | + + + + | CLARITY | Turbid | | + + + + | SPECIFIC | 1.014 | 1.005 - 1.030 | | GRAVITY,URINE | | | + + + + | LEUKOCYTE ESTERASE | Negative | | + + + + | NITRITE | Negative | | + + + + | UROBILINOGEN | Normal | | + + + + | PROTEIN | 500 | | + + + + | PH,URINE | 5 | 5 - 9 | + + [...] + + + | Urine | [facility] [place] | | | [address] | + + + + + | Narrative | + + | WBC's: 30 Bacteria: 4+ | + + in this encounter Visit Diagnoses + + | Diagnosis | + + | Stage 4 chronic kidney disease (HCC) | + + | Nephrotic range proteinuria | + + | Proteinuria | + + | Anemia of chronic renal failure, stage 4 (severe) (HCC) | + + | Hyperuricemia | + + | Other abnormal blood chemistry | + + | BRIDGET (acute kidney injury) | + + | Acute kidney failure, unspecified | + + | Metabolic acidosis | + + | Acidosis | + + | Secondary hyperparathyroidism (HCC) | + + | Secondary hyperparathyroidism (of renal origin) | + + | Acute cystitis without hematuria | + + | Acute cystitis | + +"
--- OUTSIDE RECORDS SUMMARY | 2017-06-23 14:19 | XMS | Encounter Summary ---
Demographics + + + | Address | [address] | | | [place] [address] | + + + | Home Phone | | + + + | Preferred Language | Unknown | + + + | Marital Status | | + + + | Sabianist Affiliation | Unknown | + + + | Race | Unknown | + + + | Ethnic Group | Unknown | + + + Author + + + | Author | [facility] | + + + | Organization | [facility] | + + + | Address | Unknown | + + + | Phone | Unavailable | + + + Support + + +---------+ + | Name | Relationship | Address | Phone | + + +---------+ + | Naye Wright | ECON | Unknown | | + + +---------+ + Care Team Providers + +------+ + | Care Client Hr Manager Name | Role | Phone | + +------+ + | [facility] | PCP | Unavailable | | Community | | | + +------+ + Reason for Visit + + + | Reason | Comments | + + + | Labs Only | [facility] dated 04/18/2017 | + + + Encounter Details +--------+ + + + + | Date | Type | Department | Care Team | Description | +--------+ + + + + | 04/18/ | Documentati | [facility] | Kiersten Shaffer CMA | Labs Only ([facility] | | 2018 | on Only | [place] [address] | | Labs dated | | | | [address] | | 04/18/2017) | | | | [place] [address] | | | | | | [phone] | | | +--------+ + + + [...] | | | | | | [address] [place] | | | | | | [address] | | | | | | | | +--------+---------+ + + + as of this encounter Visit Diagnoses Not on filein this encounter"
--- OUTSIDE RECORDS SUMMARY | 2017-06-23 14:19 | XMS | Encounter Summary ---
Demographics + + + | Address | [address] | | | [place] [address] | + + + | Home Phone | | + + + | Preferred Language | Unknown | + + + | Marital Status | | + + + | Hoahaoism Affiliation | Unknown | + + + | Race | Unknown | + + + | Ethnic Group | Unknown | + + + Author + + + | Author | [facility] | + + + | Organization | [facility] | + + + | Address | Unknown | + + + | Phone | Unavailable | + + + Support + + +---------+ + | Name | Relationship | Address | Phone | + + +---------+ + | Naye Wright | ECON | Unknown | | + + +---------+ + Care Team Providers + +------+ + | Care Re Dye Hand Name | Role | Phone | + +------+ + | [facility] | PCP | Unavailable | | Community | | | + +------+ + Reason for Visit +--------+ + | Reason | Comments | +--------+ + | Other | Appointment and lab reminder | +--------+ + Encounter Details +--------+ + + + + | Date | Type | Department | Care Team | Description | +--------+ + + + + | 04/16/ | Telephone | [facility] | Kiersten Shaffer CMA | Other (Appointment | | 2017 | | [place] [address] | | and lab reminder) | | | | [address] | | | | | | [place] [address] | | | | | | [phone] | | | +--------+ + + + [...] | | | | | | [address] [place] | | | | | | [address] | | | | | | | | +--------+---------+ + + + as of this encounter Visit Diagnoses Not on filein this encounter"
--- OUTSIDE RECORDS SUMMARY | 2017-06-23 14:19 | XMS | Encounter Summary ---
Demographics + + + | Address | [address] | | | [place] [address] | + + + | Home Phone | | + + + | Preferred Language | Unknown | + + + | Marital Status | | + + + | Hinduism Affiliation | Unknown | + + + | Race | Unknown | + + + | Ethnic Group | Unknown | + + + Author + + + | Author | [facility] | + + + | Organization | [facility] | + + + | Address | Unknown | + + + | Phone | Unavailable | + + + Support + + +---------+ + | Name | Relationship | Address | Phone | + + +---------+ + | Naye Wright | ECON | Unknown | | + + +---------+ + Care Team Providers + +------+ + | Care Dust Operator Name | Role | Phone | + +------+ + | [facility] | PCP | Unavailable | | Community | | | + +------+ + Reason for Visit +--------+ + | Reason | Comments | +--------+ + | Other | [facility] Letter- Not a Candidate | +--------+ + Encounter Details +--------+ + + + + | Date | Type | Department | Care Team | Description | +--------+ + + + + | 04/22/ | Documentati | [facility] | Tavares Vaca MD | Other ([facility] | | 2018 | on Only | [place] | Transplant Services | | | | [address] | [address] [place], [place] | Letter- Not a | | | | [place] [address] | [address] | Candidate) | | | | [phone] | | | +--------+ + + + [...] [place] | | | | | | [address] | | | | | | | | +--------+---------+ + + + as of this encounter Visit Diagnoses Not on filein this encounter"
--- OUTSIDE RECORDS SUMMARY | 2017-06-23 14:19 | XMS | Encounter Summary ---
Demographics + + + | Address | [address] | | | [place] [address] | + + + | Home Phone | | + + + | Preferred Language | Unknown | + + + | Marital Status | | + + + | Methodist Affiliation | Unknown | + + + | Race | Unknown | + + + | Ethnic Group | Unknown | + + + Author + + + | Author | [facility] | + + + | Organization | [facility] | + + + | Address | Unknown | + + + | Phone | Unavailable | + + + Support + + +---------+ + | Name | Relationship | Address | Phone | + + +---------+ + | Naye Wright | ECON | Unknown | | + + +---------+ + Care Team Providers + +------+ + | Care Temperature Inspector Name | Role | Phone | + +------+ + | Silvia Zarate Primary | PCP | | + +------+ + Reason for Visit Surgical (Urgent) + + + + + [...] | | disease) | [address] | [place] | | | | | stage 5, GFR | [place], | [address] Phone: | | | | | less than | [place] [address] | [phone] | | | | | 15 ml/min | Phone: | Fax: | | | | | (HCC) | [phone] | [phone] | | | | | Nephrotic | Fax: | | | | | | range | [phone] | | | | | | proteinuria [...] + + + + + + + Encounter Details +--------+ + + + + | Date | Type | Department | Care Team | Description | +--------+ + + + + | 05/02/ | Initial | [facility] | Jay Portillo MD | Chronic kidney | | 2018 | consult | Vascular Surgery | [address] | disease (CKD), | | | | [address] | [place] [address] | active medical | | | | [place], [place] | [phone] | management without | | | | [address] | | dialysis, | | | | [phone] | | unspecified stage | | | | | | (Primary Dx) | +--------+ + + + + Social [...] + + + | Blood Pressure | 133/82 | 05/02/2017 10:46 AM PST | + + + + | Pulse | 96 | 05/02/2017 10:46 AM PST | + + + + | Temperature | 36.3 C (97.4 F) | 05/02/2017 10:46 AM PST | + + + + | Respiratory Rate | 16 | 05/02/2017 10:46 AM PST | + + + + | Oxygen Saturation | 100% | 05/02/2017 10:46 AM PST | + + + + | Inhaled Oxygen | - | - | | Concentration | | | + + + + | Weight | 49.1 kg (108 lb 5 | 05/02/2017 10:46 AM PST | | | oz) | | + + + + | Height | 154.9 cm (5' 1") | 05/02/2017 10:46 AM PST | + + + + | Body Mass Index | 20.47 | 05/02/2017 10:46 AM PST | + + + + in this encounter Progress Notes Jay Portillo MD - 05/02/2017 10:45 AM PSTFormatting of this note may be different from the o riginal. Subjective: Patient ID: Nicolasa Clark is a 36 y.o. female. HPI Ms. Clark is a pleasant 36 y.o. female with PMH significant for acidoses, BRIDGET, anemia o f renal disease, CKD stage III, cirrhosis of transplanted liver, esophageal varices in cirrh osis, splenectomy, hyperkalemia, iron deficiency anemia, leukopenia, pancytopenia and second benoit renal hyperparathyroidism, who is referred to me for AVF creation. Patient was referred to my office by her Crester, Dr. Vaca, for fistula creation. Patient reports she had a cancerous tumor on her liver at and has had 2 liver transplants. Her current anti rej ection medications for her second transplant are causing her kidneys to fail, and she report s the GFR is currently at 9. Patient reports Dr. Vaca would like her to start dialysis as s oon as possible. US upper extremity mapping for HDA bilat Impression 1. Dialysis mapping, as described below. FINDINGS: Diameter and depth measured in millimeters. Right Cephalic vein: Insertion: 5.1 and 15 Upper humerus: 1.0 and 3.6. Mid humerus and distal: Too small Right basilic vein: Upper humerus: 2.2 and 4.6. Mid humerus 1.8 and 6.1. Elbow and distal: Too small. Right basilic vein: Upper humerus: 3.8. Mid humerus: 3.5. Elbow: 2.3. Right Axillary vein: 8.2. Right Brachial artery distal: 4.8. Right Radial artery at the wrist: 1.6. Right ulnar artery at the wrist: 1.9 Left cephalic vein: Insertion: 6.1 and 11. Upper humerus: 1.4 and 2.7. Mid humerus and distal: Too small Left basilic vein: Upper humerus: 1.9 and 5.6. Mid humerus and distal: Too small Left brachial vein: Upper humerus: 4.9. Mid humerus: 3.7. Elbow: 3.0. Left axillary vein: 7.9. Left brachial artery distal: 4.2. Left radial artery at the wrist: 2.3. Left ulnar artery at the wrist: 1.5 Past Medical History Diagnosis Date Acidosis Acute kidney injury (HCC) Anemia of renal disease Chronic kidney disease requiring chronic dialysis (HCC) Chronic kidney disease, stage III (moderate) Cirrhosis of transplanted liver (HCC) Diarrhea Esophageal varices in cirrhosis (HCC) Fatigue H/O splenectomy Hyperkalemia Insomnia Iron deficiency anemia Leukopenia Liver transplanted (HCC) Pancytopenia (HCC) S/P section X 2 Secondary hyperparathyroidism, renal (HCC) Vascular dialysis catheter in place (HCC) Past Surgical History Procedure Laterality Date SECTION LIVER TRANSPLANT Bilateral 1988 Social History Substance Use Topics Smoking status: Former Smoker Smokeless tobacco: Never Used Alcohol use No Family History Problem Relation Age of Onset Kidney disease Brother Current Outpatient Prescriptions on File Prior to Visit Medication Sig Dispense Refill allopurinol (ZYLOPRIM) 100 MG tablet Take 1 tablet by mouth daily. 30 tablet 11 amLODIPine (NORVASC) 5 MG tablet Take 1 tablet by mouth daily. 30 tablet 11 calcitRIOL (ROCALTROL) 0.5 MCG capsule Take 1 capsule by mouth daily. 30 capsule 11 calcium acetate (PHOSLO) 667 MG capsule Take 1 capsule by mouth 3 (three) times daily w ith meals. 90 capsule 11 cholecalciferol (VITAMIN D-3) 1000 units tablet Take 1,000 Units by mouth daily. ciprofloxacin (CIPRO) 250 MG tablet Take 1 tablet by mouth 2 (two) times daily. 28 tabl et 0 sodium bicarbonate 650 MG tablet Take 1 tablet by mouth 4 (four) times daily. 120 table t 11 tacrolimus (PROGRAF) 1 MG capsule Take 1 mg by mouth 2 (two) times daily. 4 mg AM, 4 mg PM amitriptyline (ELAVIL) 50 MG tablet Take 50 mg by mouth daily. No current facility-administered medications on file prior to visit. Allergies Allergen Reactions Penicillins Hives Review of Systems Comprehensive ROS performed and pertinent items described in the HPI. Objective: Physical Exam Vitals reviewed. Constitutional: Patient appears well-developed and well-nourished. HENT: Head: Normocephalic and atraumatic. Mouth/Throat: Oropharynx is clear and moist. Cardiovascular: Normal rate and regular rhythm. Pulmonary/Chest: Effort normal and breath sounds normal. Abdominal: Soft. Bowel sounds are normal. Musculoskeletal: Normal range of motion. Neurological: Patient is alert and oriented to person, place, and time. Skin: Skin is warm and dry. Vascular: Palpable radial and brachial pulses bilaterally. Assessment and Plan: I have informed the patient that she is not a candidate for fistula creation as her veins a re too small, which is likely secondary to her previous surgeries and chemotherapy. I have i nformed the patient that I can create an AV graft instead, but we dicussed that grafts do no t normally last as long as fistulas, and there is also higher risk of infection using a ana maria t, which will require surgical removal. Discussed surgical option and mechanism of left arm AV graft creation with the patient. We have discussed benefits and risks of this procedure, including bleeding, infection requiring surgical removal or Steal Syndrome, again requiring additional repair. Patient is understanding and agreeable to left upper arm AV graft creatio n, and has signed consent for surgery on 05/10/17. Patient was instructed not to eat or drink fluids after 11:59 PM on 05/09/17.All questions and concerns addressed. Patient will follow up with myself on 05/10/17 for AV graft creation. Patient understands and is agreeable. Attending Note: Documentation assistance provided by Galilea Suarez (Paola). Information recor ded by the paola has been reviewed and validated by me. I agree with its contents. Signed by: Galilea Paola Suarez 05/02/17, 11:22 AM Jay Portillo MD in this encounter Plan of Treatment +--------+---------+ + + + | Date | Type | Specialty | Care Team | Description | +--------+---------+ + + + | 07/15/ | Office | Nephrology | Tavares Vaca MD | | | 2018 | Visit | | [address] | | | | | | [address] [place], [place] | | | | | | [...] +--------+ + + + in this encounter Visit Diagnoses + + | Diagnosis | + + | Chronic kidney disease (CKD), active medical management without dialysis, unspecified | | stage - Primary | + +
--- OUTSIDE RECORDS SUMMARY | 2017-06-23 14:19 | XMS | Encounter Summary ---
Demographics + + + | Address | [address] | | | [place] [address] | + + + | Home Phone | | + + + | Preferred Language | Unknown | + + + | Marital Status | | + + + | Baptist Affiliation | Unknown | + + + | Race | Unknown | + + + | Ethnic Group | Unknown | + + + Author + + + | Author | [facility] | + + + | Organization | [facility] | + + + | Address | Unknown | + + + | Phone | Unavailable | + + + Support + + +---------+ + | Name | Relationship | Address | Phone | + + +---------+ + | Naye Wright | ECON | Unknown | | + + +---------+ + Care Team Providers + +------+ + | Care Dice Table Operator Name | Role | Phone | + +------+ + | Brandan Zarate Primary | PCP | | + +------+ + Encounter Details +--------+ + + + + | Date | Type | Department | Care Team | Description | +--------+ + + + + | 04/18/ | Orders Only | [facility] | Kiersten Shaffer CMA | Stage 4 chronic | | 2018 | | [place] [address] | | kidney disease | | | | [facility] [address] | | ([facility]); Nephrotic | | | | [place] [address] | | range proteinuria; | | | | [phone] | | Anemia of chronic | | | | | | renal failure, stage | | | | | | 4 (severe) ([facility]); | | | | | | Hyperuricemia; BRIDGET | | | | | | (acute kidney | | | | | | injury); Metabolic | | | | | | acidosis; Secondary | | | | | | hyperparathyroidism | | | | | | ([facility]); Acute | | | | | | [...] | | | | | | [address] [place], [place] | | | | | | [id number] | | | | | | | | +--------+---------+ + + + as of this encounter Results Uric acid (04/18/2017 8:10 AM) + +---------+ + | Component | Value | Ref Range | + +---------+ + | URIC ACID | 7.8 (A) | 2.3 - 6.6 | + +---------+ + + + + | Specimen | Performing Laboratory | + + + | Blood | [facility] [address] | | | [address] | + + + PTH intact no calcium (04/18/2017 8:10 AM) + + + + | Component | Value | Ref Range | + + + + | PTH INTACT NO | 653.0 (A) | 15 - 65 pg/mL | | CALCIUM | | | + + + + + + + | Specimen | Performing Laboratory | + + + | Blood | [facility] [address] [place] [address] | | | [address] | + + + CBC W/Auto Diff (Reflex to Manual) (04/18/2017 8:10 AM) + + + + | Component | Value | Ref Range | + + + + | WBC | 18.9 (A) | 4.5 - 11.0 10^3/mL | + + + + | RBC | 3.24 (A) | 3.8 - 5.1 10^6/ L | + + + + | HGB | 9.8 (A) | 12 - 16 g/dL | + + + + | HCT | 30 (A) | 35 - 45 % | + + + + | MCV | 92.6 | 81 - 99 fL | + + + + | MCH | 30 | 27 - 33 pg | + + + + | MCHC | 33 | 30 - 36 g/dL | + + + + | PLT | 248 | 140 - 440 K/ L | + + + + | RDW SD | 15.6 (A) | 10.5 - 15.0 % | [...] + + + | Blood | [facility] [address] [place], [place] [address] | | | [address] | + + + Magnesium (04/18/2017 8:10 AM) + +---------+ + | Component | Value | Ref Range | + +---------+ + | MAGNESIUM | 1.6 (A) | 1.7 - 2.5 mg/dL | + +---------+ + + + + | Specimen | Performing Laboratory | + + + | Blood | [facility] [address] [place] [address] | | | [address] | + + + Renal function panel (04/18/2017 8:10 AM) + + + + | Component | Value | Ref Range | + + + + | GLUCOSE | 123 (A) | 70 - 100 mg/dL | + + + + | BUN | 61 (A) | 6 - 23 mg/dL | + + + + | CREATININE | 5.32 (A) | 0.6 - 1.35 mg/dL | + + + + | PHOSPHORUS | | mg/dL | + + + + | Albumin | 3.0 (A) | 3.5 - 5.0 | + + + + | SODIUM | 142 | 132 - 143 mmol/L | + + + + | POTASSIUM | 3.8 | 3.6 - 5.1 mmol/L | + [...] + + + + | Phosphorus,Inorganic | 6.7 (A) | 2.5 - 5.0 | + + + + | BUN/CREAT | 11.5 | 6.0 - 28.6 | + + + + | CALCIUM | 8.0 (A) | 8.4 - 10.2 mg/dL | + + + + | EGFR | 9 (A) | 60 mg/dL | + + + + + + + | Specimen | Performing Laboratory | + + + | Blood | [facility] [address] [place] [address] | | | [address] | + + + in this encounter [...]
--- OUTSIDE RECORDS SUMMARY | 2017-06-23 14:19 | XMS | Encounter Summary ---
Demographics + + + | Address | [address] | | | [place] [address] | + + + | Home Phone | | + + + | Preferred Language | Unknown | + + + | Marital Status | | + + + | Rastafari Affiliation | Unknown | + + + | Race | Unknown | + + + | Ethnic Group | Unknown | + + + Author + + + | Author | [facility] | + + + | Organization | [facility] | + + + | Address | Unknown | + + + | Phone | Unavailable | + + + Support + + +---------+ + | Name | Relationship | Address | Phone | + + +---------+ + | Naye Wright | ECON | Unknown | | + + +---------+ + Care Team Providers + +------+ + | Care Finance Business Partner Name | Role | Phone | + +------+ + | [facility] | PCP | Unavailable | | Community | | | + +------+ + Reason for Visit + + + | Reason | Comments | + + + | Labs Only | Urine Culture from [facility] dated 04/18/2017 | + + + Encounter Details +--------+ + + + + | Date | Type | Department | Care Team | Description | +--------+ + + + + | 04/22/ | Documentati | [facility] | Sahffer, Landy, PROCESS TANK TENDER | Labs Only (Urine | | 2018 | on Only | [place] [address] | | Culture from | | | | Saurabh Rowe | | [facility] dated | | | | [address] [place], [place] | | 04/18/2017) | | | | [address] | | | +--------+ + + + [...] [place] | | | | | | [address] | | | | | | | | +--------+---------+ + + + as of this encounter Results Urine culture (04/18/2017) + + + + [...] | + + + | Urine | [facility] [address] [place] [address] [address] [place], [place] | | | [address] | + + + in this encounter Visit Diagnoses Not on filein this encounter"
--- OUTSIDE RECORDS SUMMARY | 2017-06-23 14:19 | XMS | Encounter Summary ---
Demographics + + + | Address | [address] | | | [place] [address] | + + + | Home Phone | | + + + | Preferred Language | Unknown | + + + | Marital Status | | + + + | Caodaism Affiliation | Unknown | + + + | Race | Unknown | + + + | Ethnic Group | Unknown | + + + Author + + + | Author | [facility] | + + + | Organization | [facility] | + + + | Address | Unknown | + + + | Phone | Unavailable | + + + Support + + +---------+ + | Name | Relationship | Address | Phone | + + +---------+ + | Naye Wright | ECON | Unknown | | + + +---------+ + Care Team Providers + +------+ + | Care Cheesemaker Helper Name | Role | Phone | + +------+ + | [facility] | PCP | Unavailable | | Community | | | + +------+ + Reason for Visit + + + | Reason | Comments | + + + | Abnormal Labs | | + + + Encounter Details +--------+ + + + + | Date | Type | Department | Care Team | Description | +--------+ + + + + | 04/17/ | Telephone | [facility] | Kiersten Shaffer CMA | Abnormal Labs | | 2017 | | [place] [address] | | | | | | [address] | | | | | | [place] [address] | | | | | | [phone] | | | +--------+ + + + [...] | | | | | | [address] [place], [place] | | | | | | [id number] | | | | | | | | +--------+---------+ + + + as of this encounter Visit Diagnoses Not on filein this encounter"
--- OUTSIDE RECORDS SUMMARY | 2017-06-23 14:19 | XMS | Encounter Summary ---
Demographics + + + | Address | [address] | | | [place] [address] | + + + | Home Phone | | + + + | Preferred Language | Unknown | + + + | Marital Status | | + + + | Congregation Affiliation | Unknown | + + + | Race | Unknown | + + + | Ethnic Group | Unknown | + + + Author + + + | Author | [facility] | + + + | Organization | [facility] | + + + | Address | Unknown | + + + | Phone | Unavailable | + + + Support + + +---------+ + | Name | Relationship | Address | Phone | + + +---------+ + | Naye Wright | ECON | Unknown | | + + +---------+ + Care Team Providers + +------+ + | Care Senior Microsoft Consultant Name | Role | Phone | + +------+ + | Sherrie Blackman MD | PCP | | + +------+ + Encounter Details +--------+ + + + + | Date | Type | Department | Care Team | Description | +--------+ + + + + | 04/23/ | Orders Only | [facility] | Ryan, | CKD (chronic kidney | | 2018 | | Vascular Surgery | [address]IN[address] | disease) stage 5, | | | | [address] | | GFR less than 15 | | | | [address] [place] | | ml/min ([facility]) | | | | [address] | | (Primary Dx) | | | | [phone] | | | +--------+ + + + [...] | | | | | | [address] [place], [place] | | | | | | [address] | | | | | | | | +--------+---------+ + + + as of this encounter Results US upper extremity mapping for HDA bilat (05/01/2017 10:23 AM) + + + | Specimen | Performing Laboratory | + + + | | [facility] [place] [address] | + + + + + | Impressions | + + | 1. Dialysis mapping, as described above. | + + + + | Narrative | + + Etta CLARK UPPER EXTREMITY MAPPING FOR HDA BILATERAL [...] Chronic kidney disease, Stage V | + +"
--- OUTSIDE RECORDS SUMMARY | 2017-06-23 14:19 | XMS | Encounter Summary ---
Demographics + + + | Address | [address] | | | [place] [address] | + + + | Home Phone | | + + + | Preferred Language | Unknown | + + + | Marital Status | | + + + | Holiness Affiliation | Unknown | + + + | Race | Unknown | + + + | Ethnic Group | Unknown | + + + Author + + + | Author | [facility] | + + + | Organization | [facility] | + + + | Address | Unknown | + + + | Phone | Unavailable | + + + Support + + +---------+ + | Name | Relationship | Address | Phone | + + +---------+ + | Naye Wright | ECON | Unknown | | + + +---------+ + Care Team Providers + +------+ + | Care Teller Vault Name | Role | Phone | + +------+ + | Brandan Zarate Primary | PCP | | + +------+ + Encounter Details +--------+ + + + + | Date | Type | Department | Care Team | Description | +--------+ + + + + | 04/15/ | Orders Only | [facility] | Kiersten Shaffer CMA | Stage 4 chronic | | 2018 | | [place] [address] | | kidney disease | | | | [facility] [address] | | ([facility]); Nephrotic | | | | [place] [address] | | range proteinuria; | | | | [phone] | | Anemia of chronic | | | | | | renal failure, stage | | | | | | 4 (severe) ([facility]); | | | | | | Hyperuricemia; BRIDGET | | | | | | (acute kidney | | | | | | injury); Metabolic | | | | | | acidosis; Secondary | | | | | | hyperparathyroidism | | | | | | ([facility]); Acute | | | | [...] | | | | | | [address] [place], [place] | | | | | | [address] | | | | | | | | +--------+---------+ + + + as of this encounter Results Renal function panel (04/15/2017 8:50 AM) + + + + | Component | Value | Ref Range | + + + + | GLUCOSE | 105 (A) | 70 - 100 mg/dL | + + + + | BUN | 60 (A) | 6 - 23 mg/dL | + + + + | CREATININE | 5.17 (A) | 0.6 - 1.35 mg/dL | + + + + | PHOSPHORUS | | mg/dL | + + + + | Albumin | 3.1 (A) | 3.5 - 5.0 | + + + + | SODIUM | 143 | 132 - 143 mmol/L | + + + + | POTASSIUM | 4.1 | 3.6 - 5.1 mmol/L | + + + + | CHLORIDE | 112 | 95 - 112 mmol/L | + + + + | CO2 | 18 (A) | 19 - 31 mmol/L | + + + + | ANION GAP AGAP | 17.1 | 7 - 21 mmol/L | + + + + | GFR MDRD Non Af Amer | | | + + + + | Phosphorus,Inorganic | 6.7 (A) | 2.5 - 5.0 | + + + + | BUN/CREAT | 11.6 | 6.0 - 28.6 | + + + + | CALCIUM | 8.4 | 8.4 - 10.2 mg/dL | + + + + | EGFR | 10 (A) | 60 mg/dL | + + + + + + + | Specimen | Performing Laboratory | + + + | Blood | [facility] [address] [place] | | | [address] | + + + in this encounter [...]
--- OUTSIDE RECORDS SUMMARY | 2017-06-23 14:19 | XMS | Encounter Summary ---
Demographics + + + | Address | [address] | | | [place] [address] | + + + | Home Phone | | + + + | Preferred Language | Unknown | + + + | Marital Status | | + + + | Bahai Affiliation | Unknown | + + + | Race | Unknown | + + + | Ethnic Group | Unknown | + + + Author + + + | Author | [email or web address] | + + + | Organization | [email or web address] | + + + | Address | Unknown | + + + | Phone | Unavailable | + + + Support + + +---------+ + | Name | Relationship | Address | Phone | + + +---------+ + | Naye Wright | ECON | Unknown | | + + +---------+ + Care Team Providers + +------+ + | Care Energy Manager Name | Role | Phone | + +------+ + | [facility] Primary | PCP | | + +------+ + Reason for Visit MRI/CAT Scan (Emergency) + +--------+ + + + + | Status | Reason | Specialty | Diagnoses / | Referred By | Referred To | | | | | Procedures | Contact | Contact | + +--------+ + + + + | Authorized | | Radiology | Diagnoses | [place], | [facility] | | | | | CKD | Tavares Orellana MD | [address] | | | | | (chronic | [address] | [address] | | | | | kidney | [address] | [address] | | | | | disease) | [place], [place] | [place], [place] | | | | | stage 5, GFR | [address] | [address] Phone: | | | | | less than | Phone: | [phone] | | | | | 15 ml/min | [phone] | Fax: | | | | | (HCC) | Fax: | [phone] | | | | | Nephrotic | [phone] | | | | | | range [...] + + | 04/24/ | Hospital | [facility] | Tavares Vaca MD | CKD (chronic kidney | | 2018 | Encounter | Medical Center | [address] | disease) stage 5, | | | | Clinical Decision | [address] [place], [place] | GFR less than 15 | | | | [address] | [address] | ml/min ([facility]LY [facility]); | | | | [place] [address] | | Nephrotic range | | | | [phone] | 2, [facility] Di Nurse | proteinuria; Anemia | | | | | Radiologist, [facility] | of chronic renal | | | | | Procedure Ct | failure, stage 4 | | | | | | (severe) ([facility]); | | | | | | Secondary | | | | | | hyperparathyroidism | | | | | | ([facility]); | | | | | | Hyperphosphatemia; [...] + + + | Blood Pressure | 148/101 | 04/24/2017 12:00 PM PST | + + + + | Pulse | 90 | 04/24/2017 12:00 PM PST | + + + + | Temperature | 36.9 C (98.5 F) | 04/24/2017 8:32 AM PST | + + + + | Respiratory Rate | 19 | 04/24/2017 10:25 AM PST | + + + + | Oxygen Saturation | 99% | 04/24/2017 12:00 PM PST | + + + + | Inhaled Oxygen | - | - | | Concentration | | | + + + + | Weight | 45.8 kg (101 lb) | 04/24/2017 8:32 AM PST | + + + + | Height | 154.9 cm (5' 1") | 04/24/2017 8:32 AM PST | + + + + | Body Mass Index | 19.08 | 04/24/2017 8:32 AM PST | + + + + in this encounter Discharge Instructions Doreen Adam RN - 04/24/2017Formatting of this note may be different from the original. Discharge Instructions for Kidney Biopsy You had [...] return to work. Be sure to tell [facility] are providerif your job involves heavy lifting. [...] of breath Sudden chest pain Feverof 100.4F (38C)orhigher, oras directed by your healthcare provider Chills Increasing redness, tenderness, or swelling at the biopsy site Opening of or drainage or bleedingfrom the biopsy site Increasing pain, with or without activity Date Last Reviewed: 04/04/201619995832-9410 [employer]. [address] [place] [address]. All righ ts reserved. This information is [...] | | | | | | [address] [place], [place] | | | | | | [address] | | | | | | | [...] Occurrences starting | | | | | 04/24/2017 until | | | | | 04/24/2017 | + +--------+ + + as of this encounter Results CT limited localizer (04/24/2017 10:32 AM) + + + | Specimen | Performing Laboratory | + + + | | [address] [address] | + + + + + | [...] intervention Patient positioning: Prone. | | Axial apartment community assistant manager images were obtained through region of [...] imaging and interventionPatient | | positioning: Prone.Axial apartment community assistant manager images were obtained through region of [...] | | | | + + Protime-INR (04/24/2017 8:15 AM) + + + + | [...] EMBOLISMTesting performed at | | | | [facility];[address] [place] [address];[place] [address] | | | |Testing performed at [facility];[address] [place] [address];[place] [address] | | | | | | + + + + + + + | Specimen | Performing Laboratory | + + + | Blood | [facility] [address] [place] [address] | + + + aPTT (04/24/2017 8:15 AM) + + + + | Component | Value | Ref Range | + + + + | APTT | 30Comment: Testing performed at [facility];888 | 23 - 32 seconds | | | Jojo Hester;[place] [address] | | + + + + + + + | Specimen | Performing Laboratory | + + + | Blood | [facility] [address] [place] [address] | + + + Platelet count (04/24/2017 8:15 AM) + + + + | Component | Value | Ref Range | + + + + | PLT | 248Comment: Testing performed at [facility];888 | 150 - 400 K/uL | | | Jo[address] Hester;[place] [address] | | + + + + + + + | Specimen | Performing Laboratory | + + + | Blood | [facility] [address] [place] [address] | + + + in this encounter [...] Acute kidney failure, unspecified | + + Admitting Diagnoses + + [...] stage 4 (severe) (HCC) | + + Administered Medications + +--------+ +--------+------+------+ | Medication Order | MAR | Action | Dose | Rate | Site | | | Action | Date | | | | + +--------+ +--------+------+------+ | fentaNYL (SUBLIMAZE) injection | Given | | 75 mcg | | | | 25 mcg 25 mcg, Intravenous, PRN, | | 8 10:24 | | | | | Pain, Every 2 minutes PRN, | | PST | | | | | Starting 04/24/17 at 0808, | | | | | | | Intra-procedure (CATH/IR) | | | | | | + +--------+ +--------+------+------+ +-------+ +--------+---+---+ | Given | | 25 mcg | | | | | 8 10:30 | | | | | | PST | | | | +-------+ +--------+---+---+ +---+---+ | | | +---+---+ + +-------+ + +---+---+ | HYDROcodone-acetaminophen | Given | | 1 tablet | | | | (NORCO) 10-325 MG per tablet 1 | | 8 11:04 | | | | | tablet 1 tablet, Oral, Every 4 | | PST | | | | | Hours PRN, Severe Pain (7-10), | | | | | | | Starting 04/24/17 at 1048 | | | | | | + +-------+ + +---+---+ + +---+ | | | + +---+ | HYDROcodone-acetaminophen | | | (NORCO) 5-325 MG per tablet 1 | | | tablet 1 tablet, Oral, Every 4 | | | Hours PRN, Moderate Pain (4-6), | | | Starting Sat04/24/17 at 1048 | | + +---+ | | | + +---+ | lidocaine 1 % injection 5 mL 5 | | | mL, Intradermal, Img Once PRN, | | | for procedure, Starting Wed | | | 04/24/17 at 1048, For 1 dose, | | | Procedural (CT) | | + +---+ | | | + +---+ + +-------+ +------+---+---+ | midazolam (VERSED) injection | Given | | 1 mg | | | | 0.5 mg 0.5 mg, Intravenous, PRN, | | 8 10:25 | | | | | maintenance moderate sedation, | | PST | | | | | Starting Sat04/24/17 at 0808, | | | | | | | Intra-procedure (CATH/IR) | | | | | | + +-------+ +------+---+---+ + +---+ | | | + +---+ | ondansetron (ZOFRAN) injection | | | 4 mg 4 mg, Intravenous, Every 6 | | | Hours PRN, Nausea, Vomiting, | | | Starting 04/24/17 at 1048 | | + +---+ | | | + +---+ | ondansetron (ZOFRAN) tablet 4 | | | mg 4 mg, Oral, Every 6 Hours | | | PRN, Nausea, Vomiting, Starting | | | 04/24/17 at 1048 | | + +---+ | | | + +---+ | sodium bicarbonate buffer | | | (NEUT) injection 5 mL 5 mL, | | | Intradermal, Img Once PRN, for | | | procedure, Starting 04/24/17 | | | at 1048, For 1 dose, Procedural | | | (CT) | | + +---+ | | | + +---+ in this encounter
--- OUTSIDE RECORDS SUMMARY | 2017-06-23 14:20 | XMS | Encounter Summary ---
Demographics + + + | Address | [address] | | | [place] [address] | + + + | Home Phone | | + + + | Preferred Language | Unknown | + + + | Marital Status | Unknown | + + + | Hindu Affiliation | Unknown | + + + | Race | Unknown | + + + | Ethnic Group | Unknown | + + + Author + + + | Author | [facility] | | | and [place] | + + + | Organization | [facility] | | | and [place] | + + + | Address | Unknown | + + + | Phone | Unavailable | + + + Care Team Providers + +------+ + | Care Laundry Bag Punch Operator Name | Role | Phone | + +------+ + PCP | Unavailable | + +------+ + Encounter Details +--------+ + + + + | Date | Type | Department | Care Team | Description | +--------+ + + + + | 05/30/ | Hospital | [facility] | Tavares Vaca | | | 2018 | Encounter | [facility] | MD [address] | | | | | LABORAT[address] | | | | | [address] [place], [place] | [place] [address] | | | | | [address] | [phone] | | | | | [phone] | | | +--------+ + + + + Social History + +-------+ +--------+------+ | Tobacco Use | Types | Packs/Day | Years | Date | | | | | Used | | + +-------+ +--------+------+ | Never Assessed | | | | | + +-------+ +--------+------+ + + + | Sex Assigned at | Date Recorded | | | | + + + | Not on file | | + + + as of this encounter Plan of Treatment Not on fileas of this encounter Results Surgical Pathology Exam (05/30/2017 0945) + + + | Specimen | Performing Laboratory | + + + | | [facility] [address] | | | [place] [address] | + + + + + | Narrative | + + | SURGICAL PATHOLOGY REPORT Case | | Number: [id number] Date Taken: 05/30/2017 Date Received: 05/30/2017 Completed: 06/04/2017 | | Physician: TAVARES VACA Copy to: DIAGNOSIS: Kidney, core biopsy: | | - Global (07/17) and segmental (03/19) glomerulosclerosis. - | | Moderate arteriosclerosis. - Moderate hyaline arteriolosclerosis. - | | Severe diffuse tubular atrophy and interstitial fibrosis. 0 COMMENT: Electron is | | pending at the time of this report. The vascular changes, including focally | | prominent hyaline arteriolosclerosis, if not otherwise clinically explained could be | | related to this patient's immune suppressive therapy. Melvin Schreiber MD | | Electronic signature GROSS DESCRIPTION: Three specimens are received, each | | identified as "kidney". Specimen received in formalin consists of four cores of amaya | | tissue measuring 0.5, 0.6, 0.6, and 1.0 cm in length. Entirely submitted for light | | microscopy in "A1". Specimen received in Chris solution is submitted for | | immunofluorescence studies. Specimen received in glutaraldehyde is submitted for | | electron microscopy. (MS) Clinical History: The patient is a 37-year-old | | female with a history of liver transplant. She is now under evaluation for renal | | failure with proteinuria. MICROSCOPIC DESCRIPTION: Four core segments of renal | | tissue are examined in multiple serial sections using PAS, Trichrome and [place] | | Methenamine Silver, in addition to H&E stains. The tissue shows advanced chronic | | tubulointerstitial changes with diffuse fibrosis and focal thyroidization. Residual | | clusters of proximal tubules show compensatory changes and large prominent resorptive | | vesicles. The tissue appears to be at least 75% cortex. A total of 16 glomeruli | | are present, 5 are globally sclerotic, and 1 shows well developed segmental | | sclerosis. The patent glomeruli show wrinkling of capillary solomon. There is no | | endocapillary proliferation, necrosis or crescents. No basement membrane spikes, | | fenestrations, or double contours are seen. Small arteries show moderate intimal | | fibroplasia. The smallest arterial branches and arterioles show mural thickening | | with focal thick hyaline deposition. No changes of acute endothelial injury, | | thrombosis, or vasculitis are found. IMMUNOFLUORESCENCE MICROSCOPY: The | | specimen for immunofluorescence is adequate. It consists of four small fragments of | | renal tissue. One of the four is renal cortex containing up to 3 glomeruli per | | section. Sections are stained by direct immunofluorescence for IgG, IgM, IgA, C3, | | C1q, fibrinogen, albumin, and kappa and lambda light chain. There is no pattern of | | immunofluorescence to suggest immunoglobulin, complement, or light chain deposition in | | glomeruli or other structures. No thrombi or fibrinoid necrosis is detected on | | fibrogen stain. Tubular casts fluoresce with equal intensity for kappa and lambda | | light chain. Ancillary studies were performed on this case with appropriate | | controls showing appropriate reactivity. These tests may not have been cleared or | | approved by the U.S. Food and Drug Administration. The FDA has determined that such | | clearance or approval is not necessary, since such tests were developed and their | | performance characteristics determined by [facility] | | Laboratory. This test is used for clinical purposes. It should not be regarded | | as investigational or for research. [facility] is certified under the | | Clinical Laboratory Improvement Amendments of 1988 (CLIA) as qualified to perform high | | complexity clinical laboratory testing. A: 45591, 79895, 05794, 01838, | | 18713, 94641, 37814, 18002, 25762, 17560, 51647(a), 43766, 28471, 30534 | | PROCEDURES/ADDENDA ELECTRON MICROSCOPY | | DIAGNOSIS: Electron microscopy diagnoses: - Glomerular changes | | consistent with chronic ischemic injury. - No evidence of primary glomerular | | disease identified. 0 COMMENT: The ultrastructural changes support the light | | microscopy findings of vascular disease/vascular insufficiency. DISCUSSION: | | One micron survey sections are obtained from 4 plastic embedded tissue blocks and | | stained with Canales's stain. 3 of the blocks contain renal cortical tissue. A | | total of 5 glomeruli are found, of which 3 are globally sclerotic. 1 of the better | | preserved glomeruli in block 2 is further sectioned for ultrastructural | | examination. On electron microscopy, the glomerular capillary solomon show marked | | wrinkling and remodelling and irregular thickening. The visceral epithelial foot | | processes show segmental fusion but appear largely intact. There is mild expansion | | of the mesangial areas but no evidence of immune deposits or fibrillar deposits | | found. No deposits are evident along capillary basement membranes. The | | fenestrated endothelium appears largely intact without changes. The fenestrated | | endothelium appears largely intact without changes of acute or chronic injury. No | | leukocyte margination is found. Melvin Schreiber MD Testing performed at: | | [facility] Bernabe Aguilera M.D., Director [address] [place] [address] | + + in this encounter Visit Diagnoses Not on filein this encounter Admitting Diagnoses + + | Diagnosis | + + | Chronic kidney disease, unspecified - RENAL FAILURE | + + | Abnormal results of kidney function studies | + +
--- OUTSIDE RECORDS SUMMARY | 2017-06-23 14:20 | XMS | Encounter Summary ---
Demographics + + + | Address | [address] | | | [place] [address] | + + + | Home Phone | | + + + | Preferred Language | Unknown | + + + | Marital Status | Single | + + + | Latter-Day Affiliation | NON | + + + | Race | White | + + + | Ethnic Group | Not or | + + + Author + + + | Author | [facility] | + + + | Organization | [facility] | + + + | Address [...] Team Providers + +------+ + | Care Commercial Floor Covering Installer Name | Role | Phone | + [...] | on | Coordinators [address] | [place], [place] | | | | | [address] | [address] | | | | | Road [place], [place] | | | | | | [address] | | | | | | [phone] | | | +--------+ + + + [...] | | | | | [address] [place], | | | | | | [place] [address] | | | | | | [phone] | | | | | | | | +--------+---------+ + + + as of this encounter Visit Diagnoses Not on filein this encounter
--- OUTSIDE RECORDS SUMMARY | 2017-06-23 14:20 | XMS | Encounter Summary ---
Demographics + + + | Address | [address] | | | [place] [address] | + + + | Home Phone | | + + + | Preferred Language | Unknown | + + + | Marital Status | Single | + + + | Orthodoxy Affiliation | NON | + + + | Race | White | + + + | Ethnic Group | Not or | + + + Author + + + | Author | [facility] | + + + | Organization | [facility] | + + + | [...] Team Providers + +------+ + | Care Roof Plumber Name | Role | Phone | + [...] | | | | | [address] [facility] | [address] [place], | | | | | [place], [place] | [place] [address] | | | | | [address] | [phone] | | | | | [phone] | | | +--------+ + + + [...] | | | | | [address] [place], | | | | | | [place] [address] | | | | | | [phone] | | | | | | | | +--------+---------+ + + + as of this encounter Visit Diagnoses Not on filein this encounter
--- OUTSIDE RECORDS SUMMARY | 2017-06-23 14:20 | XMS | Clinical Summary ---
Demographics + + + | Address | [address] | | | [place] [address] | + + + | Home Phone | | + + + | Preferred Language | Unknown | + + + | Marital Status | Unknown | + + + | Jehovah'S Witness Affiliation | Unknown | + + + | Race | Unknown | + + + | Ethnic Group | Unknown | + + + Author + + + | Author | [facility] | | | and [place] | + + + | Organization | [facility] | | | and [place] | + + + | Address | Unknown | + + + | Phone | Unavailable | + + + Care Team Providers + +------+ + | Care Investor Relations Director Name | Role | Phone | + +------+ + PP | Unavailable | + +------+ + Allergies Not on File Current Medications Not on file Active Problems Not on file Encounters +--------+ + + + + | Date | Type | Specialty | Care Team | Description | +--------+ + + + + | 05/30/ | Hospital | | Tavares Vaca | | | 2017 | Encounter | | MD Miki | | +--------+ + + + + from Last 3 Months Social History + +-------+ +--------+------+ | Tobacco [...] on file | | + + + Plan of Treatment + + + + + | Health Maintenance | Due Date | Last Done | Comments | + + + + + | Vaccine: | | | | | Dtap/Tdap/Td (1 - | 2 | | | | Tdap) | | | | + + + + + | CERVICAL CANCER | | | | | SCREENING (PAP EVERY | 4 | | | | 3 YEARS 21-64 ) | | | | + + + + + | Vaccine: Influenza | | | | | (Season Ended) | 8 | | | + + + + + Results Surgical Pathology Exam (05/30/2017 0945) + + + | Specimen | Performing Laboratory | + + + | | [facility] [address] | | | [place] [address] | + + + + + | Narrative | + + | SURGICAL PATHOLOGY REPORT Case | | Number: [id number] Date Taken: 05/30/2017 Date Received: 05/30/2017 Completed: 06/04/2017 | | Physician: TAVARES VACA Copy to: DIAGNOSIS: Kidney, core biopsy: | | - Global (5/16) and segmental (1/16) glomerulosclerosis. - | | Moderate arteriosclerosis. - [...] their | | performance characteristics determined by [facility] | | Laboratory. This test is used for clinical purposes. It should not be regarded | | as investigational or for research. [facility] is certified under the | | Clinical Laboratory Improvement Amendments of 1988 (CLIA) as qualified to perform high | | complexity clinical laboratory testing. A: 30512, 86258, 30851, 97504, | | 39980, 36555, 55550, 80786, 07467, 27065, 22714(a), 15601, 01855, 18976 | | PROCEDURES/ADDENDA ELECTRON MICROSCOPY | | [...] | | leukocyte margination is found. Melvin Abdoul, MD Testing performed at: | | [facility] Bernabe Aguilera M.D., Director [address] | | [address] [place] [address] | + + from Last 3 Months Insurance + +--------+ +--------+ +---------+ | Payer | Benefi | Subscriber | Type | Phone | Address | | | t Plan | ID | | | | | | / | | | | | | | Group | | | | | + +--------+ +--------+ +---------+ | MEDICARE | MEDICA | xxxxxxxxxx | Medica | [phone] | | | | RE | | re | 555 | | | | PART A | | | | | | | AND B | | | | | + +--------+ +--------+ +---------+ | [employer] | MODA | [id number] | Medica | [phone] | | MEDICAID HMO | HEALTH | | id | [phone] | | | | MDCD | | | | | | | [place] | | | | | + +--------+ +--------+ +---------+ + +--------+ +--------+ + + | Guarantor Name | Accoun | Relation to | Date | Phone | Billing Address | | | t Type | Patient | of | | | | | | | | | | + +--------+ +--------+ + + | NICOLASA CLARK | Person | Self | [birth year] | Home: | [address] | | | al/Fam | | 1980 | [phone] | [address] [place] | | | flvaia | | | [phone] | [phone] | + +--------+ +--------+ + +
--- OUTSIDE RECORDS SUMMARY | 2017-06-23 14:20 | XMS | Clinical Summary ---
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 Due to scarring | | presumably from [...] + + + + | 05/24/ | Account Analyst | | Bernabe Taylor MD | Liver [...] + + + + | 05/07/ | Account Analyst | | Tori Fine RN | | | 2017 | | | | | +--------+ + + + + | 05/07/ | Account Analyst | | Bernabe Taylor MD | Liver [...] + + + + | 05/07/ | Account Analyst | | Tori Fine RN | Liver [...] | | | | | | [place] [address] | | | | | | [phone] | | | | | | | [...]
[2017-06-23] MEDS ORDERED: LEVAQUIN500 MG PO (15:13)
[2017-06-23] MEDS ORDERED: OXYCODONE HCL5 MG PO (15:13)
--- NOTE | 2017-06-24 06:53 | EKG ---
[facility] [address] [facility] [place] [address] Signed Sinus rhythm with fusion complexes Otherwise normal ECG Confirmed by GARY MANCILLA MD ([id number]) on 06/24/2017 6:52:55 AM Electronically Signed By: GARY MANCILLA MD 06/24/17 0653 PATIENT NAME: DELFINO LUCAS Electrocardiogram DATE OF : 84 PHYSICIAN: GARY MANCILLA MD REPORT #: [id number] REPORT IS CONFIDENTIAL AND NOT TO BE RELEASED WITHOUT AUTHORIZATION
[2017-06-27] MEDS ORDERED: OXYCODONE HCL5 MG PO (21:09)
== END 2017-06-23 15:23 | disposition home or self-care (01) ==
LOC: ED 13:39
DX: S20.219A Contusion of unspecified front wall of thorax, initial encounter (principal); J90 Pleural effusion, not elsewhere classified; F17.200 Nicotine dependence, unspecified, uncomplicated; Z88.0 Allergy status to penicillin; Z79.899 Other long term (current) drug therapy; X58.XXXA Exposure to other specified factors, initial encounter
CPT/HCPCS: 71046; 93005; 93010; 99283

== ENCOUNTER → 2017-06-27 | Emergency (ER) | payer MEDICARE, OTHER ==
[~2017-06-27] VITALS: Ht 154.9 cm; Wt 52.2 kg
[~2017-06-27] MED LIST changes: +ALLOPURINOL100 MG PO; +AMLODIPINE BESYL5 MG PO; +CALCITRIOL0.5 MCG PO; +CALCIUM ACETAT667 M1 NG; +LEVAQUIN500 MG PO; +NORCO 5-325 TA1 EACH PO; +OXYCODONE HCL5 MG PO
--- OUTSIDE RECORDS SUMMARY | ~2017-06-27 | XMS | Encounter Summary ---
Demographics + + + | Address | [address] | | | [place] [address] | + + + | Home Phone | | + + + | Preferred Language | Unknown | + + + | Marital Status | | + + + | Temple Affiliation | Unknown | + + + | Race | Unknown | + + + | Ethnic Group | Unknown | + + + Author + + + | Author | [facility] | + + + | Organization | [facility] | + + + | Address | Unknown | + + + | Phone | Unavailable | + + + Support + + +---------+ + | Name | Relationship | Address | Phone | + + +---------+ + | Naye Wright | ECON | Unknown | | + + +---------+ + Care Team Providers + +------+ + | Care Manager Membership Name | Role | Phone | + [...] | | | | | [place] [address] | | | | | | [phone] | | | +--------+ + + + [...] [place] | | | | | | [address] | | | | | | | | +--------+---------+ + + + as of this encounter Visit Diagnoses Not on filein this encounter"
--- OUTSIDE RECORDS SUMMARY | ~2017-06-27 | XMS | Encounter Summary ---
Demographics + + + | Address | [address] | | | [place] [address] | + + + | Home Phone | | + + + | Preferred Language | Unknown | + + + | Marital Status | | + + + | Latter-Day Affiliation | Unknown | + + + | Race | Unknown | + + + | Ethnic Group | Unknown | + + + Author + + + | Author | [facility] | + + + | Organization | [facility] | + + + | Address | Unknown | + + + | Phone | Unavailable | + + + Support + + +---------+ + | Name | Relationship | Address | Phone | + + +---------+ + | Naye Wright | ECON | Unknown | | + + +---------+ + Care Team Providers + +------+ + | Care Link Knitting Machine Operator Name | Role | Phone [...] | | 2018 | on Only | [place] [address] | | Labs dated | | | | [address] | | 04/18/2017) | | | | [place] [address] | | | | | | [phone] | | | +--------+ + + + [...] | | | | | | [address] [place] | | | | | | [address] | | | | | | | | +--------+---------+ + + + as of this encounter Visit Diagnoses Not on filein this encounter"
--- OUTSIDE RECORDS SUMMARY | ~2017-06-27 | XMS | Encounter Summary ---
Demographics + + + | Address | [address] | | | [place] [address] | + + + | Home Phone | | + + + | Preferred Language | Unknown | + + + | Marital Status | Single | + + + | Lutheran Affiliation | NON | + + + | Race | White | + + + | Ethnic Group | Not or | + + + Author + + + | Author | [facility] | + + + | Organization | [facility] | + + + | [...] Team Providers + +------+ + | Care Dipping Machine Operator Name | Role | Phone [...] | [address] | [address] [place], | procedures) | | | | [address] [place], [place] | [place] [address] | | | | | [address] | | | | | | [phone] | | | +--------+ + + + [...] | | | | | [address] [place], | | | | | | [place] [address] | | | | | | [phone] | | | | | | | | +--------+---------+ + + + as of this encounter Visit Diagnoses Not on filein this encounter"
--- OUTSIDE RECORDS SUMMARY | ~2017-06-27 | XMS | Encounter Summary ---
Demographics + + + | Address | [address] | | | [place] [address] | + + + | Home Phone | | + + + | Preferred Language | Unknown | + + + | Marital Status | | + + + | Sabianist Affiliation | Unknown | + + + | Race | Unknown | + + + | Ethnic Group | Unknown | + + + Author + + + | Author | [facility] | + + + | Organization | [facility] | + + + | Address | Unknown | + + + | Phone | Unavailable | + + + Support + + +---------+ + | Name | Relationship | Address | Phone | + + +---------+ + | Naye Wright | ECON | Unknown | | + + +---------+ + Care Team Providers + +------+ + | Care Tax Evaluator Name | Role | Phone | + [...] | kidney disease | | | | [facility] [address] | | ([facility]); Nephrotic | | | | [place] [address] | | range proteinuria; | | | | [phone] | | Anemia of chronic | | | | | | renal failure, stage | | | | | | 4 (severe) ([facility]); | | | | | | Hyperuricemia; BRIDGET | | | | | | (acute kidney | | | | | | injury); Metabolic | | | | | | acidosis; Secondary | | | | | | hyperparathyroidism | | | | | | ([facility]); Acute | | | [...] | | | | | | [address] [place], [place] | | | | | | [id number] | | | | | | | [...] | Blood | [facility] [address] | | | [address] | + + + PTH intact no [...] + + | Blood | [facility] [address] [place] [address] | | | [address] | + + + CBC W/Auto Diff [...] + + | Blood | [facility] [address] [place], [place] [address] | | | [address] | + + + Magnesium (04/18/2017 8:10 AM) + +---------+ + | Component | Value | Ref Range | + +---------+ + | MAGNESIUM | 1.6 (A) | 1.7 - 2.5 mg/dL | + +---------+ + + + + | Specimen | Performing Laboratory | + + + | Blood | [facility] [address] [place] [address] | | | [address] | + + + Renal function panel [...] + + | Blood | [facility] [address] [place] [address] | | | [address] | + + + in this encounter [...]
--- OUTSIDE RECORDS SUMMARY | ~2017-06-27 | XMS | Encounter Summary ---
Demographics + + + | Address | [address] | | | [place] [address] | + + + | Home Phone | | + + + | Preferred Language | Unknown | + + + | Marital Status | | + + + | Evangelical Affiliation | Unknown | + + + | Race | Unknown | + + + | Ethnic Group | Unknown | + + + Author + + + | Author | [facility] | + + + | Organization | [facility] | + + + | Address | Unknown | + + + | Phone | Unavailable | + + + Support + + +---------+ + | Name | Relationship | Address | Phone | + + +---------+ + | Naye Wright | ECON | Unknown | | + + +---------+ + Care Team Providers + +------+ + | Care Collection Manager Name | Role | Phone | [...] | | 2018 | on Only | [place] [address] | | Packet) | | | | [address] | | | | | | [place] [address] | | | | | | [phone] | | | +--------+ + + + [...] IV Therapy. Fax confirmation rece ed from [phone]. in this encounter Plan of Treatment +--------+---------+ + + + | Date | Type | Specialty | Care Team | Description | +--------+---------+ + + + | 07/15/ | Office | Nephrology | Tavares Vaca MD | | | 2017 | Visit | | [address] | | | | | | [address] [facility] | | | | | | [id number] | | | | | | | | +--------+---------+ + + + as of this encounter Visit Diagnoses Not on filein this encounter"
--- OUTSIDE RECORDS SUMMARY | ~2017-06-27 | XMS | Encounter Summary ---
Demographics + + + | Address | [address] | | | [place] [address] | + + + | Home Phone | | + + + | Preferred Language | Unknown | + + + | Marital Status | Single | + + + | Yazidi Affiliation | NON | + + + | Race | White | + + + | Ethnic Group | Not or | + + + Author + + + | Author | [facility] | + + + | Organization | [facility] | + + + | [...] Team Providers + +------+ + | Care Radiology Director Name | Role | Phone | [...] | | status | Health Care | [facility] | | | | | Procedures | Center [address] | | | | | [place] | [address] | [place], [place] | | | | | OFFICE/OUTPT | Ave | [address] | | | | | | [address] [place], | Phone: | | | | | VISIT,EST,LE | [place] [address] | [phone] | | | | | VL IV | Phone: | Fax: | | | | | | [phone] | [phone] | | | | | | Fax: | | | | | | | [phone] | | +--------+--------+ + + + + Encounter Details +--------+---------+ + + + | Date | Type | Department | Care Team | Description | +--------+---------+ + + + | 05/07/ | Office | Liver Transplant | Bernabe Taylor MD | Cirrhosis of | | 2018 | Visit | at [facility] 2nd Floor | [address] | transplanted liver | | | | [address] | [address] [facility], | (HCC); [place] | | | | [address] | [place] [address] | hepatic failure | | | | [place], [place] | [phone] | (HCC); Liver | | | | [address] | | replaced by | | | | [phone] | | transplant (HCC) | +--------+---------+ + [...] RETURN PATIENT VISIT 05/07/2017 Herrera Badillo MD [facility] [address] [place] [address] RE: Nicolasa Sanz : [address] Delarosa: I had the pleasure of seeing Nicolasa Sanz in follow up in the Liver Clinic at [facility] for the first time since 06/24/2012. Pertinent laboratory, imaging, pathology results were reviewed. HISTORY OF PRESENT ILLNESS: The patient is a 37 y.o./o white female with NAYA s/p LT in 1988 complicated by chronic rejection who presents for follow up. Since her last visit in 2012, the patient underwent OLT in [place] in 2014. She is starting HD and is awaiting kidney transplantation. She was declined by [facility]. She denies jaundice, hepatic encephalopathy, SBP, or LE edema. Post-Transplant Dx (updated today) 1.Liver disease - Etiology- Etiology- NAYA s/p OLT 1988 at [facility] c/b chronic rejection s/p 2nd OLT 2014 at [facility] 2. Liver transplant- 09/13/2014 ~ Aortic conduit from infrarenal aorta to UNDERWOOD. Venous conduit from SMV to donor PV. Kel-en- Y hepaticojejunostomy. Splenectomy - Immunosuppression regimen- FK trough goals per [place] - Complications- no ACR, HAT, biliary, surgical, noncompliance after 2nd OLT 3. Secondary Dx - Renal insufficiency- on HD, awaiting ENGINEERING AND OPERATIONS DIRECTOR evaluation - H/o Crohn's disease- remicade infusions. The patient denies history of Crohn's although it is in her medical records. 4. Preventive care - Vaccinations- HAV, HBV, Flu, Pneumovax- reviewed 5. Social- lived in [place], now in [place]- to be near sister. 2 sons. REVIEW [...] FK goal 3-5 or higher as per [place] recommendations. 3. Awaiting renal transplant evaluation. 4. Return to clinic in 1 year. Thank you for allowing me to participate in the care of this patient. Please feel free to contact me with any questions regarding the patient's care. Warmest regards. Sincerely, Bernabe Taylor M.D., M.S. aba therapist Director of Clinical Hepatology Division of Gastroenterology and Hepatology [facility] and [facility] [place] in this encounter Plan of Treatment +--------+---------+ + + + | Date | Type | Specialty | Care Team | Description | +--------+---------+ + + + | 05/20/ | Office | Liver Transplant | Bernabe Taylor MD | | | 2018 | Visit | | [address] | | | | | | [place], | | | | | | [place] [address] | | | | | | [phone] | | | | | | | [...]
--- OUTSIDE RECORDS SUMMARY | ~2017-06-27 | XMS | Encounter Summary ---
Demographics + + + | Address | [address] | | | [place] [address] | + + + | Home Phone | | + + + | Preferred Language | Unknown | + + + | Marital Status | | + + + | Nondenominational Affiliation | Unknown | + + + | Race | Unknown | + + + | Ethnic Group | Unknown | + + + Author + + + | Author | [facility] | + + + | Organization | [facility] | + + + | Address | Unknown | + + + | Phone | Unavailable | + + + Support + + +---------+ + | Name | Relationship | Address | Phone | + + +---------+ + | Naye Wright | ECON | Unknown | | + + +---------+ + Care Team Providers + +------+ + | Care Membership Sales Advisor Name | Role | Phone | [...] | | 2018 | on Only | [place] [address] | Transplant Services | | | | [address] | [address] [place], [place] | Letter- Not a | | | | [place] [address] | [address] | Candidate) | | | | [phone] | | | +--------+ + + + [...] [place] | | | | | | [address] | | | | | | | | +--------+---------+ + + + as of this encounter Visit Diagnoses Not on filein this encounter"
--- OUTSIDE RECORDS SUMMARY | ~2017-06-27 | XMS | Encounter Summary ---
Demographics + + + | Address | [address] | | | [place] [address] | + + + | Home Phone | | + + + | Preferred Language | Unknown | + + + | Marital Status | | + + + | Taoism Affiliation | Unknown | + + + | Race | Unknown | + + + | Ethnic Group | Unknown | + + + Author + + + | Author | [facility] | + + + | Organization | [facility] | + + + | Address | Unknown | + + + | Phone | Unavailable | + + + Support + + +---------+ + | Name | Relationship | Address | Phone | + + +---------+ + | Naye Wright | ECON | Unknown | | + + +---------+ + Care Team Providers + +------+ + | Care Cooker Loader Name | Role | Phone | + [...] 05/15/2017) | | | | [place] [address] | | | | | | [phone] | | | +--------+ + + + [...] 2018 | Visit | | [address] | | | | | | [address] [place] [place] | | | | | | [id number] | | | | | | | | +--------+---------+ + + + as of this encounter Visit Diagnoses Not on filein this encounter"
--- OUTSIDE RECORDS SUMMARY | ~2017-06-27 | XMS | Encounter Summary ---
Demographics + + + | Address | [address] | | | [place] [address] | + + + | Home Phone | | + + + | Preferred Language | Unknown | + + + | Marital Status | | + + + | Anabaptism Affiliation | Unknown | + + + | Race | Unknown | + + + | Ethnic Group | Unknown | + + + Author + + + | Author | [facility] | + + + | Organization | [facility] | + + + | Address | Unknown | + + + | Phone | Unavailable | + + + Support + + +---------+ + | Name | Relationship | Address | Phone | + + +---------+ + | Naye Wright | ECON | Unknown | | + + +---------+ + Care Team Providers + +------+ + | Care Manager Urology Name | Role | Phone | + [...] | | | | | [place] [address] | | | | | | [phone] | | | +--------+ + + + [...] | | | | | | [address] [place] | | | | | | [address] | | | | | | | | +--------+---------+ + + + as of this encounter Visit Diagnoses Not on filein this encounter"
--- OUTSIDE RECORDS SUMMARY | ~2017-06-27 | XMS | Encounter Summary ---
Demographics + + + | Address | [address] | | | [place] [address] | + + + | Home Phone | | + + + | Preferred Language | Unknown | + + + | Marital Status | | + + + | Zoroastrian Affiliation | Unknown | + + + | Race | Unknown | + + + | Ethnic Group | Unknown | + + + Author + + + | Author | [facility] | + + + | Organization | [facility] | + + + | Address | Unknown | + + + | Phone | Unavailable | + + + Support + + +---------+ + | Name | Relationship | Address | Phone | + + +---------+ + | Naye Wright | ECON | Unknown | | + + +---------+ + Care Team Providers + +------+ + | Care Water Treatment Technician Name | Role | Phone | [...] + + | 05/22/ | Telephone | [facility] | Kiersten Shaffer CMA | Other | | 2017 | | [place] [address] | | | | | | [address] | | | | | | [address] [place] | | | | | | [address] | | | +--------+ + + + [...] | | | | | | [address] [place] | | | | | | [address] | | | | | | | | +--------+---------+ + + + as of this encounter Visit Diagnoses Not on filein this encounter"
--- OUTSIDE RECORDS SUMMARY | ~2017-06-27 | XMS | Encounter Summary ---
Demographics + + + | Address | [address] | | | [place] [address] | + + + | Home Phone | | + + + | Preferred Language | Unknown | + + + | Marital Status | | + + + | Hinduism Affiliation | Unknown | + + + | Race | Unknown | + + + | Ethnic Group | Unknown | + + + Author + + + | Author | [facility] | + + + | Organization | [facility] | + + + | Address | Unknown | + + + | Phone | Unavailable | + + + Support + + +---------+ + | Name | Relationship | Address | Phone | + + +---------+ + | Naye Wright | ECON | Unknown | | + + +---------+ + Care Team Providers + +------+ + | Care Sap Ppm Consultant Name | Role | Phone | [...] | disease) | [address] | [place] | | | | | stage 5, GFR | [place], | [address] Phone: | | | | | less than | [place] [address] | [phone] | | | | | 15 ml/min | Phone: | Fax: | | | | | (HCC) | [phone] | [phone] | | | | | Nephrotic | Fax: | | | | | | range | [phone] | | | | | | proteinuria [...] + + | 05/02/ | Initial | [facility] | Jay Portillo MD | Chronic kidney | | 2018 | consult | Vascular Surgery | [address] | disease (CKD), | | | | [address] | [place] [address] | active medical | | | | [place], [place] | [phone] | management without | | | | [address] | | dialysis, | | | | [phone] | | unspecified stage | | | [...] was referred to my office by her Accelerator Systems Director, Dr. Vaca, for fistula creation. Patient reports [...] | | | | | | [address] [place], [place] | | | | | | [...]
--- OUTSIDE RECORDS SUMMARY | ~2017-06-27 | XMS | Clinical Summary ---
Demographics + + + | Address | [address] | | | [place] [address] | + + + | Home Phone | | + + + | Preferred Language | Unknown | + + + | Marital Status | Unknown | + + + | Anabaptism Affiliation | Unknown | + + + | Race | Unknown | + + + | Ethnic Group | Unknown | + + + Author + + + | Author | [facility] | | | and Tomy | + + + | Organization | [facility] | | | and [place] | + + + | Address | Unknown | + + + | Phone | Unavailable | + + + Care Team Providers + +------+ + | Care Seafood Technology Specialist Name | Role | Phone | [...] Laboratory | + + + | | [facility] [address] | | | [place] [address] | + + + + + | Narrative | + + | SURGICAL PATHOLOGY REPORT Case | | Number: [id number] Date Taken: 05/30/2017 Date Received: 05/30/2017 Completed: [...] their | | performance characteristics determined by [facility] | | Laboratory. This test is used for clinical purposes. It should not be regarded | | as investigational or for research. [facility] is certified under the | | Clinical Laboratory Improvement Amendments of 1988 (CLIA) as qualified to perform high | | complexity clinical laboratory testing. A: 90782, 99954, 86387, 90289, | | 41587, 36998, 33181, 58762, 78535, 38611, 78185(a), 74996, 25120, 74226 | | PROCEDURES/ADDENDA ELECTRON MICROSCOPY | | [...] Abdoul, MD Testing performed at: | | [facility] Bernabe Aguilera M.D., Director [address] | | [address] [place] [address] | + + from Last 3 Months [...] | MODA | [id number] | Medica | [phone] | | | MEDICAID HMO | HEALTH [...] | 1980 | [phone] | [address] | | | [place]ia | | | [address] | [address] | + +--------+ +--------+ + +
--- OUTSIDE RECORDS SUMMARY | ~2017-06-27 | XMS | Encounter Summary ---
Demographics + + + | Address | [address] | | | [place] [address] | + + + | Home Phone | | + + + | Preferred Language | Unknown | + + + | Marital Status | | + + + | Presybeterian Affiliation | Unknown | + + + | Race | Unknown | + + + | Ethnic Group | Unknown | + + + Author + + + | Author | [facility] | + + + | Organization | [facility] | + + + | Address [...] (chronic kidney | | 2018 | | [place] [address] | | disease) stage 5, | | | | [address] | | GFR less than 15 | | | | [address] [place], [place] | | ml/min ([facility]) | | | | [address] | | (Primary Dx); | | | | | | Nephrotic range | | | | | | proteinuria; | | | | | | Hyperkalemia; | | | | | | Hyperuricemia; | | | | | | Anemia of chronic | | | | | | renal failure, stage | | | | | | 5 ([facility]); BRIDGET (acute | | | | [...] | | | | | | [address] [place], [place] | | | | | | [address] | | | | | | | [...] | | | | than 15 ml/min ([facility]) | | | | | Nephrotic range | | | | | proteinuria | | | | | Hyperkalemia | | | | | Hyperuricemia | | | | | Anemia of chronic | | | | | renal failure, stage | | | | | 5 ([facility]) BRIDGET (acute | | | | [...] | | | | than 15 ml/min ([facility]) | | | | | Nephrotic range | | | | | proteinuria | | | | | Hyperkalemia | | | | | Hyperuricemia | | | | | Anemia of chronic | | | | | renal failure, stage | | | | | 5 ([facility]) BRIDGET (acute | | | | [...] | | | | than 15 ml/min ([facility]) | | | | | Nephrotic range | | | | | proteinuria | | | | | Hyperkalemia | | | | | Hyperuricemia | | | | | Anemia of chronic | | | | | renal failure, stage | | | | | 5 ([facility]) BRIDGET (acute | | | | [...] | | | | than 15 ml/min ([facility]) | | | | | Nephrotic range | | | | | proteinuria | | | | | Hyperkalemia | | | | | Hyperuricemia | | | | | Anemia of chronic | | | | | renal failure, stage | | | | | 5 ([facility]) BRIDGET (acute | | | | [...] | | | | than 15 ml/min ([facility]) | | | | | Nephrotic range | | | | | proteinuria | | | | | Hyperkalemia | | | | | Hyperuricemia | | | | | Anemia of chronic | | | | | renal failure, stage | | | | | 5 ([facility]) BRIDGET (acute | | | | [...] | | | | than 15 ml/min ([facility]) | | | | | Nephrotic range | | | | | proteinuria | | | | | Hyperkalemia | | | | | Hyperuricemia | | | | | Anemia of chronic | | | | | renal failure, stage | | | | | 5 ([facility]) BRIDGET (acute | | | | | kidney injury) | | | | | Essential | | | | | hypertension, benign | | + +--------+ + + as of this encounter Visit Diagnoses + + | Diagnosis | + + | CKD (chronic kidney disease) stage 5, GFR less than 15 ml/min ([facility]) - Primary | + + | [...]
--- OUTSIDE RECORDS SUMMARY | ~2017-06-27 | XMS | Encounter Summary ---
Demographics + + + | Address | [address] | | | [place] [address] | + + + | Home Phone | | + + + | Preferred Language | Unknown | + + + | Marital Status | | + + + | Restoration Affiliation | Unknown | + + + | Race | Unknown | + + + | Ethnic Group | Unknown | + + + Author + + + | Author | [facility] | + + + | Organization | [facility] | + + + | Address | Unknown | + + + | Phone | Unavailable | + + + Support + + +---------+ + | Name | Relationship | Address | Phone | + + +---------+ + | Naye Wright | ECON | Unknown | | + + +---------+ + Care Team Providers + +------+ + | Care Traffic Law Attorney Name | Role | Phone | + +------+ + | Sherrie Blackman MD | PCP | | + +------+ + Encounter Details +--------+ + + + + | Date | Type | Department | Care Team | Description | +--------+ + + + + | 05/21/ | Telephone | [facility] | Yaritza Soares, | | | 2017 | | Vascular Surgery | RN | | | | | [address] | | | | | | [place] | | | | | | [address] | | | | | | [phone] | | | +--------+ + + + [...]
--- OUTSIDE RECORDS SUMMARY | ~2017-06-27 | XMS | Encounter Summary ---
Demographics + + + | Address | [address] | | | [place] [address] | + + + | Home Phone | | + + + | Preferred Language | Unknown | + + + | Marital Status | Single | + + + | Orthodox Affiliation | NON | + + + | Race | White | + + + | Ethnic Group | Not or | + + + Author + + + | Author | [facility] | + + + | Organization | [facility] | + + + | Address | [...] Team Providers + +------+ + | Care Garland Machine Operator Name | Role | Phone [...] | [address] | [address] [place], | procedures) | | | | Road [place], [place] | [place] [address] | | | | | [address] | | | | | | [phone] | | | +--------+ + + + [...] | | | | | [address] [place], | | | | | | [place] [address] | | | | | | [phone] | | | | | | | | +--------+---------+ + + + as of this encounter Visit Diagnoses Not on filein this encounter"
--- OUTSIDE RECORDS SUMMARY | ~2017-06-27 | XMS | Encounter Summary ---
Demographics + + + | Address | [address] | | | [place] [address] | + + + | Home Phone | | + + + | Preferred Language | Unknown | + + + | Marital Status | | + + + | Pentecostal Affiliation | Unknown | + + + | Race | Unknown | + + + | Ethnic Group | Unknown | + + + Author + + + | Author | [facility] | + + + | Organization | [facility] | + + + | Address | Unknown | + + + | Phone | Unavailable | + + + Support + + +---------+ + | Name | Relationship | Address | Phone | + + +---------+ + | Naye Wright | ECON | Unknown | | + + +---------+ + Care Team Providers + +------+ + | Care Core Dipper Name | Role | Phone | + [...] | kidney disease | | | | [facility] [address] | | ([facility]); Nephrotic | | | | [place], [place] [address] | | range proteinuria; | | | | [phone] | | Anemia of chronic | | | | | | renal failure, stage | | | | | | 4 (severe) ([facility]); | | | | | | Hyperuricemia; BRIDGET | | | | | | (acute kidney | | | | | | injury); Metabolic | | | | | | acidosis; Secondary | | | | | | hyperparathyroidism | | | | | | ([facility]); Acute | | | | | [...] | | | | | | [address] [place], [place] | | | | | | [address] | | | | | | | [...] | Urine - Urine, | [facility] [address] [place] [address] [place] | | Unspecified Source | [id number] | + + + Urinalysis (reflex to [...] [facility] [place] | | | [address] | + + + + + | [...]
--- OUTSIDE RECORDS SUMMARY | ~2017-06-27 | XMS | Encounter Summary ---
Demographics + + + | Address | [address] | | | [place] [address] | + + + | Home Phone | | + + + | Preferred Language | Unknown | + + + | Marital Status | | + + + | Sikh Affiliation | Unknown | + + + | Race | Unknown | + + + | Ethnic Group | Unknown | + + + Author + + + | Author | [facility] | + + + | Organization | [facility] | + + + | Address | Unknown | + + + | Phone | Unavailable | + + + Support + + +---------+ + | Name | Relationship | Address | Phone | + + +---------+ + | Naye Wright | ECON | Unknown | | + + +---------+ + Care Team Providers + +------+ + | Care Pcat Instructor Name | Role | Phone | + [...] | | 2018 | on Only | [place] [address] | | Packet ) | | | | [address] | | | | | | [place] [address] | | | | | | [phone] | | | +--------+ + + + [...] of this encounter Progress Notes Kiersten Shaffer, [facility] - 06/19/2017 8:48 AM PDTFaxed new order for [facility] to [facility]. Fax confirmation received. Kiersten Shaffer, [facility] - 06/19/2017 8:48 AM PDTFaxed demograp hic [...] | | | | | | [address] [place], [place] | | | | | | [address] | | | | | | | | +--------+---------+ + + + as of this encounter Visit Diagnoses Not on filein this encounter"
--- OUTSIDE RECORDS SUMMARY | ~2017-06-27 | XMS | Encounter Summary ---
Demographics + + + | Address | [address] | | | [place] [address] | + + + | Home Phone | | + + + | Preferred Language | Unknown | + + + | Marital Status | | + + + | Orthodox Affiliation | Unknown | + + + | Race | Unknown | + + + | Ethnic Group | Unknown | + + + Author + + + | Author | [facility] | + + + | Organization | [facility] | + + + | Address | Unknown | + + + | Phone | Unavailable | + + + Support + + +---------+ + | Name | Relationship | Address | Phone | + + +---------+ + | Naye Wright | ECON | Unknown | | + + +---------+ + Care Team Providers + +------+ + | Care Recreation Director Name | Role | Phone | + +------+ + | [facility] Primary | PCP | | + +------+ + Reason for Visit MRI/CAT Scan (Emergency) + +--------+ + + + + | Status | Reason | Specialty | Diagnoses / | Referred By | Referred To | | | | | Procedures | Contact | Contact | + +--------+ + + + + | Authorized | | Radiology | Diagnoses | [place], | [facility] | | | | | CKD | Tavares Orellana MD | [address] | | | | | (chronic | [address] | [address] | | | | | kidney | [address] | [address] | | | | | disease) | [place], [place] | [place], [place] | | | | | stage 5, GFR | [address] | [address] Phone: | | | | | less than | Phone: | [phone] | | | | | 15 ml/min | [phone] | Fax: | | | | | (HCC) | Fax: | [phone] | | | | | Nephrotic | [phone] | | | | | | range [...] + + | 04/24/ | Hospital | [facility] | Tavares Vaca MD | CKD (chronic kidney | | 2018 | Encounter | Medical Center | [address] | disease) stage 5, | | | | Clinical Decision | [address] [place], [place] | GFR less than 15 | | | | [address] | [address] | ml/min ([facility]); | | | | [place] [address] | | Nephrotic range | | | | [phone] | 2, [facility] Di Nurse | proteinuria; Anemia | | | | | Radiologist, [facility] | of chronic renal | | | | | [address] | failure, stage 4 | | | | | | (severe) ([facility]); | | | | | | Secondary | | | | | | hyperparathyroidism | | | | | | ([facility]); | | | | | | [...] with or without activity Date Last Reviewed: 04/04/201619998227-8066 [employer]. [address] [place] [address]. All righ ts reserved. This information is [...] | | | | | | [address] [place], [place] | | | | | | [address] | | | | | | | [...] Laboratory | + + + | | [address] [address] | + + + + + | [...] intervention Patient positioning: Prone. | | Axial outsewer images were obtained through region of interest [...] imaging and interventionPatient | | positioning: Prone.Axial outsewer images were obtained through region of interest [...] EMBOLISMTesting performed at | | | | [facility];[address] [place] [address];[place] [address] | | | |Testing performed at [facility];[address] [place] [address];[place] [address] | | | | | | + + + + + + + | Specimen | Performing Laboratory | + + + | Blood | [facility] [address] [place] [address] | + + + aPTT (04/24/2017 8:15 AM) + + + + | Component | Value | Ref Range | + + + + | APTT | 30Comment: Testing performed at [facility];888 | 23 - 32 seconds | | | Jojo Hester;[place] [address] | | + + + + + + + | Specimen | Performing Laboratory | + + + | Blood | [facility] [address] [place] [address] | + + + Platelet count (04/24/2017 8:15 AM) + + + + | Component | Value | Ref Range | + + + + | PLT | 248Comment: Testing performed at [facility];888 | 150 - 400 K/uL | | | [place] [place]ester;[place] [address] | | + + + + + + + | Specimen | Performing Laboratory | + + + | Blood | [facility] [address] [place] [address] | + + + in this encounter [...]
--- OUTSIDE RECORDS SUMMARY | ~2017-06-27 | XMS | Encounter Summary ---
Demographics + + + | Address | [address] | | | [place] [address] | + + + | Home Phone | | + + + | Preferred Language | Unknown | + + + | Marital Status | Single | + + + | Yarsanism Affiliation | NON | + + + | Race | White | + + + | Ethnic Group | Not or | + + + Author + + + | Author | [facility] | + + + | Organization | [facility] | + + + | Address [...] Team Providers + +------+ + | Care Car Repairer Apprentice Name | Role | Phone | + [...] | | | | [address] [facility] | [place], | | | | | [place], [place] | [place] [address] | | | | | [address] | [phone] | | | | | [phone] | | | +--------+ + + + [...] | | | | | [address] [place], | | | | | | [place] [address] | | | | | | [phone] | | | | | | | | +--------+---------+ + + + as of this encounter Visit Diagnoses Not on filein this encounter
--- OUTSIDE RECORDS SUMMARY | ~2017-06-27 | XMS | Encounter Summary ---
Demographics + + + | Address | [address] | | | [place] [address] | + + + | Home Phone | | + + + | Preferred Language | Unknown | + + + | Marital Status | | + + + | Islam Affiliation | Unknown | + + + | Race | Unknown | + + + | Ethnic Group | Unknown | + + + Author + + + | Author | [facility] | + + + | Organization | [facility] | + + + | Address | Unknown | + + + | Phone | Unavailable | + + + Support + + +---------+ + | Name | Relationship | Address | Phone | + + +---------+ + | Naye Wright | ECON | Unknown | | + + +---------+ + Care Team Providers + +------+ + | Care Box Nailer Name | Role | Phone | + [...] | kidney disease | | | | [address] | | ([facility]); Nephrotic | | | | [place], [place] [address] | | range proteinuria; | | | | [phone] | | Anemia of chronic | | | | | | renal failure, stage | | | | | | 4 (severe) ([facility]); | | | | | | Hyperuricemia; BRIDGET | | | | | | (acute kidney | | | | | | injury); Metabolic | | | | | | acidosis; Secondary | | | | | | hyperparathyroidism | | | | | | ([facility]); Acute | | | | [...] | | | | | | [address] [place], [place] | | | | | | [address] | | | | | | | [...] | Urine - Urine, | [facility] [address] [place] [address] [place] | | Unspecified Source | [id number] | + + + Urinalysis (reflex to [...] [facility] [place] | | | [address] | + + + + + | [...]
--- OUTSIDE RECORDS SUMMARY | ~2017-06-27 | XMS | Encounter Summary ---
Demographics + + + | Address | [address] | | | [place] [address] | + + + | Home Phone | | + + + | Preferred Language | Unknown | + + + | Marital Status | | + + + | Anglican Affiliation | Unknown | + + + | Race | Unknown | + + + | Ethnic Group | Unknown | + + + Author + + + | Author | [facility] | + + + | Organization | [facility] | + + + | Address | Unknown | + + + | Phone | Unavailable | + + + Support + + +---------+ + | Name | Relationship | Address | Phone | + + +---------+ + | Naye Wright | ECON | Unknown | | + + +---------+ + Care Team Providers + +------+ + | Care Car Racer Name | Role | Phone | + [...] | kidney disease | | | | [facility] [address] | | ([facility]); Nephrotic | | | | [place] [address] | | range proteinuria; | | | | [phone] | | Anemia of chronic | | | | | | renal failure, stage | | | | | | 4 (severe) ([facility]); | | | | | | Hyperuricemia; BRIDGET | | | | | | (acute kidney | | | | | | injury); Metabolic | | | | | | acidosis; Secondary | | | | | | hyperparathyroidism | | | | | | ([facility]); Acute | | | | | [...] | | | | | | [address] [place], [place] | | | | | | [...] + | Blood | [facility] [address] [place] | | | [address] | + + + in this encounter [...]
--- OUTSIDE RECORDS SUMMARY | ~2017-06-27 | XMS | Encounter Summary ---
Demographics + + + | Address | [address] | | | [place] [address] | + + + | Home Phone | | + + + | Preferred Language | Unknown | + + + | Marital Status | | + + + | Uatsdin Affiliation | Unknown | + + + | Race | Unknown | + + + | Ethnic Group | Unknown | + + + Author + + + | Author | [facility] | + + + | Organization | [facility] | + + + | Address | Unknown | + + + | Phone | Unavailable | + + + Support + + +---------+ + | Name | Relationship | Address | Phone | + + +---------+ + | Naye Wright | ECON | Unknown | | + + +---------+ + Care Team Providers + +------+ + | Care Kingsbury Machine Operator Name | Role | Phone | + +------+ + PCP | Unavailable | + +------+ + Encounter Details +--------+ + + + + | Date | Type | Department | Care Team | Description | +--------+ + + + + | 06/14/ | Telephone | [facility] | Kylee Kerr, | | | 2017 | | [address] | COMPUTER SERVICE TECHNICIAN | | | | | [address] | | | | | | [place] [address] | | | | | | [phone] | | | +--------+ + + + [...] | | | | | | [address] [place], [place] | | | | | | [address] | | | | | | | [...]
--- OUTSIDE RECORDS SUMMARY | ~2017-06-27 | XMS | Encounter Summary ---
Demographics + + + | Address | [address] | | | [place] [address] | + + + | Home Phone | | + + + | Preferred Language | Unknown | + + + | Marital Status | | + + + | Protestant Affiliation | Unknown | + + + | Race | Unknown | + + + | Ethnic Group | Unknown | + + + Author + + + | Author | [facility] | + + + | Organization | [facility] | + + + | Address | Unknown | + + + | Phone | Unavailable | + + + Support + + +---------+ + | Name | Relationship | Address | Phone | + + +---------+ + | Naye Wright | ECON | Unknown | | + + +---------+ + Care Team Providers + +------+ + | Care Gridcap Machine Operator Name | Role | Phone | + +------+ + | Clinic, [facility] | PCP | Unavailable | | Community | | | + +------+ + Encounter Details +--------+---------+ + + + | Date | Type | Department | Care Team | Description | +--------+---------+ + + + | 04/22/ | Office | [facility] | Tavares Vaca MD | BRIDGET (acute kidney | | 2018 | Visit | [place] [address] | [address] | injury) (Primary | | | | [facility] | [address] [place], [place] | Dx); CKD (chronic | | | | [address] [place], [place] | [address] | kidney disease) | [...] evaluation by the Kidney Transplant team at [facility]. I stopped her Ibuprofen. I put her [...] F/U with the liver transplant team at [facility] for management of her anti-rejection meds. She will need to be seen by the Liver transplant team in [place] soon & regularly. She will continue to F/U with your office regularly. She will have a RFP, CBC, intact PTH, SFLC, SPIF, urinalysis, Urine total sikgdsz-lr-bab atinine ratio before she comes back in [...] mouth 2 (two) times daily. nystatin (MYCOSTATIN) 149068 UNIT/ML suspension Take 200,000 Units by mouth [...] stage IV CKD on a background of usp use of calcineurin inhibitors. 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 She had a liver transplant at the age of 8; she had the hepatorenal syndrome in early 2014 & needed to go dialysis; she came off of it for 2.5 months; restarted HD thru a CVC in the [facility] of 2014. She had her second [...] for evaluation by the Vascular Surgery team [facility] for AV fistula creation I sent her for evaluation by the Kidney Transplant team at [facility]. I stopped her Ibuprofen. I put her [...] F/U with the liver transplant team at [facility] for management of her anti-rejection meds. She will need to be seen by the Liver transplant team in [place] soon & regularly. She will continue to F/U with your office regularly. She will have a RFP, CBC, intact PTH, SFLC, SPIF, urinalysis, Urine total dlnlrvp-aq-swz atinine ratio before she comes back in 1 month. Thank you Colleague for the opportunity to see this patient in F/U on an urgent basis today for a declining GFR in the setting of liver transplant. Please do not hesitate to call me a t any time with questions or concerns. Truly yours, Tavares Vaca MD [facility] in this encounter Plan of Treatment +--------+---------+ + + + | Date | Type | Specialty | Care Team | Description | +--------+---------+ + + + | 07/15/ | Office | Nephrology | Tavares Vaca MD | | | 2018 | Visit | | [address] | | | | | | [address] [place], [place] | | | | | | [address] | | | | | | | | +--------+---------+ + + + as of this encounter Visit Diagnoses + + | Diagnosis | + + | BRIDGET (acute kidney injury) - Primary | + + | Acute kidney failure, unspecified | + + | CKD (chronic kidney disease) stage 5, GFR less than 15 ml/min ([facility]) | + + | Chronic [...]
--- OUTSIDE RECORDS SUMMARY | ~2017-06-27 | XMS | Encounter Summary ---
Demographics + + + | Address | [address] | | | [place] [address] | + + + | Home Phone | | + + + | Preferred Language | Unknown | + + + | Marital Status | | + + + | Amish Affiliation | Unknown | + + + | Race | Unknown | + + + | Ethnic Group | Unknown | + + + Author + + + | Author | [facility] | + + + | Organization | [facility] | + + + | Address | Unknown | + + + | Phone | Unavailable | + + + Support + + +---------+ + | Name | Relationship | Address | Phone | + + +---------+ + | Naye Wright | ECON | Unknown | | + + +---------+ + Care Team Providers + +------+ + | Care Parts Counterperson Name | Role | Phone | + +------+ + | Sherrie Blackman MD | PCP | | + +------+ + Encounter Details +--------+ + + + + | Date | Type | Department | Care Team | Description | +--------+ + + + + | 05/10/ | Procedure | [facility] | | | | 2017 | [facility] | | | | | | Operating Room 88 | | | | | | [address] [facility] | | | | | | [place] [address] | | | | | | [phone] | | | +--------+ + + + [...] [place] | | | | | | [address] | | | | | | | | +--------+---------+ + + + as of this encounter Visit Diagnoses Not on filein this encounter"
--- OUTSIDE RECORDS SUMMARY | ~2017-06-27 | XMS | Encounter Summary ---
Demographics + + + | Address | [address] | | | [place] [address] | + + + | Home Phone | | + + + | Preferred Language | Unknown | + + + | Marital Status | | + + + | Jehovah'S Witness Affiliation | Unknown | + + + | Race | Unknown | + + + | Ethnic Group | Unknown | + + + Author + + + | Author | [facility] | + + + | Organization | [facility] | + + + | Address | Unknown | + + + | Phone | Unavailable | + + + Support + + +---------+ + | Name | Relationship | Address | Phone | + + +---------+ + | Naye Wright | ECON | Unknown | | + + +---------+ + Care Team Providers + +------+ + | Care Hvac Journeyman Name | Role | Phone | + [...] [place] | | | | | | [address] | | | +--------+--------+ + + + [...] | | | | | | [address] [place] | | | | | | [address] | | | | | | | | +--------+---------+ + + + as of this encounter Visit Diagnoses Not on filein this encounter"
--- OUTSIDE RECORDS SUMMARY | ~2017-06-27 | XMS | Encounter Summary ---
Demographics + + + | Address | [address] | | | [place] [address] | + + + | Home Phone | | + + + | Preferred Language | Unknown | + + + | Marital Status | | + + + | Voodoo Affiliation | Unknown | + + + | Race | Unknown | + + + | Ethnic Group | Unknown | + + + Author + + + | Author | [facility] | + + + | Organization | [facility] | + + + | Address | Unknown | + + + | Phone | Unavailable | + + + Support + + +---------+ + | Name | Relationship | Address | Phone | + + +---------+ + | Naye Wright | ECON | Unknown | | + + +---------+ + Care Team Providers + +------+ + | Care Dental Mold Maker Name | Role | Phone | + +------+ + | Sherrie Blackman MD | PCP | | + +------+ + Reason for Visit +--------+ + | Reason | Comments | +--------+ + | Other | Progress Note from [facility] Transplant Hepatology dated 05/07/2017 | +--------+ + Encounter Details +--------+ + + + + | Date | Type | Department | Care Team | Description | +--------+ + + + + | 05/24/ | Documentati | [facility] | Kiersten Shaffer CMA | Other (Progress Note | | 2018 | on Only | [place] [address] | | from [facility] | | | | [address] | | Transplant | | | | [place] [address] | | Hepatology dated | | | | [phone] | | 05/07/2017) | +--------+ + + [...] [place] | | | | | | [address] | | | | | | | | +--------+---------+ + + + as of this encounter Visit Diagnoses Not on filein this encounter"
--- OUTSIDE RECORDS SUMMARY | ~2017-06-27 | XMS | Encounter Summary ---
Demographics + + + | Address | [address] | | | [place] [address] | + + + | Home Phone | | + + + | Preferred Language | Unknown | + + + | Marital Status | | + + + | Gnosticism Affiliation | Unknown | + + + | Race | Unknown | + + + | Ethnic Group | Unknown | + + + Author + + + | Author | [facility] | + + + | Organization | [facility] | + + + | Address | Unknown | + + + | Phone | Unavailable | + + + Support + + +---------+ + | Name | Relationship | Address | Phone | + + +---------+ + | Naye Wright | ECON | Unknown | | + + +---------+ + Care Team Providers + +------+ + | Care Tree Specialist Name | Role | Phone | [...] kidney | | 2018 | Visit | [place] [address] [facility] | [address] | disease) stage 5, | | | | [facility] | [address] [place], [place] | GFR less than 15 | | | | [address] [place], [place] | [address] | ml/min (HCC) | | | | [address] | | (Primary Dx); Anemia | | | | | | of chronic renal | | | | | | failure, stage 5 | | | | | | ([facility]); Essential | | | | | | hypertension, | | | | | | benign; Secondary | | | | | | hyperparathyroidism | | | | | | ([facility]); Metabolic | | | | | | [...] evaluation by the Kidney Transplant team at [facility]. I kept her off Ibuprofen. she will [...] F/U with the liver transplant team at [place] for management of her anti -rejection meds. She will need to be seen by the Liver transplant team in [place] soon & regularly. She will continue to F/U with your office regularly. I sent her for a repeat RFP, CBC every 2 weeks. She will have a RFP, CBC, intact PTH, Ferritin, Fe studies, urinalysis, Urine total prot kzr-mz-magbqiohlp ratio before she comes back in 1 [...] restarted HD thru a CVC in the [facility] of 2014. She had her second [...] evaluation by the Kidney Transplant team at [facility] I kept her off Ibuprofen. I will [...] F/U with the liver transplant team at [place] for management of her anti -rejection meds. She will need to be seen by the Liver transplant team in [place] soon & regularly. She will continue to F/U with your office regularly. I sent her for a repeat RFP, CBC every 2 weeks. She will have a RFP, CBC, intact PTH, Ferritin, Fe studies, urinalysis, Urine total prot fkr-yd-fdkizsxhwr ratio before she comes back in 1 month. Thank you Colleague for the opportunity to see this patient in F/U on an urgent basis today for a declining GFR in the setting of liver transplant. Please do not hesitate to call me a t any time with questions or concerns. Truly yours, Tavares Vaca MD [facility] in this encounter Plan of Treatment +--------+---------+ + + + | Date | Type | Specialty | Care Team | Description | +--------+---------+ + + + | 07/15/ | Office | Nephrology | Tavares Vaca MD | | | 2018 | Visit | | [address] | | | | | | [address] [place] | | | | | | [address] | | | | | | | | +--------+---------+ + + + as of this encounter Visit Diagnoses + + | Diagnosis | + + | CKD (chronic kidney disease) stage 5, GFR less than 15 ml/min ([facility]) - Primary | + + | Chronic kidney disease, Stage V | + + | Anemia of chronic renal failure, stage 5 ([facility]) | + + | Essential hypertension, benign | + + | Secondary hyperparathyroidism (HCC) | + + | Secondary hyperparathyroidism (of renal origin) | + + | Metabolic acidosis | + + | Acidosis | + + | Hyperphosphatemia | + + | Disorders of phosphorus metabolism | + +"
--- OUTSIDE RECORDS SUMMARY | ~2017-06-27 | XMS | Encounter Summary ---
Demographics + + + | Address | [address] | | | [place] [address] | + + + | Home Phone | | + + + | Preferred Language | Unknown | + + + | Marital Status | | + + + | Presybeterian Affiliation | Unknown | + + + | Race | Unknown | + + + | Ethnic Group | Unknown | + + + Author + + + | Author | [facility] | + + + | Organization | [facility] | + + + | Address | Unknown | + + + | Phone | Unavailable | + + + Support + + +---------+ + | Name | Relationship | Address | Phone | + + +---------+ + | Naye Wright | ECON | Unknown | | + + +---------+ + Care Team Providers + +------+ + | Care Bakery Helper Name | Role | Phone | [...] 05/15/2017) | | | | [place] [address] | | | | | | [phone] | | | +--------+ + + + [...] [place] | | | | | | [id number] | | | | | | | | +--------+---------+ + + + as of this encounter Visit Diagnoses Not on filein this encounter"
--- OUTSIDE RECORDS SUMMARY | ~2017-06-27 | XMS | Encounter Summary ---
Demographics + + + | Address | [address] | | | [place] [address] | + + + | Home Phone [...] Team Providers + +------+ + | Care Outsole Molder Name | Role | Phone | + +------+ + | Herrera Badillo MD | PCP | | + +------+ + Encounter Details +--------+ + + + + | Date | Type | Department | Care Team | Description | +--------+ + + + + | 05/07/ | [facility] | Transplant | Tori Fine, RN | Liver replaced by | | 2017 | | Coordinators [address] | transplant (HCC) | | | | [address] | [place], | (Primary Dx) | | | | Road [place], [place] | [place] [address] | | | | | [address] | | | | | | [phone] | | | +--------+ + + + [...] | | | | | [place], | | | | | | [place] [address] | | | | | | [phone] | | | | | | | | +--------+---------+ + + + as of this encounter Visit Diagnoses + + | Diagnosis | + + | Liver replaced by transplant (HCC) - Primary | + + | Liver replaced by transplant | + +"
--- OUTSIDE RECORDS SUMMARY | ~2017-06-27 | XMS | Encounter Summary ---
Demographics + + + | Address | [address] | | | [place] [address] | + + + | Home Phone | | + + + | Preferred Language | Unknown | + + + | Marital Status | | + + + | Yazdanism Affiliation | Unknown | + + + | Race | Unknown | + + + | Ethnic Group | Unknown | + + + Author + + + | Author | [facility] | + + + | Organization | [facility] | + + + | Address | Unknown | + + + | Phone | Unavailable | + + + Support + + +---------+ + | Name | Relationship | Address | Phone | + + +---------+ + | Naye Wright | ECON | Unknown | | + + +---------+ + Care Team Providers + +------+ + | Care Tube Builder Name | Role | Phone | + [...] | | | | | [place] [address] | | | | | | [phone] | | | +--------+ + + + [...] | | | | | | [address] [place], [place] | | | | | | [address] | | | | | | | | +--------+---------+ + + + as of this encounter Visit Diagnoses Not on filein this encounter"
--- OUTSIDE RECORDS SUMMARY | ~2017-06-27 | XMS | Encounter Summary ---
Demographics + + + | Address | [address] | | | [place] [address] | + + + | Home Phone | | + + + | Preferred Language | Unknown | + + + | Marital Status | | + + + | Quaker Affiliation | Unknown | + + + | Race | Unknown | + + + | Ethnic Group | Unknown | + + + Author + + + | Author | [facility] | + + + | Organization | [facility] | + + + | Address | Unknown | + + + | Phone | Unavailable | + + + Support + + +---------+ + | Name | Relationship | Address | Phone | + + +---------+ + | Naye Wright | ECON | Unknown | | + + +---------+ + Care Team Providers + +------+ + | Care Keymodule Assembly Supervisor Name | Role | Phone | [...] | | 2018 | on Only | [place] [address] | | Packet ) | | | | [address] | | | | | | [place] [address] | | | | | | [phone] | | | +--------+ + + + [...] of this encounter Progress Notes Kiersten Shaffer, [facility] - 06/19/2017 8:48 AM PDTFaxed new order for Ar[facility]p to [facility]. Fax confirmation received. Kiersten Shaffer, [facility] - 06/19/2017 8:48 AM PDTFaxed demograp hic [...] | | | | | | [address] [place], [place] | | | | | | [address] | | | | | | | | +--------+---------+ + + + as of this encounter Visit Diagnoses Not on filein this encounter"
--- OUTSIDE RECORDS SUMMARY | ~2017-06-27 | XMS | Encounter Summary ---
Demographics + + + | Address | [address] | | | [place] [address] | + + + | Home Phone | | + + + | Preferred Language | Unknown | + + + | Marital Status | Single | + + + | Sikh Affiliation | NON | + + + [...] Providers + +------+ + | Care Emergency Dispatch Operator Name | Role | Phone | + +------+ + | Herrera Badillo MD | PCP | | + +------+ + Encounter Details +--------+ + + + + | Date | Type | Department | Care Team | Description | +--------+ + + + + | 05/06/ | Abstract | Transplant | Sander Yan MD | | | 2018 | | Coordinators [address] | [address] | | | | | [address] [facility] | [place], [place] | | | | | [place] | [address] | | | | | [address] | [phone] | | | | | [phone] | | | +--------+ + + + [...] | | | | | [place], | | | | | | [place] [address] | | | | | | [phone] | | | | | | | [...] | + + + | Blood | [place] [address] [address] [place] [address] | + + + in this encounter Visit Diagnoses Not on filein this encounter"
--- OUTSIDE RECORDS SUMMARY | ~2017-06-27 | XMS | Encounter Summary ---
Demographics + + + | Address | [address] | | | [place] [address] | + + + | Home Phone | | + + + | Preferred Language | Unknown | + + + | Marital Status | | + + + | Mosque Affiliation | Unknown | + + + | Race | Unknown | + + + | Ethnic Group | Unknown | + + + Author + + + | Author | [facility] | + + + | Organization | [facility] | + + + | Address | Unknown | + + + | Phone | Unavailable | + + + Support + + +---------+ + | Name | Relationship | Address | Phone | + + +---------+ + | Naye Wright | ECON | Unknown | | + + +---------+ + Care Team Providers + +------+ + | Care Corncob Pipe Manufacturing Supervisor Name | Role | Phone | [...] + + | 05/10/ | Surgery | [facility] | Jay Portillo MD | AV GRAFT CREATION | | 2018 | | [facility] | [address] | | | | | Operating Room [address] | [place] [address] | | | | | [address] | [phone] | | | | | [place] [address] | | | | | | [phone] | | | +--------+---------+ + + + [...] skin turning blue, or fainting Call 911. [facility] AV DIALYSIS SHUNT/FISTULA DISCHARGE INSTRUCTIONS Your physician [...] [place] | | | | | | [address] | | | | | | | [...] | | | | 1.210.Testing performed at [facility];[address] [place] [address] | | | | [facility];[place] [address] | | | | | | + + + + + + + | Specimen | Performing Laboratory | + + + | Blood | [facility] [address] [place] [address] | + + + CBC w/auto diff [...] BASOPHILS ABS | 0.08Comment: Testing performed at [facility] | 0.00 - 0.10 K/uL | | | [address] [facility];[place] [address] | | + + + + + + + | Specimen | Performing Laboratory | + + + | Blood | [facility] [address] [facility] [place] [address] | + + + in this encounter [...]
--- OUTSIDE RECORDS SUMMARY | ~2017-06-27 | XMS | Encounter Summary ---
Demographics + + + | Address | [address] | | | [place] [address] | + + + | Home Phone | | + + + | Preferred Language | Unknown | + + + | Marital Status | | + + + | Jain Affiliation | Unknown | + + + | Race | Unknown | + + + | Ethnic Group | Unknown | + + + Author + + + | Author | [facility] | + + + | Organization | [facility] | + + + | Address | Unknown | + + + | Phone | Unavailable | + + + Support + + +---------+ + | Name | Relationship | Address | Phone | + + +---------+ + | Naye Wright | ECON | Unknown | | + + +---------+ + Care Team Providers + +------+ + | Care Tape Recording Machine Operator Name | Role | Phone | + +------+ + | [facility] Primary | PCP | | + +------+ + Reason for Visit MRI/CAT Scan (Emergency) + +--------+ + + + + | Status | Reason | Specialty | Diagnoses / | Referred By | Referred To | | | | | Procedures | Contact | Contact | + +--------+ + + + + | Authorized | | Radiology | Diagnoses | [place], | [facility] | | | | | CKD | Tavares Orellana MD | [address] | | | | | (chronic | [address] | [address] | | | | | kidney | [address] | [address] | | | | | disease) | [place], [place] | [place], [place] | | | | | stage 5, GFR | [address] | [address] Phone: | | | | | less than | Phone: | [phone] | | | | | 15 ml/min | [phone] | Fax: | | | | | (HCC) | Fax: | [phone] | | | | | Nephrotic | [phone] | | | | | | range [...] | | | Clinical Decision | [address] [place], [place] | GFR less than 15 | | | | [address] | [address] | ml/min ([facility]); | | | | [place] [address] | | Nephrotic range | | | | [phone] | 2, [facility] Di Nurse | proteinuria; Anemia | | | | | Radiologist, [facility] | of chronic renal | | | | | Procedure Ct | failure, stage 4 | | | | | | (severe) ([facility]); | | | | | | Secondary | | | | | | hyperparathyroidism | | | | | | ([facility]); | | | | | | [...] return to work. Be sure to tell [facility] are providerif your job involves heavy lifting. [...] with or without activity Date Last Reviewed: 04/04/201619994792-2876 [employer]. [address] [place] [address]. All righ ts reserved. This information is [...] | 07/15/ | Office | Nephrology | Taavres Vaca MD | | | 2018 | Visit | | [address] | | | | | | [address] [place], [place] | | | | | | [address] | | | | | | | [...] Laboratory | + + + | | [address] [address] | + + + + + | [...] intervention Patient positioning: Prone. | | Axial looper fixer images were obtained through region of interest [...] imaging and interventionPatient | | positioning: Prone.Axial looper fixer images were obtained through region of interest [...] EMBOLISMTesting performed at | | | | [facility];[address] [place] [address];[place] [address] | | | |Testing performed at [facility];[address] [place] [address];[place] [address] | | | | | | + + + + + + + | Specimen | Performing Laboratory | + + + | Blood | [facility] [address] [place] [address] | + + + aPTT (04/24/2017 8:15 AM) + + + + | Component | Value | Ref Range | + + + + | APTT | 30Comment: Testing performed at [facility];888 | 23 - 32 seconds | | | Jo[address] Hester;[place] [address] | | + + + + + + + | Specimen | Performing Laboratory | + + + | Blood | [facility] [address] [place] [address] | + + + Platelet count (04/24/2017 8:15 AM) + + + + | Component | Value | Ref Range | + + + + | PLT | 248Comment: Testing performed at [facility];888 | 150 - 400 K/uL | | | Jooj Hester;[place] [address] | | + + + + + + + | Specimen | Performing Laboratory | + + + | Blood | [facility] [address] [place] [address] | + + + in this encounter [...]
--- OUTSIDE RECORDS SUMMARY | ~2017-06-27 | XMS | Encounter Summary ---
Demographics + + + | Address | [address] | | | [place] [address] | + + + | Home Phone | | + + + | Preferred Language | Unknown | + + + | Marital Status | Single | + + + | Restorationist Affiliation | NON | + + + | Race | White | + + + | Ethnic Group | Not or | + + + Author + + + | Author | [facility] | + + + | Organization | [facility] | + + + | [...] Team Providers + +------+ + | Care Scanning Coordinator Name | Role | Phone | [...] | on | Coordinators [address] | [place], [place] | | | | | [address] | [address] | | | | | Road [place], [place] | | | | | | [address] | | | | | | [phone] | | | +--------+ + + + [...] | | | | | [address] [place], | | | | | | [place] [address] | | | | | | [phone] | | | | | | | | +--------+---------+ + + + as of this encounter Visit Diagnoses Not on filein this encounter
--- OUTSIDE RECORDS SUMMARY | ~2017-06-27 | XMS | Encounter Summary ---
Demographics + + + | Address | [address] | | | [place] [address] | + + + | Home Phone | | + + + | Preferred Language | Unknown | + + + | Marital Status | Single | + + + | Advent Affiliation | NON | + + + | Race | White | + + + | Ethnic Group | Not or | + + + Author + + + | Author | [facility] | + + + | Organization | [facility] | + + + | Address | [...] Team Providers + +------+ + | Care Fence Post Cutter Name | Role | Phone | + [...] | on | Coordinators [address] | [place], [place] | | | | | [address] | [address] | | | | | Road [place], [place] | | | | | | [address] | | | | | | [phone] | | | +--------+ + + + [...] | | | | | [address] [place], | | | | | | [place] [address] | | | | | | [phone] | | | | | | | | +--------+---------+ + + + as of this encounter Visit Diagnoses Not on filein this encounter
--- OUTSIDE RECORDS SUMMARY | ~2017-06-27 | XMS | Encounter Summary ---
Demographics + + + | Address | [address] | | | [place] [address] | + + + | Home Phone | | + + + | Preferred Language | Unknown | + + + | Marital Status | | + + + | Restoration Affiliation | Unknown | + + + | Race | Unknown | + + + | Ethnic Group | Unknown | + + + Author + + + | Author | [facility] | + + + | Organization | [facility] | + + + | Address | Unknown | + + + | Phone | Unavailable | + + + Support + + +---------+ + | Name | Relationship | Address | Phone | + + +---------+ + | Naye Wright | ECON | Unknown | | + + +---------+ + Care Team Providers + +------+ + | Care Consultant Electronics Name | Role | Phone | + [...] 15 | | | | [place] [address] | | ml/min ([facility]); | | | | [phone] | | Nephrotic range | | | | | | proteinuria; Anemia | | | | | | of chronic renal | | | | | | failure, stage 4 | | | | | | (severe) ([facility]); | | | | | | Secondary | | | | | | hyperparathyroidism | | | | | | ([facility]); | | | | [...] | | | | | | [address] [place], [place] | | | | | | [address] | | | | | | | [...] + + | Blood | [facility] [address] [place] [address] [address] [place], [place] | | | [address] | + + + CBC W/Auto Diff [...] + | Blood | [facility] [address], [facility] 13 [place], [place] | | | [address] | + + + PTH intact no [...] + | Blood | [facility] [address], [facility] [address] [place], [place] | | | [address] | + + + [place]/Lambda LC RATI (05/15/2017 8:15 AM) + + + | Specimen | Performing Laboratory | + + + | | [facility] [address], [facility] [address] [place], [place] | | | [address] | + + + + + | Narrative | + + | [place] Quant: 13.30 Range: 0.33-1.94 Lambda: 8.20 Range: 0.57-2.63 | | Ratio:1.62 Range: 0.26-1.65 | + + Immunofixation,Serum (05/15/2017 8:15 AM) + + + | Specimen | Performing Laboratory | + + + | Blood | [facility] [address] [place] [address] | | | [address] | + + + + + | [...] + + | Urine | [facility] [address] [place], [place] [address] | | | [address] | + + + + + | Narrative | + + | Bacteria: 1+ | + + in this encounter Visit Diagnoses + + | Diagnosis | + + | CKD (chronic kidney disease) stage 5, GFR less than 15 ml/min ([facility]) | + + | Chronic kidney disease, Stage V | + + | Nephrotic range proteinuria | + + | Proteinuria | + + | Anemia of chronic renal failure, stage 4 (severe) ([facility]) | + + | Secondary [...]
--- OUTSIDE RECORDS SUMMARY | ~2017-06-27 | XMS | Encounter Summary ---
Demographics + + + | Address | [address] | | | [place] [address] | + + + | Home Phone | | + + + | Preferred Language | Unknown | + + + | Marital Status | Single | + + + | Judaism Affiliation | NON | + + + | Race | White | + + + | Ethnic Group | Not or | + + + Author + + + | Author | [facility] | + + + | Organization | [facility] | + + + | Address [...] Team Providers + +------+ + | Care Official Court Interpreter Name | Role | Phone | + [...] | | | | | [address] [facility] | [facility], | | | | | Road [place], [place] | [place] [address] | | | | | [address] | [phone] | | | | | [phone] | | | +--------+ + + + [...] | | | | | [address] [place], | | | | | | [place] [address] | | | | | | [phone] | | | | | | | [...]
--- OUTSIDE RECORDS SUMMARY | ~2017-06-27 | XMS | Encounter Summary ---
Demographics + + + | Address | [address] | | | [place] [address] | + + + | Home Phone | | + + + | Preferred Language | Unknown | + + + | Marital Status | | + + + | Druze Affiliation | Unknown | + + + | Race | Unknown | + + + | Ethnic Group | Unknown | + + + Author + + + | Author | [facility] | + + + | Organization | [facility] | + + + | Address | Unknown | + + + | Phone | Unavailable | + + + Support + + +---------+ + | Name | Relationship | Address | Phone | + + +---------+ + | Naye Wright | ECON | Unknown | | + + +---------+ + Care Team Providers + +------+ + | Care Valve Lapper Name | Role | Phone | + [...] | Radiology | Diagnoses | [place], | [facility] [address] | | | | | CKD | Tavares Orellana MD | [address] | | | | | (chronic | [address] | | | | | kidney | [address] | [place], [place] | | | | | disease) | [place], [place] | [address] Phone: | | | | | stage 5, GFR | [address] | [phone] | | | | | less than | Phone: | | | | | | 15 ml/min | [phone] | | | | | | (HCC) | Fax: | | | | | | Anemia of | [phone] | | | | | | chronic [...] | Radiology | Diagnoses | [place], | [facility] [address] | | | | | CKD | Tavares Orellana MD | [address] | | | | | (chronic | [address] | | | | | kidney | [address] | [place], [place] | | | | | disease) | [place], [place] | [address] Phone: | | | | | stage 5, GFR | [address] | [phone] | | | | | less than | Phone: | | | | | | 15 ml/min | [phone] | | | | | | (HCC) | Fax: | | | | | | Anemia of | [phone] | | | | | | chronic [...] + + | 05/30/ | Hospital | [facility] | Tavares Vaca MD | CKD (chronic kidney | | 2018 | Encounter | [facility] 3[facility] | [address] | disease) stage 5, | | | | Floor [place] | [address] [place], [place] | GFR less than 15 | | | | Pavilion [address] | [address] | ml/min ([facility]); Anemia | | | | Blvd [place], [place] | | of chronic renal | | | | [address] | Gerson Lucero MD | failure, stage 5 | | | | | PhD [address] | ([facility]); [place] (acute | | | | | Dr [address], | kidney injury); | | | | | [place] [address] | Secondary | | | | | [phone] | hyperparathyroidism | | | | | | ([facility]); Nephrotic | | | | | 3, [facility] Di Nurse | range proteinuria; | [...] return to work. Be sure to tell [facility] are providerif your job involves heavy lifting. [...] with or without activity Date Last Reviewed: 04/04/201619993715-5606 [employer]. [address] [place] [address]. All righ ts reserved. This information is [...] [place] | | | | | | [id number] | | | | | | | [...] + | | [facility] [address] [place], [place] [address] [address] | + + + + + | [...] disease. Proteinuria. History of liver transplant. PRIMARY PATTERN SETTER: | | Gerson Lucero MD, PhD, RPVI [...] division in distribution into appropriate media for sleetmute renal | | pathologic assessment, including electromicroscopy [...] Unit for routine post procedure monitoring. FINDINGS: Collector Of Internal Revenue CT redemonstrates | | thin body habitus [...] Proteinuria. History of liver | | transplant.PRIMARY PATTERN SETTER: Gerson Lucero MD, PhD, RPVIOPERATIONS:1. Limited CT [...] distribution into appropriate media for | | sleetmute renal pathologic assessment, including electromicroscopy and immunofluorescence. [...] Stay Unit for routine post procedure monitoring.FINDINGS: Collector Of Internal Revenue CT redemonstrates thin | | body habitus [...] EMBOLISMTesting performed at | | | | [facility];[address] [place] [address];[place] [address] | | | |Testing performed at [facility];[address] [place] [address];[place] [address] | | | | | | + + + + + + + | Specimen | Performing Laboratory | + + + | Blood | [facility] [address] [facility] [place] [address] | + + + Platelet count (05/30/2017 8:27 AM) + + + + | Component | Value | Ref Range | + + + + | PLT | 277Comment: Testing performed at [facility] | 150 - 400 K/uL | | | [facility];[place] [address] | | + + + + + + + | Specimen | Performing Laboratory | + + + | Blood | [facility] [address] [place] [address] | + + + aPTT (05/30/2017 8:27 AM) + + + + | Component | Value | Ref Range | + + + + | APTT | 31Comment: Testing performed at [facility];8 | 23 - 32 seconds | | | [address];[place] [address] | | + + + + + + + | Specimen | Performing Laboratory | + + + | Blood | [facility] [address] [place] [address] | + + + Pathology histology - [...] This case was seen and processed at [facility] | | Center in [place], [place]. (Report # [id number]) GROSS DESCRIPTION: Three specimens | | are [...] | | | Some Gl[place], Appears Adequate AMB:[facility] MICROSCOPIC EXAMINATION: Four core | | [...] developed and their performance characteristics determined by [facility]. This test is used for clinical [...] 1, IF-lgG x 1, IF-lgM x 1, IF-[place] | | x 1, IF-Lambda x 1. PERFORMING LABORATORY: Professional interpretation and technical | | preparation was performed by [employer] [facility], [address] | | [place] [address] (Respiratory Therapy Instructor: Trell aMrrero M.D.; | | [facility]#: [id number]). COMMENT: The ultrastructural changes support the light [...] stage 5, GFR less than 15 ml/min ([facility]) | + + | Chronic kidney [...] Severe Pain (7-10), | | | Starting [facility] 05/30/17 at 1005 | | + [...] PRN, Nausea, Vomiting, Starting | | | [facility] 05/30/17 at 1005 | | + +---+ | | | + +---+ in this encounter
--- OUTSIDE RECORDS SUMMARY | ~2017-06-27 | XMS | Encounter Summary ---
Demographics + + + | Address | [address] | | | [place] [address] | + + + | Home Phone | | + + + | Preferred Language | Unknown | + + + | Marital Status | | + + + | Hoahaoism Affiliation | Unknown | + + + | Race | Unknown | + + + | Ethnic Group | Unknown | + + + Author + + + | Author | [facility] | + + + | Organization | [facility] | + + + | Address | Unknown | + + + | Phone | Unavailable | + + + Support + + +---------+ + | Name | Relationship | Address | Phone | + + +---------+ + | Naye Wright | ECON | Unknown | | + + +---------+ + Care Team Providers + +------+ + | Care Cat Cracker Operator Name | Role | Phone | [...] + + | 05/10/ | Anesthesia | [facility] | Darryl Meyers | | | 2018 | Event | [facility] | MD Mil [address] | | | | | Operating Room [address] | | | | | [address] | [place] [address] | | | | | [place] [address] | [phone] | | | | | [phone] | | | +--------+ + + + [...] | | | | | | [address] [place], [place] | | | | | | [address] | | | | | | | [...]
--- OUTSIDE RECORDS SUMMARY | ~2017-06-27 | XMS | Encounter Summary ---
Demographics + + + | Address | [address] | | | [place] [address] | + + + | Home Phone | | + + + | Preferred Language | Unknown | + + + | Marital Status | | + + + | Buddhism Affiliation | Unknown | + + + | Race | Unknown | + + + | Ethnic Group | Unknown | + + + Author + + + | Author | [facility] | + + + | Organization | [facility] | + + + | Address | Unknown | + + + | Phone | Unavailable | + + + Support + + +---------+ + | Name | Relationship | Address | Phone | + + +---------+ + | Naye Wright | ECON | Unknown | | + + +---------+ + Care Team Providers + +------+ + | Care Community Relations Manager Name | Role | Phone | [...] Documentati | [facility] | Kiersten Shaffer, AROMATHERAPIST | Other (Blood Pressre | | 2018 | on Only | [place] [address] | | Log dated | | | | [address] | | 05/06/2017-05/19/2017) | | | | [place] [address] | | | | | | [phone] | | | +--------+ + + + [...] | | | | | | [address] [place] | | | | | | [address] | | | | | | | | +--------+---------+ + + + as of this encounter Visit Diagnoses Not on filein this encounter"
--- OUTSIDE RECORDS SUMMARY | ~2017-06-27 | XMS | Encounter Summary ---
Demographics + + + | Address | [address] | | | [place] [address] | + + + | Home Phone | | + + + | Preferred Language | Unknown | + + + | Marital Status | | + + + | Baptist Affiliation | Unknown | + + + | Race | Unknown | + + + | Ethnic Group | Unknown | + + + Author + + + | Author | [facility] | + + + | Organization | [facility] | + + + | Address | Unknown | + + + | Phone | Unavailable | + + + Support + + +---------+ + | Name | Relationship | Address | Phone | + + +---------+ + | Naye Wright | ECON | Unknown | | + + +---------+ + Care Team Providers + +------+ + | Care Skip Tender Name | Role | Phone | + [...] | Other | | 2017 | | [place] [address] | | | | | | [address] | | | | | | [address] [place] | | | | | | [address] | | | +--------+ + + + [...] | | | | | | [address] [place] | | | | | | [address] | | | | | | | | +--------+---------+ + + + as of this encounter Visit Diagnoses Not on filein this encounter"
--- OUTSIDE RECORDS SUMMARY | ~2017-06-27 | XMS | Encounter Summary ---
Demographics + + + | Address | [address] | | | [place] [address] | + + + | Home Phone | | + + + | Preferred Language | Unknown | + + + | Marital Status | | + + + | Buddhism Affiliation | Unknown | + + + | Race | Unknown | + + + | Ethnic Group | Unknown | + + + Author + + + | Author | [facility] | + + + | Organization | [facility] | + + + | Address | Unknown | + + + | Phone | Unavailable | + + + Support + + +---------+ + | Name | Relationship | Address | Phone | + + +---------+ + | Naye Wright | ECON | Unknown | | + + +---------+ + Care Team Providers + +------+ + | Care Hospital Fellow Name | Role | Phone | + [...] [place] | | | | | | [address] | | | +--------+ + + + [...] | | | | | | [address] [place] | | | | | | [address] | | | | | | | | +--------+---------+ + + + as of this encounter Visit Diagnoses Not on filein this encounter"
--- OUTSIDE RECORDS SUMMARY | ~2017-06-27 | XMS | Encounter Summary ---
Demographics + + + | Address | [address] | | | [place] [address] | + + + | Home Phone | | + + + | Preferred Language | Unknown | + + + | Marital Status | | + + + | Nondenominational Affiliation | Unknown | + + + | Race | Unknown | + + + | Ethnic Group | Unknown | + + + Author + + + | Author | [facility] | + + + | Organization | [facility] | + + + | Address | Unknown | + + + | Phone | Unavailable | + + + Support + + +---------+ + | Name | Relationship | Address | Phone | + + +---------+ + | Naye Wright | ECON | Unknown | | + + +---------+ + Care Team Providers + +------+ + | Care Revenue Officer Name | Role | Phone | + [...] + + | 05/10/ | Hospital | [facility] | Jay Portillo MD | | | 2018 | Encounter | [facility] PACU | [address] [facility] [address] | | | | | [address] | [place] [address] | | | | | [place] [address] | [phone] | | | | | [phone] | | | +--------+ + + + [...] skin turning blue, or fainting Call 911. [facility] AV DIALYSIS SHUNT/FISTULA DISCHARGE INSTRUCTIONS Your physician [...] | | | | | | [address] [place] [place] | | | | | | [address] [...] | | | | 1.210.Testing performed at [facility];[address] [place] [address] | | | | [facility];[place] [address] | | | | | | + + + + + + + | Specimen | Performing Laboratory | + + + | Blood | [facility] [address] [place] [address] | + + + CBC w/auto diff [...] BASOPHILS ABS | 0.08Comment: Testing performed at [facility] | 0.00 - 0.10 K/uL | | | [facility];[place] [address] | | + + + + + + + | Specimen | Performing Laboratory | + + + | Blood | [facility] [address] [place] [address] | + + + in this encounter [...]
--- OUTSIDE RECORDS SUMMARY | ~2017-06-27 | XMS | Encounter Summary ---
Demographics + + + | Address | [address] | | | [place] [address] | + + + | Home Phone | | + + + | Preferred Language | Unknown | + + + | Marital Status | | + + + | Orthodoxy Affiliation | Unknown | + + + | Race | Unknown | + + + | Ethnic Group | Unknown | + + + Author + + + | Author | [facility] | + + + | Organization | [facility] | + + + | Address | Unknown | + + + | Phone | Unavailable | + + + Support + + +---------+ + | Name | Relationship | Address | Phone | + + +---------+ + | Naye Wright | ECON | Unknown | | + + +---------+ + Care Team Providers + +------+ + | Care Molecular Genetic Pathologist Name | Role | Phone | + [...] 04/15/2017) | | | | [place] [address] | | | | | | [phone] | | | +--------+ + + + [...] | | | | | | [address] [place] | | | | | | [address] | | | | | | | | +--------+---------+ + + + as of this encounter Visit Diagnoses Not on filein this encounter"
--- OUTSIDE RECORDS SUMMARY | ~2017-06-27 | XMS | Encounter Summary ---
Demographics + + + | Address | [address] | | | [place] [address] | + + + | Home Phone | | + + + | Preferred Language | Unknown | + + + | Marital Status | | + + + | Adventist Affiliation | Unknown | + + + | Race | Unknown | + + + | Ethnic Group | Unknown | + + + Author + + + | Author | [facility] | + + + | Organization | [facility] | + + + | Address | Unknown | + + + | Phone | Unavailable | + + + Support + + +---------+ + | Name | Relationship | Address | Phone | + + +---------+ + | Naye Wright | ECON | Unknown | | + + +---------+ + Care Team Providers + +------+ + | Care Chemical Processor Name | Role | Phone | + [...] Documentati | [facility] | Kiersten Shaffer, COLLET DRILLER | Other (Blood | | 2018 | on Only | [place] [address] | | Pressure Log dated | | | | [address] | | 03/23/2017-04/21/2017) | | | | [place] [address] | | | | | | [phone] | | | +--------+ + + + [...] | | | | | | [address] [place] | | | | | | [address] | | | | | | | | +--------+---------+ + + + as of this encounter Visit Diagnoses Not on filein this encounter"
--- OUTSIDE RECORDS SUMMARY | ~2017-06-27 | XMS | Encounter Summary ---
Demographics + + + | Address | [address] | | | [place] [address] | + + + | Home Phone | | + + + | Preferred Language | Unknown | + + + | Marital Status | | + + + | Judaism Affiliation | Unknown | + + + | Race | Unknown | + + + | Ethnic Group | Unknown | + + + Author + + + | Author | [facility] | + + + | Organization | [facility] | + + + | Address | Unknown | + + + | Phone | Unavailable | + + + Support + + +---------+ + | Name | Relationship | Address | Phone | + + +---------+ + | aNye Wright | ECON | Unknown | | + + +---------+ + Care Team Providers + +------+ + | Care Plumber Name | Role | Phone | [...] 06/14/2017) | | | | [place] [address] | | | | | | [phone] | | | +--------+ + + + [...] [place] | | | | | | [address] | | | | | | | | +--------+---------+ + + + as of this encounter Visit Diagnoses Not on filein this encounter"
--- OUTSIDE RECORDS SUMMARY | ~2017-06-27 | XMS | Encounter Summary ---
Demographics + + + | Address | [address] | | | [place] [address] | + + + | Home Phone | | + + + | Preferred Language | Unknown | + + + | Marital Status | | + + + | Caodaism Affiliation | Unknown | + + + | Race | Unknown | + + + | Ethnic Group | Unknown | + + + Author + + + | Author | [facility] | + + + | Organization | [facility] | + + + | Address | Unknown | + + + | Phone | Unavailable | + + + Support + + +---------+ + | Name | Relationship | Address | Phone | + + +---------+ + | Naye Wright | ECON | Unknown | | + + +---------+ + Care Team Providers + +------+ + | Care Desktop Operator Name | Role | Phone | [...] | kidney disease | | | | [facility] [address] | | ([facility]); Nephrotic | | | | [place] [address] | | range proteinuria; | | | | [phone] | | Anemia of chronic | | | | | | renal failure, stage | | | | | | 4 (severe) ([facility]); | | | | | | Hyperuricemia; BRIDGET | | | | | | (acute kidney | | | | | | injury); Metabolic | | | | | | acidosis; Secondary | | | | | | hyperparathyroidism | | | | | | ([facility]); Acute | | | | [...] | | | | | | [address] [place], [place] | | | | | | [id number] | | | | | | | [...] + | Blood | [facility] [address] | | | [address] | + + + PTH intact no [...] + | Blood | [facility] [address] [place] [address] | | | [address] | + + + CBC W/Auto Diff [...] + + | Blood | [facility] [address] [place], [place] [address] | | | [address] | + + + Magnesium (04/18/2017 8:10 AM) + +---------+ + | Component | Value | Ref Range | + +---------+ + | MAGNESIUM | 1.6 (A) | 1.7 - 2.5 mg/dL | + +---------+ + + + + | Specimen | Performing Laboratory | + + + | Blood | [facility] [address] [place] [address] | | | [address] | + + + Renal function panel [...] + | Blood | [facility] [address] [place] [address] | | | [address] | + + + in this encounter [...]
--- OUTSIDE RECORDS SUMMARY | ~2017-06-27 | XMS | Encounter Summary ---
Demographics + + + | Address | [address] | | | [place] [address] | + + + | Home Phone | | + + + | Preferred Language | Unknown | + + + | Marital Status | | + + + | Gnosticist Affiliation | Unknown | + + + | Race | Unknown | + + + | Ethnic Group | Unknown | + + + Author + + + | Author | [facility] | + + + | Organization | [facility] | + + + | Address | Unknown | + + + | Phone | Unavailable | + + + Support + + +---------+ + | Name | Relationship | Address | Phone | + + +---------+ + | Naye Wright | ECON | Unknown | | + + +---------+ + Care Team Providers + +------+ + | Care Construction Stonemason Name | Role | Phone | + [...] | | | | | [place] [address] | | | | | | [phone] | | | +--------+ + + + [...] | | | | | | [address] [place] | | | | | | [id number] | | | | | | | | +--------+---------+ + + + as of this encounter Visit Diagnoses Not on filein this encounter"
--- OUTSIDE RECORDS SUMMARY | ~2017-06-27 | XMS | Encounter Summary ---
Demographics + + + | Address | [address] | | | [place] [address] | + + + | Home Phone | | + + + | Preferred Language | Unknown | + + + | Marital Status | | + + + | Pentecostal Affiliation | Unknown | + + + | Race | Unknown | + + + | Ethnic Group | Unknown | + + + Author + + + | Author | [facility] | + + + | Organization | [facility] | + + + | Address | Unknown | + + + | Phone | Unavailable | + + + Support + + +---------+ + | Name | Relationship | Address | Phone | + + +---------+ + | Naye Wright | ECON | Unknown | | + + +---------+ + Care Team Providers + +------+ + | Care Print Controller Name | Role | Phone | + +------+ + PCP | Unavailable | + +------+ + Encounter Details +--------+ + + + + | Date | Type | Department | Care Team | Description | +--------+ + + + + | 06/14/ | Telephone | [facility] | Kylee Kerr, | | | 2017 | | [address] | PULP HOUSE SUPERVISOR | | | | | [address] | | | | | | [place] [address] | | | | | | [phone] | | | +--------+ + + + [...] | | | | | | [address] [place], [place] | | | | | | [address] | | | | | | | [...]
--- OUTSIDE RECORDS SUMMARY | ~2017-06-27 | XMS | Encounter Summary ---
Demographics + + + | Address | [address] | | | [place] [address] | + + + | Home Phone | | + + + | Preferred Language | Unknown | + + + | Marital Status | | + + + | Yazidi Affiliation | Unknown | + + + | Race | Unknown | + + + | Ethnic Group | Unknown | + + + Author + + + | Author | [facility] | + + + | Organization | [facility] | + + + | Address | Unknown | + + + | Phone | Unavailable | + + + Support + + +---------+ + | Name | Relationship | Address | Phone | + + +---------+ + | Naye Wright | ECON | Unknown | | + + +---------+ + Care Team Providers + +------+ + | Care Shuttleless Loom Weaver Name | Role | Phone | + [...] | | 2018 | on Only | [place] [address] | [address] | Transplant Services | | | | [address] | [address] [place], [place] | Letter- Not a | | | | [place] [address] | [address] | Candidate) | | | | [phone] | | | +--------+ + + + [...] [place] | | | | | | [address] | | | | | | | | +--------+---------+ + + + as of this encounter Visit Diagnoses Not on filein this encounter"
--- OUTSIDE RECORDS SUMMARY | ~2017-06-27 | XMS | Encounter Summary ---
Demographics + + + | Address | [address] | | | [place] [address] | + + + | Home Phone | | + + + | Preferred Language | Unknown | + + + | Marital Status | | + + + | Gnosticist Affiliation | Unknown | + + + | Race | Unknown | + + + | Ethnic Group | Unknown | + + + Author + + + | Author | [facility] | + + + | Organization | [facility] | + + + | Address | Unknown | + + + | Phone | Unavailable | + + + Support + + +---------+ + | Name | Relationship | Address | Phone | + + +---------+ + | Naye Wright | ECON | Unknown | | + + +---------+ + Care Team Providers + +------+ + | Care Wool Washer Name | Role | Phone | + [...] | Radiology | Diagnoses | [place], | [facility] [address] | | | | | CKD | Tavares Orellana MD | [address] | | | | | (chronic | [address] | | | | | kidney | [address] | [place], [place] | | | | | disease) | [place], [place] | [address] Phone: | | | | | stage 5, GFR | [address] | [phone] | | | | | less than | Phone: | | | | | | 15 ml/min | [phone] | | | | | | (HCC) | Fax: | | | | | | Anemia of | [phone] | | | | | | chronic [...] | Radiology | Diagnoses | [place], | [facility] [address] | | | | | CKD | Tavares Orellana MD | [address] | | | | | (chronic | [address] | | | | | kidney | [address] | [place], [place] | | | | | disease) | [place], [place] | [address] Phone: | | | | | stage 5, GFR | [address] | [phone] | | | | | less than | Phone: | | | | | | 15 ml/min | [phone] | | | | | | (HCC) | Fax: | | | | | | Anemia of | [phone] | | | | | | chronic [...] + + | 05/30/ | Hospital | [facility] | Tavares Vaca MD | CKD (chronic kidney | | 2018 | Encounter | [facility] | [address] | disease) stage 5, | | | | [address] [place] | [address] [place], [place] | GFR less than 15 | | | | Pavilion [address] | [address] | ml/min ([facility]); Anemia | | | | Blvd [place], [place] | | of chronic renal | | | | [address] | Gerson Lucero MD | failure, stage 5 | | | | | PhD [address] | ([facility]); BRIDGET (acute | | | | | Dr [address], | kidney injury); | | | | | [place] [address] | Secondary | | | | | [phone] | hyperparathyroidism | | | | | | ([facility]); Nephrotic | | | | | 3, [facility] Nurse | range proteinuria; | [...] return to work. Be sure to tell youruniversity hospitals conneaut medical centerc are providerif your job involves [...] with or without activity Date Last Reviewed: 04/04/[id number] [employer]. [address] [place] [address]. All righ ts reserved. This information is [...] [place] | | | | | | [address] | | | | | | | [...] | + + + | | [facility] [address] [place], [place] [address] [address] | + + + + + | [...] disease. Proteinuria. History of liver transplant. PRIMARY MANAGED CARE SPECIALIST: | | Gerson Lucero MD, PhD, RPVI [...] division in distribution into appropriate media for eastern shoshone renal | | pathologic assessment, including electromicroscopy [...] Unit for routine post procedure monitoring. FINDINGS: Wood Router CT redemonstrates | | thin body habitus [...] Proteinuria. History of liver | | transplant.PRIMARY MANAGED CARE SPECIALIST: Gerson Lucero MD, PhD, RPVIOPERATIONS:1. Limited CT [...] distribution into appropriate media for | | eastern shoshone renal pathologic assessment, including electromicroscopy and immunofluorescence. [...] Stay Unit for routine post procedure monitoring.FINDINGS: Wood Router CT redemonstrates thin | | body habitus [...] performed at | | | | [facility];[address] [place] [address];[place] [address] | | | |Testing performed at [facility];[address] [place] [address];[place] [address] | | | | | | + + + + + + + | Specimen | Performing Laboratory | + + + | Blood | [facility] [address] [facility] [place] [address] | + + + Platelet count (05/30/2017 8:27 AM) + + + + | Component | Value | Ref Range | + + + + | PLT | 277Comment: Testing performed at [facility] | 150 - 400 K/uL | | | [facility];[place] [address] | | + + + + + + + | Specimen | Performing Laboratory | + + + | Blood | [facility] [address] [place] [address] | + + + aPTT (05/30/2017 8:27 AM) + + + + | Component | Value | Ref Range | + + + + | APTT | 31Comment: Testing performed at [facility];8 | 23 - 32 seconds | | | [address];[place] [address] | | + + + + + + + | Specimen | Performing Laboratory | + + + | Blood | [facility] [address] [place] [address] | + + + Pathology histology - [...] This case was seen and processed at [facility] | | Center in [place], [place]. (Report # [id number]) GROSS DESCRIPTION: Three specimens | | are [...] | | | Some Glomeruli, Appears Adequate AMB:[facility] MICROSCOPIC EXAMINATION: Four core | | [...] their performance characteristics determined by [facility]. This test is used for [...] 1, IF-lgG x 1, IF-lgM x 1, IF-Comfort | | x 1, IF-Lambda x 1. PERFORMING LABORATORY: Professional interpretation and technical | | preparation was performed by [employer] [place], [address] | | [place] [address] (Carburizer: Trell Marrero M.D.; | | [facility]#: [id number]). COMMENT: The ultrastructural changes support the light [...] 15 ml/min ([facility]) | + + | Chronic kidney disease, [...] Severe Pain (7-10), | | | Starting [facility] 05/30/17 at 1005 | | + [...] PRN, Nausea, Vomiting, Starting | | | [facility] 05/30/17 at 1005 | | + +---+ | | | + +---+ in this encounter
--- OUTSIDE RECORDS SUMMARY | ~2017-06-27 | XMS | Encounter Summary ---
Demographics + + + | Address | [address] | | | [place] [address] | + + + | Home Phone | | + + + | Preferred Language | Unknown | + + + | Marital Status | | + + + | Zoroastrian Affiliation | Unknown | + + + | Race | Unknown | + + + | Ethnic Group | Unknown | + + + Author + + + | Author | [facility] | + + + | Organization | [facility] | + + + | Address | Unknown | + + + | Phone | Unavailable | + + + Support + + +---------+ + | Name | Relationship | Address | Phone | + + +---------+ + | Naye Wright | ECON | Unknown | | + + +---------+ + Care Team Providers + +------+ + | Care Director Industrial Nursing Name | Role | Phone | + +------+ + | [facility] | PCP | | + +------+ + Encounter Details +--------+ + + + + | Date | Type | Department | Care Team | Description | +--------+ + + + + | 05/14/ | Telephone | [facility] | Yaritza Soraes, | | | 2017 | | Vascular Surgery | RN | | | | | [address] | | | | | | [place] | | | | | | [address] | | | | | | [phone] | | | +--------+ + + + [...]
--- OUTSIDE RECORDS SUMMARY | ~2017-06-27 | XMS | Encounter Summary ---
Demographics + + + | Address | [address] | | | [place] [address] | + + + | Home Phone | | + + + | Preferred Language | Unknown | + + + | Marital Status | | + + + | Quaker Affiliation | Unknown | + + + | Race | Unknown | + + + | Ethnic Group | Unknown | + + + Author + + + | Author | [facility] | + + + | Organization | [facility] | + + + | Address | Unknown | + + + | Phone | Unavailable | + + + Support + + +---------+ + | Name | Relationship | Address | Phone | + + +---------+ + | Naye Wright | ECON | Unknown | | + + +---------+ + Care Team Providers + +------+ + | Care Certified Medication Technician Name | Role | Phone | [...] | | 2018 | on Only | [place] [address] | | Labs dated | | | | [address] | | 04/18/2017) | | | | [place] [address] | | | | | | [phone] | | | +--------+ + + + [...] | | | | | | [address] [place] [place] | | | | | | [address] | | | | | | | | +--------+---------+ + + + as of this encounter Visit Diagnoses Not on filein this encounter"
--- OUTSIDE RECORDS SUMMARY | ~2017-06-27 | XMS | Encounter Summary ---
Demographics + + + | Address | [address] | | | [place] [address] | + + + | Home Phone | | + + + | Preferred Language | Unknown | + + + | Marital Status | | + + + | Denominational Affiliation | Unknown | + + + | Race | Unknown | + + + | Ethnic Group | Unknown | + + + Author + + + | Author | [facility] | + + + | Organization | [facility] | + + + | Address | Unknown | + + + | Phone | Unavailable | + + + Support + + +---------+ + | Name | Relationship | Address | Phone | + + +---------+ + | Naye Wright | ECON | Unknown | | + + +---------+ + Care Team Providers + +------+ + | Care Chronometer Tester Name | Role | Phone | [...] + + | 05/10/ | Anesthesia | [facility] | Darryl Meyers | | | 2018 | Event | [facility] | MD [address] | | | | | Operating Room [address] | | | | | [address] | [place] [address] | | | | | [place] [address] | [phone] | | | | | [phone] | | | +--------+ + + + [...] | | | | | | [address] [place], [place] | | | | | | [address] | | | | | | | [...]
--- OUTSIDE RECORDS SUMMARY | ~2017-06-27 | XMS | Encounter Summary ---
Demographics + + + | Address | [address] | | | [place] [address] | + + + | Home Phone | | + + + | Preferred Language | Unknown | + + + | Marital Status | | + + + | Zoroastrianism Affiliation | Unknown | + + + | Race | Unknown | + + + | Ethnic Group | Unknown | + + + Author + + + | Author | [facility] | + + + | Organization | [facility] | + + + | Address | Unknown | + + + | Phone | Unavailable | + + + Support + + +---------+ + | Name | Relationship | Address | Phone | + + +---------+ + | Naye Wright | ECON | Unknown | | + + +---------+ + Care Team Providers + +------+ + | Care Hospital Pharmacy Technician Name | Role | Phone | [...] + + | 05/29/ | Office | [facility] | Bk ISAURA Pyle | Chronic kidney | | 2018 | Visit | Vascular Surgery | [address] | disease (CKD), | | | | [address] | [place], [place] | active medical | | | | [place], [place] | [address] | management without | | | | [address] | | dialysis, | | | | [phone] | | unspecified stage | | | [...] Lashanda Bourgeois DNP - 05/29/2017 2:30 PM [facility] [address] [place] [address] [place] [address] Office: [phone] DATE OF VISIT: 05/29/2017 PATIENT NAME: Nicolasa Clark : 1980; AGE: 37 y.o.; Sex:F PHONE NUMBER: ; PROVIDER: Lashanda Bourgeois DNP PRIMARY CARE / REFERRING PHYSICIAN: [facility] / Sherrie Blackman / [address] [address] / [place] [id number] REASON FOR EVALUATION / CHIEF COMPLAINT: Vascular Surgery Postoperative Visit for AVG creation The patient presents today for a Vascular Surgery Postoperative Visit. The patient is statu s post Left brachial artery to axillary vein using 4-7 mm Acuseal graft creation, which was performed on 05/10/2017 at the [facility] Operating Room. Patient reports she [...] | | | | | | [address] [place], [place] | | | | | | [address] | | | | | | | | +--------+---------+ + + + as of this encounter Visit Diagnoses + + | Diagnosis | + + | Chronic kidney disease (CKD), active medical management without dialysis, unspecified | | stage - Primary | + + | Hemodialysis access, AV graft (HCC) | + +"
--- OUTSIDE RECORDS SUMMARY | ~2017-06-27 | XMS | Encounter Summary ---
Demographics + + + | Address | [address] | | | [place] [address] | + + + | Home Phone | | + + + | Preferred Language | Unknown | + + + | Marital Status | Single | + + + | Gnosticism Affiliation | NON | + + + | Race | White | + + + | Ethnic Group | Not or | + + + Author + + + | Author | [facility] | + + + | Organization | [facility] | + + + | [...] Team Providers + +------+ + | Care Bark Grinder Name | Role | Phone | + [...] | | | | | [address] [facility] | [facility], | | | | | Road [place], [place] | [place] [address] | | | | | [address] | [phone] | | | | | [phone] | | | +--------+ + + + [...] | | | | | [address] [place], | | | | | | [place] [address] | | | | | | [phone] | | | | | | | [...]
--- OUTSIDE RECORDS SUMMARY | ~2017-06-27 | XMS | Encounter Summary ---
Demographics + + + | Address | [address] | | | [place] [address] | + + + | Home Phone | | + + + | Preferred Language | Unknown | + + + | Marital Status | | + + + | Worship Affiliation | Unknown | + + + | Race | Unknown | + + + | Ethnic Group | Unknown | + + + Author + + + | Author | [facility] | + + + | Organization | [facility] | + + + | Address | Unknown | + + + | Phone | Unavailable | + + + Support + + +---------+ + | Name | Relationship | Address | Phone | + + +---------+ + | Naye Wright | ECON | Unknown | | + + +---------+ + Care Team Providers + +------+ + | Care Gym Teacher Name | Role | Phone | + [...] | | | | | [place] [address] | | | | | | [phone] | | | +--------+ + + + [...] | | | | | | [address] [place] | | | | | | [id number] | | | | | | | | +--------+---------+ + + + as of this encounter Visit Diagnoses Not on filein this encounter"
--- OUTSIDE RECORDS SUMMARY | ~2017-06-27 | XMS | Encounter Summary ---
Demographics + + + | Address | [address] | | | [place] [address] | + + + | Home Phone | | + + + | Preferred Language | Unknown | + + + | Marital Status | | + + + | Yazidi Affiliation | Unknown | + + + | Race | Unknown | + + + | Ethnic Group | Unknown | + + + Author + + + | Author | [facility] | + + + | Organization | [facility] | + + + | Address | Unknown | + + + | Phone | Unavailable | + + + Support + + +---------+ + | Name | Relationship | Address | Phone | + + +---------+ + | Naye Wright | ECON | Unknown | | + + +---------+ + Care Team Providers + +------+ + | Care Financial Management Name | Role | Phone | + +------+ + | Sherrie Blackman MD | PCP | | + +------+ + Encounter Details +--------+ + + + + | Date | Type | Department | Care Team | Description | +--------+ + + + + | 05/10/ | Procedure | [facility] | | | | 2017 | [facility] | | | | | | Operating Room [address] | | | | | [address] [facility] | | | | | | [place] [address] | | | | | | [phone] | | | +--------+ + + + [...] [place] | | | | | | [address] | | | | | | | | +--------+---------+ + + + as of this encounter Visit Diagnoses Not on filein this encounter"
--- OUTSIDE RECORDS SUMMARY | ~2017-06-27 | XMS | Encounter Summary ---
Demographics + + + | Address | [address] | | | [place] [address] | + + + | Home Phone | | + + + | Preferred Language | Unknown | + + + | Marital Status | | + + + | Latter Day Affiliation | Unknown | + + + | Race | Unknown | + + + | Ethnic Group | Unknown | + + + Author + + + | Author | [facility] | + + + | Organization | [facility] | + + + | Address | Unknown | + + + | Phone | Unavailable | + + + Support + + +---------+ + | Name | Relationship | Address | Phone | + + +---------+ + | Naye Wright | ECON | Unknown | | + + +---------+ + Care Team Providers + +------+ + | Care Cash Processing Specialist Name | Role | Phone | [...] | | | | | [place] [address] | | | | | | [phone] | | | +--------+--------+ + + + [...] | | | | | | [address] [place] | | | | | | [id number] | | | | | | | | +--------+---------+ + + + as of this encounter Visit Diagnoses Not on filein this encounter"
--- OUTSIDE RECORDS SUMMARY | ~2017-06-27 | XMS | Encounter Summary ---
Demographics + + + | Address | [address] | | | [place] [address] | + + + | Home Phone | | + + + | Preferred Language | Unknown | + + + | Marital Status | | + + + | Buddhism Affiliation | Unknown | + + + | Race | Unknown | + + + | Ethnic Group | Unknown | + + + Author + + + | Author | [facility] [facility] | + + + | Organization | [facility] [facility] | + + + | Address | Unknown | + + + | Phone | Unavailable | + + + Support + + +---------+ + | Name | Relationship | Address | Phone | + + +---------+ + | Naye Wright | ECON | Unknown | | + + +---------+ + Care Team Providers + +------+ + | Care Stoneworking Sander Name | Role | Phone | [...] + + | 05/10/ | Hospital | [facility] | Jay Portillo MD | | | 2018 | Encounter | [facility] PAC[facility] | [address] | | | | | [address] | [place] [address] | | | | | [place] [address] | [phone] | | | | | [phone] | | | +--------+ + + + [...] skin turning blue, or fainting Call 911. [facility] AV DIALYSIS SHUNT/FISTULA DISCHARGE INSTRUCTIONS Your [...] | | | | | | [address] | | | | | | [address] [...] | | | | 1.210.Testing performed at [facility] [place] [address] | | | | [facility];[place] [address] | | | | | | + + + + + + + | Specimen | Performing Laboratory | + + + | Blood | [facility] [address] [place] [address] | + + + CBC w/auto diff [...] BASOPHILS ABS | 0.08Comment: Testing performed at [facility] | 0.00 - 0.10 K/uL | | | [facility];[place] [address] | | + + + + + + + | Specimen | Performing Laboratory | + + + | Blood | [facility] [address] [place] [address] | + + + in this encounter [...]
--- OUTSIDE RECORDS SUMMARY | ~2017-06-27 | XMS | Encounter Summary ---
Demographics + + + | Address | [address] | | | [place] [address] | + + + | Home Phone | | + + + | Preferred Language | Unknown | + + + | Marital Status | | + + + | Anabaptism Affiliation | Unknown | + + + | Race | Unknown | + + + | Ethnic Group | Unknown | + + + Author + + + | Author | [facility] [facility] | + + + | Organization | [facility] [employer] [facility] | + + + | Address | Unknown | + + + | Phone | Unavailable | + + + Support + + +---------+ + | Name | Relationship | Address | Phone | + + +---------+ + | Naye Wright | ECON | Unknown | | + + +---------+ + Care Team Providers + +------+ + | Care Production Graphic Designer Name | Role | Phone | + [...] 15 | | | | [place] [address] | | ml/min ([facility]); | | | | [phone] | | Nephrotic range | | | [...] | | | | | | [address] [place], [place] | | | | | | [address] | | | | | | | [...] + + | Blood | [facility] [address] [place] [address] 13 [place], [place] | | | [address] | + + + CBC W/Auto Diff [...] + | Blood | [facility] [address], [facility] 13 [place], [place] | | | [address] | + + + PTH intact no [...] + | Blood | [facility] [address], [facility] [address] [place], [place] | | | [address] | + + + [place]/Lambda LC RATI (05/15/2017 8:15 AM) + + + | Specimen | Performing Laboratory | + + + | | [facility] [address], [facility] [address] [place], [place] | | | [address] | + + + + + | Narrative | + + | [place] Quant: 13.30 Range: 0.33-1.94 Lambda: 8.20 Range: 0.57-2.63 | | Ratio:1.62 Range: 0.26-1.65 | + + Immunofixation,Serum (05/15/2017 8:15 AM) + + + | Specimen | Performing Laboratory | + + + | Blood | [facility] [address] [place] [address] | | | [address] | + + + + + | [...] + + | Urine | [facility] [address] [place], [place] [address] | | | [address] | + + + + + | [...]
--- OUTSIDE RECORDS SUMMARY | ~2017-06-27 | XMS | Encounter Summary ---
Demographics + + + | Address | [address] | | | [place] [address] | + + + | Home Phone | | + + + | Preferred Language | Unknown | + + + | Marital Status | | + + + | Zoroastrian Affiliation | Unknown | + + + | Race | Unknown | + + + | Ethnic Group | Unknown | + + + Author + + + | Author | [facility] [employer] [facility] | + + + | Organization | [facility] [employer] [facility] | + + + | Address | Unknown | + + + | Phone | Unavailable | + + + Support + + +---------+ + | Name | Relationship | Address | Phone | + + +---------+ + | Naye Wright | ECON | Unknown | | + + +---------+ + Care Team Providers + +------+ + | Care Trust Manager Assistant Name | Role | Phone | [...] Documentati | [facility] | Shaffer, Landy, SAFETY RELIEF VALVE TECHNICIAN | Labs Only (Urine | | 2018 | on Only | [place] [address] | | Culture from | | | | Saurabh Rowe | | [facility] dated | | | | [address] [place], [place] | | 04/18/2017) | | | | [address] | | | +--------+ + + + [...] [place] | | | | | | [address] | | | | | | | [...] | + + + | Urine | [facility] [address] [place] [address] 13 [place], [place] | | | [address] | + + + in this encounter Visit Diagnoses Not on filein this encounter"
--- OUTSIDE RECORDS SUMMARY | ~2017-06-27 | XMS | Clinical Summary ---
Demographics + + + | Address | [address] | | | [place] [address] | + + + | Home Phone | | + + + | Preferred Language | Unknown | + + + | Marital Status | | + + + | Sikhism Affiliation | Unknown | + + + | Race | Unknown | + + + | Ethnic Group | Unknown | + + + Author + + + | Author | [facility] [facility] | + + + | Organization | [facility] [facility] | + + + | Address | Unknown | + + + | Phone | Unavailable | + + + Support + + +---------+ + | Name | Relationship | Address | Phone | + + +---------+ + | Naye Wright | ECON | Unknown | | + + +---------+ + Care Team Providers + +------+ + | Care Salvage Machine Operator Name | Role | Phone [...] | 11/0 | Activ | | (PROCRIT) [id number] | skin every 30 | | | [...] 06/18/ | Documentati | | Kiersten Shaffer, MANUFACTURING SUPERVISOR 2ND SHIFT | Other (Blood | | 2018 | [...] | | | | | | ml/min ([facility]) | | | | | | (Primary Dx); | | | | | | Nephrotic range | | | | | | proteinuria; | | | | | | Hyperkalemia; | | | | | | Hyperuricemia; | | | | | | Anemia of chronic | | | | | | renal failure, stage | | | | | | 5 ([facility]); BRIDGET (acute | | | [...] | | | | | | ml/min ([facility]) | | | | | | (Primary Dx); Anemia | | | | | | of chronic renal | | | | | | failure, stage 5 | | | | | | ([facility]); Essential | | | | | | hypertension, | | | | | | benign; | | | | | | Hyperphosphatemia; | | | | | | Secondary | | | | | | hyperparathyroidism | | | | | | ([facility]); Metabolic | | | | | | [...] | | | | | | ml/min ([facility]); Anemia | | | | | | of chronic renal | | | | | | failure, stage 5 | | | | | | ([facility]); BRIDGET (acute | | | | | | kidney injury); | | | | | | Secondary | | | | | | hyperparathyroidism | | | | | | ([facility]); Nephrotic | | | | | | range proteinuria; | | | | | | Essential | | | | | | hypertension, benign | +--------+ + + + + | 06/14/ | Telephone | | Kylee Kerr, | | | 2017 | | | MANUFACTURING SUPERVISOR 2ND SHIFT | | +--------+ + + + + | 06/13/ | Documentati | | Kiersten Shaffer CMA | Other (Chart Note | | 2017 | on Only | | | from [facility] dated | | | | | | [...] | | | | | PhD 3, [facility] Di | GFR less than 15 | | | | | Nurse | ml/min ([facility]); Anemia | | | | | | [...] | on Only | | | from [facility] | | | | | | Transplant | | | | | | Hepatology dated | | | | | | 05/07/2017) | +--------+ + + + + | 05/23/ | Documentati | | Kiersten Shaffer, MANUFACTURING SUPERVISOR 2ND SHIFT | Other (Blood Pressre | | 2017 | on Only | | | Log dated | | | | | | 05/06/2017-05/19/2017) | +--------+ + + + + | 05/23/ | Documentati | | Kiersten Shaffer, MANUFACTURING SUPERVISOR 2ND SHIFT | [facility] ([facility] | | 2017 | on Only | | | Packet) | +--------+ + + + + | 05/22/ | Telephone | | Kiersten Shaffer, MANUFACTURING SUPERVISOR 2ND SHIFT | Other | | 2017 | | [...] | | | | | | ml/min ([facility]); Anemia | | | | | | of chronic renal | | | | | | failure, stage 5 | | | | | | ([facility]); BRIDGET (acute | | | | | | kidney injury); | | | | | | Secondary | | | | | | hyperparathyroidism | | | | | | ([facility]) | +--------+ + + + + | [...] | | | | | | ml/min ([facility]) | | | | | | (Primary Dx); Anemia | | | | | | of chronic renal | | | | | | failure, stage 5 | | | | | | ([facility]); Essential | | | | | | hypertension, | | | | | | benign; Secondary | | | | | | hyperparathyroidism | | | | | | ([facility]); Metabolic | | | | | | acidosis; | | | | | | Hyperphosphatemia | +--------+ + + + + | 05/20/ | Orders Only | | Kiersten Shaffer CMA | CKD (chronic kidney | | 2017 | | | | disease) stage 5, | | | | | | GFR less than 15 | | | | | | ml/min ([facility]) | | | | | | (Primary Dx); Anemia | | | | | | of chronic renal | | | | | | failure, stage 5 | | | | | | ([facility]); BRIDGET (acute | | | | | | kidney injury); | | | | | | Secondary | | | | | | hyperparathyroidism | | | | | | ([facility]); Nephrotic | | | | | | [...] | | | | | | ml/min ([facility]); | | | | | | Nephrotic [...] | 2018 | Encounter | | 2, [facility] Di Nurse | disease) stage 5, | | | | | Radiologist, [facility] | GFR less than 15 | | | | | [address] Ct | ml/min ([facility]); | | | | | | Nephrotic [...] | | | | | | ml/min ([facility]) | | | | | | (Primary [...] ml/min | | | | | | ([facility]); Metabolic | | | | | | acidosis; Nephrotic | | | | | | range proteinuria; | | | | | | Secondary | | | | | | hyperparathyroidism | | | | | | ([facility]); Adverse | | | | | | [...] | | | | | | ml/min ([facility]) | | | | | | (Primary [...] disease | | | | | | ([facility]); Nephrotic | | | | | | [...] disease | | | | | | ([facility]); Nephrotic | | | | | | [...] 04/17/ | Telephone | | Kiersten Shaffer, MANUFACTURING SUPERVISOR 2ND SHIFT | Abnormal Labs | | 2017 | | | | | +--------+ + + + + | 04/16/ | Telephone | | Kiersten Shaffer, MANUFACTURING SUPERVISOR 2ND SHIFT | Other (Appointment | | 2017 | | | | and lab reminder) | +--------+ + + + + | 04/15/ | Documentati | | Kiersten Shaffer, MANUFACTURING SUPERVISOR 2ND SHIFT | Labs Only ([facility] | | 2018 | on Only | | | lab dated | | | | | | 04/15/2017) | +--------+ + + + + | 04/15/ | Orders Only | | Kiersten Shaffer CMA | Stage 4 chronic | | 2018 | | | | kidney disease | | | | | | ([facility]); Nephrotic | | | | | | [...] | | | | | | [address] [place], [place] | | | | | | [address] | | | | | | | [...] Lot | + +------+--------+ +--------+--------+--------+ | [place] Acuseal [id number] | | Left: | CIARRA ALY - | | 08/19/ | [id number] | | - [id number]: | | Arm | WLGO | | 2020 | [id number] | | Qty: 1 on 05/10/2017 by Bandar, | | | | | | /[id number] | | Jay Daniel MD | | [...] | + + + | Blood | [facility] [address] [place] [address] | | | [address] | + + + CBC W/Auto Diff [...] | + + + | Blood | [facility] [address] [place], [place] [address] [place] | | | [address] | + + + PTH intact no [...] | Blood | [facility] [address] [facility] [address] [place] | | | [address] | + + + Ferritin (06/14/2017 9:42 [...] | + + + | Blood | [facility] [address] [place] [address] | | | [address] | + + + Renal function panel [...] + + | Blood | [facility] [address] [place] [address], [place] | | | [address] | + + + CT needle biopsy kidney (05/30/2017 10:00 AM) + + + | Specimen | Performing Laboratory | + + + | | [facility] [place] [address] | + + + + + | [...] disease. Proteinuria. History of liver transplant. PRIMARY CLOTH EDGE SINGER: | | Gerson Lucero MD, PhD, RPVI [...] division in distribution into appropriate media for [place] renal | | pathologic assessment, including electromicroscopy [...] Unit for routine post procedure monitoring. FINDINGS: Manager Beauty CT redemonstrates | | thin body habitus [...] Proteinuria. History of liver | | transplant.PRIMARY CLOTH EDGE SINGER: Gerson Lucero MD, PhD, RPVIOPERATIONS:1. Limited CT [...] distribution into appropriate media for | | [place] renal pathologic assessment, including electromicroscopy and immunofluorescence. [...] Stay Unit for routine post procedure monitoring.FINDINGS: Manager Beauty CT redemonstrates thin | | body habitus [...] | APTT | 31Comment: Testing performed at [facility];[address] | 23 - 32 seconds | | | Jojo Hester;[place] [address] | | + + + + + + + | Specimen | Performing Laboratory | + + + | Blood | [facility] [address] [place] [address] | + + + Protime-INR (05/30/2017 8:27 [...] | | | | [facility];[address] [place] [address];[place] [address] | | | |Testing performed at [facility];[address] [place] [address];[place] [address] | | | | | | + + + + + + + | Specimen | Performing Laboratory | + + + | Blood | [facility] [address] [facility] [place] [address] | + + + Platelet count (05/30/2017 8:27 AM)Only the most recent of 2 results within the time perio d is included. + + + + | Component | Value | Ref Range | + + + + | PLT | 277Comment: Testing performed at [facility] | 150 - 400 K/uL | | | [facility];[place] [address] | | + + + + + + + | Specimen | Performing Laboratory | + + + | Blood | [facility] [address] [place] [address] | + + + Pathology histology - [...] This case was seen and processed at [facility] | | [place] in [place], [place]. (Report # [id number]) GROSS DESCRIPTION: Three specimens | | are [...] | | | Some [place], Appears Adequate AMB:[facility] MICROSCOPIC EXAMINATION: Four core | | [...] developed and their performance characteristics determined by [facility]. This test is used for clinical purposes. It should not be | | regarded as investigational or for research. [facility] is certified | | under the Clinical [...] 1, IF-lgG x 1, IF-lgM x 1, IF-[place] | | x 1, IF-Lambda x 1. PERFORMING LABORATORY: Professional interpretation and technical | | preparation was performed [facility], [address] [place] [address] | | [place] [address] (Dye Reel Operator Helper: Trell Marrero M.D.; | | CLIA#: [id number]). COMMENT: The ultrastructural changes support the light [...] + | Blood | [facility] [address] [place] | | | [address] | + + + Basic metabolic panel [...] | + + + | Blood | [facility] [address] [place] [address], [place] | | | [address] | + + + [place]/Lambda LC RATI (05/15/2017 8:15 AM) + + + | Specimen | Performing Laboratory | + + + | | [facility] [address] [place] [address], [place] [address] [place] | | | [address] | + + + + + | Narrative | + + | [place] Quant: 13.30 Range: 0.33-1.94 Lambda: 8.20 Range: [...] + + | Urine | [facility] [address] [place], [place] [address] | | | [address] | + + + + + | Narrative | + + | Bacteria: 1+ | + + Immunofixation,Serum (05/15/2017 8:15 AM) + + + | Specimen | Performing Laboratory | + + + | Blood | [facility] [address] [place] [address], [facility] [address] [place], [place] | | | [address] | + + + + + | [...] at | NEGATIVE | | | [facility];[address] [facility];[place] [address] | | + + + + + + + | Specimen | Performing Laboratory | + + + | Nasopharyngeal - | [facility] [address] [place] [address] | | Joseph(Nose) | | + + + US upper extremity mapping for HDA bilat (05/01/2017 10:23 AM) + + + | Specimen | Performing Laboratory | + + + | | [place] [address] [place] [address] | + + + + + | [...] Laboratory | + + + | | [facility] [address] [place] [address] | + + + + + | [...] intervention Patient positioning: Prone. | | Axial cash grain grower images were obtained through region of interest [...] imaging and interventionPatient | | positioning: Prone.Axial cash grain grower images were obtained through region of interest [...] + | Blood | [facility] [address], [address] [place], [place] | | | [address] | + + + Magnesium (04/18/2017 8:10 AM) + +---------+ + | Component | Value | Ref Range | + +---------+ + | MAGNESIUM | 1.6 (A) | 1.7 - 2.5 mg/dL | + +---------+ + + + + | Specimen | Performing Laboratory | + + + | Blood | [facility] [address], [address] [place], [place] | | | [address] | + + + Protein / creatinine [...] | Urine - Urine, | [facility] [address] [place] [address], [place] | | Unspecified Source | [address] | + + + Urine culture (04/18/2017) [...] + | Urine | [facility] [address] [facility] [address] [place], [place] | | | [address] | + + + from Last 3 [...] | xxxxxxxxxx | | | [address] | | | RE | | | | [place] [address] | | | IP-OP | | | | | + +--------+ +------+-------+ + | MEDICAID | [facility] | xxxxxxxx | | | [address] | | | N | | | | [place], [place] | | | [place] | | | | [address] | | | [employer] | | | | | + +--------+ [...] | flavia | | | [address]65 | [address] | + +--------+ +--------+ + +
--- OUTSIDE RECORDS SUMMARY | ~2017-06-27 | XMS | Encounter Summary ---
Demographics + + + | Address | [address] | | | [place] [address] | + + + | Home Phone | | + + + | Preferred Language | Unknown | + + + | Marital Status | | + + + | Yarsanism Affiliation | Unknown | + + + | Race | Unknown | + + + | Ethnic Group | Unknown | + + + Author + + + | Author | [facility] | + + + | Organization | [facility] | + + + | Address | Unknown | + + + | Phone | Unavailable | + + + Support + + +---------+ + | Name | Relationship | Address | Phone | + + +---------+ + | Naye Wright | ECON | Unknown | | + + +---------+ + Care Team Providers + +------+ + | Care Tea Leaf Reader Name | Role | Phone | + [...] 05/20/2017) | | | | [place] [address] | | | | | | [phone] | | | +--------+ + + + [...] [place] | | | | | | [id number] | | | | | | | [...] + | Blood | [facility] [address] [place] [address] | | | [address] | + + + in this encounter Visit Diagnoses Not on filein this encounter"
--- OUTSIDE RECORDS SUMMARY | ~2017-06-27 | XMS | Encounter Summary ---
Demographics + + + | Address | [address] | | | [place] [address] | + + + | Home Phone | | + + + | Preferred Language | Unknown | + + + | Marital Status | | + + + | Temple Affiliation | Unknown | + + + | Race | Unknown | + + + | Ethnic Group | Unknown | + + + Author + + + | Author | [facility] | + + + | Organization | [facility] | + + + | Address | Unknown | + + + | Phone | Unavailable | + + + Support + + +---------+ + | Name | Relationship | Address | Phone | + + +---------+ + | Naye Wright | ECON | Unknown | | + + +---------+ + Care Team Providers + +------+ + | Care Beer Maker Name | Role | Phone | [...] | | 2018 | on Only | [place] [address] | | Packet) | | | | [address] | | | | | | [place] [address] | | | | | | [phone] | | | +--------+ + + + [...] IV Therapy. Fax confirmation rece ed from [phone]. in this encounter Plan of Treatment +--------+---------+ + + + | Date | Type | Specialty | Care Team | Description | +--------+---------+ + + + | 07/15/ | Office | Nephrology | Tavares Vaca MD | | | 2017 | Visit | | [address] | | | | | | [address] [facility] | | | | | | [id number] | | | | | | | | +--------+---------+ + + + as of this encounter Visit Diagnoses Not on filein this encounter"
--- OUTSIDE RECORDS SUMMARY | ~2017-06-27 | XMS | Encounter Summary ---
Demographics + + + | Address | [address] | | | [place] [address] | + + + | Home Phone | | + + + | Preferred Language | Unknown | + + + | Marital Status | | + + + | Mormon Affiliation | Unknown | + + + | Race | Unknown | + + + | Ethnic Group | Unknown | + + + Author + + + | Author | [facility] [employer] [facility] | + + + | Organization | [facility] | + + + | Address | Unknown | + + + | Phone | Unavailable | + + + Support + + +---------+ + | Name | Relationship | Address | Phone | + + +---------+ + | Naye Wright | ECON | Unknown | | + + +---------+ + Care Team Providers + +------+ + | Care Ict Customer Support Officer Name | Role | Phone | [...] | disease) | [address] [place] | | | | | stage 5, GFR | [place], | [address] Phone: | | | | | less than | [place] [address] | [phone] | | | | | 15 ml/min | Phone: | Fax: | | | | | (HCC) | [phone] | [phone] | | | | | Nephrotic | Fax: | | | | | | range | [phone] | | | | | | proteinuria [...] + + | 05/02/ | Initial | [facility] | Jay Portillo MD | Chronic kidney | | 2018 | consult | Vascular Surgery | [address] | disease (CKD), | | | | [address] | [place] [address] | active medical | | | | [address] [place], [place] | [phone] | management without | | | | [address] | | dialysis, | | | | [phone] | | unspecified stage | | | [...] was referred to my office by her Delivery Room Supervisor, Dr. Vaca, for fistula creation. Patient reports [...] | | | | | | [address] [place], [place] | | | | | | [...]
--- OUTSIDE RECORDS SUMMARY | ~2017-06-27 | XMS | Encounter Summary ---
Demographics + + + | Address | [address] | | | [place] [address] | + + + | Home Phone | | + + + | Preferred Language | Unknown | + + + | Marital Status | | + + + | Religion Affiliation | Unknown | + + + | Race | Unknown | + + + | Ethnic Group | Unknown | + + + Author + + + | Author | [facility] | + + + | Organization | [facility] | + + + | Address | Unknown | + + + | Phone | Unavailable | + + + Support + + +---------+ + | Name | Relationship | Address | Phone | + + +---------+ + | Naye Wright | ECON | Unknown | | + + +---------+ + Care Team Providers + +------+ + | Care Residential Sales Manager Name | Role | Phone | [...] stage 5, | | | | [facility] | [address] [place], [place] | GFR less than 15 | | | | [address] [place], [place] | [id number] | ml/min (HCC) | | | | [address] | | (Primary Dx); Anemia | | | | | | of chronic renal | | | | | | failure, stage 5 | | | | | | ([facility]); Essential | | | | | | hypertension, | | | | | | benign; | | | | | | Hyperphosphatemia; | | | | | | Secondary | | | | | | hyperparathyroidism | | | | | | ([facility]); Metabolic | | | | [...] Also: I see no acute indication for INFORMATION TECHNOLOGY CONSULTANT. I see no need to send her to the ED. I discussed with her to F/U for evaluation by the Kidney Transplant team at [facility] I kept her off Ibuprofen. [...] F/U with the liver transplant team at [place] for management of her anti -rejection meds. She will need to be seen by the Liver transplant team in [place] soon & regularly. She will F/U with [...] restarted HD thru a CVC in the [facility] of 2014. She had her second [...] Also: I see no acute indication for INFORMATION TECHNOLOGY CONSULTANT. I see no need to send her to the ED. I discussed with her to F/U for evaluation by the Kidney Transplant team at [facility] I kept her off Ibuprofen. [...] F/U with the liver transplant team at [place] for management of her anti -rejection meds. She will need to be seen by the Liver transplant team in [place] soon & regularly. She will F/U with [...] concerns. Truly yours, Tavares Vaca MD [facility] in this encounter Plan of Treatment +--------+---------+ + + + | Date | Type | Specialty | Care Team | Description | +--------+---------+ + + + | 07/15/ | Office | Nephrology | Tavares Vaca MD | | | 2018 | Visit | | [address] | | | | | | [address] [place], [place] | | | | | | [address] | | | | | | | | +--------+---------+ + + + as of this encounter Visit Diagnoses + + | Diagnosis | + + | CKD (chronic kidney disease) stage 5, GFR less than 15 ml/min ([facility]) - Primary | + + | Chronic kidney disease, Stage V | + + | Anemia of chronic renal failure, stage 5 ([facility]) | + + | Essential hypertension, benign | + + | Hyperphosphatemia | + + | Disorders of phosphorus metabolism | + + | Secondary hyperparathyroidism (HCC) | + + | Secondary hyperparathyroidism (of renal origin) | + + | Metabolic acidosis | + + | Acidosis | + +"
--- OUTSIDE RECORDS SUMMARY | ~2017-06-27 | XMS | Encounter Summary ---
Demographics + + + | Address | [address] | | | [place] [address] | + + + | Home Phone | | + + + | Preferred Language | Unknown | + + + | Marital Status | | + + + | Yarsani Affiliation | Unknown | + + + | Race | Unknown | + + + | Ethnic Group | Unknown | + + + Author + + + | Author | [facility] | + + + | Organization | [facility] | + + + | Address | Unknown | + + + | Phone | Unavailable | + + + Support + + +---------+ + | Name | Relationship | Address | Phone | + + +---------+ + | Naye Wright | ECON | Unknown | | + + +---------+ + Care Team Providers + +------+ + | Care Bar Finish Operator Name | Role | Phone | [...] kidney | | 2018 | Visit | [place] [facility] | [address] | disease) stage 5, | | | | [facility] | [address] [place], [place] | GFR less than 15 | | | | [address] [place], [place] | [address] | ml/min (HCC) | | | | [address] | | (Primary Dx); Anemia | | | | | | of chronic renal | | | | | | failure, stage 5 | | | | | | ([facility]); Essential | | | | | | hypertension, | | | | | | benign; Secondary | | | | | | hyperparathyroidism | | | | | | ([facility]); Metabolic | | | | [...] evaluation by the Kidney Transplant team at [facility]. I kept her off Ibuprofen. she will [...] F/U with the liver transplant team at [place] for management of her anti -rejection meds. She will need to be seen by the Liver transplant team in [place] soon & regularly. She will continue to F/U with your office regularly. I sent her for a repeat RFP, CBC every 2 weeks. She will have a RFP, CBC, intact PTH, Ferritin, Fe studies, urinalysis, Urine total prot xdu-nv-umlknjdspj ratio before she comes back in 1 [...] stage IV CKD on a background of jail use of calcineurin inhibitors. 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 She had her second liver [...] evaluation by the Kidney Transplant team at [facility] I kept her off Ibuprofen. I will [...] F/U with the liver transplant team at [place] for management of her anti -rejection meds. She will need to be seen by the Liver transplant team in [place] soon & regularly. She will continue to F/U with your office regularly. I sent her for a repeat RFP, CBC every 2 weeks. She will have a RFP, CBC, intact PTH, Ferritin, Fe studies, urinalysis, Urine total prot lro-gs-iedlwuhpsk ratio before she comes back in 1 month. Thank you Colleague for the opportunity to see this patient in F/U on an urgent basis today for a declining GFR in the setting of liver transplant. Please do not hesitate to call me a t any time with questions or concerns. Truly yours, Tavares Vaca MD [facility] in this encounter Plan of Treatment +--------+---------+ + + + | Date | Type | Specialty | Care Team | Description | +--------+---------+ + + + | 07/15/ | Office | Nephrology | Tavares Vaca MD | | | 2018 | Visit | | [address] | | | | | | [address] [place] | | | | | | [address] | | | | | | | | +--------+---------+ + + + as of this encounter Visit Diagnoses + + | Diagnosis | + + | CKD (chronic kidney disease) stage 5, GFR less than 15 ml/min ([facility]) - Primary | + + | Chronic kidney disease, Stage V | + + | Anemia of chronic renal failure, stage 5 ([facility]) | + + | Essential hypertension, benign | + + | Secondary hyperparathyroidism (HCC) | + + | Secondary hyperparathyroidism (of renal origin) | + + | Metabolic acidosis | + + | Acidosis | + + | Hyperphosphatemia | + + | Disorders of phosphorus metabolism | + +"
--- OUTSIDE RECORDS SUMMARY | ~2017-06-27 | XMS | Encounter Summary ---
Demographics + + + | Address | [address] | | | [place] [address] | + + + | Home Phone | | + + + | Preferred Language | Unknown | + + + | Marital Status | | + + + | Adventist Affiliation | Unknown | + + + | Race | Unknown | + + + | Ethnic Group | Unknown | + + + Author + + + | Author | [facility] | + + + | Organization | [facility] | + + + | Address | Unknown | + + + | Phone | Unavailable | + + + Support + + +---------+ + | Name | Relationship | Address | Phone | + + +---------+ + | Naye Wright | ECON | Unknown | | + + +---------+ + Care Team Providers + +------+ + | Care Metal Extrusion Supervisor Name | Role | Phone | + +------+ + | [facility] | PCP | | + +------+ + Encounter Details +--------+ + + + + | Date | Type | Department | Care Team | Description | +--------+ + + + + | 05/14/ | Telephone | [facility] | Yaritza Soares, | | | 2017 | | Vascular Surgery | RN | | | | | [address] | | | | | | [place] | | | | | | [address] | | | | | | [phone] | | | +--------+ + + + [...]
--- OUTSIDE RECORDS SUMMARY | ~2017-06-27 | XMS | Clinical Summary ---
Demographics + + + | Address | [address] | | | [place] [address] | + + + | Home Phone | | + + + | Preferred Language | Unknown | + + + | Marital Status | Single | + + + | Sabianist Affiliation | NON | + + + [...] | + + +---------+ + | CHASTITY VELASOC | ECON | Unknown | | + + +---------+ + | ROMA MARIN | ECON | Unknown | | + + +---------+ + Care Team Providers + +------+ + | Care Graduate Teaching Associate Name | Role | Phone | + +------+ + | No Pcp Per Patient | PP | Unavailable | + +------+ + Source Comments RON[facility] is fully live [facility] In[facility] Allergies + + + + [...] | medium sized esophageal varices with red enterprise. Due to scarring | | presumably from [...] + + + + | 05/24/ | Handle And Vent Machine Operator | | Bernabe Taylor MD | Liver [...] + + + + | 05/07/ | Handle And Vent Machine Operator | | Tori Fine RN | | | 2017 | | | | | +--------+ + + + + | 05/07/ | Handle And Vent Machine Operator | | Bernabe Taylor MD | Liver [...] + + + + | 05/07/ | Handle And Vent Machine Operator | | Tori Fine RN | Liver [...] | | | | | | [place] [address] | | | | | | [phone] | | | | | | | [...]
--- OUTSIDE RECORDS SUMMARY | ~2017-06-27 | XMS | Clinical Summary ---
Demographics + + + | Address | [address] | | | [place] [address] | + + + | Home Phone | | + + + | Preferred Language | Unknown | + + + | Marital Status | Unknown | + + + | Latter Day Affiliation | Unknown | + + + | Race | Unknown | + + + | Ethnic Group | Unknown | + + + Author + + + | Author | [facility] | | | and Tomy | + + + | Organization | [facility] | | | and [place] | + + + | Address | Unknown | + + + | Phone | Unavailable | + + + Care Team Providers + +------+ + | Care Tube Washer Name | Role | Phone | [...] Laboratory | + + + | | [facility] [address] | | | [place] [address] | + + + + + | Narrative | + + | SURGICAL PATHOLOGY REPORT Case | | Number: [id number] Date Taken: 05/30/2017 Date Received: 05/30/2017 Completed: [...] their | | performance characteristics determined by [facility] | | Laboratory. This test is used for clinical purposes. It should not be regarded | | as investigational or for research. [facility] is certified under the | | Clinical Laboratory Improvement Amendments of 1988 (CLIA) as qualified to perform high | | complexity clinical laboratory testing. A: 16471, 99284, 12622, 49169, | | 88469, 35993, 55012, 21214, 30944, 88551, 96757(a), 34331, 77530, 65412 | | PROCEDURES/ADDENDA ELECTRON MICROSCOPY | | [...] Abdoul, MD Testing performed at: | | [facility] Bernabe Aguilera M.D., Director [address] | | [address] [place] [address] | + + from Last 3 Months [...] | MODA | [id number] | [employer] | [phone] | | | MEDICAID HMO | HEALTH [...] | | | flavia | | | [phone] | [phone] | + +--------+ +--------+ + +
--- OUTSIDE RECORDS SUMMARY | ~2017-06-27 | XMS | Encounter Summary ---
Demographics + + + | Address | [address] | | | [place] [address] | + + + | Home Phone | | + + + | Preferred Language | Unknown | + + + | Marital Status | | + + + | Religion Affiliation | Unknown | + + + | Race | Unknown | + + + | Ethnic Group | Unknown | + + + Author + + + | Author | [facility] | + + + | Organization | [facility] [facility] | + + + | Address | Unknown | + + + | Phone | Unavailable | + + + Support + + +---------+ + | Name | Relationship | Address | Phone | + + +---------+ + | Naye Wright | ECON | Unknown | | + + +---------+ + Care Team Providers + +------+ + | Care Mail Clerks Supervisor Name | Role | Phone | [...] Documentati | [facility] | Shaffer, Landy, RESEARCH PROGRAM MANAGER | Labs Only (Urine | | 2018 | on Only | [place] [address] | | Culture from | | | | [address] | | [facility] dated | | | | [address] [place], [place] | | 04/18/2017) | | | | [address] | | | +--------+ + + + [...] [place] | | | | | | [address] | | | | | | | [...] | + + + | Urine | [facility] [address] [place] [address] [address] [place], [place] | | | [address] | + + + in this encounter Visit Diagnoses Not on filein this encounter"
--- OUTSIDE RECORDS SUMMARY | ~2017-06-27 | XMS | Clinical Summary ---
Demographics + + + | Address | [address] | | | [place] [address] | + + + | Home Phone [...] Team Providers + +------+ + | Care Therapeutic Support Staff Name | Role | Phone | + +------+ + | No Pcp Per Patient | PP | Unavailable | + +------+ + Source Comments [facility] fully [facility] In[facility] Allergies + + + + + [...] | medium sized esophageal varices with red circle. Due to scarring | | presumably from [...] + + + + | 05/24/ | Athletics Teacher | | Bernabe Taylor MD | Liver [...] + + + + | 05/07/ | Athletics Teacher | | Tori Fine RN | | | 2017 | | | | | +--------+ + + + + | 05/07/ | Athletics Teacher | | Bernabe Taylor MD | Liver [...] + + + + | 05/07/ | Athletics Teacher | | Tori Fine RN | Liver [...] | | | | | | [place] [address] | | | | | | [phone] | | | | | | | [...]
--- OUTSIDE RECORDS SUMMARY | ~2017-06-27 | XMS | Encounter Summary ---
Demographics + + + | Address | [address] | | | [place] [address] | + + + | Home Phone | | + + + | Preferred Language | Unknown | + + + | Marital Status | | + + + | Adventism Affiliation | Unknown | + + + | Race | Unknown | + + + | Ethnic Group | Unknown | + + + Author + + + | Author | [facility] | + + + | Organization | [facility] | + + + | Address | Unknown | + + + | Phone | Unavailable | + + + Support + + +---------+ + | Name | Relationship | Address | Phone | + + +---------+ + | Naye Wright | ECON | Unknown | | + + +---------+ + Care Team Providers + +------+ + | Care Adapted Physical Education Specialist Name | Role | Phone [...] Documentati | [facility] | Kiersten Shaffer, APPLICATIONS ENGINEER MANUFACTURING | Other (Blood | | 2018 | on Only | [place] [address] | | Pressure Log dated | | | | [address] | | 03/23/2017-04/21/2017) | | | | [place] [address] | | | | | | [phone] | | | +--------+ + + + [...] | | | | | | [address] [place] | | | | | | [address] | | | | | | | | +--------+---------+ + + + as of this encounter Visit Diagnoses Not on filein this encounter"
--- OUTSIDE RECORDS SUMMARY | ~2017-06-27 | XMS | Encounter Summary ---
Demographics + + + | Address | [address] | | | [place] [address] | + + + | Home Phone | | + + + | Preferred Language | Unknown | + + + | Marital Status | Single | + + + | Buddhist Affiliation | NON | + + + | Race | White | + + + | Ethnic Group | Not or | + + + Author + + + | Author | [facility] | + + + | Organization | [facility] | + + + | Address [...] Team Providers + +------+ + | Care Parachute Taper Name | Role | Phone | + [...] | | | | | Procedures | [place], [place] | | | | | | CT ABDOMEN | [address] | | | | | | WWO IV | Phone: | | | | | | CONTRAST | [phone] | | | | | | | Fax: | | | | | | | [phone] | | +--------+--------+ + + + + [...] | | | | replaced by | [address] | | | | | | transplant | [address] | | | | | | (HCC) | Rd | | | | | | Procedures | [place], [place] | | | | | | CONSULT TO | [address] | | | | | | GI PROCEDURE | Phone: | | | | | | UNIT: EGD | [phone] | | | | | | | Fax: | | | | | | | [phone] | | + +--------+ + + + [...] Radiology | Liver | MD Bernabe | [facility] [address] | | | | | replaced by | [address] | | | | | transplant | [facility] | [facility] | | | | | (HCC) | Rd | Mailcode: | | | | | Procedures | [place], [place] | [address] | | | | | IR BODY | [address] | [place] | | | | | PROCEDURE | Phone: | Hospital | | | | | REQUEST [place] | [phone] | [facility] | | | | | PLACE CATH | Fax: | [place], [place] | | | | | [place] | [phone] | [address] | | | | | VEIN,SELECT | | Phone: | | | | | [place] VENOGRAM | | [phone] | | | | | HEPATIC W | | Fax: | | | | | HEMODYNAMICS | | [phone] | | | | | [place] | | | | | | | TRANSCATHETE | | | | | | | R BIOPSY OR | | | | | | | VASCULAR | | | | | | | BIOPSY OR | | | | | | | [...] + + + + | 05/07/ | Bag End Sewer | Transplant | Bernabe Taylor MD | Liver replaced by | | 2018 | | Coordinators [address] | transplant (HCC) | | | | [address] | [address] [place], | (Primary Dx); | | | | Road [place], [place] | [place] [address] | 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
--- OUTSIDE RECORDS SUMMARY | ~2017-06-27 | XMS | Encounter Summary ---
Demographics + + + | Address | [address] | | | [place] [address] | + + + | Home Phone | | + + + | Preferred Language | Unknown | + + + | Marital Status | | + + + | Buddhism Affiliation | Unknown | + + + | Race | Unknown | + + + | Ethnic Group | Unknown | + + + Author + + + | Author | [facility] | + + + | Organization | [facility] | + + + | Address | Unknown | + + + | Phone | Unavailable | + + + Support + + +---------+ + | Name | Relationship | Address | Phone | + + +---------+ + | Naye Wright | ECON | Unknown | | + + +---------+ + Care Team Providers + +------+ + | Care Color Matcher Name | Role | Phone | + +------+ + | Clinic, [facility] | PCP | Unavailable | | Community [...] | Radiology | Diagnoses | [place], | [facility] | | | | | CKD | Tavares Orellana MD | [address] | | | | | (chronic | [address] | [address] | | | | | kidney | [address] | [address] | | | | | disease) | [place], [place] | [place], [place] | | | | | stage 5, GFR | [address] | [address] Phone: | | | | | less than | Phone: | [phone] | | | | | 15 ml/min | [phone] | Fax: | | | | | (HCC) | Fax: | [phone] | | | | | Nephrotic | [phone] | | | | | | range [...] | | stage 5, GFR | [place] [address] | [address] | | | | | less than | Phone: | [address] [place], | | | | | 15 ml/min | [phone] | [place] [address] | | | | | (HCC) | Fax: | Phone: | | | | | Nephrotic | [phone] | [phone] | | | | | range | | Fax: | | | | | proteinuria | | [phone] | | | | | Anemia of [...] | stage 5, GFR | [place], | [address] Phone: | | | | | less than | [place] [address] | [phone] | | | | | 15 ml/min | Phone: | Fax: | | | | | (HCC) | [phone] | [phone] | | | | | Nephrotic | Fax: | | | | | | range | [phone] | | | | | | proteinuria [...] | | | | | ([facility]) | | | + + + [...] (chronic kidney | | 2018 | | [place] [address] | | disease) stage 5, | | | | [address] | | GFR less than 15 | | | | [address] [place], [place] | | ml/min (HCC) | | | | [address] | | (Primary Dx); | | | | | | Nephrotic range | | | | | | proteinuria; Anemia | | | | | | of chronic renal | | | | | | failure, stage 4 | | | | | | (severe) ([facility]); | | | | | | Secondary | | | | | | hyperparathyroidism | | | | | | ([facility]); | | | | | | [...] | | | | | | [address] [place], [place] | | | | | | [address] | | | | | | | [...] | | than 15 ml/min ([facility]) | until 04/22/2018 | | | | Nephrotic range | | | | | proteinuria Anemia | | | | | of chronic renal | | | | | failure, stage 4 | | | | | (severe) ([facility]) | | | | | Secondary | | | | | hyperparathyroidism | | | | | ([facility]) | | | | | Hyperphosphatemia [...] | | than 15 ml/min ([facility]) | | | | | Nephrotic range | | | | | proteinuria Anemia | | | | | of chronic renal | | | | | failure, stage 4 | | | | | (severe) ([facility]) | | | | | Secondary | | | | | hyperparathyroidism | | | | | ([facility]) | | | | | Hyperphosphatemia [...] | | than 15 ml/min ([facility]) | | | | | Nephrotic range | | | | | proteinuria Anemia | | | | | of chronic renal | | | | | failure, stage 4 | | | | | (severe) ([facility]) | | | | | Secondary | | | | | hyperparathyroidism | | | | | ([facility]) | | | | | Hyperphosphatemia [...] | | than 15 ml/min ([facility]) | | | | | Nephrotic range | | | | | proteinuria Anemia | | | | | of chronic renal | | | | | failure, stage 4 | | | | | (severe) ([facility]) | | | | | Secondary [...] + | Urine | [facility] [address], [address] [place], [place] | | | [address] | + + + + + | Narrative | + + | Bacteria: 1+ | + + [place]/Lambda LC RATI (05/15/2017 8:15 AM) + + + | Specimen | Performing Laboratory | + + + | | [facility] [address], [address] [place], [place] | | | [address] | + + + + + | Narrative | + + | [place]ell Quant: 13.30 Range: 0.33-1.94 Lambda: 8.20 Range: 0.57-2.63 | | Ratio:1.62 Range: 0.26-1.65 | + + Immunofixation,Serum (05/15/2017 8:15 AM) + + + | Specimen | Performing Laboratory | + + + | Blood | [address] | | | [address] | + + + + + | [...] + + | Blood | [facility] [address] [place] [address] [address] [place] | | | [address] | + + + CBC W/Auto Diff [...] + + | Blood | [facility] [address] [place] [address] [address] [place], [place] | | | [address] | + + + Renal function panel [...] + | Blood | [facility] [address] [facility] [address] [place] | | | [address] | + + + CT limited localizer (04/24/2017 10:32 AM) + + + | Specimen | Performing Laboratory | + + + | | [facility]IRIAM PERALTA [address] [facility] [address] [address] | + + + + + | [...] intervention Patient positioning: Prone. | | Axial scouts images were obtained through region of interest [...] imaging and interventionPatient | | positioning: Prone.Axial scouts images were obtained through region of interest [...]
--- OUTSIDE RECORDS SUMMARY | ~2017-06-27 | XMS | Encounter Summary ---
Demographics + + + | Address | [address] | | | [place] [address] | + + + | Home Phone | | + + + | Preferred Language | Unknown | + + + | Marital Status | | + + + | Baptist Affiliation | Unknown | + + + | Race | Unknown | + + + | Ethnic Group | Unknown | + + + Author + + + | Author | [facility] | + + + | Organization | [facility] | + + + | Address | Unknown | + + + | Phone | Unavailable | + + + Support + + +---------+ + | Name | Relationship | Address | Phone | + + +---------+ + | Naye Wright | ECON | Unknown | | + + +---------+ + Care Team Providers + +------+ + | Care Water Registrar Name | Role | Phone | + [...] disease) stage 5, | | | | [facility] [address] | | GFR less than 15 | | | | [place] [address] | | ml/min ([facility]); Anemia | | | | [phone] | | of chronic renal | | | | | | failure, stage 5 | | | | | | ([facility]); BRIDGET (acute | | | | | | kidney injury); | | | | | | Secondary | | | | | | hyperparathyroidism | | | | | | ([facility]); Nephrotic | | | | | [...] [place] | | | | | | [address] | | | | | | | [...] | + + + | Blood | [facility] [address] [place] [address] [facility] [address] [place] | | | [address] | + + + Ferritin (06/14/2017 9:42 AM) + + + + | Component | Value | Ref Range | + + + + | FERRITIN | 472.1 (A) | 13 - 150 ng/mL | + + + + + + + | Specimen | Performing Laboratory | + + + | Blood | [facility] [address] [place] [address] | | | [address] | + + + Renal function panel [...] + | Blood | [facility] [address] [place], [place] [address] | | | [address] | + + + CBC W/Auto Diff [...] | + + + | Blood | [address] [place] | | | [address] | + + + PTH intact no calcium (06/14/2017 9:42 AM) + +---------+ + | Component | Value | Ref Range | + +---------+ + | PTH INTACT NO | 409 (A) | 15 - 65 pg/mL | | CALCIUM | | | + +---------+ + + + + | Specimen | Performing Laboratory | + + + | Blood | [facility] [place], [facility] [place] | | | [address] | + + + in this encounter Visit Diagnoses + + | Diagnosis | + + | CKD (chronic kidney disease) stage 5, GFR less than 15 ml/min ([facility]) | + + | Chronic kidney disease, Stage V | + + | Anemia of chronic renal failure, stage 5 ([facility]) | + + | BRIDGET (acute kidney injury) | + + | Acute kidney failure, unspecified | + + | Secondary hyperparathyroidism (HCC) | + + | Secondary hyperparathyroidism (of renal origin) | + + | Nephrotic range proteinuria | + + | Proteinuria | + + | Essential hypertension, benign | + +"
--- OUTSIDE RECORDS SUMMARY | ~2017-06-27 | XMS | Encounter Summary ---
Demographics + + + | Address | [address] | | | [place] [address] | + + + | Home Phone | | + + + | Preferred Language | Unknown | + + + | Marital Status | Single | + + + | Adventist Affiliation | NON | + + + [...] Team Providers + +------+ + | Care Breakdown Worker Name | Role | Phone | + [...] | | | | | Procedures | [place], [place] | | | | | | CT ABDOMEN | [address] | | | | | | WWO IV | Phone: | | | | | | CONTRAST | [phone] | | | | | | | Fax: | | | | | | | [phone] | | +--------+--------+ + + + + [...] | | | | replaced by | [address] | | | | | | transplant | Ish [address]rera | | | | | | (HCC) | Rd | | | | | | Procedures | [place], [place] | | | | | | CONSULT TO | [address] | | | | | | GI PROCEDURE | Phone: | | | | | | UNIT: EGD | [phone] | | | | | | | Fax: | | | | | | | [phone] | | + +--------+ + + + [...] Radiology | Liver | MD Bernabe | [facility] [address] | | | | | replaced by | [address] | | | | | transplant | [facility] | [facility] | | | | | (HCC) | Rd | Mailcode: | | | | | Procedures | [place], [place] | [address] | | | | | IR BODY | [address] | [place] | | | | | PROCEDURE | Phone: | Hospital | | | | | REQUEST [place] | [phone] | [facility] | | | | | PLACE CATH | Fax: | [place], [place] | | | | | [place] | [phone] | [address] | | | | | VEIN,SELECT | | Phone: | | | | | [place] VENOGRAM | | [phone] | | | | | HEPATIC W | | Fax: | | | | | HEMODYNAMICS | | [phone] | | | | | [place] | | | | | | | TRANSCATHETE | | | | | | | R BIOPSY [place] | | | | | | | VASCULAR | | | | | | | BIOPSY [place] | | | | | | | [...] + + + + | 05/07/ | Clearing House Clerk | Transplant | Bernabe Taylor MD | 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
--- OUTSIDE RECORDS SUMMARY | ~2017-06-27 | XMS | Encounter Summary ---
Demographics + + + | Address | [address] | | | [place] [address] | + + + | Home Phone | | + + + | Preferred Language | Unknown | + + + | Marital Status | | + + + | Roman Catholic Affiliation | Unknown | + + + | Race | Unknown | + + + | Ethnic Group | Unknown | + + + Author + + + | Author | [facility] | + + + | Organization | [facility] | + + + | Address | Unknown | + + + | Phone | Unavailable | + + + Support + + +---------+ + | Name | Relationship | Address | Phone | + + +---------+ + | Naye rWight | ECON | Unknown | | + + +---------+ + Care Team Providers + +------+ + | Care Health Data Administrator Name | Role | Phone | [...] 15 | | | | [place] [address] | | ml/min ([facility]); Anemia | | | | [phone] | | of chronic renal | | | | | | failure, stage 5 | | | | | | ([facility]); BRIDGET (acute | | | | | | kidney injury); | | | | | | Secondary | | | | | | hyperparathyroidism | | | | | | ([facility]) | +--------+ + + + + Social [...] | | | | | | [address] [place], [place] | | | | | | [address] | | | | | | | [...] + | Blood | [facility] [address] [place] [address], [place] | | | [address] | + + + Iron angie (05/20/2017 [...] + | Blood | [facility] [address] [place] | | | [address] | + + + Basic metabolic panel [...] + | Blood | [facility] [address] [place] [address] | | | [address] | + + + CBC W/Auto Diff [...] + | Blood | [facility] [address] [place] [address], [facility] [address] [place], [place] | | | [address] | + + + in this encounter Visit Diagnoses + + | Diagnosis | + + | CKD (chronic kidney disease) stage 5, GFR less than 15 ml/min ([facility]) | + + | Chronic kidney disease, Stage V | + + | Anemia of chronic renal failure, stage 5 (HCC) | + + | BRIDGET (acute kidney injury) | + + | Acute kidney failure, unspecified | + + | Secondary hyperparathyroidism (HCC) | + + | Secondary hyperparathyroidism (of renal origin) | + +"
--- OUTSIDE RECORDS SUMMARY | ~2017-06-27 | XMS | Encounter Summary ---
Demographics + + + | Address | [address] | | | [place] [address] | + + + | Home Phone | | + + + | Preferred Language | Unknown | + + + | Marital Status | | + + + | Buddhism Affiliation | Unknown | + + + | Race | Unknown | + + + | Ethnic Group | Unknown | + + + Author + + + | Author | [facility] | + + + | Organization | [facility] | + + + | Address | Unknown | + + + | Phone | Unavailable | + + + Support + + +---------+ + | Name | Relationship | Address | Phone | + + +---------+ + | Naye Wright | ECON | Unknown | | + + +---------+ + Care Team Providers + +------+ + | Care Hand Patcher Name | Role | Phone | + [...] 15 | | | | [place] [address] | | ml/min ([facility]); Anemia | | | | [phone] | | of chronic renal | | | | | | failure, stage 5 | | | | | | ([facility]); BRIDGET (acute | | | | | | kidney injury); | | | | | | Secondary | | | | | | hyperparathyroidism | | | | | | ([facility]) | +--------+ + + + + [...] | | | | | | [address] [place], [place] | | | | | | [address] | | | | | | | [...] + + | Blood | [facility] [address] [place] [address], [place] | | | [address] | + + + Iron angie (05/20/2017 [...] + | Blood | [facility] [address] [place] | | | [address] | + + + Basic metabolic panel [...] + + | Blood | [facility] [address] [place] [address] | | | [address] | + + + CBC W/Auto Diff [...] + + | Blood | [facility] [address] [place] [address], [facility] [address] [place], [place] | | | [address] | + + + in this encounter Visit Diagnoses + + | Diagnosis | + + | CKD (chronic kidney disease) stage 5, GFR less than 15 ml/min ([facility]) | + + | Chronic kidney [...]
--- OUTSIDE RECORDS SUMMARY | ~2017-06-27 | XMS | Encounter Summary ---
Demographics + + + | Address | [address] | | | [place] [address] | + + + | Home Phone | | + + + | Preferred Language | Unknown | + + + | Marital Status | | + + + | Samaritan Affiliation | Unknown | + + + | Race | Unknown | + + + | Ethnic Group | Unknown | + + + Author + + + | Author | [facility] | + + + | Organization | [facility] | + + + | Address | Unknown | + + + | Phone | Unavailable | + + + Support + + +---------+ + | Name | Relationship | Address | Phone | + + +---------+ + | Naye Wright | ECON | Unknown | | + + +---------+ + Care Team Providers + +------+ + | Care Orthopedic Technician Name | Role | Phone | + +------+ + PCP | Unavailable | + +------+ + Encounter Details +--------+ + + + + | Date | Type | Department | Care Team | Description | +--------+ + + + + | 06/18/ | Orders Only | [facility] | Kiersten Shaffer CMA | CKD (chronic kidney | | 2018 | | [place] [address] | | disease) stage 5, | | | | Saurabh Rowe | | GFR less than 15 | | | | [address] [place], [place] | | ml/min ([facility]) | | | | [address] | | (Primary Dx); | | | | | | Nephrotic range | | | | | | proteinuria; | | | | | | Hyperkalemia; | | | | | | Hyperuricemia; | | | | | | Anemia of chronic | | | | | | renal failure, stage | | | | | | 5 ([facility]); BRIDGET (acute | | | [...] | | | | | [address] [place], [place] | | | | | | [address] | | | | | | | [...] | | than 15 ml/min ([facility]) | | | | | Nephrotic range | | | | | proteinuria | | | | | Hyperkalemia | | | | | Hyperuricemia | | | | | Anemia of chronic | | | | | renal failure, stage | | | | | 5 ([facility]) BRIDGET (acute | | | [...] | | than 15 ml/min ([facility]) | | | | | Nephrotic range | | | | | proteinuria | | | | | Hyperkalemia | | | | | Hyperuricemia | | | | | Anemia of chronic | | | | | renal failure, stage | | | | | 5 ([facility]) BRIDGET (acute | | | [...] | | than 15 ml/min ([facility]) | | | | | Nephrotic range | | | | | proteinuria | | | | | Hyperkalemia | | | | | Hyperuricemia | | | | | Anemia of chronic | | | | | renal failure, stage | | | | | 5 ([facility]) BRIDGET (acute | | | [...] | | than 15 ml/min ([facility]) | | | | | Nephrotic range | | | | | proteinuria | | | | | Hyperkalemia | | | | | Hyperuricemia | | | | | Anemia of chronic | | | | | renal failure, stage | | | | | 5 ([facility]) BRIDGET (acute | | | [...] | | than 15 ml/min ([facility]) | | | | | Nephrotic range | | | | | proteinuria | | | | | Hyperkalemia | | | | | Hyperuricemia | | | | | Anemia of chronic | | | | | renal failure, stage | | | | | 5 ([facility]) BRIDGET (acute | | | [...] | | than 15 ml/min ([facility]) | | | | | Nephrotic range | | | | | proteinuria | | | | | Hyperkalemia | | | | | Hyperuricemia | | | | | Anemia of chronic | | | | | renal failure, stage | | | | | 5 ([facility]) BRIDGET (acute | | | | | kidney injury) | | | | | Essential | | | | | hypertension, benign | | + +--------+ + + as of this encounter Visit Diagnoses + + | Diagnosis | + + | CKD (chronic kidney disease) stage 5, GFR less than 15 ml/min ([facility]) - Primary | + + [...]
--- OUTSIDE RECORDS SUMMARY | ~2017-06-27 | XMS | Encounter Summary ---
Demographics + + + | Address | [address] | | | [place] [address] | + + + | Home Phone | | + + + | Preferred Language | Unknown | + + + | Marital Status | Unknown | + + + | Scientologist Affiliation | Unknown | + + + | Race | Unknown | + + + | Ethnic Group | Unknown | + + + Author + + + | Author | [facility] | | | and [place] | + + + | Organization | [facility] | | | and [place] | + + + | Address | Unknown | + + + | Phone | Unavailable | + + + Care Team Providers + +------+ + | Care Airplane Flight Attendant Name | Role | Phone | + +------+ + PCP | Unavailable | + +------+ + Encounter Details +--------+ + + + + | Date | Type | Department | Care Team | Description | +--------+ + + + + | 05/30/ | Hospital | [facility] | Tavares Vaca | | | 2018 | Encounter | [facility] | MD [address] | | | | | LABORATORY [address] | [address] | | | | | [address] [place], [place] | [place] [address] | | | | | [address] | [phone] | | | | | [phone] | | | +--------+ + + + [...] | + + + | | [facility] [address] | | | [place] [address] | + + + + + | Narrative | + + | SURGICAL PATHOLOGY REPORT Case | | Number: [id number] Date Taken: 05/30/2017 Date Received: 05/30/2017 Completed: [...] their | | performance characteristics determined by [facility] | | Laboratory. This test is used for clinical purposes. It should not be regarded | | as investigational or for research. [facility] is certified under the | | Clinical Laboratory Improvement Amendments of 1988 (CLIA) as qualified to perform high | | complexity clinical laboratory testing. A: 96446, 61156, [address], 247[address], | | 36162, 89463, 31372, 17737, 36685, 11066, 34375(a), 52218, 69190, 53725 | | PROCEDURES/ADDENDA ELECTRON MICROSCOPY | | [...] Schreiber MD Testing performed at: | | [facility] Bernabe Aguilera M.D., Director [address] [place] [address] | + + in this encounter Visit Diagnoses Not on filein this encounter Admitting Diagnoses + + | Diagnosis | + + | Chronic kidney disease, unspecified - RENAL FAILURE | + + | Abnormal results of kidney function studies | + +
--- OUTSIDE RECORDS SUMMARY | ~2017-06-27 | XMS | Encounter Summary ---
Demographics + + + | Address | [address] | | | [place] [address] | + + + | Home Phone | | + + + | Preferred Language | Unknown | + + + | Marital Status | | + + + | Jewish Affiliation | Unknown | + + + | Race | Unknown | + + + | Ethnic Group | Unknown | + + + Author + + + | Author | [facility] | + + + | Organization | [facility] | + + + | Address | Unknown | + + + | Phone | Unavailable | + + + Support + + +---------+ + | Name | Relationship | Address | Phone | + + +---------+ + | Naye Wright | ECON | Unknown | | + + +---------+ + Care Team Providers + +------+ + | Care Bar Attendant Name | Role | Phone | [...] | | | | | [place] [address] | | | | | | [phone] | | | +--------+ + + + [...] | | | | | | [address] [place], [place] | | | | | | [address] | | | | | | | | +--------+---------+ + + + as of this encounter Visit Diagnoses Not on filein this encounter"
--- OUTSIDE RECORDS SUMMARY | ~2017-06-27 | XMS | Encounter Summary ---
Demographics + + + | Address | [address] | | | [place] [address] | + + + | Home Phone | | + + + | Preferred Language | Unknown | + + + | Marital Status | | + + + | Zoroastrianism Affiliation | Unknown | + + + | Race | Unknown | + + + | Ethnic Group | Unknown | + + + Author + + + | Author | [facility] | + + + | Organization | [facility] | + + + | Address | Unknown | + + + | Phone | Unavailable | + + + Support + + +---------+ + | Name | Relationship | Address | Phone | + + +---------+ + | Naye Wright | ECON | Unknown | | + + +---------+ + Care Team Providers + +------+ + | Care Doll Wig Hackler Name | Role | Phone | + [...] + + | 05/02/ | Hospital | [facility] | Jay Portillo MD | | | 2018 | Encounter | [facility] | [address] | | | | | Preadmission | [place] [address] | | | | | Services [address] | [phone] | | | | | [address] [place], [place] | | | | | | [...] ready to use in a few weeks. [place] can be placed into the plastic tube [...] clotting or other narrowing. Date Last Reviewed: 03/04/201619997708-5636 [employer]. [address] [place] [address]. All righ ts reserved. This information is [...] | | | | | | [address] [place], [place] | | | | | | [address] | | | | | | | [...] EMBOLISMTesting performed at | | | | [facility];[address] [place] [address];[place] [address] | | | |Testing performed at [facility];[address] [place] [address];[place] [address] | | | | | | + + + + + + + | Specimen | Performing Laboratory | + + + | Blood | [facility] [address] [place] [address] | + + + CBC w/auto diff [...] BASOPHILS ABS | 0.05Comment: Testing performed at [facility], [facility] | 0.00 - 0.10 K/uL | | | [facility] [place] [address] | | + + + + + + + | Specimen | Performing Laboratory | + + + | Blood | [facility] [address], | | | [place] [address] | + + + Basic metabolic panel [...] | | | | 1.210.Testing performed at [facility], [address] | | | | [place] [address] | | | | | | + + + + + + + | Specimen | Performing Laboratory | + + + | Blood | [facility] [address] [place] [address] [address] | | | [place] [address] | + + + aPTT (05/02/2017 1:10 PM) + + + + | Component | Value | Ref Range | + + + + | APTT | 33 (H)Comment: Testing performed at [facility];888 | 23 - 32 seconds | | | Jojo [address]ester;[place] [address] | | + + + + + + + | Specimen | Performing Laboratory | + + + | Blood | [facility] [address] [place] [address] | + + + MRSA by PCR (05/02/2017 1:09 PM) + + + + | Component | Value | Ref Range | + + + + | SOURCE | NARES(NOSE) | | + + + + | MRSA PCR | NEGATIVEComment: Testing performed at | NEGATIVE | | | [facility];[address] [place] [address];[place] [address] | | + + + + + + + | Specimen | Performing Laboratory | + + + | Nasopharyngeal - | [address] [address] | | Nares(Nose) | | + + + in this encounter Visit Diagnoses Not on filein this encounter"
--- OUTSIDE RECORDS SUMMARY | ~2017-06-27 | XMS | Clinical Summary ---
Demographics + + + | Address | [address] | | | [place] [address] | + + + | Home Phone | | + + + | Preferred Language | Unknown | + + + | Marital Status | | + + + | Holiness Affiliation | Unknown | + + + | Race | Unknown | + + + | Ethnic Group | Unknown | + + + Author + + + | Author | [facility] | + + + | Organization | [facility] | + + + | Address | Unknown | + + + | Phone | Unavailable | + + + Support + + +---------+ + | Name | Relationship | Address | Phone | + + +---------+ + | Naye Wright | ECON | Unknown | | + + +---------+ + Care Team Providers + +------+ + | Care Road Gang Supervisor Name | Role | Phone | [...] | 11/0 | Activ | | (PROCRIT) [id number] | skin every 30 | | | [...] 06/18/ | Documentati | | Kiersten Shaffer, SPAR FINISHER | Other (Blood | | 2018 | [...] | | | | | | ml/min ([facility]) | | | | | | (Primary Dx); | | | | | | Nephrotic range | | | | | | proteinuria; | | | | | | Hyperkalemia; | | | | | | Hyperuricemia; | | | | | | Anemia of chronic | | | | | | renal failure, stage | | | | | | 5 ([facility]); BRIDGET (acute | | | | | [...] | | | | | | ml/min ([facility]) | | | | | | (Primary Dx); Anemia | | | | | | of chronic renal | | | | | | failure, stage 5 | | | | | | ([facility]); Essential | | | | | | hypertension, | | | | | | benign; | | | | | | Hyperphosphatemia; | | | | | | Secondary | | | | | | hyperparathyroidism | | | | | | ([facility]); Metabolic | | | | | | [...] | | | | | | ml/min ([facility]); Anemia | | | | | | of chronic renal | | | | | | failure, stage 5 | | | | | | ([facility]); BRIDGET (acute | | | | | | kidney injury); | | | | | | Secondary | | | | | | hyperparathyroidism | | | | | | ([facility]); Nephrotic | | | | | | range proteinuria; | | | | | | Essential | | | | | | hypertension, benign | +--------+ + + + + | 06/14/ | Telephone | | Kylee Kerr, | | | 2017 | | | SPAR FINISHER | | +--------+ + + + + | 06/13/ | Documentati | | Kiersten Shaffer CMA | Other (Chart Note | | 2017 | on Only | | | from [facility] dated | | | | | [...] | | | | | PhD 3, [facility] Di | GFR less than 15 | | | | | Nurse | ml/min ([facility]); Anemia | | | | | | [...] | on Only | | | from [facility] | | | | | | Transplant | | | | | | Hepatology dated | | | | | | 05/07/2017) | +--------+ + + + + | 05/23/ | Documentati | | Kiersten Shaffer, SPAR FINISHER | Other (Blood Pressre | | 2017 | on Only | | | Log dated | | | | | | 05/06/2017-05/19/2017) | +--------+ + + + + | 05/23/ | Documentati | | Kiersten Shaffer, SPAR FINISHER | Other ([facility] | | 2017 | on Only | | | Packet) | +--------+ + + + + | 05/22/ | Telephone | | Kiersten Shaffer, SPAR FINISHER | Other | | 2017 | | [...] | | | | | | ml/min ([facility]); Anemia | | | | | | of chronic renal | | | | | | failure, stage 5 | | | | | | ([facility]); BRIDGET (acute | | | | | | kidney injury); | | | | | | Secondary | | | | | | hyperparathyroidism | | | | | | ([facility]) | +--------+ + + + + | [...] | | | | | | ml/min ([facility]) | | | | | | (Primary Dx); Anemia | | | | | | of chronic renal | | | | | | failure, stage 5 | | | | | | ([facility]); Essential | | | | | | hypertension, | | | | | | benign; Secondary | | | | | | hyperparathyroidism | | | | | | ([facility]); Metabolic | | | | | | acidosis; | | | | | | Hyperphosphatemia | +--------+ + + + + | 05/20/ | Orders Only | | Kiersten Shaffer CMA | CKD (chronic kidney | | 2017 | | | | disease) stage 5, | | | | | | GFR less than 15 | | | | | | ml/min ([facility]) | | | | | | (Primary Dx); Anemia | | | | | | of chronic renal | | | | | | failure, stage 5 | | | | | | ([facility]); BRIDGTE (acute | | | | | | kidney injury); | | | | | | Secondary | | | | | | hyperparathyroidism | | | | | | ([facility]); Nephrotic | | | | | | [...] | | | | | | ml/min ([facility]); | | | | | | Nephrotic [...] | 2018 | Encounter | | 2, [facility] Di Nurse | disease) stage 5, | | | | | Radiologist, [facility] | GFR less than 15 | | | | | Procedure Ct | ml/min ([facility]); | | | | | | Nephrotic range | | | | | | proteinuria; Anemia | | | | | | of chronic renal | | | | | | failure, stage 4 | | | | | | (severe) ([facility]); | | | | | | Secondary | | | | | | hyperparathyroidism | | | | | | ([facility]); | | | | | | Hyperphosphatemia; [...] | | | | | | ml/min ([facility]) | | | | | | (Primary [...] ml/min | | | | | | ([facility]); Metabolic | | | | | | acidosis; Nephrotic | | | | | | range proteinuria; | | | | | | Secondary | | | | | | hyperparathyroidism | | | | | | ([facility]); Adverse | | | | | | [...] | | | | | | ml/min ([facility]) | | | | | | (Primary Dx); | | | | | | Nephrotic range | | | | | | proteinuria; Anemia | | | | | | of chronic renal | | | | | | failure, stage 4 | | | | | | (severe) ([facility]); | | | | | | Secondary | | | | | | hyperparathyroidism | | | | | | ([facility]); | | | | | | Hyperphosphatemia; [...] disease | | | | | | ([facility]); Nephrotic | | | | | | range proteinuria; | | | | | | Anemia of chronic | | | | | | renal failure, stage | | | | | | 4 (severe) ([facility]); | | | | | | Hyperuricemia; BRIDGET | | | | | | (acute kidney | | | | | | injury); Metabolic | | | | | | acidosis; Secondary | | | | | | hyperparathyroidism | | | | | | ([facility]); Acute | | | | | | [...] disease | | | | | | ([facility]); Nephrotic | | | | | | range proteinuria; | | | | | | Anemia of chronic | | | | | | renal failure, stage | | | | | | 4 (severe) ([facility]); | | | | | | Hyperuricemia; BRIDGET | | | | | | (acute kidney | | | | | | injury); Metabolic | | | | | | acidosis; Secondary | | | | | | hyperparathyroidism | | | | | | ([facility]); Acute | | | | | | cystitis without | | | | | | hematuria | +--------+ + + + + | 04/17/ | Telephone | | Kiersten Shaffer, SPAR FINISHER | Abnormal Labs | | 2017 | | | | | +--------+ + + + + | 04/16/ | Telephone | | Kiersten Shaffer, SPAR FINISHER | Other (Appointment | | 2017 | | | | and lab reminder) | +--------+ + + + + | 04/15/ | Documentati | | Kiersten Shaffer, SPAR FINISHER | Labs Only ([facility] | | 2018 | on Only | | | lab dated | | | | | | 04/15/2017) | +--------+ + + + + | 04/15/ | Orders Only | | Kiersten Shaffer CMA | Stage 4 chronic | | 2018 | | | | kidney disease | | | | | | ([facility]); Nephrotic | | | | | | range proteinuria; | | | | | | Anemia of chronic | | | | | | renal failure, stage | | | | | | 4 (severe) ([facility]); | | | | | | Hyperuricemia; BRIDGET | | | | | | (acute kidney | | | | | | injury); Metabolic | | | | | | acidosis; Secondary | | | | | | hyperparathyroidism | | | | | | ([facility]); Acute | | | | | | [...] | | | | | | [address] [place], [place] | | | | | | [address] | | | | | | | [...] Lot | + +------+--------+ +--------+--------+--------+ | Graft Alcolu Acuseal [id number] | | Left: | CIARRA ALY - | | 08/19/ | [id number] | | - [id number]: | | Arm | WLGO | | 2020 | [id number] | | Qty: 1 on 05/10/2017 by Bandar, | | | | | | /[id number] | | Jay Daniel MD | | [...] | + + + | Blood | [facility] [address] [place] [address] | | | [address] | + + + CBC W/Auto Diff [...] | + + + | Blood | [facility] [address] [place], [place] [address]akiko [facility] [place] | | | [address] | + + + PTH intact no [...] | Blood | [facility] [address] [facility] [address] [place] | | | [address] | + + + Ferritin (06/14/2017 9:42 [...] | + + + | Blood | [facility] [address] [place] [address] | | | [address] | + + + Renal function panel [...] + + | Blood | [facility] [address] [place] [address], [place] | | | [address] | + + + CT needle biopsy kidney (05/30/2017 10:00 AM) + + + | Specimen | Performing Laboratory | + + + | | [facility] [address] | + + + + + | [...] disease. Proteinuria. History of liver transplant. PRIMARY CHIEF NURSING OFFICER: | | Gerson Lucero MD, PhD, RPVI [...] division in distribution into appropriate media for [place] renal | | pathologic assessment, including electromicroscopy [...] Unit for routine post procedure monitoring. FINDINGS: Cyber Security Consultant CT redemonstrates | | thin body habitus [...] Proteinuria. History of liver | | transplant.PRIMARY CHIEF NURSING OFFICER: Gerson Lucero MD, PhD, RPVIOPERATIONS:1. Limited CT [...] distribution into appropriate media for | | [place] renal pathologic assessment, including electromicroscopy and immunofluorescence. [...] Stay Unit for routine post procedure monitoring.FINDINGS: Cyber Security Consultant CT redemonstrates thin | | body habitus [...] | APTT | 31Comment: Testing performed at [facility] | 23 - 32 seconds | | | Jojo Hester;[place] [address] | | + + + + + + + | Specimen | Performing Laboratory | + + + | Blood | [facility] [address] [place] [address] | + + + Protime-INR (05/30/2017 8:27 [...] at | | | | [facility];[address] [place] [address];[place] [address] | | | |Testing performed at [facility];[address] [place] [address];[place] [address] | | | | | | + + + + + + + | Specimen | Performing Laboratory | + + + | Blood | [facility] [address] [facility] [place] [address] | + + + Platelet count (05/30/2017 8:27 AM)Only the most recent of 2 results within the time perio d is included. + + + + | Component | Value | Ref Range | + + + + | PLT | 277Comment: Testing performed at [facility] | 150 - 400 K/uL | | | [facility];[place] [address] | | + + + + + + + | Specimen | Performing Laboratory | + + + | Blood | [facility] [address] [place] [address] | + + + Pathology histology - [...] This case was seen and processed at [facility] | | [place] in [place], [place]. (Report # [id number]) GROSS DESCRIPTION: Three specimens | | are [...] | | | Some Gl[place], Appears Adequate AMB:[facility] MICROSCOPIC EXAMINATION: Four core | | [...] and their performance characteristics determined by [facility]. This test is used for clinical purposes. It should not be | | regarded as investigational or for research. [facility] is certified | | under the Clinical [...] 1, IF-lgG x 1, IF-lgM x 1, IF-Lanett | | x 1, IF-Lambda x 1. PERFORMING LABORATORY: Professional interpretation and technical | | [facility], [address] [place] [address] | | [place] [address] (Full Time: Trell Marrero M.D.; | | CLIA#: [id number]). COMMENT: The ultrastructural changes support the light [...] + | Blood | [facility] [address] | | | [address] | + + + Basic metabolic panel [...] | + + + | Blood | [facility] [address] [place] [address], [place] | | | [address] | + + + Lanett/Lambda LC RATI (05/15/2017 8:15 AM) + + + | Specimen | Performing Laboratory | + + + | | [facility] [address] [place] [address], [place] [address] [place] | | | [address] | + + + + + | Narrative | + + | Lanett Quant: 13.30 Range: 0.33-1.94 Lambda: 8.20 Range: [...] + | Urine | [facility] [address] [place], [place] [address] | | | [address] | + + + + + | Narrative | + + | Bacteria: 1+ | + + Immunofixation,Serum (05/15/2017 8:15 AM) + + + | Specimen | Performing Laboratory | + + + | Blood | [facility] [address] [place] [address], [facility] [address] [place], [place] | | | [address] | + + + + + | [...] at | NEGATIVE | | | [facility];[address] [facility];[place] [address] | | + + + + + + + | Specimen | Performing Laboratory | + + + | Nasopharyngeal - | [facility] [address] [place] [address] | | Joseph(Nose) | | + + + US upper extremity mapping for HDA bilat (05/01/2017 10:23 AM) + + + | Specimen | Performing Laboratory | + + + | | [place] [address] [place] [address] | + + + + + | [...] Laboratory | + + + | | [facility] [address] [place] [address] | + + + + + | [...] intervention Patient positioning: Prone. | | Axial manager internet images were obtained through region of interest [...] imaging and interventionPatient | | positioning: Prone.Axial manager internet images were obtained through region of interest [...] + | Blood | [facility] [address] [employer], [address] [place], [place] | | | [address] | + + + Magnesium (04/18/2017 8:10 AM) + +---------+ + | Component | Value | Ref Range | + +---------+ + | MAGNESIUM | 1.6 (A) | 1.7 - 2.5 mg/dL | + +---------+ + + + + | Specimen | Performing Laboratory | + + + | Blood | [facility] [address] [place], [place] | | | [address] | + + + Protein / creatinine [...] | Urine - Urine, | [facility] [address] [place] [address], [place] | | Unspecified Source | [address] | + + + Urine culture (04/18/2017) [...] | Urine | [facility] [address] [facility] [address] [place], [place] | | | [address] | + + + from Last 3 [...] | xxxxxxxxxx | | | [address] | | | RE | | | | [place] [address] | | | IP-OP | | | | | + +--------+ +------+-------+ + | MEDICAID | [place]ER | xxxxxxxx | | | [address] | | | N | | | | [place], [place] | | | [place] | | | | [address] | | | INSURANCE AGENT | | | | | + +--------+ [...] | flavia | | | [address] | [address] | + +--------+ +--------+ + +
--- OUTSIDE RECORDS SUMMARY | ~2017-06-27 | XMS | Encounter Summary ---
Demographics + + + | Address | [address] | | | [place] [address] | + + + | Home Phone | | + + + | Preferred Language | Unknown | + + + | Marital Status | | + + + | Anabaptism Affiliation | Unknown | + + + | Race | Unknown | + + + | Ethnic Group | Unknown | + + + Author + + + | Author | [facility] | + + + | Organization | [facility] | + + + | Address | Unknown | + + + | Phone | Unavailable | + + + Support + + +---------+ + | Name | Relationship | Address | Phone | + + +---------+ + | Naye Wright | ECON | Unknown | | + + +---------+ + Care Team Providers + +------+ + | Care Assistant Facility Manager Name | Role | Phone | [...] | kidney disease | | | | [facility] [address] | | ([facility]); Nephrotic | | | | [place] [address] | | range proteinuria; | | | | [phone] | | Anemia of chronic | | | | | | renal failure, stage | | | | | | 4 (severe) ([facility]); | | | | | | Hyperuricemia; BRIDGET | | | | | | (acute kidney | | | | | | injury); Metabolic | | | | | | acidosis; Secondary | | | | | | hyperparathyroidism | | | | | | ([facility]); Acute | | | | | [...] | | | | | | [address] [place], [place] | | | | | | [...] | Blood | [facility] [address] [place] | | | [address] | + + + in this encounter [...]
--- OUTSIDE RECORDS SUMMARY | ~2017-06-27 | XMS | Encounter Summary ---
Demographics + + + | Address | [address] | | | [place] [address] | + + + | Home Phone [...] Team Providers + +------+ + | Care Active Directory Engineer Name | Role | Phone | + +------+ + | Herrera Badillo MD | PCP | | + +------+ + Encounter Details +--------+ + + + + | Date | Type | Department | Care Team | Description | +--------+ + + + + | 05/07/ | Special Police Officer | Transplant | Tori Fine RN | | | 2018 | | Coordinators [address] | | | | | [address] [facility] | [address] [place], | | | | | Road [place], [place] | [place] [address] | | | | | [address] | | | | | | [phone] | | | +--------+ + + + [...] | | | | | [address] [place], | | | | | | [place] [address] | | | | | | [phone] | | | | | | | | +--------+---------+ + + + as of this encounter Visit Diagnoses Not on filein this encounter"
--- OUTSIDE RECORDS SUMMARY | ~2017-06-27 | XMS | Encounter Summary ---
Demographics + + + | Address | [address] | | | [place] [address] | + + + | Home Phone | | + + + | Preferred Language | Unknown | + + + | Marital Status | | + + + | Buddhist Affiliation | Unknown | + + + | Race | Unknown | + + + | Ethnic Group | Unknown | + + + Author + + + | Author | [facility] | + + + | Organization | [facility] | + + + | Address | Unknown | + + + | Phone | Unavailable | + + + Support + + +---------+ + | Name | Relationship | Address | Phone | + + +---------+ + | Naye Wright | ECON | Unknown | | + + +---------+ + Care Team Providers + +------+ + | Care Personnel Associate Name | Role | Phone | [...] 05/20/2017) | | | | [place] [address] | | | | | | [phone] | | | +--------+ + + + [...] [place] | | | | | | [id number] | | | | | | | [...] + | Blood | [facility] [address] [place] [address] | | | [address] | + + + in this encounter Visit Diagnoses Not on filein this encounter"
--- OUTSIDE RECORDS SUMMARY | ~2017-06-27 | XMS | Encounter Summary ---
Demographics + + + | Address | [address] | | | [place] [address] | + + + | Home Phone | | + + + | Preferred Language | Unknown | + + + | Marital Status | | + + + | Restorationist Affiliation | Unknown | + + + | Race | Unknown | + + + | Ethnic Group | Unknown | + + + Author + + + | Author | [facility] | + + + | Organization | [facility] | + + + | Address | Unknown | + + + | Phone | Unavailable | + + + Support + + +---------+ + | Name | Relationship | Address | Phone | + + +---------+ + | Naye Wright | ECON | Unknown | | + + +---------+ + Care Team Providers + +------+ + | Care Kinesiotherapist Name | Role | Phone | + +------+ + | Clinic, [facility] | PCP | Unavailable | | Community | | | + +------+ + Encounter Details +--------+---------+ + + + | Date | Type | Department | Care Team | Description | +--------+---------+ + + + | 04/22/ | Office | [facility] | Tavares Vaca MD | BRIDGET (acute kidney | | 2018 | Visit | [place] [address] | [address] | injury) (Primary | | | | [facility] | [address] [place], [place] | Dx); CKD (chronic | | | | [address] [place], [place] | [address] | kidney disease) | [...] evaluation by the Kidney Transplant team at [facility]. I stopped her Ibuprofen. I put [...] F/U with the liver transplant team at [facility] for management of her anti-rejection meds. She will need to be seen by the Liver transplant team in [place] soon & regularly. She will continue to F/U with your office regularly. She will have a RFP, CBC, intact PTH, SFLC, SPIF, urinalysis, Urine total rjmvrjx-jo-fqw atinine ratio before she comes back in [...] mouth 2 (two) times daily. nystatin (MYCOSTATIN) [id number] UNIT/ML suspension Take 200,000 Units by mouth [...] HD thru a [facility] in [facility]. She had her second liver transplant in 09/2014. She ultimately came off HD in 04/2015. She tells me she stopped on her own her Cellcept in 06/2016 because of abdominal d iscomfort; she says she did let the liver transplant team about that. RENAL FUNCTION: Lower than in early 2015. She had a transient BRIDGTE in late 10/2016; etiolo gy is not [...] for evaluation by the Vascular Surgery team [facility] for AV fistula creation I sent her for evaluation by the Kidney Transplant team at [facility]. I stopped her Ibuprofen. I put [...] F/U with the liver transplant team at [facility] for management of her anti-rejection meds. She will need to be seen by the Liver transplant team in [place] soon & regularly. She will continue to F/U with your office regularly. She will have a RFP, CBC, intact PTH, SFLC, SPIF, urinalysis, Urine total lctjkjx-zb-ojs atinine ratio before she comes back in [...] | | | | | | [address] [place], [place] | | | | | | [address] | | | | | | | [...]
--- OUTSIDE RECORDS SUMMARY | ~2017-06-27 | XMS | Encounter Summary ---
Demographics + + + | Address | [address] | | | [place] [address] | + + + | Home Phone | | + + + | Preferred Language | Unknown | + + + | Marital Status | | + + + | Restorationist Affiliation | Unknown | + + + | Race | Unknown | + + + | Ethnic Group | Unknown | + + + Author + + + | Author | [facility] | + + + | Organization | [facility] | + + + | Address | Unknown | + + + | Phone | Unavailable | + + + Support + + +---------+ + | Name | Relationship | Address | Phone | + + +---------+ + | Naye Wright | ECON | Unknown | | + + +---------+ + Care Team Providers + +------+ + | Care Drop Press Hand Name | Role | Phone | [...] 06/14/2017) | | | | [place] [address] | | | | | | [phone] | | | +--------+ + + + [...] [place] | | | | | | [address] | | | | | | | | +--------+---------+ + + + as of this encounter Visit Diagnoses Not on filein this encounter"
--- OUTSIDE RECORDS SUMMARY | ~2017-06-27 | XMS | Encounter Summary ---
Demographics + + + | Address | [address] | | | [place] [address] | + + + | Home Phone | | + + + | Preferred Language | Unknown | + + + | Marital Status | | + + + | Christianity Affiliation | Unknown | + + + | Race | Unknown | + + + | Ethnic Group | Unknown | + + + Author + + + | Author | [facility] | + + + | Organization | [facility] | + + + | Address | Unknown | + + + | Phone | Unavailable | + + + Support + + +---------+ + | Name | Relationship | Address | Phone | + + +---------+ + | Naye Wright | ECON | Unknown | | + + +---------+ + Care Team Providers + +------+ + | Care Wharf Tender Helper Name | Role | Phone | + +------+ + PCP | Unavailable | + +------+ + Reason for Visit +--------+ + | Reason | Comments | +--------+ + | Other | Chart Note from [facility] date 04/25/2017 | +--------+ + Encounter Details +--------+ + + + + | Date | Type | Department | Care Team | Description | +--------+ + + + + | 06/13/ | Documentati | [facility] | Kiersten Shaffer CMA | Other (Chart Note | | 2018 | on Only | [place] [address] | | from [facility] dated | | | | [address] | | 04/25/2017) | | | | [place] [address] | | | | | | [phone] | | | +--------+ + + + [...] [place] | | | | | | [address] | | | | | | | | +--------+---------+ + + + as of this encounter Visit Diagnoses Not on filein this encounter"
--- OUTSIDE RECORDS SUMMARY | ~2017-06-27 | XMS | Encounter Summary ---
Demographics + + + | Address | [address] | | | [place] [address] | + + + | Home Phone [...] + + + | Author | [facility] | + + + | Organization | [facility] | + + + | Address | Unknown | + + + | Phone | Unavailable | + + + Support + + +---------+ + | Name | Relationship | Address | Phone | + + +---------+ + | Naye Wright | ECON | Unknown | | + + +---------+ + Care Team Providers + +------+ + | Care Casting Tester Name | Role | Phone | + +------+ + | Sherrie Blackman MD | PCP | | + +------+ + Reason for Visit +--------+ + | Reason | Comments | +--------+ + | Other | Progress Note from [facility] Transplant Hepatology dated 05/07/2017 | +--------+ + Encounter Details +--------+ + + + + | Date | Type | Department | Care Team | Description | +--------+ + + + + | 05/24/ | Documentati | [facility] | Kiersten Shaffer CMA | Other (Progress Note | | 2018 | on Only | [place] [address] | | from [facility] | | | | [address] | | Transplant | | | | [place] [address] | | Hepatology dated | | | | [phone] | | 05/07/2017) | +--------+ + + [...] [place] | | | | | | [address] | | | | | | | | +--------+---------+ + + + as of this encounter Visit Diagnoses Not on filein this encounter"
--- OUTSIDE RECORDS SUMMARY | ~2017-06-27 | XMS | Encounter Summary ---
Demographics + + + | Address | [address] | | | [place] [address] | + + + | Home Phone | | + + + | Preferred Language | Unknown | + + + | Marital Status | | + + + | Scientologist Affiliation | Unknown | + + + | Race | Unknown | + + + | Ethnic Group | Unknown | + + + Author + + + | Author | [facility] | + + + | Organization | [facility] | + + + | Address | Unknown | + + + | Phone | Unavailable | + + + Support + + +---------+ + | Name | Relationship | Address | Phone | + + +---------+ + | Naye Wright | ECON | Unknown | | + + +---------+ + Care Team Providers + +------+ + | Care Clinical Lab Clerk Name | Role | Phone | [...] | | | | | [place] [address] | | | | | | [phone] | | | +--------+--------+ + + + [...] | | | | | | [address] | | | | | | [id number] | | | | | | | | +--------+---------+ + + + as of this encounter Visit Diagnoses Not on filein this encounter"
--- OUTSIDE RECORDS SUMMARY | ~2017-06-27 | XMS | Encounter Summary ---
Demographics + + + | Address | [address] | | | [place] [address] | + + + | Home Phone | | + + + | Preferred Language | Unknown | + + + | Marital Status | Unknown | + + + | Congregational Affiliation | Unknown | + + + | Race | Unknown | + + + | Ethnic Group | Unknown | + + + Author + + + | Author | [facility] | | | and [place] | + + + | Organization | [facility] | | | and [place] | + + + | Address | Unknown | + + + | Phone | Unavailable | + + + Care Team Providers + +------+ + | Care Senior Laboratory Technician Name | Role | Phone | + +------+ + PCP | Unavailable | + +------+ + Encounter Details +--------+ + + + + | Date | Type | Department | Care Team | Description | +--------+ + + + + | 05/30/ | [facility] Tavares Vaca | | | 2018 | Encounter | [facility] | MD [address] | | | | | LABORATORY [address] | [address] | | | | | [address] [place], [place] | [place] [address] | | | | | [address] | [phone] | | | | | [phone] | | | +--------+ + + + [...] Laboratory | + + + | | [facility] [address] | | | [place] [address] | + + + + + | Narrative | + + | SURGICAL PATHOLOGY REPORT Case | | Number: [id number] Date Taken: 05/30/2017 Date Received: 05/30/2017 Completed: [...] their | | performance characteristics determined by [facility] | | Laboratory. This test is used for clinical purposes. It should not be regarded | | as investigational or for research. [facility] is certified under the | | Clinical Laboratory Improvement Amendments of 1988 (CLIA) as qualified to perform high | | complexity clinical laboratory testing. A: 97594, 74993, 31259, 03737, | | 58478, 39933, 18824, 61005, 07454, 45155, 40829(a), 30999, 94541, 64970 | | PROCEDURES/ADDENDA ELECTRON MICROSCOPY | | [...] [address] | | [address] [place] [address] | + + in this encounter Visit Diagnoses Not on filein this encounter Admitting Diagnoses + + | Diagnosis | + + | Chronic kidney disease, unspecified - RENAL FAILURE | + + | Abnormal results of kidney function studies | + +
--- OUTSIDE RECORDS SUMMARY | ~2017-06-27 | XMS | Encounter Summary ---
Demographics + + + | Address | [address] | | | [place] [address] | + + + | Home Phone | | + + + | Preferred Language | Unknown | + + + | Marital Status | | + + + | Latter-Day Affiliation | Unknown | + + + | Race | Unknown | + + + | Ethnic Group | Unknown | + + + Author + + + | Author | [facility] | + + + | Organization | [facility] | + + + | Address | Unknown | + + + | Phone | Unavailable | + + + Support + + +---------+ + | Name | Relationship | Address | Phone | + + +---------+ + | Naye Wright | ECON | Unknown | | + + +---------+ + Care Team Providers + +------+ + | Care Non Licensed Nuclear Plant Operator Name | Role | Phone | [...] disease) stage 5, | | | | [address] | | GFR less than 15 | | | | [place] [address] | | ml/min ([facility]); Anemia | | | | [phone] | | of chronic renal | | | | | | failure, stage 5 | | | | | | ([facility]); BRIDGET (acute | | | | | | kidney injury); | | | | | | Secondary | | | | | | hyperparathyroidism | | | | | | ([facility]); Nephrotic | | | | | | [...] [place] | | | | | | [address] | | | | | | | [...] | + + + | Blood | [facility] [address] [place] [address] [facility] [address] [place] | | | [address] | + + + Ferritin (06/14/2017 9:42 AM) + + + + | Component | Value | Ref Range | + + + + | FERRITIN | 472.1 (A) | 13 - 150 ng/mL | + + + + + + + | Specimen | Performing Laboratory | + + + | Blood | [facility] [address] [place] [address] | | | [address] | + + + Renal function panel [...] + + | Blood | [facility] [address] [place], [place] [address] | | | [address] | + + + CBC W/Auto Diff [...] | + + + | Blood | [facility] [place] | | | [address] | + + + PTH intact no calcium (06/14/2017 9:42 AM) + +---------+ + | Component | Value | Ref Range | + +---------+ + | PTH INTACT NO | 409 (A) | 15 - 65 pg/mL | | CALCIUM | | | + +---------+ + + + + | Specimen | Performing Laboratory | + + + | Blood | [facility] [place] [place] | | | [address] | + + + in this encounter Visit Diagnoses + + | Diagnosis | + + | CKD (chronic kidney disease) stage 5, GFR less than 15 ml/min ([facility]) | + + | Chronic kidney disease, Stage V | + + | Anemia of chronic renal failure, stage 5 ([facility]) | + + | BRIDGET (acute kidney injury) | + + | Acute kidney failure, unspecified | + + | Secondary hyperparathyroidism (HCC) | + + | Secondary hyperparathyroidism (of renal origin) | + + | Nephrotic range proteinuria | + + | Proteinuria | + + | Essential hypertension, benign | + +"
--- OUTSIDE RECORDS SUMMARY | ~2017-06-27 | XMS | Encounter Summary ---
Demographics + + + | Address | [address] | | | [place] [address] | + + + | Home Phone | | + + + | Preferred Language | Unknown | + + + | Marital Status | Single | + + + | Denominational Affiliation | NON | + + + | Race | White | + + + | Ethnic Group | Not or | + + + Author + + + | Author | [facility] | + + + | Organization | [facility] | + + + | [...] Team Providers + +------+ + | Care Marble Installation Helper Name | Role | Phone | + +------+ + | Herrera Badillo MD | PCP | | + +------+ + Encounter Details +--------+ + + + + | Date | Type | Department | Care Team | Description | +--------+ + + + + | 05/07/ | Interventional Radiology Rn | Transplant | Tori Fine, RN | Liver replaced by | | 2017 | | Coordinators [address] | transplant (HCC) | | | | [address] | [place], | (Primary Dx) | | | | Road [place], [place] | [place] [address] | | | | | [address] | | | | | | [phone] | | | +--------+ + + + [...] | | | | | [address] [place], | | | | | | [place] [address] | | | | | | [phone] | | | | | | | | +--------+---------+ + + + as of this encounter Visit Diagnoses + + | Diagnosis | + + | Liver replaced by transplant (HCC) - Primary | + + | Liver replaced by transplant | + +"
--- OUTSIDE RECORDS SUMMARY | ~2017-06-27 | XMS | Encounter Summary ---
Demographics + + + | Address | [address] | | | [place] [address] | + + + | Home Phone | | + + + | Preferred Language | Unknown | + + + | Marital Status | Single | + + + | Restoration Affiliation | NON | + + + | Race | White | + + + | Ethnic Group | Not or | + + + Author + + + | Author | [facility] | + + + | Organization | [facility] | + + + | [...] Providers + +------+ + | Care Senior Medical Technologist Name | Role | Phone | + [...] | | | | replaced by | [address] | | | | | | transplant | Ish [address]rera | | | | | | (HCC) | Rd | | | | | | Procedures | [place], [place] | | | | | | [place] | [address] | | | | | | WWO IV | Phone: | | | | | | CONTRAST | [phone] | | | | | | | Fax: | | | | | | | [phone] | | + +--------+ + + + + Encounter Details +--------+ + + + + | Date | Type | Department | Care Team | Description | +--------+ + + + + | 05/24/ | Bundle Cutter | Transplant | Bernabe Taylor MD | Liver replaced by | | 2017 | | Coordinators [address] | [address] | transplant (HCC) | | | | [address] | [place], | (Primary Dx) | | | | Road [place], [place] | [place] [address] | | | | | [address] | [phone] | | | | | [phone] | | | +--------+ + + + [...] | | | | | [address] [place], | | | | | | [place] [address] | | | | | | [phone] | | | | | | | [...]
--- OUTSIDE RECORDS SUMMARY | ~2017-06-27 | XMS | Encounter Summary ---
Demographics + + + | Address | [address] | | | [place] [address] | + + + | Home Phone | | + + + | Preferred Language | Unknown | + + + | Marital Status | | + + + | Amish Affiliation | Unknown | + + + | Race | Unknown | + + + | Ethnic Group | Unknown | + + + Author + + + | Author | [facility] | + + + | Organization | [facility] | + + + | Address | Unknown | + + + | Phone | Unavailable | + + + Support + + +---------+ + | Name | Relationship | Address | Phone | + + +---------+ + | Naye Wright | ECON | Unknown | | + + +---------+ + Care Team Providers + +------+ + | Care Line Haul Truck Driver Name | Role | Phone | [...] 05/21/2017-06/16/2017) | | | | [place] [address] | | | | | | [phone] | | | +--------+ + + + [...] [place] | | | | | | [address] | | | | | | | | +--------+---------+ + + + as of this encounter Visit Diagnoses Not on filein this encounter"
--- OUTSIDE RECORDS SUMMARY | ~2017-06-27 | XMS | Encounter Summary ---
Demographics + + + | Address | [address] | | | [place] [address] | + + + | Home Phone | | + + + | Preferred Language | Unknown | + + + | Marital Status | | + + + | Rastafari Affiliation | Unknown | + + + | Race | Unknown | + + + | Ethnic Group | Unknown | + + + Author + + + | Author | [facility] | + + + | Organization | [facility] | + + + | Address | Unknown | + + + | Phone | Unavailable | + + + Support + + +---------+ + | Name | Relationship | Address | Phone | + + +---------+ + | Naye Wright | ECON | Unknown | | + + +---------+ + Care Team Providers + +------+ + | Care T Rail Turner Name | Role | Phone | + [...] 05/21/2017-06/16/2017) | | | | [place] [address] | | | | | | [phone] | | | +--------+ + + + [...] [place] | | | | | | [address] | | | | | | | | +--------+---------+ + + + as of this encounter Visit Diagnoses Not on filein this encounter"
--- OUTSIDE RECORDS SUMMARY | ~2017-06-27 | XMS | Encounter Summary ---
Demographics + + + | Address | [address] | | | [place] [address] | + + + | Home Phone | | + + + | Preferred Language | Unknown | + + + | Marital Status | Single | + + + | Taoism Affiliation | NON | + + + | Race | White | + + + | Ethnic Group | Not or | + + + Author + + + | Author | [facility] | + + + | Organization | [facility] | + + + | Address [...] Team Providers + +------+ + | Care Calciner Feeder Name | Role | Phone | + [...] [place] (Intake) | | | | [address] [facility] | [facility] | | | | | Road [place], [place] | [place] [address] | | | | | [address] | | | | | | [phone] | | | +--------+ + + + [...] | | | | | [address] [place], | | | | | | [place] [address] | | | | | | [phone] | | | | | | | [...]
--- OUTSIDE RECORDS SUMMARY | ~2017-06-27 | XMS | Encounter Summary ---
Demographics + + + | Address | [address] | | | [place] [address] | + + + | Home Phone | | + + + | Preferred Language | Unknown | + + + | Marital Status | | + + + | Faith Affiliation | Unknown | + + + | Race | Unknown | + + + | Ethnic Group | Unknown | + + + Author + + + | Author | [facility] | + + + | Organization | [facility] | + + + | Address | Unknown | + + + | Phone | Unavailable | + + + Support + + +---------+ + | Name | Relationship | Address | Phone | + + +---------+ + | Naye Wright | ECON | Unknown | | + + +---------+ + Care Team Providers + +------+ + | Care Leather Currier Name | Role | Phone | + +------+ + PCP | Unavailable | + +------+ + Reason for Visit +--------+ + | Reason | Comments | +--------+ + | Other | Chart Note from [facility] date 04/25/2017 | +--------+ + Encounter Details +--------+ + + + + | Date | Type | Department | Care Team | Description | +--------+ + + + + | 06/13/ | Documentati | [facility] | Kiersten Shaffer CMA | Other (Chart Note | | 2018 | on Only | [place] [address] | | from [facility] dated | | | | [address] | | 04/25/2017) | | | | [place] [address] | | | | | | [phone] | | | +--------+ + + + [...] [place] | | | | | | [address] | | | | | | | | +--------+---------+ + + + as of this encounter Visit Diagnoses Not on filein this encounter"
--- OUTSIDE RECORDS SUMMARY | ~2017-06-27 | XMS | Encounter Summary ---
Demographics + + + | Address | [address] | | | [place] [address] | + + + | Home Phone | | + + + | Preferred Language | Unknown | + + + | Marital Status | | + + + | Moravian Affiliation | Unknown | + + + | Race | Unknown | + + + | Ethnic Group | Unknown | + + + Author + + + | Author | [facility] | + + + | Organization | [facility] | + + + | Address | Unknown | + + + | Phone | Unavailable | + + + Support + + +---------+ + | Name | Relationship | Address | Phone | + + +---------+ + | Naye Wright | ECON | Unknown | | + + +---------+ + Care Team Providers + +------+ + | Care Auto Travel Counselor Name | Role | Phone | + +------+ + | Sherrie Blackman MD | PCP | | + +------+ + Encounter Details +--------+ + + + + | Date | Type | Department | Care Team | Description | +--------+ + + + + | 04/23/ | Orders Only | [facility] | Ryan, | CKD (chronic kidney | | 2018 | | Vascular Surgery | [address] | disease) stage 5, | | | | [address] | | GFR less than 15 | | | | [place] | | ml/min ([facility]) | | | | [address] | | (Primary Dx) | | | | [phone] | | | +--------+ + + + [...] | | | | | | [address] [place], [place] | | | | | | [address] | | | | | | | | +--------+---------+ + + + as of this encounter Results US upper extremity mapping for HDA bilat (05/01/2017 10:23 AM) + + + | Specimen | Performing Laboratory | + + + | | [facility] [place] [address] | + + + + + | [...]
--- OUTSIDE RECORDS SUMMARY | ~2017-06-27 | XMS | Encounter Summary ---
Demographics + + + | Address | [address] | | | [place] [address] | + + + | Home Phone [...] Author | [facility] | + + + | Organization | [facility] | + + + | Address | [...] Team Providers + +------+ + | Care Brake Drum Lathe Operator Name | Role | Phone | + +------+ + | Herrera Badillo MD | PCP | | + +------+ + Encounter Details +--------+ + + + + | Date | Type | Department | Care Team | Description | +--------+ + + + + | 05/07/ | Banquet Attendant | Transplant | Tori Fine RN | | | 2018 | | Coordinators [address] | [address] | | | | | [address] [facility] | [address] [place], | | | | | Road [place], [place] | [place] [address] | | | | | [address] | | | | | | [phone] | | | +--------+ + + + [...] | | | | | [address] [place], | | | | | | [place] [address] | | | | | | [phone] | | | | | | | | +--------+---------+ + + + as of this encounter Visit Diagnoses Not on filein this encounter"
--- OUTSIDE RECORDS SUMMARY | ~2017-06-27 | XMS | Encounter Summary ---
Demographics + + + | Address | [address] | | | [place] [address] | + + + | Home Phone | | + + + | Preferred Language | Unknown | + + + | Marital Status | | + + + | Adventism Affiliation | Unknown | + + + | Race | Unknown | + + + | Ethnic Group | Unknown | + + + Author + + + | Author | [facility] | + + + | Organization | [facility] | + + + | Address | Unknown | + + + | Phone | Unavailable | + + + Support + + +---------+ + | Name | Relationship | Address | Phone | + + +---------+ + | Naye Wright | ECON | Unknown | | + + +---------+ + Care Team Providers + +------+ + | Care Risk Management Manager Name | Role | Phone | [...] Documentati | [facility] | Kiersten Shaffer, AUTOMOTIVE QUALITY MANAGER | Other (Blood Pressre | | 2018 | on Only | [place] [address] | | Log dated | | | | [address] | | 05/06/2017-05/19/2017) | | | | [place] [address] | | | | | | [phone] | | | +--------+ + + + [...] | | | | | | [address] [place] [place] | | | | | | [address] | | | | | | | | +--------+---------+ + + + as of this encounter Visit Diagnoses Not on filein this encounter"
--- OUTSIDE RECORDS SUMMARY | ~2017-06-27 | XMS | Encounter Summary ---
Demographics + + + | Address | [address] | | | [place] [address] | + + + | Home Phone | | + + + | Preferred Language | Unknown | + + + | Marital Status | | + + + | Muslim Affiliation | Unknown | + + + | Race | Unknown | + + + | Ethnic Group | Unknown | + + + Author + + + | Author | [facility] | + + + | Organization | [facility] | + + + | Address | Unknown | + + + | Phone | Unavailable | + + + Support + + +---------+ + | Name | Relationship | Address | Phone | + + +---------+ + | Naye Wright | ECON | Unknown | | + + +---------+ + Care Team Providers + +------+ + | Care Master Ocean Name | Role | Phone | + +------+ + | [facility] | PCP | | + +------+ + Reason for Referral MRI/CAT Scan (Emergency) +--------+--------+ + + + + | Status | Reason | Specialty | Diagnoses / | Referred By | Referred To | | | | | Procedures | Contact | Contact | +--------+--------+ + + + + | Closed | | Radiology | Diagnoses | [place], | [facility] [address] | | | | | CKD | Tavares Orellana MD | [address] | | | | | (chronic | [address] | | | | | kidney | [address] | [place], [place] | | | | | disease) | [place], [place] | [address] Phone: | | | | | stage 5, GFR | [address] | [phone] | | | | | less than | Phone: | | | | | | 15 ml/min | [phone] | | | | | | (HCC) | Fax: | | | | | | Anemia of | [phone] | | | | | | chronic [...] 5, | | | | Saurabh Sneed [facility] | | GFR less than 15 | | | | [address], [place] | | ml/min ([facility]) | | | | [address] | | (Primary Dx); Anemia | | | | | | of chronic renal | | | | | | failure, stage 5 | | | | | | ([facility]); BRIDGET (acute | | | | | | kidney injury); | | | | | | Secondary | | | | | | hyperparathyroidism | | | | | | ([facility]); Nephrotic | | | | | [...] | | | | | | [address] [place], [place] | | | | | | [id number] | | | | | | | [...] | | | than 15 ml/min ([facility]) | | | | | Anemia of chronic | | | | | renal failure, stage | | | | | 5 ([facility]) BRIDGET (acute | | | | | kidney injury) | | | | | Secondary | | | | | hyperparathyroidism | | | | | ([facility]) Nephrotic | | | | | range [...] | | | than 15 ml/min ([facility]) | | | | | Anemia of chronic | | | | | renal failure, stage | | | | | 5 ([facility]) BRIDGET (acute | | | | | kidney injury) | | | | | Secondary | | | | | hyperparathyroidism | | | | | ([facility]) Nephrotic | | | | | range [...] | | | than 15 ml/min ([facility]) | until 05/20/2018 | | | | Anemia of chronic | | | | | renal failure, stage | | | | | 5 ([facility]) BRIDGET (acute | | | | | kidney injury) | | | | | Secondary | | | | | hyperparathyroidism | | | | | ([facility]) Nephrotic | | | | | range [...] | | | than 15 ml/min ([facility]) | until 05/20/2018 | | | | Anemia of chronic | | | | | renal failure, stage | | | | | 5 ([facility]) BRIDGET (acute | | | | | kidney injury) | | | | | Secondary | | | | | hyperparathyroidism | | | | | ([facility]) Nephrotic | | | | | range [...] + | Blood | [facility] [address], [facility] [address] [place], [place] | | | [id number] | + + + Iron panel (06/14/2017 [...] + | Blood | [facility] [address] [facility] [address] [place] | | | [address] | + + + PTH intact no [...] | Blood | [facility] [address] [place] [address], [facility] [address] [place], [place] | | | [id number] | + + + CBC W/Auto Diff [...] + + | Blood | [facility] [address] [place] [address] [place] | | | [id number] | + + + Renal function panel [...] + + | Blood | [facility] [address] [place] [address] | | | [address] | + + + CT needle biopsy kidney (05/30/2017 10:00 AM) + + + | Specimen | Performing Laboratory | + + + | | [address] [address] | + + + + + | [...] disease. Proteinuria. History of liver transplant. PRIMARY MOBILE UI/UX DESIGNER: | | Gerson Lucero MD, PhD, [facility] OPERATIONS: 1. Limited CT of the abdomen [...] division in distribution into appropriate media for burns paiute renal | | pathologic assessment, including electromicroscopy [...] Unit for routine post procedure monitoring. FINDINGS: Card Seller CT redemonstrates | | thin body habitus [...] Proteinuria. History of liver | | transplant.PRIMARY MOBILE UI/UX DESIGNER: Gerson Lucero MD, PhD, RPVIOPERATIONS:1. Limited CT [...] distribution into appropriate media for | | burns paiute renal pathologic assessment, including electromicroscopy and immunofluorescence. [...] Stay Unit for routine post procedure monitoring.FINDINGS: Card Seller CT redemonstrates thin | | body habitus [...] | Blood | [facility] [address] [place] [address] [place] | | | [address] | + + + Ferritin (05/20/2017 10:49 AM) + +-------+ + | Component | Value | Ref Range | + +-------+ + | FERRITIN | 127 | 13 - 150 ng/mL | + +-------+ + + + + | Specimen | Performing Laboratory | + + + | Blood | [facility] [address] [place] [address], [place] | | | [id number] | + + + CBC W/Auto Diff [...] | Blood | [facility] [address], [facility] [address] [place], [place] | | | [id number] | + + + Basic metabolic panel [...] + | Blood | [facility] [address], [facility] [address] [place] | | | [id number] | + + + in this encounter Visit Diagnoses + + | Diagnosis | + + | CKD (chronic kidney disease) stage 5, GFR less than 15 ml/min ([facility]) - Primary | + + | Chronic [...]
--- OUTSIDE RECORDS SUMMARY | ~2017-06-27 | XMS | Encounter Summary ---
Demographics + + + | Address | [address] | | | [place] [address] | + + + | Home Phone | | + + + | Preferred Language | Unknown | + + + | Marital Status | | + + + | Jain Affiliation | Unknown | + + + | Race | Unknown | + + + | Ethnic Group | Unknown | + + + Author + + + | Author | [facility] | + + + | Organization | [facility] | + + + | Address | Unknown | + + + | Phone | Unavailable | + + + Support + + +---------+ + | Name | Relationship | Address | Phone | + + +---------+ + | Naye Wright | ECON | Unknown | | + + +---------+ + Care Team Providers + +------+ + | Care Cardroom Drawing Runner Name | Role | Phone | + [...] [place] | | | | | | [address] | | | +--------+ + + + [...] | | | | | | [address] | | | | | | [address] | | | | | | | | +--------+---------+ + + + as of this encounter Visit Diagnoses Not on filein this encounter"
--- OUTSIDE RECORDS SUMMARY | ~2017-06-27 | XMS | Encounter Summary ---
Demographics + + + | Address | [address] | | | [place] [address] | + + + | Home Phone | | + + + | Preferred Language | Unknown | + + + | Marital Status | | + + + | Muslim Affiliation | Unknown | + + + | Race | Unknown | + + + | Ethnic Group | Unknown | + + + Author + + + | Author | [facility] | + + + | Organization | [facility] | + + + | Address | Unknown | + + + | Phone | Unavailable | + + + Support + + +---------+ + | Name | Relationship | Address | Phone | + + +---------+ + | Naye Wright | ECON | Unknown | | + + +---------+ + Care Team Providers + +------+ + | Care Edging Machine Setter Name | Role | Phone | + +------+ + | Sherrie Blackman MD | PCP | | + +------+ + Encounter Details +--------+ + + + + | Date | Type | Department | Care Team | Description | +--------+ + + + + | 04/23/ | Orders Only | [facility] | Ryan, | CKD (chronic kidney | | 2018 | | Vascular Surgery | [address] | disease) stage 5, | | | | [address] | | GFR less than 15 | | | | [place] | | ml/min ([facility]) | | | | [address] | | (Primary Dx) | | | | [phone] | | | +--------+ + + + [...] | | | | | | [address] [place], [place] | | | | | | [address] | | | | | | | | +--------+---------+ + + + as of this encounter Results US upper extremity mapping for HDA bilat (05/01/2017 10:23 AM) + + + | Specimen | Performing Laboratory | + + + | | PATELAria PER[address] [address] | + + + + + | [...]
--- OUTSIDE RECORDS SUMMARY | ~2017-06-27 | XMS | Encounter Summary ---
Demographics + + + | Address | [address] | | | [place] [address] | + + + | Home Phone | | + + + | Preferred Language | Unknown | + + + | Marital Status | | + + + | Yarsanism Affiliation | Unknown | + + + | Race | Unknown | + + + | Ethnic Group | Unknown | + + + Author + + + | Author | [facility] | + + + | Organization | [facility] | + + + | Address | Unknown | + + + | Phone | Unavailable | + + + Support + + +---------+ + | Name | Relationship | Address | Phone | + + +---------+ + | Naye Wright | ECON | Unknown | | + + +---------+ + Care Team Providers + +------+ + | Care Build Master Name | Role | Phone | + [...] [place] | | | | | | [address] | | | +--------+--------+ + + + [...] | | | | | | [address] | | | | | | [address] | | | | | | | | +--------+---------+ + + + as of this encounter Visit Diagnoses Not on filein this encounter"
--- OUTSIDE RECORDS SUMMARY | ~2017-06-27 | XMS | Encounter Summary ---
Demographics + + + | Address | [address] | | | [place] [address] | + + + | Home Phone | | + + + | Preferred Language | Unknown | + + + | Marital Status | | + + + | Episcopalian Affiliation | Unknown | + + + | Race | Unknown | + + + | Ethnic Group | Unknown | + + + Author + + + | Author | [facility] | + + + | Organization | [facility] | + + + | Address | Unknown | + + + | Phone | Unavailable | + + + Support + + +---------+ + | Name | Relationship | Address | Phone | + + +---------+ + | Naye Wright | ECON | Unknown | | + + +---------+ + Care Team Providers + +------+ + | Care Reservation Sales Agent Name | Role | Phone | + +------+ + | [facility] | PCP | | + +------+ + Reason for Referral MRI/CAT Scan (Emergency) +--------+--------+ + + + + | Status | Reason | Specialty | Diagnoses / | Referred By | Referred To | | | | | Procedures | Contact | Contact | +--------+--------+ + + + + | Closed | | Radiology | Diagnoses | [place], | [facility] [address] | | | | | CKD | Tavares Orellana MD | [address] | | | | | (chronic | [address] | | | | | kidney | [address] | [place], [place] | | | | | disease) | [place], [place] | [address] Phone: | | | | | stage 5, GFR | [address] | [phone] | | | | | less than | Phone: | | | | | | 15 ml/min | [phone] | | | | | | (HCC) | Fax: | | | | | | Anemia of | [phone] | | | | | | chronic [...] 5, | | | | Saurabh Sneed [facility] | | GFR less than 15 | | | | [address] [place], [place] | | ml/min ([facility]) | | | | [address] | | (Primary Dx); Anemia | | | | | | of chronic renal | | | | | | failure, stage 5 | | | | | | ([facility]); BRIDGET (acute | | | | | | kidney injury); | | | | | | Secondary | | | | | | hyperparathyroidism | | | | | | ([facility]); Nephrotic | | | | [...] | | | | | | [address] [place], [place] | | | | | | [id number] | | | | | | | [...] | | | | than 15 ml/min ([facility]) | | | | | Anemia of chronic | | | | | renal failure, stage | | | | | 5 ([facility]) BRIDGET (acute | | | | | kidney injury) | | | | | Secondary | | | | | hyperparathyroidism | | | | | ([facility]) Nephrotic | | | | | range [...] | | | | than 15 ml/min ([facility]) | | | | | Anemia of chronic | | | | | renal failure, stage | | | | | 5 ([facility]) BRIDGET (acute | | | | | kidney injury) | | | | | Secondary | | | | | hyperparathyroidism | | | | | ([facility]) Nephrotic | | | | | range [...] | | | | than 15 ml/min ([facility]) | until 05/20/2018 | | | | Anemia of chronic | | | | | renal failure, stage | | | | | 5 ([facility]) BRIDGET (acute | | | | | kidney injury) | | | | | Secondary | | | | | hyperparathyroidism | | | | | ([facility]) Nephrotic | | | | | range [...] | | | | than 15 ml/min ([facility]) | until 05/20/2018 | | | | Anemia of chronic | | | | | renal failure, stage | | | | | 5 ([facility]) BRIDGET (acute | | | | | kidney injury) | | | | | Secondary | | | | | hyperparathyroidism | | | | | ([facility]) Nephrotic | | | | | range [...] + | Blood | [facility] [address], [facility] [address] [place], [place] | | | [address] | + + + Iron panel (06/14/2017 [...] + | Blood | [facility] [address] [facility] [address] [place] | | | [address] | + + + PTH intact no calcium (06/14/2017 9:42 AM) + +---------+ + | Component | Value | Ref Range | + +---------+ + | PTH INTACT NO | 409 (A) | 15 - 65 pg/mL | | CALCIUM | | | + +---------+ + + + + | Specimen | Performing Laboratory | + + + | Blood | [facility] [address] [place] [address], [facility] [address] [place], [place] | | | [address] | + + + CBC W/Auto Diff [...] + + | Blood | [facility] [address] [place] [address] [place] | | | [address] | + + + Renal function panel [...] + | Blood | [facility] [address] [place] [address] | | | [address] | + + + CT needle biopsy kidney (05/30/2017 10:00 AM) + + + | Specimen | Performing Laboratory | + + + | | [address] [address] | + + + + + | [...] disease. Proteinuria. History of liver transplant. PRIMARY MATERIALS ASSOCIATE: | | Gerson Lucero MD, PhD, [facility] OPERATIONS: 1. Limited CT of the [...] division in distribution into appropriate media for [place] renal | | pathologic assessment, including electromicroscopy [...] Unit for routine post procedure monitoring. FINDINGS: Perforator CT redemonstrates | | thin body habitus [...] Proteinuria. History of liver | | transplant.PRIMARY MATERIALS ASSOCIATE: Gerson Lucero MD, PhD, RPVIOPERATIONS:1. Limited CT [...] distribution into appropriate media for | | [place] renal pathologic assessment, including electromicroscopy and immunofluorescence. [...] Stay Unit for routine post procedure monitoring.FINDINGS: Perforator CT redemonstrates thin | | body habitus [...] | + + + | Blood | [facility] [address] [place] [address] [place] | | | [address] | + + + Ferritin (05/20/2017 10:49 AM) + +-------+ + | Component | Value | Ref Range | + +-------+ + | FERRITIN | 127 | 13 - 150 ng/mL | + +-------+ + + + + | Specimen | Performing Laboratory | + + + | Blood | [facility] [address] [place] [address], [place] | | | [address] | + + + CBC W/Auto Diff [...] | + + + | Blood | [facility] [address], [facility] [address] [place], [place] | | | [address] | + + + Basic metabolic panel [...] + | Blood | [facility] [address], [facility] [address] [place] | | | [address] | + + + in this encounter Visit Diagnoses + + | Diagnosis | + + | CKD (chronic kidney disease) stage 5, GFR less than 15 ml/min ([facility]) - Primary | + + [...]
--- OUTSIDE RECORDS SUMMARY | ~2017-06-27 | XMS | Encounter Summary ---
Demographics + + + | Address | [address] | | | [place] [address] | + + + | Home Phone [...] Team Providers + +------+ + | Care Member Services Representative Name | Role | Phone | [...] | | status | Health Care | [facility] | | | | | Procedures | Center [address] | | | | | [place] | [address] | [place], [place] | | | | | OFFICE/OUTPT | Ave | [address] | | | | | | [facility], | Phone: | | | | | VISIT,[place] | [place] [address] | [phone] | | | | | [address] | Phone: | Fax: | | | | | | [phone] | [phone] | | | | | | Fax: | | | | | | | [phone] | | +--------+--------+ + + + + Encounter Details +--------+---------+ + + + | Date | Type | Department | Care Team | Description | +--------+---------+ + + + | 05/07/ | Office | Liver Transplant | Bernabe Taylor MD | Cirrhosis of | | 2018 | Visit | at [facility] 2nd Floor | [address] | transplanted liver | | | | [address] | [address] [facility], | (HCC); [place] | | | | [address] | [place] [address] | hepatic failure | | | | [place], [place] | [phone] | (HCC); Liver | | | | [address] | | replaced by | | | | [phone] | | transplant (HCC) | +--------+---------+ + [...] RETURN PATIENT VISIT 05/07/2017 Herrera Badillo MD [facility] [address] [place] [address] RE: Nicolasa Sanz : [address] Delarosa: I had the pleasure of seeing Nicolasa Sanz in follow up in the Liver Clinic at [facility] for the first time since 06/24/2012. Pertinent laboratory, imaging, pathology results were reviewed. HISTORY OF PRESENT ILLNESS: The patient is a 37 y.o./o white female with NAYA s/p LT in 1988 complicated by chronic rejection who presents for follow up. Since her last visit in 2012, the patient underwent OLT in [place] in 2014. She is starting HD and is awaiting kidney transplantation. She was declined by [facility]. She denies jaundice, hepatic encephalopathy, SBP, or LE edema. Post-Transplant Dx (updated today) 1.Liver disease - Etiology- Etiology- NAYA s/p OLT 1988 at [facility] c/b chronic rejection s/p 2nd OLT 2014 at [facility] 2. Liver transplant- 09/13/2014 ~ Aortic conduit from infrarenal aorta to [place]. Venous conduit from SMV to donor PV. Kel-en- Y hepaticojejunostomy. Splenectomy - Immunosuppression regimen- FK trough goals per [place] - Complications- no ACR, HAT, biliary, surgical, noncompliance after 2nd OLT 3. Secondary Dx - Renal insufficiency- on HD, awaiting GLASS INSPECTOR evaluation - H/o Crohn's disease- remicade infusions. The patient denies history of Crohn's although it is in her medical records. 4. Preventive care - Vaccinations- HAV, HBV, Flu, Pneumovax- reviewed 5. Social- lived in [place], now in [place]- to be near sister. 2 sons. REVIEW [...] FK goal 3-5 or higher as per [place] recommendations. 3. Awaiting renal transplant evaluation. 4. Return to clinic in 1 year. Thank you for allowing me to participate in the care of this patient. Please feel free to contact me with any questions regarding the patient's care. Warmest regards. Sincerely, Bernabe Taylor M.D., M.S. public employment mediator Director of Clinical Hepatology Division of Gastroenterology and Hepatology [facility] and [facility] in this encounter Plan of Treatment +--------+---------+ + + + | Date | Type | Specialty | Care Team | Description | +--------+---------+ + + + | 05/20/ | Office | Liver Transplant | Bernabe Taylor MD | | | 2018 | Visit | | [address] | | | | | | [place], | | | | | | [place] [address] | | | | | | [phone] | | | | | | | [...]
--- OUTSIDE RECORDS SUMMARY | ~2017-06-27 | XMS | Encounter Summary ---
Demographics + + + | Address | [address] | | | [place] [address] | + + + | Home Phone | | + + + | Preferred Language | Unknown | + + + | Marital Status | | + + + | Zoroastrianism Affiliation | Unknown | + + + | Race | Unknown | + + + | Ethnic Group | Unknown | + + + Author + + + | Author | [facility] | + + + | Organization | [facility] | + + + | Address | Unknown | + + + | Phone | Unavailable | + + + Support + + +---------+ + | Name | Relationship | Address | Phone | + + +---------+ + | Naye Wright | ECON | Unknown | | + + +---------+ + Care Team Providers + +------+ + | Care Head Of Digital Name | Role | Phone | + [...] | | | | | [place] [address] | | | | | | [phone] | | | +--------+ + + + [...] | | | | | | [address] [place] | | | | | | [address] | | | | | | | | +--------+---------+ + + + as of this encounter Visit Diagnoses Not on filein this encounter"
--- OUTSIDE RECORDS SUMMARY | ~2017-06-27 | XMS | Encounter Summary ---
Demographics + + + | Address | [address] | | | [place] [address] | + + + | Home Phone [...] Author + + + | Author | [facility] | + + + | Organization | [facility] | + + + [...] Team Providers + +------+ + | Care Lab Systems Analyst Name | Role | Phone | + [...] (Intake) | | | | [address] [facility] | [facility] | | | | | Road [place], [place] | [place] [address] | | | | | [address] | | | | | | [phone] | | | +--------+ + + + [...] | | | | | [address] [place], | | | | | | [place] [address] | | | | | | [phone] | | | | | | | [...]
--- OUTSIDE RECORDS SUMMARY | ~2017-06-27 | XMS | Encounter Summary ---
Demographics + + + | Address | [address] | | | [place] [address] | + + + | Home Phone | | + + + | Preferred Language | Unknown | + + + | Marital Status | | + + + | Caodaism Affiliation | Unknown | + + + | Race | Unknown | + + + | Ethnic Group | Unknown | + + + Author + + + | Author | [facility] | + + + | Organization | [facility] | + + + | Address | Unknown | + + + | Phone | Unavailable | + + + Support + + +---------+ + | Name | Relationship | Address | Phone | + + +---------+ + | Naye Wright | ECON | Unknown | | + + +---------+ + Care Team Providers + +------+ + | Care Flat Grinder Operator Name | Role | Phone | [...] + + | 05/29/ | Office | [facility] | Bk ISAURA Pyle | Chronic kidney | | 2018 | Visit | Vascular Surgery | [address] | disease (CKD), | | | | [address] | [place], [place] | active medical | | | | [place], [place] | [address] | management without | | | | [address] | | dialysis, | | | | [phone] | | unspecified stage | | | [...] Lashanda Bourgeois DNP - 05/29/2017 2:30 PM [facility] [address] [place] [address] [place] [address] Office: [phone] DATE OF VISIT: 05/29/2017 PATIENT NAME: Nicolasa Clark : 1980; AGE: 37 y.o.; Sex:F PHONE NUMBER: ; PROVIDER: Lashanda Bourgeois DNP PRIMARY CARE / REFERRING PHYSICIAN: [facility] Primary / Sherrie Blackman / [address] [address] / [place] [id number] REASON FOR EVALUATION / CHIEF COMPLAINT: Vascular Surgery Postoperative Visit for AVG creation The patient presents today for a Vascular Surgery Postoperative Visit. The patient is statu s post Left brachial artery to axillary vein using 4-7 mm Acuseal graft creation, which was performed on 05/10/2017 at the [facility] Operating Room. Patient reports she continues to [...] | | | | | | [address] [place], [place] | | | | | | [address] | | | | | | | | +--------+---------+ + + + as of this encounter Visit Diagnoses + + | Diagnosis | + + | Chronic kidney disease (CKD), active medical management without dialysis, unspecified | | stage - Primary | + + | Hemodialysis access, AV graft (HCC) | + +"
--- OUTSIDE RECORDS SUMMARY | ~2017-06-27 | XMS | Encounter Summary ---
Demographics + + + | Address | [address] | | | [place] [address] | + + + | Home Phone | | + + + | Preferred Language | Unknown | + + + | Marital Status | | + + + | Sikh Affiliation | Unknown | + + + | Race | Unknown | + + + | Ethnic Group | Unknown | + + + Author + + + | Author | [facility] | + + + | Organization | [facility] | + + + | Address | Unknown | + + + | Phone | Unavailable | + + + Support + + +---------+ + | Name | Relationship | Address | Phone | + + +---------+ + | Naye Wright | ECON | Unknown | | + + +---------+ + Care Team Providers + +------+ + | Care Director Translational Name | Role | Phone | + [...] + + | 05/02/ | Hospital | [facility] | Jay Portillo MD | | | 2018 | Encounter | [facility] | [address] | | | | | Preadmission | [place] [address] | | | | | Services [address] | [phone] | | | | | Blvd [place], [place] | | | | | | [...] ready to use in a few weeks. [place] can be placed into the plastic tube [...] clotting or other narrowing. Date Last Reviewed: 03/04/201619994302-1049 [employer]. [address] [place] [address]. All righ ts reserved. This information is [...] | | | | | | [address] [place], [place] | | | | | | [address] | | | | | | | [...] performed at | | | | [facility];[address] [place] [address];[place] [address] | | | |Testing performed at [facility];[address] [place] [address];[place] [address] | | | | | | + + + + + + + | Specimen | Performing Laboratory | + + + | Blood | [facility] [address] [place] [address] | + + + CBC w/auto diff [...] BASOPHILS ABS | 0.05Comment: Testing performed at [facility], [facility] | 0.00 - 0.10 K/uL | | | [facility] [place] [address] | | + + + + + + + | Specimen | Performing Laboratory | + + + | Blood | [facility] [address], | | | [place] [address] | + + + Basic metabolic panel [...] | | | | 1.210.Testing performed at [facility], [address] | | | | [place] [address] | | | | | | + + + + + + + | Specimen | Performing Laboratory | + + + | Blood | [facility] [address] [place] [address] [address], | | | [place] [address] | + + + aPTT (05/02/2017 1:10 PM) + + + + | Component | Value | Ref Range | + + + + | APTT | 33 (H)Comment: Testing performed at [facility];[address] | 23 - 32 seconds | | | [address];[place] [address] | | + + + + + + + | Specimen | Performing Laboratory | + + + | Blood | [facility] [address] [address] | + + + MRSA by PCR (05/02/2017 1:09 PM) + + + + | Component | Value | Ref Range | + + + + | SOURCE | NARES(NOSE) | | + + + + | MRSA PCR | NEGATIVEComment: Testing performed at | NEGATIVE | | | [facility];[address] [place] [address];[place] [address] | | + + + + + + + | Specimen | Performing Laboratory | + + + | Nasopharyngeal - | [address] [address] | | Nares(Nose) | | + + + in this encounter Visit Diagnoses Not on filein this encounter"
--- OUTSIDE RECORDS SUMMARY | ~2017-06-27 | XMS | Encounter Summary ---
Demographics + + + | Address | [address] | | | [place] [address] | + + + | Home Phone | | + + + | Preferred Language | Unknown | + + + | Marital Status | | + + + | Samaritan Affiliation | Unknown | + + + | Race | Unknown | + + + | Ethnic Group | Unknown | + + + Author + + + | Author | [facility] | + + + | Organization | [facility] | + + + | Address | Unknown | + + + | Phone | Unavailable | + + + Support + + +---------+ + | Name | Relationship | Address | Phone | + + +---------+ + | Naye Wright | ECON | Unknown | | + + +---------+ + Care Team Providers + +------+ + | Care Powder Line Repairer Name | Role | Phone | [...] + + | 05/10/ | Surgery | [facility] | Jay Portillo MD | AV GRAFT CREATION | | 2018 | | [facility] | [address] | | | | | Operating Room [address] | [place] [address] | | | | | [address] | [phone] | | | | | [place] [address] | | | | | | [phone] | | | +--------+---------+ + + + [...] skin turning blue, or fainting Call 911. [facility] AV DIALYSIS SHUNT/FISTULA DISCHARGE INSTRUCTIONS [...] [place] | | | | | | [address] | | | | | | | [...] | | | | 1.210.Testing performed at [facility];[address] [place] [address] | | | | [facility];[place] [address] | | | | | | + + + + + + + | Specimen | Performing Laboratory | + + + | Blood | [facility] [address] [place] [address] | + + + CBC w/auto diff [...] BASOPHILS ABS | 0.08Comment: Testing performed at [facility] | 0.00 - 0.10 K/uL | | | [address] [facility];[place] [address] | | + + + + + + + | Specimen | Performing Laboratory | + + + | Blood | [facility] [address] [facility] [place] [address] | + + + in this encounter [...]
--- OUTSIDE RECORDS SUMMARY | ~2017-06-27 | XMS | Encounter Summary ---
Demographics + + + | Address | [address] | | | [place] [address] | + + + | Home Phone | | + + + | Preferred Language | Unknown | + + + | Marital Status | | + + + | Orthodoxy Affiliation | Unknown | + + + | Race | Unknown | + + + | Ethnic Group | Unknown | + + + Author + + + | Author | [facility] | + + + | Organization | [facility] | + + + | Address | Unknown | + + + | Phone | Unavailable | + + + Support + + +---------+ + | Name | Relationship | Address | Phone | + + +---------+ + | Naye Wright | ECON | Unknown | | + + +---------+ + Care Team Providers + +------+ + | Care Qa Automation Engineer Name | Role | Phone | [...] | | | | | [place] [address] | | | | | | [phone] | | | +--------+ + + + [...] [place] | | | | | | [id number] | | | | | | | | +--------+---------+ + + + as of this encounter Visit Diagnoses Not on filein this encounter"
--- OUTSIDE RECORDS SUMMARY | ~2017-06-27 | XMS | Encounter Summary ---
Demographics + + + | Address | [address] | | | [place] [address] | + + + | Home Phone | | + + + | Preferred Language | Unknown | + + + | Marital Status | | + + + | Mu-Ism Affiliation | Unknown | + + + | Race | Unknown | + + + | Ethnic Group | Unknown | + + + Author + + + | Author | [facility] | + + + | Organization | [facility] | + + + | Address | Unknown | + + + | Phone | Unavailable | + + + Support + + +---------+ + | Name | Relationship | Address | Phone | + + +---------+ + | Naye Wright | ECON | Unknown | | + + +---------+ + Care Team Providers + +------+ + | Care Avionics Installer Name | Role | Phone | + +------+ + PCP | Unavailable | + +------+ + Encounter Details +--------+---------+ + + + | Date | Type | Department | Care Team | Description | +--------+---------+ + + + | 06/17/ | Office | [facility] | Tavarse Vaca MD | CKD (chronic kidney | | 2018 | Visit | [address] | [address] | disease) stage 5, | | | | [facility] | [address] [place], [place] | GFR less than 15 | | | | [address] [place], [place] | [id number] | ml/min (HCC) | | | | [address] | | (Primary Dx); Anemia | | | | | | of chronic renal | | | | | | failure, stage 5 | | | | | | ([facility]); Essential | | | | | | hypertension, | | | | | | benign; | | | | | | Hyperphosphatemia; | | | | | | Secondary | | | | | | hyperparathyroidism | | | | | | ([facility]); Metabolic | | | | | | [...] Also: I see no acute indication for ON CALL PHARMACY TECHNICIAN. I see no need to send her to the ED. I discussed with her to F/U for evaluation by the Kidney Transplant team at [facility] I kept her off Ibuprofen. [...] F/U with the liver transplant team at [facility] for management of her anti -rejection meds. She will need to be seen by the Liver transplant team in [place] soon & regularly. She will F/U with [...] stage IV CKD on a background of long-term use of calcineurin inhibitors. 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 Her 05/30/17 kidney biopsy just confirmed that. She had a liver transplant at the age of 8; she had the hepatorenal syndrome in early 2014 & needed to go dialysis; she came off of it for 2.5 months; restarted HD thru a CVC in the [facility] of 2014. She had her second [...] Also: I see no acute indication for ON CALL PHARMACY TECHNICIAN. I see no need to send her to the ED. I discussed with her to F/U for evaluation by the Kidney Transplant team at [facility] I kept her off Ibuprofen. [...] F/U with the liver transplant team at [facility] for management of her anti -rejection meds. She will need to be seen by the Liver transplant team in [place] soon & regularly. She will F/U with [...] or concerns. Truly yours, Tavares Vaca MD [facility] in this encounter Plan of Treatment +--------+---------+ + + + | Date | Type | Specialty | Care Team | Description | +--------+---------+ + + + | 07/15/ | Office | Nephrology | Tavares Vaca MD | | | 2018 | Visit | | [address] | | | | | | [address] [place], [place] | | | | | | [address] | | | | | | | | +--------+---------+ + + + as of this encounter Visit Diagnoses + + | Diagnosis | + + | CKD (chronic kidney disease) stage 5, GFR less than 15 ml/min ([facility]) - Primary | + + | Chronic kidney disease, Stage V | + + | Anemia of chronic renal failure, stage 5 ([facility]) | + + | Essential hypertension, benign | + + | Hyperphosphatemia | + + | Disorders of phosphorus metabolism | + + | Secondary hyperparathyroidism (HCC) | + + | Secondary hyperparathyroidism (of renal origin) | + + | Metabolic acidosis | + + | Acidosis | + +"
--- OUTSIDE RECORDS SUMMARY | ~2017-06-27 | XMS | Encounter Summary ---
Demographics + + + | Address | [address] | | | [place] [address] | + + + | Home Phone | | + + + | Preferred Language | Unknown | + + + | Marital Status | Single | + + + | Jain Affiliation | NON | + + + | Race | White | + + + | Ethnic Group | Not or | + + + Author + + + | Author | [facility] | + + + | Organization | [facility] | + + + | Address | [...] Team Providers + +------+ + | Care Fly Winder Name | Role | Phone | + +------+ + | Herrera Badillo MD | PCP | | + +------+ + Encounter Details +--------+ + + + + | Date | Type | Department | Care Team | Description | +--------+ + + + + | 05/06/ | Abstract | Transplant | Sander Yan MD | | | 2018 | | Coordinators [address] | | | | | [address] [facility] | [place], [place] | | | | | Road [place], [place] | [address] | | | | | [address] | [phone] | | | | | [phone] | | | +--------+ + + + [...] | | | | | [address] [place], | | | | | | [place] [address] | | | | | | [phone] | | | | | | | [...] | + + + | Blood | [place] [address] [address] [place] [address] | + + + in this encounter Visit Diagnoses Not on filein this encounter"
--- OUTSIDE RECORDS SUMMARY | ~2017-06-27 | XMS | Encounter Summary ---
Demographics + + + | Address | [address] | | | [place] [address] | + + + | Home Phone | | + + + | Preferred Language | Unknown | + + + | Marital Status | | + + + | Mosque Affiliation | Unknown | + + + | Race | Unknown | + + + | Ethnic Group | Unknown | + + + Author + + + | Author | [facility] | + + + | Organization | [facility] | + + + | Address | Unknown | + + + | Phone | Unavailable | + + + Support + + +---------+ + | Name | Relationship | Address | Phone | + + +---------+ + | Naye Wright | ECON | Unknown | | + + +---------+ + Care Team Providers + +------+ + | Care Environmental Field Professional Name | Role | Phone | + +------+ + | Sherrie Blackman MD | PCP | | + +------+ + Encounter Details +--------+ + + + + | Date | Type | Department | Care Team | Description | +--------+ + + + + | 05/21/ | Telephone | [facility] | Yaritza Soares, | | | 2017 | | Vascular Surgery | RN | | | | | [address] | | | | | | [place] | | | | | | [address] | | | | | | [phone] | | | +--------+ + + + [...]
--- OUTSIDE RECORDS SUMMARY | ~2017-06-27 | XMS | Encounter Summary ---
Demographics + + + | Address | [address] | | | [place] [address] | + + + | Home Phone | | + + + | Preferred Language | Unknown | + + + | Marital Status | | + + + | Faith Affiliation | Unknown | + + + | Race | Unknown | + + + | Ethnic Group | Unknown | + + + Author + + + | Author | [facility] | + + + | Organization | [facility] | + + + | Address | Unknown | + + + | Phone | Unavailable | + + + Support + + +---------+ + | Name | Relationship | Address | Phone | + + +---------+ + | Naye Wright | ECON | Unknown | | + + +---------+ + Care Team Providers + +------+ + | Care Research Physiologist Name | Role | Phone | + [...] 04/15/2017) | | | | [place] [address] | | | | | | [phone] | | | +--------+ + + + [...] | | | | | [address] [place] | | | | | | [id number] | | | | | | | | +--------+---------+ + + + as of this encounter Visit Diagnoses Not on filein this encounter"
--- OUTSIDE RECORDS SUMMARY | ~2017-06-27 | XMS | Encounter Summary ---
Demographics + + + | Address | [address] | | | [place] [address] | + + + | Home Phone | | + + + | Preferred Language | Unknown | + + + | Marital Status | Single | + + + | Samaritan Affiliation | NON | + + + | Race | White | + + + | Ethnic Group | Not or | + + + Author + + + | Author | [facility] | + + + | Organization | [facility] | + + + | [...] Team Providers + +------+ + | Care Cell Stripper Final Name | Role | Phone | + [...] | | | | replaced by | [address] | | | | | | transplant | [address] | | | | | | (HCC) | Rd | | | | | | Procedures | [place], [place] | | | | | | [place] | [address] | | | | | | WWO IV | Phone: | | | | | | CONTRAST | [phone] | | | | | | | Fax: | | | | | | | [phone] | | + +--------+ + + + + Encounter Details +--------+ + + + + | Date | Type | Department | Care Team | Description | +--------+ + + + + | 05/24/ | Appeals Officer | Transplant | Bernabe Taylor MD | 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
--- OUTSIDE RECORDS SUMMARY | ~2017-06-27 | XMS | Encounter Summary ---
Demographics + + + | Address | [address] | | | [place] [address] | + + + | Home Phone | | + + + | Preferred Language | Unknown | + + + | Marital Status | Single | + + + | Rastafarian Affiliation | NON | + + + [...] Team Providers + +------+ + | Care Sports Medicine Masseur Name | Role | Phone | + [...] | | | | | [address] [facility] | [address] [place], | | | | | [place], [place] | [place] [address] | | | | | [address] | [phone] | | | | | [phone] | | | +--------+ + + + [...] | | | | | [address] [place], | | | | | | [place] [address] | | | | | | [phone] | | | | | | | | +--------+---------+ + + + as of this encounter Visit Diagnoses Not on filein this encounter
--- OUTSIDE RECORDS SUMMARY | ~2017-06-27 | XMS | Encounter Summary ---
Demographics + + + | Address | [address] | | | [place] [address] | + + + | Home Phone | | + + + | Preferred Language | Unknown | + + + | Marital Status | | + + + | Restorationist Affiliation | Unknown | + + + | Race | Unknown | + + + | Ethnic Group | Unknown | + + + Author + + + | Author | [facility] | + + + | Organization | [facility] | + + + | Address | Unknown | + + + | Phone | Unavailable | + + + Support + + +---------+ + | Name | Relationship | Address | Phone | + + +---------+ + | Naye Wright | ECON | Unknown | | + + +---------+ + Care Team Providers + +------+ + | Care Master Control Supervisor Name | Role | Phone | + +------+ + | Clinic, [facility] | PCP | Unavailable | | [...] | Diagnoses | [place], | [facility] | | | | | CKD | Tavares Orellana MD | [address] | | | | | (chronic | [address] | [address] | | | | | kidney | [address] | [address] | | | | | disease) | [place], [place] | [place], [place] | | | | | stage 5, GFR | [address] | [address] Phone: | | | | | less than | Phone: | [phone] | | | | | 15 ml/min | [phone] | Fax: | | | | | (HCC) | Fax: | [phone] | | | | | Nephrotic | [phone] | | | | | | range [...] | | stage 5, GFR | [place] [address] | [address] [place] | | | | | less than | Phone: | [address] [place], | | | | | 15 ml/min | [phone] | [place] [address] | | | | | (HCC) | Fax: | Phone: | | | | | Nephrotic | [phone] | [phone] | | | | | range | | Fax: | | | | | proteinuria | | [phone] | | | | | Anemia of [...] | stage 5, GFR | [place], | [address] Phone: | | | | | less than | [place] [address] | [phone] | | | | | 15 ml/min | Phone: | Fax: | | | | | (HCC) | [phone] | [phone] | | | | | Nephrotic | Fax: | | | | | | range | [phone] | | | | | | proteinuria [...] | | | | | | | ([facility]) | | | + + + + [...] (chronic kidney | | 2018 | | [place] [address] | | disease) stage 5, | | | | [address] | | GFR less than 15 | | | | [address] [place], [place] | | ml/min (HCC) | | | | [address] | | (Primary Dx); | | | | | | Nephrotic range | | | | | | proteinuria; Anemia | | | | | | of chronic renal | | | | | | failure, stage 4 | | | | | | (severe) ([facility]); | | | | | | Secondary | | | | | | hyperparathyroidism | | | | | | ([facility]); | | | | | [...] | | | | | | [address] [place], [place] | | | | | | [address] | | | | | | | [...] ml/min ([facility]) | until 04/22/2018 | | | | Nephrotic range | | | | | proteinuria Anemia | | | | | of chronic renal | | | | | failure, stage 4 | | | | | (severe) ([facility]) | | | | | Secondary | | | | | hyperparathyroidism | | | | | ([facility]) | | | | | Hyperphosphatemia | [...] 4 | | | | | (severe) ([facility]) | | | | | Secondary | | | | | hyperparathyroidism | | | | | ([facility]) | | | | | Hyperphosphatemia | [...] 4 | | | | | (severe) ([facility]) | | | | | Secondary | | | | | hyperparathyroidism | | | | | ([facility]) | | | | | Hyperphosphatemia | [...] 4 | | | | | (severe) ([facility]) | | | | | Secondary | [...] + | Urine | [facility] [address], [address] [place], [place] | | | [address] | + + + + + | Narrative | + + | Bacteria: 1+ | + + Gilboa/Lambda LC RATI (05/15/2017 8:15 AM) + + + | Specimen | Performing Laboratory | + + + | | [facility] [address], [address] [place], [place] | | | [address] | + + + + + | Narrative | + + | Gilboa Quant: 13.30 Range: 0.33-1.94 Lambda: 8.20 Range: 0.57-2.63 | | Ratio:1.62 Range: 0.26-1.65 | + + Immunofixation,Serum (05/15/2017 8:15 AM) + + + | Specimen | Performing Laboratory | + + + | Blood | [address] | | | [address] | + + + + + | [...] + + | Blood | [facility] [address] [place] [address] [address] [place] | | | [address] | + + + CBC W/Auto Diff [...] + + | Blood | [facility] [address] [place] [address] [address] [place], [place] | | | [address] | + + + Renal function panel [...] LABORATORY [address] [facility] [address] [place] | | | [address] | + + + CT limited localizer (04/24/2017 10:32 AM) + + + | Specimen | Performing Laboratory | + + + | | [facility]IRIAM PERALTA [address] [facility] [address] | + + + + + | [...] intervention Patient positioning: Prone. | | Axial communications assistant images were obtained through region of [...] imaging and interventionPatient | | positioning: Prone.Axial communications assistant images were obtained through region of [...]
--- NOTE | 2017-06-28 07:21 | EKG ---
[facility] [address] [facility] [place], [place] [address] Signed Sinus tachycardia Otherwise normal ECG When compared with ECG of 23-JUN-2017 13:46, fusion complexes are no longer present QT has lengthened Confirmed by GARY MANCILLA MD ([id number]) on 06/28/2017 7:20:51 AM Electronically Signed By: GARY MANCILLA MD 06/28/17 0721 PATIENT NAME: TINANAHIDELFINO Electrocardiogram DATE OF : 84 PHYSICIAN: GARY MANCILLA MD REPORT #: [id number] REPORT IS CONFIDENTIAL AND NOT TO BE RELEASED WITHOUT AUTHORIZATION
== END ==
LOC: ED 18:14
DX: N18.6 End stage renal disease (principal); Z88.0 Allergy status to penicillin; Z79.899 Other long term (current) drug therapy
CPT/HCPCS: 71046; 80053; 83735; 84484; 85025; 93005; 93010; 96374; 96375; 96376; 99284; J2270; J2405